=== PATIENT | female | born 1985 | race Caucasian/White ===

== ENCOUNTER 2020-01-01 17:54 | Emergency (ER) | payer OTHER, SELFPAY ==
[2020-01-01 17:54] VITALS: BP 137/85; PULSE 105; RESP 16; TEMP 36.2; O2SAT 96; BMI 34.2
[2020-01-01 18:12] VITALS: BP 137/85; PULSE 105; RESP 17; TEMP 36.2; O2SAT 96
--- NOTE | 2020-01-01 18:15 | RAD_ITS ---
STUDY: X-RAY CHEST REASON FOR EXAM: Female, 34 years old. MILD SOB, LIGHTHEADED., MUSCLE ACHES,FEVERS,DIAZ TECHNIQUE: Frontal view of the chest COMPARISON: None. FINDINGS: Examination is mildly technically suboptimal due to increased image noise and patient''s large body habitus. The lungs are clear and expanded. There is no demonstrated pleural abnormality. Normal size heart. Normal mediastinum and murphy. Normal visualized pulmonary arteries. Normal visualized aortic arch and descending thoracic aorta. Normal visualized thoracic spine. Normal visualized ribs, clavicles, and shoulders. There is no demonstrated abnormality of the visualized soft tissue structures of the upper abdomen. RAD/Chest 1 View (Portable) IMPRESSION: Mildly technically limited negative chest radiograph. Electronically Signed: Ajay Thomas, at 19:00 EDT Tel , Service support ,
--- NOTE | 2020-01-01 18:16 | ED.DCSUM_ITS ---
History of Present Illness Chief Complaint: Fever Informant: Patient Onset: Days - 3 Context: Gradual Onset Timing: Waxes and wanes Quality: 103 Current Severity: Gone Maximum Severity: Severe Worsened by: - - Nothing Relieved by: Tylenol Associated Symptoms: Nasal Congestion, Headache, Nausea, Vomiting, Shortness of Breath, Nonproductive cough. Negative for: Hemoptysis Narrative: Healthy 34-year-old started having headaches 4 days ago, followed by fevers up to 103, chills, malaise, myalgias, minor nonproductive cough, mild congestion, and mild dyspnea with exertion. She states she is not out of breath but a little difficult to breathe. 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 No one that she knows of with COVID-19, nor has she had it yet, however the school season just started, she had a virtual visit with a [facility] nurse practitioner, who advised that she come to the ER and get tested for COVID. She does not have asthma. She had a couple bouts of vomiting couple days ago. No diarrhea. Normal bowel movements with no blood or bleeding from anywhere. Past Medical History - Allergies and Home Meds Allergies/Adverse Reactions: Allergies No Known Allergies Allergy (Verified 01/01/20 17:54) Primary Care Physician: Del Hubbard DO [Primary Care Provider] - Past Medical History: None Smoking Status: Current some day smoker Review of Systems General: Reports: Chills, Fever, Malaise, Sweats, - - Lightheadedness Eyes: Denies: Visual changes - bilaterally, Diplopia ENT: Reports: - - Mild nasal congestion. Denies: Bilateral ear pain, Rhinorrhea, Sore throat Cardiovascular: Denies: Chest pain, Palpitations Respiratory: Reports: Dyspnea, Cough, Dyspnea on exertion. Denies: Sputum, Orthopnea Gastrointestinal: Reports: Nausea - Not currently, Vomiting. Denies: Abdominal pain, Diarrhea, Melena, Hematochezia Genitourinary: Reports: Frequency. Denies: Dysuria, Hematuria Musculoskeletal: Reports: Myalgias. Denies: Neck pain, Back pain, Swelling Skin: Denies: Rash, Wounds Neurological: Reports: Headache. Denies: Weakness, Numbness Physical Exam Vital Signs/Narrative: Vital Signs Temp Pulse Resp BP Pulse Ox 01/01/20 18:12 97.2 F L 105 H 17 137/85 H 96 01/01/20 17:54 97.2 F L 105 H 16 137/85 H 96 Inital Vital Signs reviewed: Yes General: Well nourished, Well developed, - - Well-appearing, no acute distress. Conversive in full sentences. Head: Normocephalic, Atraumatic. Negative for: Sinus Tenderness Eyes: Perrl, EOMI Nose: Normal Inspection, No Rhinorrhea. Negative for: Purulent Drainage Neck: Supple, Nontender, No Lymphadenopathy, No Meningismus Cardiovascular: Regular rate, Regular rhythm, No murmurs, Normal S1, Normal S2, Tachycardia - Mild Respiratory: No distress, CTA bilaterally, Chest nontender Abdomen: Soft, Nontender, Nondistended, Normal bowel sounds Back: Nontender, Normal Inspection Extremities: Nontender, No edema Skin: Normal color, No rash, No Trauma Neurological: Alert, Oriented x3, Cranial nerves II-XII grossly intact, Normal Strength, Normal Sensation, Normal Gait Psychological: Normal affect, Normal Mood Diagnostic/Tx/Re-eval Impressions Chest X-Ray 01/01/20 18:15 IMPRESSION: Mildly technically limited negative chest radiograph. Electronically Signed: Ajay Thomas, at 19:00 EDT Tel , Service support , 01/01/20 18:15 Chest 1 View (Portable) [RAD] Stat Laboratory Results 01/01/20 18:20 Urine Color Yellow Urine Clarity Sl. Cloudy Urine pH 6.0 Ur Specific [place] 1.025 Urine Protein 15 H Urine Glucose (UA) Normal Urine Ketones Negative Urine Occult Blood 25 H Urine Nitrite Negative Urine Bilirubin Negative Urine Urobilinogen Normal Ur Leukocyte Esterase 100 H Urine RBC 0-5 SEEN Urine WBC 0-5 SEEN Ur Squamous Epith Cells 5-10 SEEN Urine Bacteria 2+ Urine Mucus 0 SEEN - Medical Decision Making X-ray and urinalysis unremarkable. I do not think this urinalysis represents acute infection. She is reassured with regards to her vital signs and able to be safely discharged home. We sent a COVID-19 swab to be sent out of house to be tested. She does not meet criteria for in-house testing emergently. She was given appropriate quarantine instructions to abide by until the test results return and work note. She was prescribed an albuterol inhaler to use as needed for dyspnea, I do not think she needs work-up for pulmonary embolus or other noninfectious pathology, she likely has a viral infection of some sort. Discussed reasons to return. Do not see any indication at this time for antibiotics. ED Disposition - Plan for ED Patient: Disposition: Home or Assisted Living Diagnosis: Viral syndrome Instructions: ED Upper Resp Infec No Abx Tx Prescriptions: Albuterol Inhaler [Ventolin Hfa] 1 - 2 puff INHALATION Q4H PRN PRN #1 inhaler PRN Reason: Wheezing Prescription Printed Referrals: Del Hubbard DO [Primary Care Provider] - 1 Week if not improving Additional Instructions: See attached quarantine instructions and to obtain access to patient portal to check on your COVID-19 swab results.
[2020-01-01 18:25] LABS: Mucous, Urine 0 SEEN /hpf (<or=2+)
[2020-01-01 18:45] LABS: Color, Urine Yellow (Yellow); Glucose, Dipstick Normal (Normal); Ketone-Dipstick Negative (Negative); Leukocyte Esterase-Dipstick 100 /ul (Negative); Nitrite-Dipstick Negative (Negative); Occult Blood-Urine 25 /ul (Negative); Protein-Dipstick 15 mg/dl (Negative); Specific Gravity, Urine 1.025 (1.002-1.030); Urine Bilirubin Dipstick Negative (Negative); Urine Clarity Sl. Cloudy (Clear); Urine Urobilinogen Normal (Normal)
[2020-01-01 18:51] LABS: Bacteria 2+ /hpf (None Seen); Red Blood Cells-Urine 0-5 SEEN /hpf (0-5); Squamous Epithelial Cells - UA 5-10 SEEN /hpf (5-10); White Blood Cells 0-5 SEEN /hpf (0-5)
[2020-01-01 19:24] VITALS: BP 137/85; PULSE 100; RESP 18; O2SAT 98
== END 2020-01-01 19:25 | disposition home or self-care (01) ==
PROVIDERS: Emergency Provider Emergency Medicine; PCP Student in an Organized Health Care Education/Training Program
DX: B34.9 Viral infection, unspecified (principal); F17.200 Nicotine dependence, unspecified, uncomplicated
CPT/HCPCS: 71045; 81001; 87635; 99282; C9803; U0003

== ENCOUNTER → 2022-06-25 | Outpatient (CLI) | payer MEDICAID, SELFPAY ==
--- NOTE | 2022-06-25 08:01 | US_ITS ---
STUDY: ULTRASOUND OF THE FEMALE PELVIS - COMPLETE REASON FOR EXAM: Female, 36 years old. AUB LMP: Unknown TECHNIQUE: Transabdominal and Transvaginal TECHNICAL QUALITY: Adequate. COMPARISON: None. FINDINGS: The uterus is anteverted and is in a midline position. The uterus measures 8.9 x 6.4 x 5.2 cm. Normal uterine cervix. The endometrium measures 8.3 mm in thickness, and is normal. There is no demonstrated endometrial mass. 2 hypodense exophytic myometrial lesions measuring 1.6 x 1.5 x 1.3 cm and 1.5 x 1.8 x 1.4 cm. I.U.D. - The patient does not have an I.U.D. echogenic/calcific lesions of the cervix measuring 0.8 x 0.8 x 0.8 cm. The right ovary is visualized. The right ovary measures 3.5 x 3.1 x 1.6 cm. There is no right ovarian cyst or ovarian mass. There is no visualized right adnexal mass or complex lesion. There is normal arterial and normal venous vascularity. The left ovary is visualized. The left ovary measures 2.7 x 2 x 2.1 cm. There is no left ovarian cyst or ovarian mass. There is no visualized left adnexal mass or complex lesion. There is normal arterial and normal venous vascularity. There is no fluid in the cul-de-sac. Polycystic ovary disease: No. US/Pelvic (Non ) IMPRESSION: Leiomyomatous uterus. Electronically Signed: Negro Engel MD at 18:08 EST ,
== END | disposition home or self-care (01) ==
LOC: US 07:57
PROVIDERS: PCP Student in an Organized Health Care Education/Training Program; Referring Provider Obstetrics & Gynecology; Visit Provider Obstetrics & Gynecology
DX: D25.9 Leiomyoma of uterus, unspecified (principal); N93.9 Abnormal uterine and vaginal bleeding, unspecified
CPT/HCPCS: 76830; 76856

== ENCOUNTER → 2022-11-11 | Outpatient (CLI) | payer MEDICAID, SELFPAY | END | disposition home or self-care (01) | PROVIDERS: PCP Student in an Organized Health Care Education/Training Program; Referring Provider Nurse Practitioner Women's Health; Visit Provider Nurse Practitioner Women's Health | DX: N89.8 Other specified noninflammatory disorders of vagina (principal) | CPT/HCPCS: 87070; 87205 ==

== ENCOUNTER → 2022-11-18 | Outpatient (CLI) | payer MEDICAID, SELFPAY ==
[2022-11-18 17:15] LABS: hCG Titer Quant., Serum < 1 mIU/mL (1-3)
[2022-11-18 17:24] LABS: Follicle Stimulating Hormone 5.7 mIU/mL; T4 Free Direct 0.89 ng/dL (0.76-1.46)
== END | disposition home or self-care (01) ==
LOC: LAB 15:51
PROVIDERS: PCP Student in an Organized Health Care Education/Training Program; Referring Provider Nurse Practitioner Women's Health; Visit Provider Nurse Practitioner Women's Health
DX: N91.2 Amenorrhea, unspecified (principal); Z13.29 Encounter for screening for other suspected endocrine disorder
CPT/HCPCS: 36415; 83001; 84146; 84439; 84443; 84702

== ENCOUNTER → 2023-11-23 | Outpatient (CLI) | payer OTHER, SELFPAY ==
--- NOTE | 2023-11-23 16:21 | US_ITS ---
STUDY: ULTRASOUND OF THE FEMALE PELVIS - COMPLETE REASON FOR EXAM: Female, 38 years old. IUD check LMP: Unknown. TECHNIQUE: Transabdominal and Transvaginal TECHNICAL QUALITY: Adequate. COMPARISON: Comparison is made with prior study June 25, 2022. FINDINGS: The uterus is anteverted and is in a midline position. The uterus measures 9.5 cm x 7.5 cm x 5 cm. There is a Nabothian cyst of the cervix. The endometrium measures 8 mm in thickness, and is hyperechoic. There is no demonstrated endometrial mass. 2 fibroids are seen. The largest measures 1.6 cm x 1.7 cm x 1.3 cm. I.U.D. - The patient does have an I.U.D. The right ovary is visualized. The right ovary measures 7.4 cm x 6 cm x 4.9 cm. Within it, there are 2 cysts. The largest cyst measures 5.9 cm x 5.3 cm x 3.8 cm. There is no visualized right adnexal mass or complex lesion. There is normal arterial and normal venous vascularity. The left ovary is visualized. The left ovary measures 3.6 cm x 1.7 x 2 cm. A dominant follicle is seen within the measurement 0.7 cm x 1.3 cm x 1.1 cm. There is no visualized left adnexal mass or complex lesion. There is normal arterial and normal venous vascularity. There is minimal fluid in the cul-de-sac. The pre void volume of the bladder was 88 ml. US/Pelvic w/ Transvaginal IMPRESSION: Fibroid uterus as described. IUD is seen within the endometrium. 2 simple cysts are seen in the right ovary. The larger measures 5.9 cm x 5.3 cm x 3.8 cm. Follow-up is recommended. Electronically Signed: Glen Chan MD at 14:17 EDT ,
== END | disposition home or self-care (01) ==
LOC: US 16:21
PROVIDERS: PCP Student in an Organized Health Care Education/Training Program; Referring Provider Nurse Practitioner Women's Health; Visit Provider Nurse Practitioner Women's Health
DX: N92.0 Excessive and frequent menstruation with regular cycle (principal); Z30.431 Encounter for routine checking of intrauterine contraceptive device
CPT/HCPCS: 76830; 76856

== ENCOUNTER → 2024-09-26 | Outpatient (CLI) | payer OTHER, SELFPAY ==
--- NOTE | 2024-09-26 16:14 | US_ITS ---
PROCEDURE: PELVIC W/ TRANSVAGINAL 09/26/2024 REASON FOR EXAM: OVARIAN CYST TECHNIQUE: Transabdominal and transvaginal pelvic ultrasound. Color doppler analysis of the ovaries. COMPARISON: Pelvic ultrasound on 11/23/2023. FINDINGS: Measurements: Uterus: 9.0 x 4.4 x 6.7 cm for volume of 139.1 mL Endometrial Thickness: 0.5 cm Right Ovary: 2.8 x 1.6 x 1.8 cm for volume of 4.3 mL Left Ovary: 5.4 x 5.0 x 4.0 cm for volume of 56.1 mL Uterus: Anteverted. There is an exophytic heterogeneous lesion arising from the anterior uterus measuring 1.3 x 1.5 x 1.5 cm. Additionally there is a heterogeneous myometrial lesion measuring 1.4 x 1.5 x 1.7 cm. Endometrium: Normal echotexture. Intrauterine device appears appropriately positioned with tip near the fundal end of the endometrium. Right ovary: Normal size and echotexture. Left ovary: Cystic lesion measuring 4.7 x 3.3 x 3.3 cm in aggregate, with thin septations and no internal solid components identified. A smaller cystic component internally measures 1.8 x 1.4 x 1.7 cm. Cul-de-sac: No free intraperitoneal fluid identified. DOPPLER: Color Doppler: Normal color flow doppler signal at both ovaries. Spectral Doppler: Normal arterial inflow and venous outflow signal at both ovaries. US/Pelvic w/ Transvaginal IMPRESSION: 1. Cystic left ovarian lesion measuring up to 4.7 cm, which may represent elba ral unilocular simple cysts, or less likely a multilocular cyst. Consider follow-up ultrasound in 6-12 months. 2. Unchanged leiomyomas. 3. Appropriate positioning of the intrauterine device. Reading Location: [id number]
== END | disposition home or self-care (01) ==
LOC: US 16:13
PROVIDERS: PCP Student in an Organized Health Care Education/Training Program; Referring Provider Nurse Practitioner Women's Health; Visit Provider Nurse Practitioner Women's Health
DX: R10.2 Pelvic and perineal pain (principal); N83.209 Unspecified ovarian cyst, unspecified side
CPT/HCPCS: 76830; 76856

== ENCOUNTER 2025-01-03 20:22 | Inpatient (IN) | payer OTHER, SELFPAY ==
[2025-01-03 20:22] VITALS: BP 121/80; PULSE 87; RESP 16; TEMP 36.4; O2SAT 99
[2025-01-03 21:31] LABS: Red Blood Cells-Urine 0 SEEN /hpf (0-5)
[2025-01-03 21:34] LABS: Hematocrit 39.0 % (37-47); Hemoglobin 13.7 g/dL (12.0-15.0); Immature Granulocytes Count 0.240 X10^3/uL (0.0-0.0); Mean Corp Hgb Conc 35.1 g/dL (32-36); Mean Corpuscular Volume 88.0 fL (81-99); Mean Platelet Vol. 8.6 fl (6.2-12.0); NRBC Flagged by Analyzer 0 % (0-5); POSITIVE DIFFERENTIAL YES; POSITIVE MORPHOLOGY YES; Platelet Count 366 K/mm3 (150-450); RBC Distribution Width CV 13.2 % (11.6-14.6); RBC Distribution Width SD 41.4 fl (35.1-43.9); Red Blood Count 4.43 M/mm3 (4.2-5.4); White Blood Count 23.2 K/mm3 (4.4-11.0)
[2025-01-03 21:35] LABS: Color, Urine Yellow (Yellow); Glucose, Dipstick Normal (Normal); Ketone-Dipstick 5 mg/dl (Negative); Leukocyte Esterase-Dipstick 500 /ul (Negative); Nitrite-Dipstick Negative (Negative); Occult Blood-Urine 10 /ul (Negative); Protein-Dipstick 100 mg/dl (Negative); Specific Gravity, Urine 1.030 (1.002-1.030)
[2025-01-03 21:56] LABS: Urine Bilirubin Dipstick 1 mg/dL (Negative)
[2025-01-03 22:03] LABS: Anion Gap 12 (5-15); BUN 13 mg/dL (4-19); BUN/Creat Ratio 19.4 RATIO (10-20); Calcium,Total 9.1 mg/dL (7.6-11.0); Carbon Dioxide 22.3 mmol/L (21.0-32.0); Chloride 108 mmol/L (98-108); Glucose 113 mg/dL (70-99); Potassium 2.9 mmol/L (3.3-5.1)
--- NOTE | 2025-01-03 22:15 | ED.VIS.BACK ---
HPI History of Present Illness Chief Complaint: Back Detail of Chief Complaint: Back pain Informant: patient Narrative Narrative: Patient presents with back pain x 3 weeks. She had an MRI of her back 8 days ago that showed possible recurrence of herniated disc at L4-5. Patient was seen by her back surgeon who did microdiscectomy in August. She was referred for injections to her back which were done yesterday by a [facility] provider. She had some mild relief for a few hours but then the pain came back. She continues complain of severe pain in her back. She complains of difficulty sensing when she needs to urinate but has not lost control of bowel or bladder. She complains of pain with standing and difficulty walking secondary to pain. She is scheduled to see Dr. Pernell vail for a second opinion about possible repeat surgery. The initial MRI that was done 8 days ago was read by radiology and they recommended obtaining a repeat MRI with IV contrast as it was difficult to assess if there was scar tissue causing the mild impingement of the L5 nerve root on the right versus recurrent disc herniation. PFSH PFSH Home Medications ?Medication ?Instructions ?Recorded ?Last Taken ?Type albuterol sulfate 90 mcg/actuation 1 - 2 puff inhalation Q4H PRN PRN 01/01/20 Unknown Rx aerosol inhaler Wheezing ##1 levonorgestrel (Mirena) 1 device intrauterine ONCE 11/10/23 Unknown History tirzepatide (weight loss) 2.5 2.5 mg subcut QWEEK 11/10/23 Unknown History mg/0.5 mL subcutaneous pen injector estradiol 1 mg tablet 1 mg PO DAILY #30 TABLETS 12/14/23 Unknown Rx Allergy/AdvReac Type Severity Reaction Status Date / Time No Known Allergies Allergy Verified 01/03/25 20:23 Surgical History Status post breast reduction Social History adopted: No household members: spouse and children housing: apartment number of children: 1 current occupational status: employed 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 Smoking Status: Former smoker alcohol intake: current alcohol intake frequency: holidays/special occasions only substance use type: does not use seatbelt use: always do you feel safe at home: Yes additional social history: [employer]- [employer] ROS ROS ED Review of Systems ROS Unobtainable: other Constitutional Constitutional ED: Reports lethargy; Denies chills, fever(s), sweats or weight loss Eyes Eyes: Denies blurry vision, change in vision or diplopia ENT ENT ED: Denies rhinorrhea or sore throat Cardiovascular Cardiovascular: Denies chest pain, orthopnea or racing heartbeat Respiratory/Chest Respiratory/Chest: Denies cough, dyspnea, dyspnea on exertion, orthopnea or sputum Gastrointestinal Gastrointestinal: Denies abdominal pain, diarrhea, nausea or vomiting Genitourinary Genitourinary ED: Denies dysuria, hematuria or urinary frequency Musculoskeletal Musculoskeletal: Reports back pain; Denies arthralgias, myalgias or neck pain Integumentary Denies abscess, Abrasions or rash Neurologic Neurologic: Denies headache(s) or weakness Psychiatric Psychiatric: Denies anxiety, depression or suicidal thoughts Endocrine Endocrinology: Denies polydipsia, polyphagia or polyuria Hematologic/Lymphatic Hematologic/Lymphatic: Denies easy bleeding, easy bruising or lymphadenopathy Allergic/Immunologic Allergic/Immunologic ED: Denies mouth swelling, tongue swelling or urticaria EXAM Physical Exam Const Vital Signs: 01/03/25 20:22 Temperature 97.5 F L Temperature Source Temporal Pulse Rate 87 Respiratory Rate 16 Blood Pressure 121/80 H Blood Pressure Mean 93 Pulse Ox 99 Oxygen Delivery Method Room Air Positive well nourished and well developed General Appearance ED: well developed and NAD HEENT Reports TM's clear and moist mucous membranes normocephalic and atraumatic; Negative for trauma or tenderness Tympanic Membrane ED: Yes TM's clear Eyes PERRL and EOMs intact bilaterally General Eye ED: Negative for pale conjunctiva or scleral icterus Neck no lymphadenopathy, supple and no JVD General: Negative for tenderness Chest Wall inspection of chest normal and palpation of chest normal Chest: Negative for tenderness Resp normal respiratory effort and clear to auscultation bilaterally Effort and Inspection: Negative for respiratory distress or pain with movement Auscultation: Negative for rhonchi, wheezes or diminished lung sounds Cardio regular rate, regular rhythm, S1 normal heart sound, S2 normal heart sound and no murmurs Peripheral Pulses: pulses 2+ throughout GI normal to inspection, nondistended, normoactive bowel sounds, soft to palpation, non-tender, non-distended and no masses Back/Spine no CVA tenderness and no thoracic nor lumbar tenderness Back/Spine Narrative: No significant tenderness with palpation of the back. She does have positive straight leg raise on the right at about 30 degrees while supine. Deep tendon reflexes are plus 2 out of 4 bilaterally at the patella and Achilles. Patient has some weakness with L5 extension on the right compared to the left. Normal sensation to light touch to both lower extremities. Extremity normal to inspection General Extremety ED: Negative for edema General Extremity: Negative for edema Neuro oriented x3, CN's II-XII intact bilaterally, no sensory deficits noted and gait normal Sensorium / Orientation: awake, alert, oriented to person, oriented to place and oriented to time Motor Exam: strength 5/5 throughout and strength abnormal Psych mental status grossly normal Skin no rashes or lesions noted and no wounds MDM MDM MDM Narrative Medical decision making narrative: Patient with ongoing back pain for 3 weeks. Scheduled to follow-up locally with Dr. Gimenez. Had spinal injection yesterday. Continues to complain of significant pain. Patient had an IV line established and was medicated with Dilaudid as well as Toradol and she had good pain relief with that. Continues to complain of discomfort though radiating to the right leg. Chemistries obtained were unremarkable other than a slightly depressed potassium of 2.9 for which I did order 40 mEq of potassium chloride p.o. CBC with differential and urinalysis ordered and pending. I did discuss case with Dr. Gimenez who is on for orthopedics. He would be happy to see patient in consultation while admission for pain control to the hospital. Patient will likely require MRI imaging with IV contrast to evaluate further. I do not feel she has an acute cauda equina. Do not suspect infectious issue or complication due to spinal injection. Lab Data Attestation: I reviewed the patient's lab results. Labs: Laboratory Results - last 24 hr 01/03/25 01/03/25 21:25 21:26 WBC 23.2 H RBC 4.43 Hgb 13.7 Hct 39.0 MCV 88.0 MCH 30.9 MCHC 35.1 RDW Std Deviation 41.4 RDW Coeff of Sadiq 13.2 Plt Count 366 MPV 8.6 Immature Gran % (Auto) 1.000 H Neut % (Auto) 63.6 Lymph % (Auto) 28.7 [place] % (Auto) 5.7 Eos % (Auto) 0.7 Baso % (Auto) 0.3 Absolute Neuts (auto) 14.7 H Absolute Lymphs (auto) 6.66 H Nucleated RBC % 0 Sodium 142 Potassium 2.9 L Chloride 108 Carbon Dioxide 22.3 Anion Gap 12 BUN 13 Creatinine 0.68 L Est GFR (MDRD) Non-Af 114 BUN/Creatinine Ratio 19.4 Glucose 113 H Calcium 9.1 Urine Color Yellow Urine Clarity Cloudy Urine pH 5.0 Ur Specific [place] 1.030 Urine Protein 100 H Urine Glucose (UA) Normal Urine Ketones 5 H Urine Occult Blood 10 H Urine Nitrite Negative Urine Bilirubin 1 H Urine Urobilinogen 1 H Ur Leukocyte Esterase 500 H Urine RBC 0 SEEN Urine WBC >100 SEEN Ur Squamous Epith Cells 10-25 SEEN Calcium Oxalate Crystal RARE Urine Bacteria 2+ Urine Mucus 3+ Discharge Plan Dx/Rx/DC Orders Clinical Impression: Intractable back pain, Acute lumbar radiculopathy, UTI (urinary tract infection) Disposition Disposition: Acute Care Hospital [facility]
[2025-01-03 22:18] LABS: Calcium Oxalate Crystals Ur RARE /hpf (<or=2+); Mucous, Urine 3+ /hpf (<or=2+); Squamous Epithelial Cells - UA 10-25 SEEN /hpf (5-10)
[2025-01-03 22:20] LABS: Differential Indicated SCAN CRITERIA MET
[2025-01-03 22:22] VITALS: BP 128/80; PULSE 70; RESP 18; O2SAT 98
--- NOTE | 2025-01-03 22:23 | PCM.HP.STD ---
[facility] - General General Date of Admission: 01/03/25 Date of Service: 01/03/25 Chief Complaint: Back Pain with Difficulty Ambulating and Sensing Need to Urinate. HPI Narrative JUAN CHISHOLM, is a 39 F with a past medical history of obesity; on tirzepatide weekly, history of hyperlipidemia (2014), former tobacco abuse, history of breast reduction (2010), history of intramural fibroids, history of spinal scoliosis and history of back pain; s/p L4-L5 laminectomy and microdiscectomy on 09/05/2024 at [facility] by Dr. Jansen with initial improvement in her back pain who presents to [facility] ER complaining of an acute worsening of her back pain complicated by new difficulty ambulating and urinating. Ms. Chisholm reports her acute symptoms began ~3 weeks prior to admission with an acute worsening of her back pain causing her physician to obtain and MRI of the lumbar spine ~8 days ago that revealed possible recurrence of herniated disc at L4-L5 with need for another surgery with disc removal according to Dr. Jansen. She was then referred to pain management for injections at [facility] with patient stating that her pain improved for only ~2 hours before returning. She also admits to new difficulty sensing when she needs to urinate but she denies bowel or bladder incontinence. She states her pain is made worse with standing and walking and she has to crawl to the bathroom because the pain becomes so intense. She had already made an appointment here with Dr. Moeller for a second opinion about possible repeat surgery with radiologist that read her recent MRI recommending obtaining a repeat MRI with IV contrast as it was difficult to assess if there was scar tissue causing the mild impingement of the L5 nerve root on the Right vs. recurrent disc herniation. She admits to associated lethargy and back pain but she denies related fever, chills, changes in vision, discharge from eyes, runny nose, sore throat, ear pain, chest pain, palpitations, heart racing, lower extremity edema, shortness of breath, cough, abdominal pain, nausea, vomiting, diarrhea constipation, dysuria, hematuria, headache or rash. In the ER she was noted to have a UA positive for evidence of Acute Cystitis; without hematuria with a corresponding Leukocytosis of 23.2 K with Left-shift of 1% suspected to be due at least in part to recent steroid administration complicated by additional laboratory evidence of Hypokalemia of 2.9 mmol/L with otherwise unremarkable vital signs and laboratory studies with [id number] back pain and difficulty sensing when she needs to urinate in the setting of recent L4-L5 laminectomy and microdiscectomy with suspected recurrence of herniated disc at L4-L5 nerve. She was then admitted to the general medical floor for ongoing care for stay that is expected to extend beyond 2 midnights. [facility] Medical History (Updated 01/04/25 @ 00:36 by Ekaterina Patten) Herniated intervertebral disc Home Medications ?Medication ?Instructions ?Recorded ?Last Taken ?Type levonorgestrel (Mirena) 1 device intrauterine ONCE co 11/10/23 Unknown History tirzepatide (weight loss) 2.5 2.5 mg subcut QWEEK wt loss 11/10/23 Unknown History mg/0.5 mL subcutaneous pen injector gabapentin 800 mg tablet 800 mg PO TID pain 01/04/25 Unknown History Allergy/AdvReac Type Severity Reaction Status Date / Time No Known Allergies Allergy Verified 01/03/25 20:23 Surgical History Status post breast reduction Social History adopted: No household members: spouse and children housing: apartment number of children: 1 current occupational status: employed 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 Eyes: Patient denies changes in vision or discharge from eyes. ENT: Patient denies runny nose, sore throat or ear pain. Resp: Patient denies SOB or cough. CV: Patient denies chest pain, palpitations, heart racing or LE edema. GI: Patient denies abdominal pain, nausea, vomiting, diarrhea or constipation. : Patient admits to difficulty sensing when she needs to urinate but she denies dysuria or hematuria. MSK: Patient admits to back pain made worse with standing and movement as per HPI. Skin: Patient denies rash, abscess, wounds or jaundice. Psych: Patient denies symptoms of uncontrolled depression or anxiety. Neuro: Patient admits to difficulty ambulating attributed to back pain but she denies headache or focal neurologic weakness. Allergy: Patient denies lip swelling, tongue swelling or urticaria. Hematology: Patient denies easy bleeding or easy bruisability. Endocrinology: Patient denies polyuria, polydipsia, polyphagia or heat/cold intolerance. 14 point ROS otherwise negative except for positives noted above in HPI. Vital Signs Vital Signs Vital Signs: 01/03/25 20:22 Temperature 97.5 F L Temperature Source Temporal Pulse Rate 87 Respiratory Rate 16 Blood Pressure 121/80 H Blood Pressure Mean 93 Pulse Ox 99 Oxygen Delivery Method Room Air Physical Exam Const alert, oriented x3, no apparent distress, average body habitus and healthy appearing General Appearance: cooperative HEENT normocephalic, head/scalp atraumatic, hearing grossly normal bilaterally and moist oral mucous membranes Eyes PERRL, EOMs intact bilaterally and conjunctivae normal Neck no lymphadenopathy, supple and no JVD Resp normal respiratory effort, no retractions, no use of accessory muscles and clear to auscultation bilaterally Cardio regular rate and regular rhythm GI normal to inspection, nondistended, normoactive bowel sounds, soft to palpation, non-tender and non-distended Extremity normal to inspection, full ROM and no clubbing, cyanosis or edema Skin Skin Narrative: Patient has evidence of rash, abscess, wounds or jaundice. Neuro oriented x3, CN's II-XII intact bilaterally and moves all extremities Neuro Narrative: Patient has a positive straight leg raise test on the Right to about 30 degrees while supine with deep tendon reflexes +2/4 at patella and Achilles patient has weakness with L5 extension on the right compared to the left with normal sensation to light touch in both lower extremities with no signs of neurovascular compromise. Sensorium / Orientation: awake, alert, oriented to person, oriented to place and oriented to time Speech: speech normal Psych affect normal Results Medical Records Data Attestation: I reviewed the patient's medical records Lab / Micro Data Attestation: I reviewed the patient's lab results. 01/03/25 21:26 01/03/25 21:26 Labs: Laboratory Results - last 24 hr 01/03/25 21:25: Urine Color Yellow, Urine Clarity Cloudy, Urine pH 5.0, Ur Specific [place] 1.030, Urine Protein 100 H, Urine Glucose (UA) Normal, Urine Ketones 5 H, Urine Occult Blood 10 H, Urine Nitrite Negative, Urine Bilirubin 1 H, Urine Urobilinogen 1 H, Ur Leukocyte Esterase 500 H, Urine RBC 0 SEEN, Urine WBC >100 SEEN, Ur Squamous Epith Cells 10-25 SEEN, Calcium Oxalate Crystal RARE, Urine Bacteria 2+, Urine Mucus 3+ 01/03/25 21:26: WBC 23.2 H, RBC 4.43, Hgb 13.7, Hct 39.0, MCV 88.0, MCH 30.9, MCHC 35.1, RDW Std Deviation 41.4, RDW Coeff of Sadiq 13.2, Plt Count 366, MPV 8.6, Immature Gran % (Auto) 1.000 H, Neut % (Auto) 63.6, Lymph % (Auto) 28.7, [place] % (Auto) 5.7, Eos % (Auto) 0.7, Baso % (Auto) 0.3, Absolute Neuts (auto) 14.7 H, Absolute Lymphs (auto) 6.66 H, Nucleated RBC % 0, Sodium 142, Potassium 2.9 L, Chloride 108, Carbon Dioxide 22.3, Anion Gap 12, BUN 13, Creatinine 0.68 L, Est GFR (MDRD) Non-Af 114, BUN/Creatinine Ratio 19.4, Glucose 113 H, Calcium 9.1 Assessment & Plan Assessment/Plan (1) UTI (urinary tract infection): QUALIFIERS: Hematuria presence: without hematuria Urinary tract infection type: acute cystitis Qualified Code(s): N30.00 - Acute cystitis without hematuria (2) Intractable back pain: (3) History of lumbar laminectomy: (4) Hypokalemia: PLAN: Plan 1. UA positive for evidence of Acute Cystitis; without hematuria with a corresponding Leukocytosis of 23.2 K with Left-shift of 1% suspected to be due at least in part to recent steroid administration - Admit to general medical floor. Continue empiric IV ceftriaxone begun in the ER and await culture & sensitivity data. Give ketorolac IV prn for [id number] (level 1-5/10) pain or fever. Give hydromorphone IV prn for severe (level 6-10/10) pain. 2. History of back pain; s/p L4-L5 laminectomy and microdiscectomy on 09/05/2024 at [facility] with initial improvement in her back pain followed by recurrence of back pain causing her physician to obtain and MRI of the lumbar spine ~8 days ago that revealed possible recurrence of herniated disc at L4-L5 and she was then referred to pain management for injections at [facility] with patient stating that her pain improved for only ~2 hours before returning with new difficulty urinating and back pain made worse with standing and walking complicating #1 - Obtain MRI of the Lumbar Spine with IV contrast as per radiologist's recommendations. Finally, we will consult Dr. Moeller of ortho-spine to render second opinion in AM with help appreciated in advance. 3. Hypokalemia of 2.9 mmol/L compounding #1 & #2 - Give supplemental KCl and then recheck level in AM to confirm repletion. 4. Obesity; on tirzepatide weekly - Noted. Restart this agent as outpatient. 5. History of hyperlipidemia (2014) - Check Lipid Profile. 6. Former tobacco abuse - Noted. 7. History of breast reduction (2010) - Noted. 8. History of intramural fibroids - Stable. 9. History of spinal scoliosis - Noted. 10. DVT prophylaxis - Heparin 5,000U sq BID plus SCD's. Total time: Approximately (but not less than) 55 minutes. Charges/Coding Visit Charges Inpatient E&M: 06854 Init Hosp L2
[2025-01-03 22:39] LABS: Reactive Lymphocyte 1+; Smudge Cells 1+
[2025-01-03 22:44] VITALS: BP 128/80; PULSE 70; RESP 18; TEMP 37; O2SAT 98
--- OUTSIDE RECORDS SUMMARY | 2025-01-03 22:46 | XMS RPT_ITS | CCD ---
Author Organization [facility] Care Team Providers Care Acid Wash Operator Name Role Phone Required, No Pcp Unavailable Unavailable Monserrat Lindad True Unavailable Del Hubbard DO Primary Care Provider Del Hubbard DO Primary Care Provider Dr. Del Hubbard Primary Care Provider Dr. Del Hubbard Referring Provider Basilio NEGATIVE NOTCHER, NEGATIVE NOTCHER-C Manju Attending Provider RAFIQ Nuno Attending Provider Del Hubbard DO Primary Care Provider Del Hubbard DO Primary Care Provider Aaron TECHNICAL BUYER.Myrna HERRING Unavailable [facility] TECHNICAL BUYER.Deysi HERRING Unavailable FEI GONZÁLES Attending Unavailable DEL HUBBARD Primary Care Unavailable FEI GONZÁLES Admitting Unavailable FEI GONZÁLES Attending Unavailable DEL HUBBARD Primary Care Unavailable FEI GONZÁLES Admitting Unavailable MICHAEL PEREZ Attending Unavailable DEL HUBBARD Primary Care Unavailable Dr. Del Hubbard DO Primary Care Provider Basilio NEGATIVE NOTCHER-C, Manju Attending Provider Basilio NEGATIVE NOTCHER-C, Manju Referring Provider Del Hubbard Referring Unavailable Del Hubbard Primary Care Unavailable [place] NEGATIVE NOTCHERManju Attending Unavailable Del Hubbard Primary Care Unavailable Basilio NEGATIVE NOTCHER, Manju Referring Unavailable [place] NEGATIVE NOTCHER, Manju Attending Unavailable Hubbard, Del Primary Care Unavailable Basilio NEGATIVE NOTCHER, Manju Referring Unavailable Basilio NEGATIVE NOTCHER, Manju Attending Unavailable Dougie TECHNICAL BUYER.THERAPY AIDE, Brandy Pantoja Unavailable MYRNA WALKER Referring Unavailabl e HUBBARD, DEL L Primary Care Unavailable DEYSI DASILVA Attending Unavailable HUBBARD, DEL Josué Primary Care Unavailable SANDI JIMENEZ Attending Unavailable MRYNA WALKER Referring Unavailabl e HUBBARD, DEL L Primary Care Unavailable SANDI JIMENEZ Attending Unavailable HUBBARD, DEL Josué Primary Care Unavailable SANDI JIMENEZ Attending Unavailable HUBBARD, DEL Josué Primary Care Unavailable DEYSI DASILVA Attending Unavailable HUBBARD, DEL L Primary Care Unavailable FAB PIPER Referring Unavailable HUBBARD, DEL L Primary Care Unavailable BRANDY RUSSELL Attending Unavailable HUBBARD, DEL L Primary Care Unavailable BROCK DURAND Attending Unavailable HUBBARD, DEL Josué Primary Care Unavailable FAB PIPER Referring Unavailable HUBBARD, DEL Josué Primary Care Unavailable MYRNA WALKER Attending Unavailabl e HUBBARD, DEL L Primary Care Unavailable MYRNA WALKER Referring Unavailabl e HUBBARD, DEL L Primary Care Unavailable FAB PIPER Attending Unavailable SANDI JIMENEZ Referring Unavailable HUBBARD, DEL L Primary Care Unavailable HUBBARD, DEL L Primary Care Unavailable FAB PIPER Referring Unavailable HUBBARD, DEL L Primary Care Unavailable FAB PIPER Referring Unavailable HUBBARD, DEL L Primary Care Unavailable TWYLA GUZMAN Attending Unavailable HUBBARD, DEL L Primary Care Unavailable HUBBARD, DEL L Primary Care Unavailable FAB PIPER Attending Unavailable HUBBARD, DEL L Primary Care Unavailable FAB PIPER Attending Unavailable HUBBARD, DLE L Primary Care Unavailable FAB PIPER Admitting Unavailable FAB PIPER Attending Unavailable HUBBARD, DEL L Primary Care Unavailable Medications Current Medications Medication Drug Class(es) Dates Sig (Normalized) Sig (Original) acetaminophen 325 mg / oxyCODONE hydrochloride 5 mg oral tablet (14 sources) Opioid Agonist Start: 06-21-2021 End: 09-28-2024 oxyCODONE-acetam inophen (PERCOCET) 5-325 mg tablet Take by mouth every 6 hours as needed. 06/21/2021 Active Comment on above: Caution federal law prohibits the transfer of this drug to any person other than the person for whom it was prescribed.May cause drowsiness. Alcohol may intensify this effect. Use care when operating dangerous machinery.This prescription cannot be refilled.This product contains acetaminophen. Do not use with any other product containing acetaminophen to prevent possible liver damage.Using more of this medication than prescribed may cause serious breathing problems. [id number] 200 actuat albuterol 0.09 mg/actuat metered dose inhaler (2 sources) beta2-Adrenergic Agonist Start: 01-01-2020 Albuterol Sulfate 1 INHALER inhaler Active 1 - 2 NMA INHALATION EVERY 4 HOURS NEEDED as needed for Wheezing January 01, 2020 12:00am Start: 01-01-2020 take 1 puff(s) by in halation every four hours as needed Albuterol Sulfate Active 1 - 2 PUFF INHALATION EVERY 4 HOURS NEEDED December 31, 2019 11:00pm amoxicillin 875 mg / clavulanate 125 mg oral tablet (1 source) Penicillin-class Antibacterial Start: 12-11-2021 End: 12-16-2021 take 1 tablet by mouth twice daily amoxicillin-clavulanic acid (AUGMENTIN) 875-125 mg per tablet Take 1 tablet by mouth twice daily for 5 days. 10 tablet 0 12/11/2021 12/16/2021 Active Comment on above: Take 1 tablet by [facility] twice daily for 5 days. clindamycin 300 mg oral capsule (4 sources) Lincosamide Antibacterial Start: 12-24-2021 End: 08-31-2022 take 1 capsule by mouth three times daily clindamycin (CLEOCIN) 300 mg capsule take 1 capsule by mouth three times a day until finished 0 12/24/2021 08/31/2022 Discontinued (Course of therapy completed) Comment on above: take 1 capsule by mo [facility] three times a day until finished estradiol 1 mg oral tablet (18 sources) Estrogen Start: 11-10-2023 End: 12-14-2023 take 1 tablet by mouth once daily Estradiol 1 mg tablet Active 1 mg PO DAILY December 14, 2023 8:31am fluconazole 150 mg oral tablet (1 source) Azole Antifungal Start: 12-11-2021 End: 12-11-2021 fluconazole (DIFLUCAN) 150 mg tablet Indications: Dental abscess Take 1 tablet by mouth one time only for 1 dose. Repeat in 3 days as needed. 2 tablet 0 12/11/2021 12/11/2021 Active Comment on above: Take 1 tablet by imelda one time only for 1 dose. Repeat in 3 days as needed. levonorgestrel 0.308982 mg/hr intrauterine system (14 sources) Progestin, Progestin-containin g Intrauterine Device Start: 11-10-2023 levonorgestrel (MIRENA) 21 mcg/24hr (up to 8 yrs) 52 mg IUD 1 each by INTRAUTERINE route one time only. 11/10/2023 Active Start: 11-10-2023 Levonorgestrel (Mirena) 21 mcg/24 hr (8 yrs) 52 mg intrauterine device Active 1 NMA INTRA-UTER ONCE November 10, 2023 12:00am as a single dose methocarbamol 750 mg oral tablet (20 sources) Muscle Relaxant Start: 09-05-2024 End: 10-05-2024 take 1 tablet by mouth every eight hours as needed methocarbamol (ROBAXIN) 750 mg tablet Take 1 tablet by mouth three times a day as needed. 90 tablet 10/02/2024 Active Start: 04-06-2024 End: 09-21-2024 take 1 tablet by mouth four times daily as needed methocarbamol (ROBAXIN) 500 mg tablet Indications: Acute bilateral low back pain with right-sided sciatica , Numbness in both legs , Gait instability , Physical debility , Sciatica, right side Take 1 tablet by mouth four times a day as needed. 40 tablet 04/06/2024 07/12/2024 Discontinued (Course of therapy completed) methylPREDNISolone (10 sources) Corticosteroid Start: 12-28-2024 End: 01-03-2025 methylPREDNISolone (MEDROL, JULIAN,) 4 mg Dose-Pack Take as directed per package 21 tablet 12/28/2024 01/03/2025 Active Start: 12-21-2024 End: 12-27-2024 methylPREDNISolone (MEDROL, JULIAN,) 4 mg Dose-Pack Take as directed per package 21 tablet 12/21/2024 12/27/2024 Active metroNIDAZOLE 500 mg oral tablet (1 source) Nitroimidazole Antimicrobial Start: 08-31-2022 End: 05-15-2023 take 1 tablet by mouth twice daily metroNIDAZOLE (FLAGYL) 500 mg tablet Take 1 tablet by mouth twice daily for 7 days. 14 tablet 0 08/31/2022 09/07/2022 Active Comment on above: Take 1 tablet by imelda twice daily for 7 days. ondansetron 4 mg oral tablet (1 source) Serotonin-3 Receptor Antagonist Start: 06-21-2021 take 1 tablet by mouth every eight hours Zofran 4 mg oral tablet ; 1 tab(s) orally prn every 8 hours -for nausea and vomiting Quantity: 20 Refills: 0 Ordered: 20-Jun-2021 Marybeth Linda Start: 20-Jun-2021 Generic Substitution Allowed Tirzepatide (Weight Loss) (1 source) Start: 11-10-2023 Tirzepatide (Weight Loss) 2.5 mg/0.5 mL pen injector Active 2.5 mg SC EVERY WEEK November 10, 2023 12:00am TIRZEPATIDE SUBCUTANEOUS (20 sources) TIRZEPATIDE SUBCUTANEOUS Inject 7.5 Ampules subcutaneously one time a week. Active traMADol hydrochloride 50 mg oral tablet (20 sources) Opioid Agonist Start: 08-31-2024 End: 09-07-2024 take 1 tablet by mouth every six hours as needed for pain traMADol (ULTRAM) 50 mg tablet Indications: Intervertebral disc disorder with radiculopathy of lumbar region , Acute bilateral low back pain with right-sided sciatica , Acute midline low back pain without sciatica Take 1 tablet by mouth every 6 hours as needed for pain for up to 7 days. 28 tablet 08/31/2024 09/07/2024 Active Start: 08-10-2024 End: 08-17-2024 take 1 tablet by mouth every six hours as needed for pain traMADol (ULTRAM) 50 mg tablet Indications: Intervertebral disc disorder with radiculopathy of lumbar region , Acute bilateral low back pain with right-sided sciatica , Acute midline low back pain without sciatica Take 1 tablet by mouth every 6 hours as needed for pain for up to 7 days. 28 tablet 08/10/2024 08/17/2024 Active Start: 06-22-2024 End: 06-27-2024 take 1 tablet by mouth every eight hours as needed for pain traMADol (ULTRAM) 50 mg tablet Indications: Intervertebral disc disorder with radiculopathy of lumbar region , Acute bilateral low back pain with right-sided sciatica , Acute midline low back pain without sciatica Take 1 tablet by mouth every 8 hours as needed for pain for up to 5 days. 16 tablet 06/22/2024 06/27/2024 Active Start: 03-16-2024 End: 03-23-2024 take 1 tablet by mouth every eight hours as needed for pain traMADol (ULTRAM) 50 mg tablet Indications: Acute bilateral low back pain with right-sided sciatica , Numbness in both legs , Gait instability , Physical debility Take 1 tablet by mouth every 8 hours as needed for pain for up to 7 days. 20 tablet 03/16/2024 03/23/2024 Active Start: 07-02-2021 End: 07-09-2021 take 1 tablet by mouth twice daily as needed for pain traMADol (ULTRAM) 50 mg tablet Indications: Acute midline low back pain without sciatica Take 1 tablet by mouth twice daily as needed for pain for up to 7 days. 14 tablet 07/02/2021 07/09/2021 End: 08-28-2024 tramadol HCl (TRAMADOL ORAL) Take by mouth. 08/28/2024 Discontinued tramadol HCl (TR AMADOL ORAL) Take by mouth. Active Completed/Discontinued Medications Medication Drug Class(es) Dates Sig (Normalized) Sig (Original) cyclobenzaprine hydrochloride 10 mg oral tablet (10 sources) Muscle Relaxant Start: 03-16-2024 End: 04-15-2024 take 1 tablet by mouth three times daily as needed for muscle spasms cyclobenzaprine (FLEXERIL) 10 mg tablet Indications: Acute bilateral low back pain with right-sided sciatica , Numbness in both legs , Gait instability , Physical debility Take 1 tablet by mouth three times a day as needed for muscle spasm. 90 tablet 03/16/2024 04/06/2024 Discontinued Start: 07-02-2021 End: 08-01-2021 take 1 tablet by mouth three times daily as needed for muscle spasms cyclobenzaprine (FLEXERIL) 10 mg tablet Indications: Acute midline low back pain without sciatica Take 1 tablet by mouth three times daily as needed for muscle spasm. 60 tablet 07/02/2021 08/01/2021 Start: 06-21-2021 take 1 tablet by imelda th three times daily cyclobenzaprine 10 mg oral tablet ; 1 tab(s) orally 3 times a day Quantity: 30 Refills: 0 Ordered: 20-Jun-2021 Marybeth Linda Start: 20-Jun-2021 Generic Substitution Allowed Comments: May cause drowsiness. Alcohol may intensify this effect. Use care when operating dangerous machinery.Obtain medical advice before taking any non-prescription drugs as some may affect the action of this medication. End: 06-22-2024 take 1 tablet by mouth three times daily cyclobenzaprine (FLEXERIL) 5 mg tablet Take 5 mg by mouth three times a day. 06/22/2024 Discontinued (Course of therapy completed) Comment on above: May cause drowsiness . Alcohol may intensify this effect. Use care when operating dangerous machinery.Obtain medical advice before taking any non-prescription drugs as some may affect the action of this medication. 1 ml dexamethasone phosphate 10 mg/ml injection (4 sources) Corticosteroid Start: 01-02-2025 End: 01-02-2025 dexAMETHasone sodium phosphate 10 mg injection (DECADRON) Start: 01-02-2025 End: 01-02-2025 10 mg, OTHER, ONCE, 1 dose, On Wed01/02/25 at 1400, Administer IV doses up to 10 mg over 5 minutes. Administer doses > 10 mg over 15 to 30 minutes. Start: 05-31-2022 End: 11-10-2023 take 1 tablet by mouth once daily Dexamethasone 6 mg tablet Discontinued 6 mg PO DAILY May 31, 2022 1:00am November 10, 2023 3:05pm gabapentin 800 mg oral tablet (20 sources) Anti-epileptic Agent Start: 07-13-2024 End: 10-09-2024 take 1 tablet by mouth three times daily gabapentin (NEURONTIN) 800 mg tablet Indications: Intervertebral disc disorder with radiculopathy of lumbar region , Acute bilateral low back pain with right-sided sciatica , Acute midline low back pain without sciatica Take 1 tablet by mouth three times a day for 60 days. 90 tablet 1 08/10/2024 09/21/2024 Discontinued Start: 04-27-2024 End: 07-26-2024 take 1 tablet by mouth three times daily gabapentin (NEURONTIN) 600 mg tablet Indications: Acute bilateral low back pain with right-sided sciatica , Intervertebral disc disorder with radiculopathy of lumbar region Take 1 tablet by mouth three times a day for 90 days. 90 tablet 2 04/27/2024 07/26/2024 Active Start: 04-06-2024 End: 05-06-2024 take 1 capsule by mouth three times daily gabapentin (NEURONTIN) 300 mg capsule Indications: Acute bilateral low back pain with right-sided sciatica , Numbness in both legs , Gait instability , Physical debility , Sciatica, right side Take 1 capsule by mouth three times a day for 30 days. 90 capsule 04/06/2024 04/27/2024 Discontinued (Changing Therapy/Dosage Form) ibuprofen 800 mg oral tablet (4 sources) Nonsteroidal Anti-inflammatory Drug Start: 06-21-2021 take 1 tablet by mouth every eight hours as needed ibuprofen 800 mg oral tablet ; 1 tab(s) orally every 8 hours, As Needed -for pain Quantity: 30 Refills: 0 Ordered: 20-Jun-2021 Marybeth Linda Start: 20-Jun-2021 Generic Substitution Allowed Comments: Do not take this drug if you are .It is very important that you take or use this exactly as directed. Do not skip doses or discontinue unless directed by your doctor.May cause drowsiness or dizziness.Obtain medical advice before taking any non-prescription drugs as some may affect the action of this medication.Take with food or milk. End: 01-01-2022 take 1 tablet by mouth every six hours as needed ibuprofen (MOTRIN) 600 mg tablet Take 600 mg by mouth every 6 hours as needed. 01/01/2022 Discontinued Comment on above: Do not take this michel g if you are .It is very important that you take or use this exactly as directed. Do not skip doses or discontinue unless directed by your doctor.May cause drowsiness or dizziness.Obtain medical advice before taking any non-prescription drugs as some may affect the action of this medication.Take with food or milk. Take 600 mg by mouth every 6 hours as needed. iohexol 300 mg injection (OMNIPAQUE 300) (2 sources) Start: 01-02-2025 End: 01-02-2025 iohexol 300 mg injection (OMNIPAQUE 300) Start: 01-02-2025 End: 01-02-2025 300 mg, OTHER, ONCE, 1 dose, On Wed01/02/25 at 1400 Lidocaine (3 sources) Antiarrhythmic, Amide Local Anesthetic Start: 01-02-2025 End: 01-02-2025 lidocaine 10 mg/mL (1 %) 100 mg injection (XYLOCAINE) Start: 01-02-2025 End: 01-02-2025 100 mg (10 mL), OTHER, ONCE, 1 dose, On Wed01/02/25 at 1400 Start: 06-21-2021 End: 06-27-2021 Lidoderm 5% topical film ; A pply topically to affected area once a day for 12 hours and then off 12 hours. Quantity: 7 Refills: 0 Ordered: 20-Jun-2021 Marybeth Linda Start: 20-Jun-2021 End: 26-Jun-2021 Generic Substitution Allowed Comments: For external use only.Remove old patch prior to applying a new patch. Comment on above: For external use onl y.Remove old patch prior to applying a new patch. norethindrone acetate 5 mg oral tablet (1 source) Start: End: Norethindrone Acetate 5 mg tablet Discontinued 5 mg PO .COMPLEX 45 February 01, 2023 12:00am November 10, 2023 3:05pm 5 mg PO tid until bleeding stops X 24 hr then bid to finish Rx predniSONE 10 mg oral tablet (1 source) Start: End: predniSONE (DELTASONE) 10 mg tablet Indications: Acute midline low back pain without sciatica Take 4 tabs daily for 3 days, then 2 tabs daily for 3 days, then 1 tab daily for 3 days with food. 21 tablet 07/02/2021 07/11/2021 tranexamic acid 650 mg oral tablet (1 source) Antifibrinolytic Agent Start: End: take 2 tablets by mouth three times daily Tranexamic Acid 650 mg tablet Discontinued 1300 mg PO THREE TIMES A DAY 60 November 18, 2022 12:00am February 01, 2023 3:51pm 1 ml triamcinolone acetonide 40 mg/ml injection (2 sources) Corticosteroid Start: 04-17-2 025 End: triamcinolone acetonide 40 mg injection (KeNALog 40) Start: 08-10-2024 End: 08-10-2024 inject 1 dose by intramuscular injection once 40 mg, INTRAMUSCULAR, ONCE, 1 dose, On Veronica 08/10/24 at 0900 Problems Active Problems Problem Classification Problem Date Documented Date Episodic/Chronic Abdominal pain (2 sources) Pain in pelvis; Translations: [Pelvic and perineal pain] Onset: 09-28-2024 02-01-2023 Episodic Anxiety disorders (1 source) Generalized anxiety disorder; Translations: [Generalized anxiety disorder] 10-06-2024 Chronic Benign neoplasm of uterus (3 sources) Pedunculated leiomyoma of uterus; Translations: [Leiomyoma of uterus, unspecified] 05-25-2022 Episodic Contraceptive and procreative management (1 source) Intrauterine contraceptive device in situ; Translations: [Presence of (intrauterine) contraceptive device] 11-13-2024 Episodic Disorders of teeth and jaw (1 source) Dental abscess; Translations: [Periapical abscess without sinus] Episodic Immunizations and screening for infectious disease (2 sources) Exposure to Hepatitis C virus; Translations: [Contact with and (suspected) exposure to viral hepatitis] Episodic Menopausal disorders (1 source) Menorrhagia; Translations: [Excessive bleeding in the premenopausal period] 11-13-2024 Chronic Menstrual disorders (4 sources) Disorder of menstruation; Translations: [Irregular menstruation, unspecified] Onset: 12-16-2023 Chronic Comment on above: mirena IUD Other aftercare (3 sources) Patient encounter status; Translations: [Other long term care social worker (current) drug therapy] 08-31-2024 Episodic Other female genital disorders (1 source) Abnormal uterine bleeding; Translations: [Abnormal uterine and vaginal bleeding, unspecified] 05-25-2022 Chronic Other female genital disorders (1 source) Abnormal uterine and vaginal bleeding, unspecified; Translations: [Unspecified disorders of menstruation and other abnormal bleeding from female genital tract] 05-25-2022 Chronic Other female genital disorders (1 source) Pain in female genitalia on intercourse; Translations: [Unspecified dyspareunia] 11-13-2024 Chronic Other nervous system disorders (3 sources) Numbness of lower limb ; Translations: [Anesthesia of skin] 03-16-2024 Episodic Other nervous system disorders (3 sources) Abnormal gait; Translations: [Unsteadiness on feet] 03-16-2024 Episodic Other nervous system disorders (1 source) Cold extremity; Translations: [Unspecified disturbances of skin sensation] 08-10-2024 Episodic Other nervous system disorders (1 source) Postoperative pain ; Translations: [Other acute postprocedural pain] 09-21-2024 Episodic Ovarian cyst (2 sources) Cyst of ovary; Translations: [Unspecified ovarian cyst, unspecified side] 11-13-2024 Episodic Residual codes; unclassified (2 sources) Family history of endometriosis; Translations: [Family history of other diseases of the genitourinary system] Episodic Spondylosis; intervertebral disc disorders; other back problems (2 sources) Other intervertebral disc displacement, lumbar region; Translations: [Displacement of lumbar intervertebral disc without myelopathy] 08-15-2024 Chronic Spondylosis; intervertebral disc disorders; other back problems (20 sources) Low back pain; Translations: [Lumbago] Onset: 03-13-2013 06-21-2021 Episodic Comment on above: BACK PAIN Unclassified (1 source) OPENED IN ERROR 09-19-2024 Unclassified (1 source) New Patient Onset: 11-13-2024 Unclassified (2 sources) Low back pain, unspecified back pain laterality, unspecified chronicity, unspecified whether sciatica present; Translations: [Low back pain, unspecified back pain laterality, unspecified chronicity, unspecified whether sciatica present] Onset: 08-14-2024 Unclassified (1 source) Acute midline low back pain without sciatica; Translations: [Acute midline low back pain without sciatica] Onset: 08-10-2024 Unclassified (1 source) Established Patient Onset: 09-21-2024 Viral infection (5 sources) Disease caused by 2019-nCoV; Translations: [COVID-19] 05-31-2022 Episodic Past or Other Problems Problem Classification Problem Date Documented Date Episodic/Chronic Malaise and fatigue (4 sources) Asthenia; Translations: [Other malaise] Onset: 03-16-2024 03-16-2024 Episodic Nonmalignant breast conditions (20 sources) Hypertrophy of breast; Translations: [Hypertrophy of breast] Onset: 03-13-2013 03-13-2013 Episodic Other aftercare (1 source) Other long term care social worker (current) drug therapy; Translations: [Medication management] Onset: 08-31-2024 Episodic Other nervous system disorders (1 source) Unspecified disturbances of skin sensation; Translations: [Cold hands and feet] Onset: 08-10-2024 Episodic Other nervous system disorders (1 source) Anesthesia of skin; Translations: [Numbness in both legs] Onset: 03-16-2024 Episodic Other nervous system disorders (1 source) Unsteadiness on feet; Translations: [Gait instability] Onset: 03-16-2024 Episodic Residual codes; unclassified (20 sources) H/O Spinal surgery; Translations: [Other specified postprocedural states] Onset: 09-21-2024 09-05-2024 Episodic Residual codes; unclassified (1 source) Other specified postprocedural states; Translations: [S/P laminectomy] Onset: 09-21-2024 Episodic Results Test Name Value Interpretation Reference Range Facility [facility] 01-01-2025 [facility] Letter Text Normal [facility] EUGENIA CHISHOLM ([id number]) 1985 F Date Time Provider Department 01/01/25 FRANNY NG [facility] During your visit today, we recorded the following information about you: Luann Phipps 01/01/2025 2:25 PM Signed Procedure(s) being scheduled: R L4-5 TFESI 1.Are you diabetic No 2. Are you on any blood thinners? No If yes, does it require a hold? No If yes, was approval letter sent? No 3. Are you taking any aspirin? No 4. Are you currently taking any antibiotics? No If yes, is it prophylactic or for treatment of an infection? No 5. Do you have any allergies to latex? No 6. Do you have any allergies to seafood or shellfish? No 7. Do you have any allergies to x-ray dye? No 8. Does this procedure require a milk driver? Yes If yes, has patient been notified that a milk driver is needed and must be present at check in? Yes 9. Were the pre-procedure instructions explained and provided to the patient? Yes 10. Do you have a pacemaker? No 11. Do you have an internal stimulator of any kind? No If yes, please bring the remote with you to your procedure visit. Luann Shirley Allergies As of Date: 01/01/2025 (No Known Allergies) Date Reviewed: 12/21/2024 Reviewed by: Gisella Alvarez MA - Fully Assessed Reason for Visit: Injections [199] Cmt: Questions Prescriptions as of 01/01/2025 - methylPREDNISolone (MEDROL, JULIAN,) 4 mg Dose-Pack Take as directed per package - oxyCODONE-acetaminophen (PERCOCET) 5-325 mg tablet Take by mouth every 6 hours as needed. - levonorgestrel (MIRENA) 21 mcg/24hr (up to 8 yrs) 52 mg IUD 1 each by INTRAUTERINE route one time only. - gabapentin (NEURONTIN) 300 mg capsule Take 300 mg by mouth three times a day. - estradiol (ESTRACE) 1 mg tablet Take 1 mg by mouth once daily. - methocarbamol (ROBAXIN) 750 mg tablet Take 1 tablet by mouth three times a day as needed. - TIRZEPATIDE SUBCUTANEOUS Inject 7.5 Ampules subcutaneously one time a week. 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 This is the same pain that she has been having. She was given Medrol dosepak on 12/28/2024 and has not noticed much relief. States that she had to call off work today. Denies new symptoms. Per last OV note, she was to try an injection to see if she got relief and she was to follow up after that. Advised that everything appears to be approved with pain management for the injection, so I provided the number to call for scheduling. She asked if she could restart her Gabapentin, which was previously prescribed by her PCP. Advised she discuss this with her PCP though there would be no contraindications from neurosurgical standpoint. She also asked if we could complete FMLA paperwork. Reji discussed office policy and advised that she reach out to her PCP for this as well, since her last procedure was in June. She was not thrilled with the advice, but voiced understanding. Advised her to reach out with any change in symptoms of concerns. Anai Urrutia RN Allergies As of Date: 01/01/2025 (No Known Allergies) Date Reviewed: 12/21/2024 Reviewed by: Gisella Alvarez MA - Fully Assessed Prescriptions as of 01/01/2025 - methylPREDNISolone (MEDROL, JULIAN,) 4 mg Dose-Pack Take as directed per package - oxyCODONE-acetaminophen (PERCOCET) 5-325 mg tablet Take by mouth every 6 hours as needed. - levonorgestrel (MIRENA) 21 mcg/24hr (up to 8 yrs) 52 mg IUD 1 each by INTRAUTERINE route one time only. - gabapentin (NEURONTIN) 300 mg capsule Take 300 mg by mouth three times a day. - estradiol (ESTRACE) 1 mg tablet Take 1 mg by mouth once daily. - methocarbamol (ROBAXIN) 750 mg tablet Take 1 tablet by mouth three times a day as needed. - TIRZEPATIDE SUBCUTANEOUS Inject 7.5 Ampules subcutaneously one time a week. Problem List As Of Date 01/01/2025 Noted Resolved Backache, unspecified [M54.9] 03/13/2013 Cervicalgia [M54.2] 03/13/2013 Hypertrophy of breast [N62] 03/13/2013 Preop examination [Z01.818] 08/31/2024 Intervertebral disc disorder with radiculopathy*08/31/2024 S/P laminectomy [Z98.890] 09/21/2024 Encounter Status:Closed by ANAI URRUTIA on 01/01/25 [facility] 12-28-2024 CNPN Telephone (AGSPINE3) EUGENIA CHISHOLM ([id number]) 1985 F Date Time Provider Department 12/28/24 KELVIN TEJEDA AGSPINE3 During your visit today, we recorded the following information about you: Colleen Gill 12/28/2024 2:53 PM Signed Received a referral from Fab Piper MD for patient to have RIGHT L4-5 [facility]- 12/26/24-Lumbar MRI Anticoag- NONE Please review and advise Colleen Gill [facility] [address] [place] [address] P: [phone] F: [phone] Kelvin Tejeda DO 12/28/2024 3:11 PM Signed Fast Track Injection Request: Referring Surgeon: Clarisa Spine Surgeon Injection Requested: R L4-5 TFESI under fluoroscopic guidance Imaging reviewed: MRI 12/2024 Anti-Coagulants: none Relevant Allergies: NKDA Other notable: L4-5 hemilaminectomy Patient appropriate for the requested procedure. Order placed. Staff informed to assist patient with scheduling. DO Bridget Lawler Stacey 01/01/2025 8:36 AM Signed Received fax, CPT code 88615 is NPCR Auth is good. Referral is updated. Patient ok to schedule. Allergies As of Date: 12/28/2024 (No Known Allergies) Date Reviewed: 12/21/2024 Reviewed by: Gisella Alvarez MA - Fully Assessed Reason for Visit: Fast Track [Other] Primary Visit Diagnosis:Radiculopathy, lumbar region [M54.16] Order(s):PRE-CERT ORDER (AG) [[id number]] Order #: [id number]: 1 Prescriptions as of 01/01/2025 - methylPREDNISolone (MEDROL, JULIAN,) 4 mg Dose-Pack Take as directed per package - oxyCODONE-acetaminophen (PERCOCET) 5-325 mg tablet Take by mouth every 6 hours as needed. - levonorgestrel (MIRENA) 21 mcg/24hr (up to 8 yrs) 52 mg IUD 1 each by INTRAUTERINE route one time only. - gabapentin (NEURONTIN) 300 mg capsule Take 300 mg by mouth three times a day. - estradiol (ESTRACE) 1 mg tablet Take 1 mg by mouth once daily. - methocarbamol (ROBAXIN) 750 mg tablet Take 1 tablet by mouth three times a day as needed. - TIRZEPATIDE SUBCUTANEOUS Inject 7.5 Ampules subcutaneously one time a week. Problem List As Of Date 12/28/2024 Noted Resolved Backache, unspecified [M54.9] 03/13/2013 Cervicalgia [M54.2] 03/13/2013 Hypertrophy of breast [N62] 03/13/2013 Preop examination [Z01.818] 08/31/2024 Intervertebral disc disorder with radiculopathy*08/31/2024 S/P laminectomy [Z98.890] 09/21/2024 Encounter Status:Closed by KELVIN TEJEDA on 12/28/24 [facility] MR Lumbar spine WO contrasto n 12-26-2024 * * *Final Report* * * DATE OF EXAM: Dec 26 2024 1:00PM WR 0303 - MRI LUMBAR SPINE WO IVCON / PROCEDURE REASON: Spinal stenosis of lumbar region, unspecified whether neurogenic claudication pr * * * * Physician Interpretation * * * * EXAMINATION: MRI LUMBAR SPINE WO IVCON CLINICAL HISTORY: Increased right-sided low back pain/tightness, status post L4-5 laminectomy and microdiscectomy 09/05/2024 for extruded disc. TECHNIQUE: Routine lumbosacral spine MR protocol without gadolinium. MQ: [id number]_3 COMPARISON: MRI lumbar spine 03/29/2024 RESULT: Counting reference: Lumbosacral junction. For the purposes of this report, L4-5 is considered the level of the iliac crest and assume there are 5 lumbar-type vertebrae. Anatomic variant: None. Localizer images: Mild wedge deformity of the T10 and T11 vertebral bodies and mild loss in height of the T9 vertebral body with normal signal intensity characteristics of the marrow suggesting remote benign compression fractures. Mild localized kyphosis centered at T10-11 on the yacht builder images, measuring approximately 45 degrees. Alignment: Again noted is mild thoracolumbar dextroscoliosis with apex of the curvature at L3-4. Localized kyphosis in the lower thoracic spine as outlined above. Moderate asymmetric disc space narrowing is noted at L3-4 and L4-5. Bone marrow signal/fracture: No evidence of pathologic marrow infiltration. There has been an intervening laminectomy at L4-5 and a laminotomy defect is now noted at L5-S1. Conus: The conus is within normal limits of signal intensity and morphology. No clear evidence of arachnoiditis. Paraspinal soft tissues: Interval L4-5 laminectomy with mildly increased T2 signal on IR throughout the adjacent paraspinal musculature and caudally, compatible with the intervening surgery. Lower thoracic spine: Visualized lower thoracic canal and foramina are patent. L1-L2: Canal and foramina are patent. L2-L3: Canal and foramina are patent L3-L4: Minimal disc bulging and small annular fissure without significant canal stenosis. The neural foramina remain patent. L4-L5: Interval L4-5 laminectomy. There appears to be a recurrent right central and subarticular disc extrusion causing mild impingement of the thecal sac and right S1 nerve root sleeve in view of the intervening laminectomy but this may in part represent epidural granulation tissue. No gadolinium was administered. Rostrocaudal facet subluxation causes mild right foraminal stenosis.. The left neural foramen is grossly patent. L5-S1: Canal and foramina are patent Sacrum and iliac wings: The visualized sacrum and iliac wings are within normal limits. Other: Right lower pole 1 cm simple renal cyst. DIVISION OF RADIOLOGY Provider, Preet Chaney [facility] - 12/26/2024 * * *Final Report* * * DATE OF EXAM: Dec 26 2024 1:00PM WRM 0303 - MRI LUMBAR SPINE WO IVCON / PROCEDURE REASON: Spinal stenosis of lumbar region, unspecified whether neurogenic claudication pr * * * * Physician Interpretation * * * * EXAMINATION: MRI LUMBAR SPINE WO IVCON CLINICAL HISTORY: Increased right-sided low back pain/tightness, status post L4-5 laminectomy and microdiscectomy 09/05/2024 for extruded disc. TECHNIQUE: Routine lumbosacral spine MR protocol without gadolinium. MQ: [email or web address]_3 COMPARISON: MRI lumbar spine 03/29/2024 RESULT: Counting reference: Lumbosacral junction. For the purposes of this report, L4-5 is considered the level of the iliac crest and assume there are 5 lumbar-type vertebrae. Anatomic variant: None. Localizer images: Mild wedge deformity of the T10 and T11 vertebral bodies and mild loss in height of the T9 vertebral body with normal signal intensity characteristics of the marrow suggesting remote benign compression fractures. Mild localized kyphosis centered at T10-11 on the yacht builder images, measuring approximately 45 degrees. Alignment: Again noted is mild thoracolumbar dextroscoliosis with apex of the curvature at L3-4. Localized kyphosis in the lower thoracic spine as outlined above. Moderate asymmetric disc space narrowing is noted at L3-4 and L4-5. Bone marrow signal/fracture: No evidence of pathologic marrow infiltration. There has been an intervening laminectomy at L4-5 and a laminotomy defect is now noted at L5-S1. Conus: The conus is within normal limits of signal intensity and morphology. No clear evidence of arachnoiditis. Paraspinal soft tissues: Interval L4-5 laminectomy with mildly increased T2 signal on IR throughout the adjacent paraspinal musculature and caudally, compatible with the intervening surgery. Lower thoracic spine: Visualized lower thoracic canal and foramina are patent. L1-L2: Canal and foramina are patent. L2-L3: Canal and foramina are patent L3-L4: Minimal disc bulging and small annular fissure without significant canal stenosis. The neural foramina remain patent. L4-L5: Interval L4-5 laminectomy. There appears to be a recurrent right central and subarticular disc extrusion causing mild impingement of the thecal sac and right S1 nerve root sleeve in view of the intervening laminectomy but this may in part represent epidural granulation tissue. No gadolinium was administered. Rostrocaudal facet subluxation causes mild right foraminal stenosis.. The left neural foramen is grossly patent. L5-S1: Canal and foramina are patent Sacrum and iliac wings: The visualized sacrum and iliac wings are within normal limits. Other: Right lower pole 1 cm simple renal cyst. IMPRESSION IMPRESSION: Postop changes following dorsal decompression procedure with suspicion of recurrent disc extrusion causing mild impingement of the thecal sac and exiting right L5 nerve root sleeve but this may in part reflect epidural granulation tissue. Follow-up study with gadolinium may be helpful for further evaluation as clinically directed. Otherwise stable appearance of the lumbosacral spine since 03/2024. Remote benign compression fractures in the lower thoracic spine accounting for localized kyphosis. Anatomic Lumbar Variant: None. L4-5 is considered the level of the iliac crest and assume there are 5 lumbar-type vertebrae. Sample Steamer: ALEX Transcribe Date/Time: Dec 26 2024 1:18P Dictated by : CHILO HERBERT MD This examination was interpreted and the report reviewed and electronically signed by: FEI SAINI MD on Dec 26 2024 1:57PM EST [facility] Radiology Study observation (narrative) [facility] MR Lumbar spine WO contrastO rdered By: [facility] Provider on 12-26-2024 [facility] MRI LUMBAR SPINE WO IVCONon 12-26-2024 MRI LUMBAR SPINE WO IVCON * * *Final Report* * * DATE OF EXAM: Dec 26 2024 1:00PM WRM 0303 - MRI LUMBAR SPINE WO IVCON / PROCEDURE REASON: Spinal stenosis of lumbar region, unspecified whether neurogenic claudication pr * * * * Physician Interpretation * * * * EXAMINATION: MRI LUMBAR SPINE WO IVCON CLINICAL HISTORY: Increased right-sided low back pain/tightness, status post L4-5 laminectomy and microdiscectomy 09/05/2024 for extruded disc. TECHNIQUE: Routine lumbosacral spine MR protocol without gadolinium. MQ: [id number]_3 COMPARISON: MRI lumbar spine 03/29/2024 RESULT: Counting reference: Lumbosacral junction. For the purposes of this report, L4-5 is considered the level of the iliac crest and assume there are 5 lumbar-type vertebrae. Anatomic variant: None. Localizer images: Mild wedge deformity of the T10 and T11 vertebral bodies and mild loss in height of the T9 vertebral body with normal signal intensity characteristics of the marrow suggesting remote benign compression fractures. Mild localized kyphosis centered at T10-11 on the yacht builder images, measuring approximately 45 degrees. Alignment: Again noted is mild thoracolumbar dextroscoliosis with apex of the curvature at L3-4. Localized kyphosis in the lower thoracic spine as outlined above. Moderate asymmetric disc space narrowing is noted at L3-4 and L4-5. Bone marrow signal/fracture: No evidence of pathologic marrow infiltration. There has been an intervening laminectomy at L4-5 and a laminotomy defect is now noted at L5-S1. Conus: The conus is within normal limits of signal intensity and morphology. No clear evidence of arachnoiditis. Paraspinal soft tissues: Interval L4-5 laminectomy with mildly increased T2 signal on IR throughout the adjacent paraspinal musculature and caudally, compatible with the intervening surgery. Lower thoracic spine: Visualized lower thoracic canal and foramina are patent. L1-L2: Canal and foramina are patent. L2-L3: Canal and foramina are patent L3-L4: Minimal disc bulging and small annular fissure without significant canal stenosis. The neural foramina remain patent. L4-L5: Interval L4-5 laminectomy. There appears to be a recurrent right central and subarticular disc extrusion causing mild impingement of the thecal sac and right S1 nerve root sleeve in view of the intervening laminectomy but this may in part represent epidural granulation tissue. No gadolinium was administered. Rostrocaudal facet subluxation causes mild right foraminal stenosis.. The left neural foramen is grossly patent. L5-S1: Canal and foramina are patent Sacrum and iliac wings: The visualized sacrum and iliac wings are within normal limits. Other: Right lower pole 1 cm simple renal cyst. IMPRESSION: Postop changes following dorsal decompression procedure with suspicion of recurrent disc extrusion causing mild impingement of the thecal sac and exiting right L5 nerve root sleeve but this may in part reflect epidural granulation tissue. Follow-up study with gadolinium may be helpful for further evaluation as clinically directed. Otherwise stable appearance of the lumbosacral spine since 03/2024. Remote benign compression fractures in the lower thoracic spine accounting for localized kyphosis. Anatomic Lumbar Variant: None. L4-5 is considered the level of the iliac crest and assume there are 5 lumbar-type vertebrae. Sample Steamer: PSCB Transcribe Date/Time: Dec 26 2024 1:18P Dictated by : CHILO HERBERT MD This examination was interpreted and the report reviewed and electronically signed by: FEI SAINI MD on Dec 26 2024 1:57PM EST [id number] Normal [facility] EUGENIA CHISHOLM ([id number]) 1985 F Date Time Provider Department 12/22/24 [facility] During your visit today, we recorded the following information about you: Alessandra Romero 12/22/2024 10:03 AM Signed I left patient a vm letting her know MRI is approved by insurance Allergies As of Date: 12/22/2024 (No Known Allergies) Date Reviewed: 12/21/2024 Reviewed by: Gisella Alvarez MA - Fully Assessed Prescriptions as of 12/22/2024 - oxyCODONE-acetaminophen (PERCOCET) 5-325 mg tablet Take by mouth every 6 hours as needed. - methylPREDNISolone (MEDROL, JULIAN,) 4 mg Dose-Pack Take as directed per package - levonorgestrel (MIRENA) 21 mcg/24hr (up to 8 yrs) 52 mg IUD 1 each by INTRAUTERINE route one time only. - gabapentin (NEURONTIN) 300 mg capsule Take 300 mg by mouth three times a day. - estradiol (ESTRACE) 1 mg tablet Take 1 mg by mouth once daily. - methocarbamol (ROBAXIN) 750 mg tablet Take 1 tablet by mouth three times a day as needed. - TIRZEPATIDE SUBCUTANEOUS Inject 7.5 Ampules subcutaneously one time a week. Problem List As Of Date 12/22/2024 Noted Resolved Backache, unspecified [M54.9] 03/13/2013 Cervicalgia [M54.2] 03/13/2013 Hypertrophy of breast [N62] 03/13/2013 Preop examination [Z01.818] 08/31/2024 Intervertebral disc disorder with radiculopathy*08/31/2024 S/P laminectomy [Z98.890] 09/21/2024 Encounter Status:Closed by ALESSANDRA ROMERO on 12/22/24 [facility] CNOVon 12-21-2024 [facility] Office Visit (NEAGCL M) EUGENIA CHISHOLM ([id number]) 1985 F Date Time Provider Department 12/21/24 11:00 AM FAB PIPER NEAGCLM During your visit today, we recorded the following information about you: Pulse Respiration Blood pressure Weight 62/minute 16/minute 119/72 86.3 kg Fab Piper MD 12/21/2024 11:40 AM Signed NEUROSURGERY FOLLOW UP OFFICE NOTE Fab Piper MD [facility] Date of visit: December 21, 2024 Patient Name: Ms.Amber Mirza Chisholm Date of : 1985 Current Age: [age] year old Sex: female MRN/E# [id number] Last Office Visit: 10/19/2024 Chief Complaint: Patient presents with: Established Patient Past Medical/Surgical History: Eugenia Chisholm is a 39 year old female with a history of hypercholesterolemia, headaches, scoliosis. HPI: The patient presents to the office today as a follow up. She was last seen in the office on 09/21/2024 by Twyla Guzman APRN, CNP for a 2 week post operative visit following L4-L5 laminectomy and microdiscectomy on 09/05/2024. She was doing well and reported improved pain compared to preoperatively. She was advised to continue activity restrictions and follow p in the office in 4 weeks time for re-evaluation, though she no showed to that appointment and failed to follow up. She contacted the office on 12/18/2024 with about 1 week of increased low back pain/tightness that was causing pain limiting difficulty with movement. It was recommended that she follow up in the office with imaging for re-evaluation, prompting her visit today. She reports about 1.5 weeks of an increase in bilateral low back pain without inciting event. She describes this as a tightness. Reports right hip soreness last night. Otherwise denies leg pain. Pain limiting weakness reported. Denies falls, paresthesia. She is here for evaluation and plan of care. Symptoms: low back pain/tightness PREVIOUS CONSERVATIVE TREATMENTS: HEP PREVIOUS SURGERY: SURGERY #1: L4-L5 laminectomy and microdiscectomy 09/05/2024` PAIN EVALUATION 12/21/2024 1048 Pain Level: 9 Pain Location: Back-Lower Description: Pulsating;Radiating;Sharp;S ore;Spasm;Stiffness;Tightne ss Duration Amount of Time: 7 Duration Units: Days Frequency: Continuous Intervention/Comfort measure: Medication;Reposition;Relax ation;Cold;Heat;Pillow support;Positioning PAST MEDICAL HISTORY Diagnosis Date Back pain Hypercholesteremia 05/2014 Increased frequency of headaches 2013 Scoliosis PAST SURGICAL HISTORY Procedure Laterality Date BACK SURGERY HX herniated disc PAST SURGICAL HISTORY OF wisdom tooth extraction PAST SURGICAL HISTORY OF 07/24/2013 REDUCTION BREAST FAMILY HISTORY Problem Relation Age of Onset other (possible heart) Father other (endometriosis) Paternal Grandmother Endometriosis Maternal Aunt possible? ALLERGIES No Known Allergies Current Outpatient Medications Medication Sig Dispense Refill oxyCODONE-acetaminophen (PERCOCET) 5-325 mg tablet Take by mouth every 6 hours as needed. levonorgestrel (MIRENA) 21 mcg/24hr (up to 8 yrs) 52 mg IUD 1 each by INTRAUTERINE route one time only. TIRZEPATIDE SUBCUTANEOUS Inject 7.5 Ampules subcutaneously one time a week. gabapentin (NEURONTIN) 300 mg capsule Take 300 mg by mouth three times a day. (Patient not taking: Reported on 11/13/2024) estradiol (ESTRACE) 1 mg tablet Take 1 mg by mouth once daily. (Patient not taking: Reported on 11/13/2024) methocarbamol (ROBAXIN) 750 mg tablet Take 1 tablet by mouth three times a day as needed. (Patient not taking: Reported on 11/13/2024) 90 tablet 0 No current facility-administered medications for this visit. REVIEW OF SYSTEMS Review of Systems Constitutional: Negative for diaphoresis, fatigue and fever. HENT: Negative for ear pain, hearing loss and tinnitus. Eyes: Negative for photophobia, pain and visual disturbance. Respiratory: Negative for cough, chest tightness and shortness of breath. Cardiovascular: Negative for chest pain. Gastrointestinal: Negative for constipation, diarrhea, nausea and vomiting. Endocrine: Negative for polydipsia, polyphagia and polyuria. Genitourinary: Negative for difficulty urinating, frequency and urgency. Musculoskeletal: Positive for back pain. Negative for gait problem, neck pain and neck stiffness. Skin: Negative for color change and rash. Neurological: Negative for dizziness, weakness and numbness. Psychiatric/Behavioral: Negative for agitation and confusion. The patient is not nervous/anxious. OBJECTIVE: BP 119/72 Pulse 62 Resp 16 Wt 190 lb 4.1 oz (86.3kg) SpO2 99% LMP 08/31/2024 PHYSICAL EXAM: Mental State : Alert, memory function unremarkable. Attention span and concentration normal for patient's age. Speech normal, no receptive or expressive speech deficit. Recent and remote memory normal. O (more content not included)... Normal [facility] 12-21-2024 [facility] Telephone (NEAGCLM) EUGENIA CHISHOLM ([id number]) 1985 F Date Time Provider Department 12/21/24 [facility] During your visit today, we recorded the following information about you: Alessandra Romero 12/21/2024 1:36 PM Signed I spoke to patient informing her that appt was changed to virtual and provided her with office fax number to send [place] paper work Allergies As of Date: 12/21/2024 (No Known Allergies) Date Reviewed: 12/21/2024 Reviewed by: Gisella Alvarez MA - Fully Assessed Prescriptions as of 12/21/2024 - oxyCODONE-acetaminophen (PERCOCET) 5-325 mg tablet Take by mouth every 6 hours as needed. - methylPREDNISolone (MEDROL, JULIAN,) 4 mg Dose-Pack Take as directed per package - levonorgestrel (MIRENA) 21 mcg/24hr (up to 8 yrs) 52 mg IUD 1 each by INTRAUTERINE route one time only. - gabapentin (NEURONTIN) 300 mg capsule Take 300 mg by mouth three times a day. - estradiol (ESTRACE) 1 mg tablet Take 1 mg by mouth once daily. - methocarbamol (ROBAXIN) 750 mg tablet Take 1 tablet by mouth three times a day as needed. - TIRZEPATIDE SUBCUTANEOUS Inject 7.5 Ampules subcutaneously one time a week. Problem List As Of Date 12/21/2024 Noted Resolved Backache, unspecified [M54.9] 03/13/2013 Cervicalgia [M54.2] 03/13/2013 Hypertrophy of breast [N62] 03/13/2013 Preop examination [Z01.818] 08/31/2024 Intervertebral disc disorder with radiculopathy*08/31/2024 S/P laminectomy [Z98.890] 09/21/2024 Encounter Status:Closed by ALESSANDRA ROMERO on 12/21/24 [facility] XR LUMBAR 4V AP/LAT/ FLEX/EX Ton 12-21-2024 XR LUMBAR 4V AP/LAT/ FLEX/EXT * * *Final Report* * * DATE OF EXAM: Dec 21 2024 11:17AM A1X 5231 - XR LUMBAR 4V AP/LAT/ FLEX/EXT / PROCEDURE REASON: S/P laminectomy * * * * Physician Interpretation * * * * EXAMINATION / TECHNIQUE: XR LUMBAR 4V AP/LAT/ FLEX/EXT HISTORY: low back pain, hx of surgery 09/05/2024 S/P laminectomy COMPARISON: 08/14/2024. RESULT: Counting reference: Lumbosacral junction. For the purposes of this report, L4-5 is considered the level of the iliac crest and assume there are 5 lumbar-type vertebrae. Anatomic variant: None. Posterior decompression at L4 and L5. Vertebral body heights and sagittal alignment are maintained. There is mild to moderate L3-L4 degenerative disc disease. There is multilevel lower thoracic degenerative disc disease. The sacroiliac joints are intact. IMPRESSION: Postoperative and degenerative changes as described. Sample Steamer: PSCDaniel Transcribe Date/Time: Dec 28 2024 5:53P Dictated by : VY CUMMINGS MD This examination was interpreted and the report reviewed and electronically signed by: VY CUMMINGS MD on Dec 28 2024 5:54PM EST [id number] Normal [facility] CNOVon 11-13-2024 CNOV Office Visit (OBGYWM ) EUGENIA CHISHOLM ([id number]) 1985 F Date Time Provider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 infection, neurologic injury including spinal cord injury, nerve root injury, CSF leak, need for additional surgery, hardware failure, medical complications including heart attack, stroke, pneumonia, blood clots, paralysis, coma, and . All questions were answered. The patient understood the risks of surgery and was willing to proceed. A pre-operative huddle was performed before the patient was brought into the operating room and placed under general anesthesia. She was carefully turned prone onto a Misael table and all pressure points were padded. Lateral fluoroscopy was brought in to localize the level of my incision. She was then prepped and draped in the usual standard fashion. A surgical timeout was performed, verifying the correct patient, procedure, and operative site, with all appropriate parties participating. A midline incision was made over the L4 and L5 spinous process. Bovie electrocautery was used to dissect down through the subcutaneous tissue until the spinous processes were identified. Subperiosteal technique was used to expose the spinous process and lamina. A self-retaining retractor was placed. A #4 Moulton was placed under the L4 lamina, and a lateral x-ray was taken for level verification purposes. This was confirmed with the attending radiologist. Once the verification was complete, a Leksell rongeur was used to remove the inferior two thirds of the L4 spinous process and lamina, as well as the superior two thirds of the L5 spinous process and lamina. A high-speed drill was used to thin down the underlying laminar bone at L4 and L5. An up angled curette was used to define the plane between the bone and the underlying epidural soft tissue. Then various sized Kerrison rongeurs were used to make a midline laminectomy at L4 and L5. The lateral recesses were decompressed bilaterally using various sized Kerrison rongeurs. Once the midline decompression was complete, I thinned down the medial facet on the right side at L4-5 using a high-speed drill. I then placed a nerve retractor over the disc space and gently retracted the dura. There was a broad-based disc herniation noted. An annulotomy was made using an 11 blade. Pituitary rongeurs were used to remove several large disc fragments that were compressing the traversing nerve. Once any free fragments were removed, the annulotomy was irrigated with normal saline to free up any free fragments. Hemostasis was then achieved using Floseal and bipolar electrocautery. Once the nerves are widely decompressed, hemostasis was achieved using bone wax, Floseal, and bipolar electrocautery. The muscle was closed with 0 Vicryl sutures. The fascia was closed with 0 Vicryl sutures. The subcutaneous tissue was closed with inverted 2-0 Vicryl sutures. A 3-0 Monocryl subcuticular stitch was used to close the skin, and skin glue was placed over the top. All sponge and needle counts were correct at the end of the procedure. The patient was then carefully turned supine onto the operating room bed, extubated, and transferred to the recovery room in stable condition. PRE-OP/PRE-PROCEDURE DIAGNOSIS: Lumbar herniated disc with radiculopathy POST-OP/POST-PROCEDURE DIAGNOSIS: Same as Preop ESTIMATED BLOOD LOSS: 50 mL SPECIMENS: None IMPLANTABLE DEVICES: NONE DRAINS: None COMPLICATIONS: None CLOSURE TECHNIQUE: Primary PARTICIPATION IN SURGERY/PROCEDURE: I/primary surgeon/proceduralist performed the procedure with assistance. No qualified resident/fellow was available. Assistance was required for protection of the neural elements, and for retraction of the dura during the microdiscectomy portion of the procedure. SIGNATURE: Fab Piper MD PATIENT NAME: Eugenia Chisholm DATE: September 05, 2024 TIME: 2:15 PM Normal [facility] XR LUMBAR 1Von 09-05-2024 XR LUMBAR 1V * * *Final Report* * * DATE OF EXAM: Sep 05 2024 2:29PM [id number] - XR LUMBAR 1V / PROCEDURE REASON: surgery * * * * Physician Interpretation * * * * INTRAOPERATIVE FLUOROSCOPIC EXAMINATION DATE: 09/05/2024 COMPARISON: 08/14/2024 lumbar x-rays HISTORY: Surgery ENCOUNTER: Not applicable TECHNIQUE: Images from fluoroscopic examination of the lumbar spine during operative procedure were submitted for interpretation. Fluoroscopic Radiation Summary: Plane A, Air Kerma: 0.4 mGy Dose Area Product (DAP): Fluoro time: 0:02 min:sec RESULT: Examination is limited due to fluoroscopic technique. 1 fluoroscopic image(s) Instrumentation present dorsal to the level of the L5 superior endplate IMPRESSION: Intraoperative films Please refer to operative notes for full details. Sample Steamer: PSCB Transcribe Date/Time: Sep 06 2024 7:56A Dictated by : JASEN GARDNER MD This examination was interpreted and the report reviewed and electronically signed by: JASEN GARDNER MD on Sep 06 2024 7:57AM EST [id number] Normal [facility] XR VERIFY LEVEL E-DOLAP-OOsh 09-05-2024 XR VERIFY LEVEL L-SPINE-NB * * *Final Report* * * DATE OF EXAM: Sep 05 2024 12:42PM [id number] - XR VERIFY LEVEL L-SPINE-NB / PROCEDURE REASON: surgery * * * * Physician Interpretation * * * * EXAMINATION: XR VERIFY LEVEL L-SPINE-NB Clinical History: surgery Comparison: 03/29/2024. RESULT: Fluoroscopic Radiation Summary: Plane A, Air Kerma: 1.7 mGy Dose Area Product (DAP): 0.5775 Gy*cm^2 Fluoro time: 0:03 min:sec Single fluoroscopic spot image of the lumbar spine intraoperatively. The surgical instrument projects at the L4-L5 intervertebral disc level. IMPRESSION: Intraoperative fluoroscopy support was provided for level verification. COMMUNICATION: Communicated with FAB PIPER on 09/05/2024 12:44 PM via verbal communication. Sample Steamer: PSCB Transcribe Date/Time: Sep 05 2024 12:44P Dictated by : ANA MARIA STEELE MD This examination was interpreted and the report reviewed and electronically signed by: ANA MARIA STEELE MD on Sep 05 2024 12:44PM EST [id number] Normal [facility] Bacteria Ur Culton Bacteria identified Cx Nom (U) CULTURE, URINE: <10,000 CFU/ml Normal Urogenital Sammi Normal [facility] Comment on above: Performed By: #### 6 30-4 ####[facility] LABORATORYCLIA [id number] [address] [place] CBC panel Auto (Bld)on 08-31 Erythrocyte distribution width (RBC) [Ratio] 12.5 % Normal 11.5-15.0 [facility] Comment on above: Order Comment: Speci men Type: BLOOD SPECIMENOrdering Facility: [facility] Address: [address] [place] [address] Performed By: #### 5 8410-2 ####[facility] LABORATORYCLIA [id number] [place] [address] [place] Hematocrit (Bld) [Volume fraction] 44.2 % Normal 36.0-46.0 [facility] Comment on above: Order Comment: Speci men Type: BLOOD SPECIMENOrdering Facility: [facility] Address: [address] [place] [address] Performed By: #### 5 8410-2 ####[facility] LABORATORYCLIA [id number] [place] [address] [place] Hemoglobin (Bld) [Mass/Vol] 15.2 g/dL Normal 11.5-15.5 [facility] Comment on above: Order Comment: Speci men Type: BLOOD SPECIMENOrdering Facility: [facility] Address: [address] [place] [address] Performed By: #### 5 8410-2 ####[facility] LABORATORYCLIA [id number] [address] MCH (RBC) [Entitic mass] 31.1 pg Normal 26.0-34.0 [facility] Comment on above: Order Comment: Speci men Type: BLOOD SPECIMENOrdering Facility: [facility] Address: [address] [place] [address] Performed By: #### 5 8410-2 ####[facility]ORATORYCLIA [id number] [address] MCHC (RBC) [Mass/Vol] 34.4 g/dL Normal 30.5-36.0 [facility] Comment on above: Order Comment: Speci men Type: BLOOD SPECIMENOrdering Facility: [facility] Address: [address] [place] [address] Performed By: #### 5 8410-2 ####[facility] LABORATORYCLIA [id number] [address] MCV (RBC) [Entitic vol] 90.4 fL Normal 80.0-100.0 [facility] Comment on above: Order Comment: Speci men Type: BLOOD SPECIMENOrdering Facility: [facility] Address: [address] [place] [address] Performed By: #### 5 8410-2 ####[facility]ORATORYCLIA [id number] [address] Nucleated RBC (Bld) [#/Vol] 10*3/uL Normal <0.01 [facility] Comment on above: Order Comment: Speci men Type: BLOOD SPECIMENOrdering Facility: [facility] Address: [address] [place] [address] Performed By: #### 5 8410-2 ####[facility]ORATORYCLIA [id number] [address] Platelet mean volume (Bld) [Entitic vol] 9.1 fL Normal 9.0-12.7 [facility] Comment on above: Order Comment: Speci men Type: BLOOD SPECIMENOrdering Facility: [facility] Address: [address] [place] [address] Performed By: #### 5 8410-2 ####[facility]ATORYCLIA [id number] [address] Platelets (Bld) [#/Vol] 355 10*3/uL Normal 150-400 [facility] Comment on above: Order Comment: Speci men Type: BLOOD SPECIMENOrdering Facility: [facility] Address: [address] [place] [address] Performed By: #### 5 8410-2 ####[facility]ORATORYCLIA [id number] [address] RBC (Bld) [#/Vol] 4.89 10*6/uL Normal 3.90-5.20 [facility] Comment on above: Order Comment: Speci men Type: BLOOD SPECIMENOrdering Facility: [facility] Address: [address] [place] [address] Performed By: #### 5 8410-2 ####[facility]ORATORYCLIA [id number] [address] WBC (Bld) [#/Vol] 13.17 10*3/uL High 3.70-11.00 [facility] Comment on above: Order Comment: Speci men Type: BLOOD SPECIMENOrdering Facility: [facility] Address: [address] [place] [address] Performed By: #### 5 8410-2 ####[facility]ORATORYCLIA [id number] [address] Comprehensive metabolic 2000 panelon 08-31-2024 Albumin [Mass/Vol] 4.5 g/dL Normal 3.9-4.9 [facility] Comment on above: Order Comment: Speci men Type: BLOOD SPECIMENOrdering Facility: [facility] Address: [address] [place] [address] Performed By: #### 2 4323-8 ####[facility]ORATORYCLIA [id number] [address] [place] ALP [Catalytic activity/Vol] 53 U/L Normal 34-123 [facility] Comment on above: Order Comment: Speci men Type: BLOOD SPECIMENOrdering Facility: [facility] Address: [address] [place] [address] Performed By: #### 2 4323-8 ####[facility]ORATORYCLIA [id number] [address] OF [facility] ALT With P-5'-P [Catalytic activity/Vol] 12 U/L Normal 7-38 [facility] Comment on above: Order Comment: Speci men Type: BLOOD SPECIMENOrdering Facility: [facility] Address: [address] [place] [address] Performed By: #### 2 4323-8 ####[facility]ORATORYCLIA [id number] [address] Anion gap [Moles/Vol] 12 mmol/L Normal 8-15 [facility] Comment on above: Order Comment: Speci men Type: BLOOD SPECIMENOrdering Facility: [facility] Address: [address] [place] [address] Performed By: #### 2 4323-8 ####[facility]ORATORYCLIA [id number] [address] AST With P-5'-P [Catalytic activity/Vol] 19 U/L Normal 13-35 [facility] Comment on above: Order Comment: Speci men Type: BLOOD SPECIMENOrdering Facility: [facility] Address: [address] [place] [address] Performed By: #### 2 4323-8 ####[facility]ORATORYCLIA [id number] [address] Bilirubin [Mass/Vol] 0.4 mg/dL Normal 0.2-1.3 [facility] Comment on above: Order Comment: Speci men Type: BLOOD SPECIMENOrdering Facility: [facility] Address: [address] [place] [address] Performed By: #### 2 4323-8 ####[facility]ORATORYCLIA [id number] [place] [address] [place] Calcium [Mass/Vol] 10.0 mg/dL Normal 8.5-10.2 [facility] Comment on above: Order Comment: Speci men Type: BLOOD SPECIMENOrdering Facility: [facility] Address: [address] [place] [address] Performed By: #### 2 4323-8 ####[facility] LABORATORYCLIA [id number] [place] [address] [place] Chloride [Moles/Vol] 100 mmol/L Normal 98-107 [facility] Comment on above: Order Comment: Speci men Type: BLOOD SPECIMENOrdering Facility: [facility] Address: [address] [place] [address] Performed By: #### 2 4323-8 ####[facility]ORATORYCLIA [id number] [address] [place] CO2 [Moles/Vol] 27 mmol/L Normal 22-30 [facility] Comment on above: Order Comment: Speci men Type: BLOOD SPECIMENOrdering Facility: [facility] Address: [address] [place] [address] Performed By: #### 2 4323-8 ####[facility]ORATORYCLIA [id number] [address] [place] Creatinine [Mass/Vol] 0.63 mg/dL Normal 0.58-0.96 [facility] Comment on above: Order Comment: Speci men Type: BLOOD SPECIMENOrdering Facility: [facility] Address: [address] [place] [address] Performed By: #### 2 4323-8 ####[facility]ORATORYCLIA [id number] [address] Creatinine and Glomerular filtration rate.predicted panel (S/P/Bld) 117 mL/min/1.73m??? Normal >=60 [facility] Comment on above: Order Comment: Speci men Type: BLOOD SPECIMENOrdering Facility: [facility] Address: [address] [place] [address] Result Comment: Erica mated Glomerular Filtration Rate (eGFR) is calculated using the 2020 CKD-EPI creatinine equation. This equation utilizes serum creatinine, sex, and age as parameters. The creatinine assay has traceable calibration to isotope dilution-mass spectrometry. Refer to KDIGO guidelines for clinical interpretation. In patients with unstable renal function, e.g. those with acute kidney injury, the eGFR may not accurately reflect actual GFR. Performed By: #### 2 4323-8 ####[facility]ORATORYCLIA [id number] [place] [address] [place] Glucose [Mass/Vol] 83 mg/dL Normal 74-99 [facility] Comment on above: Order Comment: Angelique rodriguez Type: BLOOD SPECIMENOrdering Facility: [facility] Address: [address] [place] [address] Result Comment: The [place] Diabetes Association (ADA) provides guidance for cutoff values for fasting glucose and random glucose. The ADA defines fasting as no caloric intake for at least 8 hours. Fasting plasma glucose results between 100 to 125 mg/dL indicate increased risk for diabetes (prediabetes). Fasting plasma glucose results greater than or equal to 126 mg/dL meet the criteria for diagnosis of diabetes. In the absence of unequivocal hyperglycemia, results should be confirmed by repeat testing. In a patient with classic symptoms of hyperglycemia or hyperglycemic crisis, random plasma glucose results greater than or equal to 200 mg/dL meet the criteria for diagnosis of diabetes. Reference: Standards of Medical Care in Diabetes 2016, [place] [employer] Association. Diabetes Care. 2016.39(Suppl 1). Performed By: #### 2 4323-8 ####[facility] LABORATORYCLIA [id number] [place] [id number] [place] Potassium [Moles/Vol] 4.8 mmol/L Normal 3.7-5.1 [facility] Comment on above: Order Comment: Angelique rodriguez Type: BLOOD SPECIMENOrdering Facility: [facility] Address: [address] [place] [id number] Performed By: #### 2 4323-8 ####[facility] LABORATORYCLIA [id number] [place] [address] [place] Protein [Mass/Vol] 8.1 g/dL High 6.3-8.0 [facility] Comment on above: Order Comment: Speci men Type: BLOOD SPECIMENOrdering Facility: [facility] Address: [address] [place] [address] Performed By: #### 2 4323-8 ####[facility]ORATORYCLIA [id number] [address] STATES OF [facility] Sodium [Moles/Vol] 139 mmol/L Normal 136-144 [facility] Comment on above: Order Comment: Speci men Type: BLOOD SPECIMENOrdering Facility: [facility] Address: [address] [place] [address] Performed By: #### 2 4323-8 ####[facility]ORATORYCLIA [id number] [address] STATES [facility] Urea nitrogen [Mass/Vol] 13 mg/dL Normal 7-21 [facility] Comment on above: Order Comment: Speci men Type: BLOOD SPECIMENOrdering Facility: [facility] Address: [address] [place] [address] Performed By: #### 2 4323-8 ####[facility]ORATORYCLIA [id number] [address] OF [facility] ECG COMPLETEon 08-31-2024 ECG COMPLETE Ventricular Rate : 7 4 BPM Atrial Rate : 74 BPM P-R Interval : 158 ms QRS Duration : 88 ms Q-T Interval : 384 ms QTC Calculation(Bazett) : 426 ms Calculated P [place] : 53 degrees Calculated R [place] : 46 degrees Calculated T [place] : 50 degrees NORMAL SINUS RHYTHM NORMAL ECG NO PREVIOUS ECGS AVAILABLE Confirmed by MD VIDAL VINAY ([id number]) on 09/01/2024 5:46:56 PM NAME : EUGENIA CHISHOLM PID : [id number] : 1985 Gender : Female Race : ORD : [id number] Procedure Date : Aug 31 2024 15:00:39 Edit Date : Sep 01 2024 17:46:57 Diagnosis: NORMAL SINUS RHYTHM NORMAL ECG NO PREVIOUS ECGS AVAILABLE Confirmed by MD VIDAL VINAY ([id number]) on 09/01/2024 5:46:56 PM Test Reason : [facility] Location : 11 : 11 Overread By : MD VIDAL VINAY Edited By : MD VIDAL VINAY Referred By : , Acquired by : LITA JORDAN Normal [facility] HCG Preg Ur Qlon 08-31-2024 HCG ( test) Ql (U) Negative Normal Negative [facility] Comment on above: Order Comment: Speci men Type: URINE SPECIMENOrdering Facility: [facility] Address: [facility] [place] [address] Result Comment: This test is intended to aid in the early detection of . Very dilute urine samples, as indicated by a low specific gravity, may not contain merchandiser retail representative levels of hCG. This test detects intact hCG only. This test does not reliably detect hCG degradation products, including free-beta subunit and beta-core fragment. Therefore, this test may show reduced reactivity in urine after 8 weeks gestation. A number of conditions other than , including trophoblastic disease and certain non-trophoblastic neoplasms cause elevated levels of hCG. As with any assay employing mouse antibodies, the possibility exists for interference by human anti-mouse antibodies (HAMA) in the specimen. The test provides a presumptive diagnosis for . Performed By: #### 2 4356-8, 2106-3 ####[facility] LABORATORYCLIA [id number] [address] STATES OF [facility] HISTORY PHYSICALon HISTORY PHYSICAL HNO ID: [id number] Author: LITA JORDAN APRN.THERAPY AIDE Service: ? Author Type: Nurse Practitioner Type: H&P Filed: 08/31/2024 15:43 Note Text: [facility] HISTORY AND PHYSICAL EXAMINATION SERVICE DATE: 08/31/2024 SERVICE TIME: 3:32 PM PRIMARY CARE PHYSICIAN: Del Hubbard DO Assessment Patient has the following medical conditions which may affect franklin-operative course: Preop examination Patient has the following medical conditions which may affect franklin-operative course addressed in assessment and plan today. Intervertebral disc disorder with radiculopathy of lumbar region Surgery scheduled for September 05, 2024 ANESTHESIA FINDINGS: Intubation History: No history of difficult intubation Significant Anesthesia Considerations: potential postop nausea/vomiting Airway History: No history of difficult airway [place] Activity Status Index: METS: Climb a flight of stairs or walk up a hill (5.50 METs) DASI Score: 5.5 Patient denies any chest pain or undue shortness of breath with the above physical activity. ARISCAT Score: Age: <=50 Preoperative SpO2: >=96% Respiratory infection in the last month: No Preoperative anemia: No Surgical incision: peripheral Duration of surgery: 2-3 hrs Emergency procedure: No ARISCAT Score: 16 I - PHYSICAL EVALUATION AIRWAY Patient intubated: No. DENTAL Dental findings: teeth intact. Additional comments: Upper front crown. II - ANESTHESIA PLAN Anesthetic Plan: general Beta Natty Monitoring Plan Post Procedure Analgesic Plan Prepared for Surgery: . Per patient-no optimizations requested by surgeon for plan procedure. CONSULTS: Planned Anesthetic: general The Following Tests/Procedures Have Been Initiated: Orders Placed This Encounter methocarbamol (ROBAXIN) 500 mg tablet Sig: TAKE 1 TABLET BY MOUTH FOUR TIMES A DAY NEEDED The reason for this visit is to perform a comprehensive review of the patient's past medical history, assess their current health status and obtain any additional testing required based on anesthesia guidelines. We will also identify any potential anesthesia problems or contraindications to the planned procedure. REASON FOR VISIT: Eugenia Chisholm is a 39 year old female who is scheduled for Procedure(s): DISCOTOMY LUMBAR LEVEL 1 (N/A) MICROSURGICAL TECHNIQUE FOR SPINAL PROCEDURES (N/A) at the request of @REFPROV2@ for routine HANDP. My final recommendation will be communicated back to the requesting physician by way of shared medical record or letter. Subjective The patient has the following: COVID-19 Immunization Status Upcoming Covid-19 Vaccine () Postponed until 03/16/2025 03/16/2024 Postponed until 03/16/2025 by Maria Ines Lovett LPN (Declined at this time) 11/14/2021 Imm Admin: COVID-19 original vaccine, age 12+ yr, monovalent (PFIZER-BIONTwishkicker - [place]) 10/22/2021 Imm Admin: COVID-19 original vaccine, age 12+ yr, monovalent ([place]-BIONTECH - [place]) Only the first 3 history entries have been loaded, but more history exists. CHIEF COMPLAINT: The reason for this visit is to perform a comprehensive review of the patient's past medical history, assess their current health status and obtain any additional testing required based on anesthesia guidelines. We will also identify any potential anesthesia problems or contraindications to the planned procedure. HPI: Patient is a 39 year old female who presents for pre surgical testing. Patient states she has had problems with backache since she was a teenager but it has become worse since December 2023 after camping. She is unaware of any injury specifically. MRI in the past shows herniated disc. Her pain in the back and radiates down the right leg to the foot has been severe and made worse with any activity. She had injections in the past with the second 1 in June 2024 giving no relief. Patient has a prescription for tramadol for relief if needed. after discussion with the surgeon the patient agrees to surgical intervention. REVIEW OF SYSTEMS: General: Negative for: unintentional weight change, malaise and fever. Neurological: Positive for: headaches. Negative for: seizures and strokes. Respiratory: Negative for: asthma, COPD, pneumonia within 6 weeks, URI < 2 weeks and obstructive sleep apnea. Cardiovascular: Negative for: atrial fibrillation, CAD, chest pain, CHF, DVT/PE, hyperlipidemia and hypertension. GI: Negative for: abdominal pain, GERD, nausea and vomiting. : Negative for: dysuria, hematuria and renal failure. Endocrine: Negative for: diabetes mellitus, hyperthyroidism and hypothyroidism. Hematology: Negative for: anemia, factor V Leiden and von Willebrand disease. Oncology: No history of CA metastasis, chemo within 30 days, or radiotherapy within 90 days. No history of oncological symptoms or problems (more content not included)... Normal [facility] PT panel Coag (PPP)on 2024 INR Coag (PPP) [Relative time] 1.0 {INR} Normal 0.9-1.3 [facility] Comment on above: Order Comment: Speci men Type: BLOOD SPECIMENOrdering Facility: [facility] Address: [address], [place] [address] Result Comment: Chelsea min K Antagonist (VKA) Therapeutic Range: INR 2 to 3 (Target INR of 2.5) Note: For patients treated with VKA drugs, such as warfarin, the [place] [employer] 2012 Guideline recommends a therapeutic INR range of 2 to 3 (target INR of 2.5). This recommendation includes high-risk patients with antiphospholipid syndrome with previous arterial or venous thromboembolism, current-generation mechanical or bioprosthetic aortic heart valve replacement. Note: Patients with mechanical aortic valve replacement and additional risk factors for thromboembolic events (atrial fibrillation, previous thromboembolism, LV dysfunction, hypercoagulable conditions) or an older generation mechanical AVR (i.e., ball in-Cage) or any mechanical MVR should have a INR therapeutic range of 2.5 to 3.5 (target INR of 3). Nessa GH, et al. Chest 2012, 141:7S-47S Elkin RA, et al. [facility] 2017, 70: 252-289 Performed By: #### 3 4528-0, 97416-6 ####[facility] LABORATORYIA [id number] [address] [place] PT Coag (PPP) [Time] 11.1 s Normal 9.7-13.0 [facility] Comment on above: Order Comment: Speci men Type: BLOOD SPECIMENOrdering Facility: [facility] Address: [address] [place] [address] Performed By: #### 3 4528-0, 65537-8 ####[facility] LABORATORYIA [id number] [address] STATES OF [facility] QUANT TOX PANELon 08-31-2024 0-Fqbvbxvadk-5,5-Dimet hyl-3,3-Diphenylpyrrol idine (EDDP) Confirm (U) [Mass/Vol] <25 Normal <25 [facility] Comment on above: Order Comment: Speci men Type: URINE SPECIMENOrdering Facility: [facility] Address: [address] [place] [address] Result Comment: 5-Gypqflpwsf-3,0-blgxzaey-7,3-diphenylpyrrolidine (EDDP) is a metabolite of methadone. Performed By: #### U QNTX ####[facility] LABCLIA [id number] [address] [place] 6-Monoacetylmorphine (6-GALI) (U) [Mass/Vol] <5 Normal <5 [facility] Comment on above: Order Comment: Speci men Type: URINE SPECIMENOrdering Facility: [facility] Address: [address] [place] [address] Result Comment: 6-Mo noacetylmorphine is a metabolite of heroin. Performed By: #### U QNTX ####[facility] LABIA [id number] [place] [address] [place] Amphetamine Confirm (U) [Mass/Vol] <25 Normal <25 [facility] Comment on above: Order Comment: Speci men Type: URINE SPECIMENOrdering Facility: [facility] Address: [address] [place] [address] Result Comment: Meth ylphenidate does not contain or metabolize to amphetamine. Performed By: #### U QNTX ####[facility] [id number] [place] [address] [place] Benzoylecgonine Confirm (U) [Mass/Vol] <25 Normal <25 [facility] Comment on above: Order Comment: Speci men Type: URINE SPECIMENOrdering Facility: [facility] Address: [address] [place] [address] Result Comment: Davis oylecgonine is a metabolite of cocaine. Performed By: #### U QNTX ####[facility] [id number] [place] [address] [place] Buprenorphine (U) [Mass/Vol] <5 Normal <5 [facility] Comment on above: Order Comment: Speci men Type: URINE SPECIMENOrdering Facility: [facility] Address: [address] [place] [address] Result Comment: Rosaura ents using transdermal formulations of buprenorphine may yield undetectable buprenorphine and norbuprenorphine urine concentrations. Performed By: #### U QNTX ####[facility] LABIA [id number] [place] [address] [place] Carboxy tetrahydrocannabinol (U) [Mass/Vol] <10 Normal <10 [facility] Comment on above: Order Comment: Speci men Type: URINE SPECIMENOrdering Facility: [facility] Address: [address] [place] [address] Result Comment: 11-N ww-1-scvuhxn-tetrahydrocannabinol (zgnnb-6-zmlnixr-THC) is a metabolite of dctfm-1-mwpokkyvadanisbyismt (THC). This test does not differentiate between delta-8 or delta-9 carboxy-THC. Performed By: #### U QNTX ####[facility] LABCLIA [id number] [address] STATES [facility] Codeine Confirm (U) [Mass/Vol] <25 Normal <25 [facility] Comment on above: Order Comment: Speci men Type: URINE SPECIMENOrdering Facility: [facility] Address: [address] [place] [address] Performed By: #### U QNTX ####[facility] LABIA [id number] [address] [place] fentaNYL Confirm (U) [Mass/Vol] <1 Normal <1 [facility] Comment on above: Order Comment: Speci men Type: URINE SPECIMENOrdering Facility: [facility] Address: [address] [place] [address] Performed By: #### U QNTX ####[facility] LABIA [id number] [address] [place] HYDROcodone Confirm (U) [Mass/Vol] <25 Normal <25 [facility] Comment on above: Order Comment: Speci men Type: URINE SPECIMENOrdering Facility: [facility] Address: [address] [place] [address] Performed By: #### U QNTX ####[facility] LABIA [id number] [address] STATES [facility] HYDROmorphone Confirm (U) [Mass/Vol] <25 Normal <25 [facility] Comment on above: Order Comment: Speci men Type: URINE SPECIMENOrdering Facility: [facility] Address: [address] [place] [address] Performed By: #### U QNTX ####[facility] [id number] [address] [place] MDA, UR <25 Normal <25 [facility] Comment on above: Order Comment: Speci men Type: URINE SPECIMENOrdering Facility: [facility] Address: [address] [place] [address] Result Comment: 3,4 Methylenedioxyamphetamine is also known as MDA. Performed By: #### U QNTX ####[facility] [id number] [address] [place] MDEA, UR <25 Normal <25 [facility] Comment on above: Order Comment: Speci men Type: URINE SPECIMENOrdering Facility: [facility] Address: [address] [place] [address] Result Comment: 3,4 Rrgtdgcrzycobx-Z-eatovcslbyomtghr is also known as MDEA. Performed By: #### U QNTX ####[facility] [id number] [address] [place] MDMA, UR <25 Normal <25 [facility] Comment on above: Order Comment: Speci men Type: URINE SPECIMENOrdering Facility: [facility] Address: [address] [place] [address] Result Comment: 3,4- Methylenedioxymethamphetamine is also known as MDMA. Performed By: #### U QNTX ####[facility] [id number] [place] [address] [place] Methadone Confirm (U) [Mass/Vol] <25 Normal <25 [facility] Comment on above: Order Comment: Speci men Type: URINE SPECIMENOrdering Facility: [facility] Address: [address] [place] [address] Performed By: #### U QNTX ####[facility] LABIA [id number] [place] [address] [place] Methamphetamine Confirm (U) [Mass/Vol] <25 Normal <25 [facility] Comment on above: Order Comment: Speci men Type: URINE SPECIMENOrdering Facility: [facility] Address: [address] [place] [address] Performed By: #### U QNTX ####[facility]ITAL[facility] [id number] [address] STATES [facility] Morphine Confirm (U) [Mass/Vol] <25 Normal <25 [facility] Comment on above: Order Comment: Speci men Type: URINE SPECIMENOrdering Facility: [facility] Address: [address] [place] [address] Performed By: #### U QNTX ####[facility] [id number] [address] Norbuprenorphine (U) [Mass/Vol] <10 Normal <10 [facility] Comment on above: Order Comment: Speci men Type: URINE SPECIMENOrdering Facility: [facility] Address: [address] [place] [address] Result Comment: Norb uprenorphine is a metabolite of buprenorphine. Patients using transdermal formulations of buprenorphine may yield undetectable buprenorphine and norbuprenorphine urine concentrations. Performed By: #### U QNTX ####[facility] [id number] [address] Norfentanyl Confirm (U) [Mass/Vol] <1 Normal <1 [facility] Comment on above: Order Comment: Speci men Type: URINE SPECIMENOrdering Facility: [facility] Address: [address] [place] [address] Result Comment: Norf entanyl is a metabolite of fentanyl. Performed By: #### U QNTX ####[facility] [id number] [address] NORHYDROCODONE, UR <25 Normal <25 [facility] Comment on above: Order Comment: Speci men Type: URINE SPECIMENOrdering Facility: [facility] Address: [address] [place] [address] Result Comment: Norh ydrocodone is a metabolite of hydrocodone. Performed By: #### U QNTX ####[facility] [id number] [address] STATES [facility] NOROXYCODONE, UR <25 Normal <25 [facility] Comment on above: Order Comment: Speci men Type: URINE SPECIMENOrdering Facility: [facility] Address: [address] [place] [address] Result Comment: Noro xycodone is a metabolite of oxycodone. Performed By: #### U QNTX ####[place] [id number] [address] NOROXYMORPHONE, UR <25 Normal <25 [facility] Comment on above: Order Comment: Speci men Type: URINE SPECIMENOrdering Facility: [facility] Address: [address] [place] [address] Result Comment: Noro xymorphone is a metabolite of oxymorphone and oxycodone and a minor metabolite of naltrexone and naloxone. Performed By: #### U QNTX ####[facility] [id number] [address] [place] Nortramadol (U) [Mass/Vol] <25 Normal <25 [facility] Comment on above: Order Comment: Speci men Type: URINE SPECIMENOrdering Facility: [facility] Address: [address] [place] [address] Result Comment: O-de smethyltramadol is a metabolite of tramadol. Performed By: #### U QNTX ####[facility] [id number] [address] [place] NOTE, UR TOXICOLOGY PANEL Normal [facility] Comment on above: Order Comment: Speci men Type: URINE SPECIMENOrdering Facility: [facility] Address: [address] [place] [address] Result Comment: For medical purposes only. Not valid for legal or forensic purposes. This test was developed, and its performance characteristics determined by the [facility] Department of Pathology and Laboratory Medicine. It has not been cleared or approved by the FDA. The [facility] Department of Pathology and Laboratory Medicine is regulated under CLIA as qualified to perform high-complexity testing. This test is used for clinical purposes. It should not be regarded as investigational or for research. Performed By: #### U QNTX ####[facility] [id number] [place] [address] [place] oxyCODONE Confirm (U) [Mass/Vol] <25 Normal <25 [facility] Comment on above: Order Comment: Speci men Type: URINE SPECIMENOrdering Facility: [facility] Address: [address] [place] [address] Performed By: #### U QNTX ####[facility] [id number] [address] [place] oxyMORphone Confirm (U) [Mass/Vol] <25 Normal <25 [facility] Comment on above: Order Comment: Speci men Type: URINE SPECIMENOrdering Facility: [facility] Address: [address] [place] [address] Performed By: #### U QNTX ####[facility] [id number] [address] [place] Phencyclidine Confirm (U) [Mass/Vol] <10 Normal <10 [facility] Comment on above: Order Comment: Speci men Type: URINE SPECIMENOrdering Facility: [facility] Address: [address] [place] [address] Result Comment: Phen cyclidine is also known as PCP. Performed By: #### U QNTX ####[facility] LABCLIA [id number] [address] [place] [address] [place] PHENTERMINE, UR <25 Normal <25 [facility] Comment on above: Order Comment: Speci men Type: URINE SPECIMENOrdering Facility: [facility] Address: [address] [place] [address] Performed By: #### U QNTX ####[facility] LABCLIA [id number] [address] [place] [address] [place] traMADol Confirm (U) [Mass/Vol] <25 Normal <25 [facility] Comment on above: Order Comment: Speci men Type: URINE SPECIMENOrdering Facility: [facility] Address: [address] [place] [address] Performed By: #### U QNTX ####[facility] LABCLIA [id number] [address], [address] [place] SPECIMEN VALIDITY, URINEon 0 - CREATININE,URINE 41.1 mg/dL Normal 20.0-300.0 [facility] Comment on above: Order Comment: Speci men Type: URINE SPECIMENOrdering Facility: [facility] Address: [address] [place] [address] Performed By: #### L [id number] ####[facility] LABCLIA [id number] [address] [place] [address] [place] NITRITES,URINE <50 Normal <500 [facility] Comment on above: Order Comment: Speci men Type: URINE SPECIMENOrdering Facility: [facility] Address: [address] [place] [address] Performed By: #### L [id number] ####[facility] LABCLIA [id number] [address] [place] [address] [place] OXIDANTS,URINE <38 Normal <200 [facility] Comment on above: Order Comment: Speci men Type: URINE SPECIMENOrdering Facility: [facility] Address: [address] [place] [address] Performed By: #### L [id number] ####[facility] LABCLIA [id number] [place] [address] [place] pH (U) 5.3 [pH] Normal 4.5-8.0 [facility] Comment on above: Order Comment: Speci men Type: URINE SPECIMENOrdering Facility: [facility] Address: [address] [place] [address] Performed By: #### L [id number] ####[facility] LABCLIA [id number] [place] [address] [place] SPEC GRAVITY,UR 1.011 Normal 1.003-1.03 5 [facility] Comment on above: Order Comment: Speci men Type: URINE SPECIMENOrdering Facility: [facility] Address: [address] [place] [address] Performed By: #### L [id number] ####[facility] LABCLIA [id number] [address] [place] SPECIMEN VALIDITY QUALITY Specimen quality results within acceptable limits Normal [facility] Comment on above: Order Comment: Speci men Type: URINE SPECIMENOrdering Facility: [facility] Address: [address] [place] [address] Performed By: #### L [id number] ####[facility] LABCLIA [id number] [place] [id number] [place] STAPHYLOCOCCUS AUREUS AND MR SA SCREEN, PCR, NASALon 08-31-2024 S. aureus and MRSA panel BARI+probe (Nose) Methicillin-SUSCEPTIBLE Staphylococcus aureus Detected Abnormal Not Detected [facility] Comment on above: Order Comment: Speci men Type: SWABOrdering Facility: [facility] Address: [address] [place] [address] Performed By: #### S APCR ####[facility] LABORATORYCLIA [id number] [place] [address] [place] TOXICOLOGY SCREEN, ROUTINE U RINEon 08-31-2024 Amphetamines Confirm (U) [Mass/Vol] Negative Negative [facility] Comment on above: Cutoff threshold at 1000 ng/mL. Barbiturates Urine Negative Negative [facility] Comment on above: Cutoff threshold at 200 ng/mL. Benzodiazepines Urine Negative Negative [facility] Comment on above: Cutoff threshold at 200 ng/mL. Cannabinoids Screen Ql (U) Negative Negative [facility] Comment on above: Cutoff threshold at 50 ng/mL. Cocaine Ql (U) Negative Negative [facility] Comment on above: Cutoff threshold at 300 ng/mL. Ethanol (U) [Mass/Vol] mg/dL NINF - 11 mg/dL [facility] Interpretation and review of laboratory results Normal [facility] Opiates Screen Ql (U) Negative Negative [facility] Comment on above: Cutoff threshold at 300 ng/mL. oxyCODONE cutoff Screen (U) [Mass/Vol] Negative Negative [facility] Comment on above: Cutoff threshold at 100 ng/mL. Phencyclidine Ql (U) Negative Negative [facility] Comment on above: Cutoff threshold at 25 ng/mL. Immunoassay screen o nly. Cross reactivity with other substances can occur with immunoassay screening. Detection of any drug(s) in this urine toxicology panel is presumptive only. These tests are for medical purposes only and should not be used for compliance monitoring, legal, or forensic use. Samples should be within normal physiological conditions (e.g. pH). This assay does not include adulteration/specimen validity testing. In clinical settings, confirmatory testing is at the practitioner's discretion [1]. If clinically indicated, confirmation by high specificity, quantitative methodology, which includes adulteration/specimen validity testing, may be requested on the same specimen through the testing laboratory if contacted within 48 hours of initial testing. [1]Substance Abuse and Mental Health Services Administration (2012). Clinical Drug Testing in Primary Care Technical Assistance Publication Series 32. Department of Health and Human Services, [place], p.10. [facility] Amphetamines Confirm (U) [Mass/Vol] Negative Normal Negative [facility] Comment on above: Order Comment: Speci men Type: URINE SPECIMENOrdering Facility: [facility] Address: [facility] [place] [address] Result Comment: Cuto ff threshold at 1000 ng/mL. Performed By: #### U TOX2 ####[facility] [facility]ORYCLIA [id number] [address] [place] BARBITURATES, URINE Negative Normal Negative [facility] Comment on above: Order Comment: Speci men Type: URINE SPECIMENOrdering Facility: [facility] Address: [address] [place] [address] Result Comment: Cuto ff threshold at 200 ng/mL. Performed By: #### U TOX2 ####[facility]ORYCLIA [id number] [place] [address] [place] BENZODIAZEPINES, UR Negative Normal Negative [facility] Comment on above: Order Comment: Speci men Type: URINE SPECIMENOrdering Facility: [facility] Address: [address] [place] [address] Result Comment: Cuto ff threshold at 200 ng/mL. Performed By: #### U TOX2 ####[facility]ORY[facility] [id number] [address] Cannabinoids Screen Ql (U) Negative Normal Negative [facility] Comment on above: Order Comment: Speci men Type: URINE SPECIMENOrdering Facility: [facility] Address: [address] [place] [address] Result Comment: Cuto ff threshold at 50 ng/mL. Performed By: #### U TOX2 ####[facility]ORY[facility]IA [id number] [address] [place] Cocaine Ql (U) Negative Normal Negative [facility] Comment on above: Order Comment: Speci men Type: URINE SPECIMENOrdering Facility: [facility] Address: [address] [place] [address] Result Comment: Cuto ff threshold at 300 ng/mL. Performed By: #### U TOX2 ####[facility] [id number] [address] [place] Ethanol (U) [Mass/Vol] <11 Normal <11 [facility] Comment on above: Order Comment: Speci men Type: URINE SPECIMENOrdering Facility: [facility] Address: [address] [place] [address] Performed By: #### U TOX2 ####[facility]ORY[facility] [id number] [address] Opiates Screen Ql (U) Negative Normal Negative [facility] Comment on above: Order Comment: Speci men Type: URINE SPECIMENOrdering Facility: [facility] Address: [address] [place] [address] Result Comment: Cuto ff threshold at 300 ng/mL. Performed By: #### U TOX2 ####[facility]IA [id number] [address] oxyCODONE cutoff Screen (U) [Mass/Vol] Negative Normal Negative [facility] Comment on above: Order Comment: Speci men Type: URINE SPECIMENOrdering Facility: [facility] Address: [address] [place] [address] Result Comment: Cuto ff threshold at 100 ng/mL. Performed By: #### U TOX2 ####[facility] LABORATORYCLIA [id number] [address] Phencyclidine Ql (U) Negative Normal Negative [facility] Comment on above: Order Comment: Speci men Type: URINE SPECIMENOrdering Facility: [facility] Address: [address] [place] [address] Result Comment: Cuto ff threshold at 25 ng/mL. Performed By: #### U TOX2 ####[facility] [id number] [address] OF [facility] TYPE AND SCREEN,30 DAYon ABO O Normal [facility] Comment on above: Order Comment: Speci men Type: BLOOD SPECIMENOrdering Facility: [facility] Address: [address] [place] [address] Performed By: #### T SCR30 ####[facility] BLOOD BANKCLIA [id number] [address] [place] Rh Nom (Bld) Positive Normal [facility] Comment on above: Order Comment: Speci men Type: BLOOD SPECIMENOrdering Facility: [facility] Address: [address] [place] [address] Performed By: #### T SCR30 ####[facility] BLOOD BANKCLIA [id number] [address] Urinalysis complete panel (U )on 08-31-2024 Bilirubin Ql (U) Negative Normal Negative [facility] Comment on above: Order Comment: Speci men Type: URINE SPECIMENOrdering Facility: [facility] Address: [address] [place] [address] Performed By: #### 2 43568, 2105-06 ####[facility] LABORATORYCLIA [id number] [address] Clarity (Unsp spec) Clear Normal Clear [facility] Comment on above: Order Comment: Speci men Type: URINE SPECIMENOrdering Facility: [facility] Address: [address] [place] [address] Performed By: #### 2 43568, 2105-06 ####[facility] LABORATORYCLIA [id number] [address] Color (U) Colorless Normal yellow [facility] Comment on above: Order Comment: Speci men Type: URINE SPECIMENOrdering Facility: [facility] Address: [address] [place] [place] [address] Performed By: #### 2 43510-01, 2105-06 ####[facility] LABORATORYCLIA [id number] [address] Epithelial cells LM.HPF (Urine sed) [#/Area] Few Normal [facility] Comment on above: Order Comment: Speci men Type: URINE SPECIMENOrdering Facility: [facility] Address: [address] [place] [address] Performed By: #### 2 4356-8, 2105-06 ####[facility] LABORATORYCLIA [id number] [address] [place] Glucose Test strip (U) [Mass/Vol] Negative Normal Trace, Negative [facility] Comment on above: Order Comment: Speci men Type: URINE SPECIMENOrdering Facility: [facility] Address: [address] [place] [address] Performed By: #### 2 6, 2105-06 ####[facility] LABORATORYCLIA [id number] [place] [address] [place] Hemoglobin Ql (U) 2+ Abnormal Negative, Trace [facility] Comment on above: Order Comment: Speci men Type: URINE SPECIMENOrdering Facility: [facility] Address: [address] [place] [address] Performed By: #### 2 4355-11, 2105-06 ####[facility] LABORATORYCLIA [id number] [place] [address] [place] Ketones Ql (U) Negative Normal Negative, Trace [facility] Comment on above: Order Comment: Speci men Type: URINE SPECIMENOrdering Facility: [facility] Address: [address] [place] [address] Performed By: #### 2 4355-11, 2105-06 ####[facility] LABORATORYCLIA [id number] [address] STATES [place] Leukocyte esterase Test strip Ql (U) 75 Aracelis/uL Abnormal Negative, 25 Aracelis/uL [facility] Comment on above: Order Comment: Speci men Type: URINE SPECIMENOrdering Facility: [facility] Address: [address] [place] [address] Performed By: #### 2 4355-11, 2105-06 ####[facility] LABORATORYCLIA [id number] [place] [address] [place] Nitrite Ql (U) Negative Normal Negative [facility] Comment on above: Order Comment: Speci men Type: URINE SPECIMENOrdering Facility: [facility] Address: [address] [place] [address] Performed By: #### 2 4356, 2105-06 ####[facility]ORATORYCLIA [id number] [address] [place] pH (U) 5.0 [pH] Normal 5.0-8.0 [facility] Comment on above: Order Comment: Speci men Type: URINE SPECIMENOrdering Facility: [facility] Address: [address] [place] [address] Performed By: #### 2 4356-8, 2105-06 ####[facility] LABORATORYCLIA [id number] [address] [place] Protein (U) [Mass/Vol] Negative Normal Trace , Negative [facility] Comment on above: Order Comment: Speci men Type: URINE SPECIMENOrdering Facility: [facility] Address: [address] [place] [address] Performed By: #### 2 4356-8, 2105-06 ####[facility] LABORATORYCLIA [id number] [address] STATES [facility] RBC LM.HPF (Urine sed) [#/Area] 0-3 /HPF Normal 0-3 /HPF [facility] Comment on above: Order Comment: Speci men Type: URINE SPECIMENOrdering Facility: [facility] Address: [address] [place] [address] Performed By: #### 2 43568, 2105-06 ####[facility] LABORATORYCLIA [id number] [address] [place] Specific gravity (U) [Rel density] 1.008 Normal 1.005-1.03 0 [facility] Comment on above: Order Comment: Speci men Type: URINE SPECIMENOrdering Facility: [facility] Address: [address] [place] [address] Performed By: #### 2 4356-8, 2105-06 ####[facility] LABORATORYCLIA [id number] [address] Urobilinogen Ql (U) Normal Normal Normal [facility] Comment on above: Order Comment: Speci men Type: URINE SPECIMENOrdering Facility: [facility] Address: [address] [place] [address] Performed By: #### 2 4356-8, 2105-06 ####[facility] LABORATORYCLIA [id number] [place] [address] [facility] WBC LM.HPF (Urine sed) [#/Area] 0-5 /HPF Normal 0-5 /HPF [facility] Comment on above: Order Comment: Speci men Type: URINE SPECIMENOrdering Facility: [facility] Address: [address] [place] [address] Performed By: #### 2 4356-8, 2105-06 ####[facility] LABORATORYCLIA [id number] [place] [address] [facility] XR CHEST 2V FRONTAL/LATon XR CHEST 2V FRONTAL/LAT * * *Final Report* * * DATE OF EXAM: Aug 31 2024 4:26PM AKX [id number] - XR CHEST 2V FRONTAL/LAT / PROCEDURE REASON: Intervertebral disc disorder with radiculopathy of lumbar region * * * * Physician Interpretation * * * * EXAMINATION: CHEST RADIOGRAPH (2 VIEW FRONTAL and LATERAL) CLINICAL HISTORY: Intervertebral disc disorder with radiculopathy of lumbar region MQ: [id number]_6 EXAM DATE/TIME: 08/31/2024 4:26 PM COMPARISON: No relevant prior studies available. RESULT: Lines, tubes, and devices: None. Lungs and pleura: No consolidation. No lung mass. No pleural effusion. No pneumothorax. Cardiomediastinal silhouette: Normal cardiomediastinal silhouette. Bones and soft tissues: Degenerative changes are present within the thoracic spine. IMPRESSION: No acute radiographic abnormality. Sample Steamer: ALEX Transcribe Date/Time: Sep 01 2024 9:42A Dictated by : TORI SNYDER MD This examination was interpreted and the report reviewed and electronically signed by: TORI SNYDER MD on Sep 01 2024 9:43AM EST [id number] Normal [facility] aPTT PPPon 08-31-2024 aPTT Coag (PPP) [Time] 29.4 s Normal 23.0-32.4 [facility] Comment on above: Order Comment: Speci men Type: BLOOD SPECIMENOrdering Facility: [facility] Address: [address] [id number] Performed By: #### 3 4528-0, 07124-8 ####[facility] LABORATORYCLIA [id number] [place] [address] [place] Katarina 08-29-2024 CNPN Telephone (NEAGCLM) EUGENIA CHISHOLM ([id number]) 1985 F Date Time Provider Department 08/29/24 FAB PIPER NEAGCLM During your visit today, we recorded the following information about you: Chris Renner 08/29/2024 4:10 PM Signed Attempted to contact patient to discuss surgery details. No answer. Left a VM requesting a return phone call to discuss. Chris Renner 09/04/2024 2:51 PM Signed Contacted patient to remind them of their arrival time for surgery with Dr. Fab Piper on 09/05/24. Patient is to arrive at [facility] at 10:00am for surgery at 12:00pm. Spoke with patient and they are aware of all arrival information. Allergies As of Date: 08/29/2024 (No Known Allergies) Date Reviewed: 08/28/2024 Reviewed by: Marta Huitron MA - Fully Assessed Reason for Visit: Preparations For Surgery [898] Prescriptions as of 09/04/2024 - methocarbamol (ROBAXIN) 500 mg tablet TAKE 1 TABLET BY MOUTH FOUR TIMES A DAY NEEDED - traMADol (ULTRAM) 50 mg tablet Take 1 tablet by mouth every 6 hours as needed for pain for up to 7 days. - gabapentin (NEURONTIN) 800 mg tablet Take 1 tablet by mouth three times a day for 60 days. - TIRZEPATIDE SUBCUTANEOUS Inject 7.5 Ampules subcutaneously one time a week. Problem List As Of Date 08/29/2024 Noted Resolved Backache, unspecified [M54.9] 03/13/2013 Cervicalgia [M54.2] 03/13/2013 Hypertrophy of breast [N62] 03/13/2013 Encounter Status:Closed by CHRIS RENNER on 08/29/24 [facility] CNOVon 08-28-2024 CNOV Office Visit (NEAGCL M) EUGENIA CHISHOLM ([id number]) 1985 F Date Time Provider Department 08/28/24 3:30 PM FAB PIPER NEAGCLM During your visit today, we recorded the following information about you: Pulse Blood pressure Weight Height 69/minute 107/71 89.1 kg 1.753 m Fab Piper MD 08/28/2024 4:03 PM Signed NEUROSURGERY CONSULT NOTE Fab Piper MD [facility] Date of visit: August 28, 2024 Patient Name: Ms.Amber Mirza Chisholm Date of : 1985 Current Age: [age] year old Sex: female MRN/E# [id number] Last Office Visit: Visit date not found Chief Complaint: Patient presents with: New Patient Past Medical/Surgical History: Eugenia Chisholm is a 39 year old female who is referred by Sandi Jimenez PA-C for neurosurgical evaluation. The patient has a history of back pain, hypercholesterolemia, scoliosis. Smoking: +VAPE Alcohol Use: occasional HISTORY OF PRESENT ILLNESS : The patient presents to the office today as a new patient for neurosurgical evaluation of her lumbar spine. Of note, she saw Dr. Perez with Neurosurgery on 08/15/2024 for this same complaint and he recommended physical therapy and EMG for surgical prep as she was ready for surgery due to severity of symptoms. She states she started with low back pain into the right leg since December 2023 without inciting event. Leg pain is worse than the low back. Pain is not in a specific distribution, though she feels most of the pain in the right lateral calf. She has tried injections without relief and is ready to discuss surgical intervention. She is here for image review, evaluation and plan of care. Symptoms: low back into right leg PREVIOUS CONSERVATIVE TREATMENTS: Injection - right paramedian L5-S1 ILESI 05/18/2024 - immediate relief of back pain, but it came back. - right L4-5 TFESI 07/18/2024 - no relief of back or leg pain Gabapentin 800mg TID PREVIOUS SURGERY: None Surgical Risk Factors: Smoking status: denies Anticoagulants/antiplatelet s: denies Diabetic: denies BMI: 29.01 PAIN EVALUATION 08/26/20242015 Pain Level: 8 Pain Location: Back-Lower Description: Sharp;Throbbing;Tingling Duration Amount of Time: 8 Duration Units: Months Frequency: Continuous Intervention/Comfort measure: Medication;Reposition;Relax ation;Cold;Heat;Massage;Pil low support;Positioning Comments: Severe nerve pain down right leg and foot PAST MEDICAL HISTORY Diagnosis Date Back pain Hypercholesteremia 05/2014 Increased frequency of headaches 2013 Scoliosis PAST SURGICAL HISTORY Procedure Laterality Date PAST SURGICAL HISTORY OF wisdom tooth extraction PAST SURGICAL HISTORY OF 07/24/2013 REDUCTION BREAST FAMILY HISTORY Problem Relation Age of Onset Cancer Maternal Aunt 58 ovarian other (endometriosis) Paternal Grandmother ALLERGIES No Known Allergies Current Outpatient Medications Medication Sig Dispense Refill gabapentin (NEURONTIN) 800 mg tablet Take 1 tablet by mouth three times a day for 60 days. 90 tablet 1 TIRZEPATIDE SUBCUTANEOUS Inject 7.5 Ampules subcutaneously one time a week. No current facility-administered medications for this visit. REVIEW OF SYSTEMS Review of Systems Constitutional: Negative for diaphoresis, fatigue and fever. HENT: Negative for ear pain, hearing loss and tinnitus. Eyes: Negative for photophobia, pain and visual disturbance. Respiratory: Negative for cough, chest tightness and shortness of breath. Cardiovascular: Negative for chest pain. Gastrointestinal: Negative for constipation, diarrhea, nausea and vomiting. Endocrine: Negative for polydipsia, polyphagia and polyuria. Genitourinary: Negative for difficulty urinating, frequency and urgency. Musculoskeletal: Positive for back pain. Negative for gait problem, neck pain and neck stiffness. Skin: Negative for color change and rash. Neurological: Negative for dizziness, weakness and numbness. Psychiatric/Behavioral: Negative for agitation and confusion. The patient is not nervous/anxious. OBJECTIVE: BP 107/71 Pulse 69 Ht 5' 9 (1.75m) Wt 196 lb 6.9 oz (89.1kg) SpO2 98% LMP 07/15/2024 BMI 28.99 kg/(m2). PHYSICAL EXAM: Mental State : Alert, memory function unremarkable. Attention span and concentration normal for patient's age. Speech normal, no receptive or expressive speech deficit. Recent and remote memory normal. Orientation : Oriented to person, place and time. Cranial Nerves : Grossly intact. Sensory: Normal Sensation in upper and lower extremities and trunk to touch and noxious stimuli. Motor: Normal muscle tone and bulk. No tremor or uncontrollable movements. No spasticity or tremor. Gait and Station: Casual gait is normal including stance, stride, and arm swing. STRENGTH: Upper Extremity Strength Exam Right Left Elbow Flexion 5/5 (more content not included)... Normal [facility] XR Lumbar spine Views W flex ion and W extensionon 08-17-2024 IMPRESSION: Findings as described above. Sample Steamer: PSCB Transcribe Date/Time: Aug 17 2024 5:20P Dictated by : JACOBO ANGLIN MD This examination was interpreted and the report reviewed and electronically signed by: JACOBO ANGLIN MD on Aug 17 2024 5:22PM [facility] DIVISION OF RADIOLOGY * * *Final Report* * * DATE OF EXAM: Aug 14 2024 1:24PM WOX [id number] - XR LUMBAR 4V AP/LAT/ FLEX/EXT / PROCEDURE REASON: Low back pain, unspecified back pain laterality, unspecified chronicity, unspeci * * * * Physician Interpretation * * * * EXAM TITLE: XR LUMBAR 4V AP/LAT/ FLEX/EXT EXAM DATE/TIME: 08/14/2024 1:24 PM COMPARISON: X-ray lumbar spine on 03/16/2024 CLINICAL INDICATION/HISTORY: Low back pain. TECHNIQUE: AP, lateral, lateral extension, lateral region and cone down lateral views of the lumbar spine are presented. FINDINGS: There are five mvd-lmf-boldoxq lumbar vertebrae. Right-sided curvature of the lumbar spine is again noted. No fracture or subluxations are noted. No change in alignment of the lumbar spine with lateral extension and lateral flexion. The disc spaces are grossly preserved. There is minimal osteophyte formation. Others: There are degenerative changes in the thoracic spine. A T-shaped IUD seen in the pelvis. DIVISION OF RADIOLOGY Provider, Preet Capone - 08/17/2024 * * *Final Report* * * DATE OF EXAM: Aug 14 2024 1:24PM WOX [id number] - XR LUMBAR 4V AP/LAT/ FLEX/EXT / PROCEDURE REASON: Low back pain, unspecified back pain laterality, unspecified chronicity, unspeci * * * * Physician Interpretation * * * * EXAM TITLE: XR LUMBAR 4V AP/LAT/ FLEX/EXT EXAM DATE/TIME: 08/14/2024 1:24 PM COMPARISON: X-ray lumbar spine on 03/16/2024 CLINICAL INDICATION/HISTORY: Low back pain. TECHNIQUE: AP, lateral, lateral extension, lateral region and cone down lateral views of the lumbar spine are presented. FINDINGS: There are five ubp-pef-owaclce lumbar vertebrae. Right-sided curvature of the lumbar spine is again noted. No fracture or subluxations are noted. No change in alignment of the lumbar spine with lateral extension and lateral flexion. The disc spaces are grossly preserved. There is minimal osteophyte formation. Others: There are degenerative changes in the thoracic spine. A T-shaped IUD seen in the pelvis. IMPRESSION IMPRESSION: Findings as described above. Sample Steamer: PSCDaniel Transcribe Date/Time: Aug 17 2024 5:20P Dictated by : JACOBO ANGLIN MD This examination was interpreted and the report reviewed and electronically signed by: JACOBO ANGLIN MD on Aug 17 2024 5:22PM [facility] XR Lumbar spine Views W flex ion and W extensionOrdered By: [facility] Provider on 08-17-2024 [facility] CNOVon 08-15-2024 CNOV Office Visit (NMMMM) EUGENIA CHISHOLM ([id number]) 1985 F Date Time Provider Department 08/15/24 3:00 PM MICHAEL PEREZNMMMM During your visit today, we recorded the following information about you: Weight Height 88 kg 1.753 m Lizy Mantilla MA 08/15/2024 4:06 PM Signed 39 y/o female presents to office with concerns of low back pain that is radiating into the left leg. This started 11/2023. Denies accident or trauma. Xrays obtained. Michael Perez MD 08/15/2024 4:06 PM Signed [facility] New Patient Consultation No referring provider defined for this encounter. CC: Lower back pain Subjective History of Present Illness: Eugenia is a 39-year-old female presenting with persistent back and right leg pain. Eugenia reports a history of back pain since her teenage years, which worsened in December. She describes the pain as severe, without any known injury, and sought child care counselor, where she was informed of a possible herniated disc. An MRI confirmed the diagnosis. She received epidural steroid injections at [facility] in [place], performed by Dr. Fei Gonzáles, which alleviated her back pain but did not resolve her leg pain. In April, she began experiencing constant pins and needles and a burning sensation in her right leg, initially localized to the back of the leg but now affecting the front, top, and bottom of the foot, sparing the big toe. The pain is exacerbated by prolonged sitting, walking, and certain movements, with baseline pain rated at 3-4/10, increasing with activity. A second injection in June at L4-L5 provided no relief. She has not engaged in physical therapy for her current condition but has performed exercises previously taught for lower back pain without significant improvement. She expresses a desire for surgical intervention due to the severity of her symptoms. Past Medical History: PAST MEDICAL HISTORY Diagnosis Date Back pain Hypercholesteremia 05/2014 Increased frequency of headaches 2013 Scoliosis Past Surgical History: PAST SURGICAL HISTORY Procedure Laterality Date PAST SURGICAL HISTORY OF wisdom tooth extraction PAST SURGICAL HISTORY OF 07/24/2013 REDUCTION BREAST Family History: FAMILY HISTORY Problem Relation Age of Onset Cancer Maternal Aunt 58 ovarian other (endometriosis) Paternal Grandmother Social History Tobacco Use Smoking status: Former Current packs/day: 0.00 Average packs/day: 1 pack/day for 7.0 years (7.0 ttl pk-yrs) Types: Cigarettes Start date: 06/23/2001 Quit date: 06/23/2008 Years since quittin.1 Smokeless tobacco: Never Tobacco comments: Both parents smoked in childhood home. Smokers in workplace. Substance Use Topics Alcohol use: Yes Comment: occasionally Drug use: No Allergies: Patient has no known allergies. Current Outpatient Medications Medication Sig traMADol (ULTRAM) 50 mg tablet Take 1 tablet by mouth every 6 hours as needed for pain for up to 7 days. gabapentin (NEURONTIN) 800 mg tablet Take 1 tablet by mouth three times a day for 60 days. TIRZEPATIDE SUBCUTANEOUS Inject 7.5 Ampules subcutaneously one time a week. tramadol HCl (TRAMADOL ORAL) Take by mouth. (Patient not taking: Reported on 08/15/2024) No current facility-administered medications for this visit. Employed: N/A Review of systems: Constitutional: No recent fever or weight loss. Eyes: No history of glaucoma or cataracts. ENMT: No recent ear infection, nasal congestion, mouth sores or sore throat. CV: No history of chest pain, palpitations or leg swelling. Respiratory: No history of SOB, asthma or recent cough. Gastrointestinal: No history of nausea, vomiting, dysphagia or abdominal pain. Genitourinary: No history of hematuria or dysuria. Musculoskeletal: No complaint of arthritis, unstable gait or arm/leg weakness. Psychiatric: No history of hallucinations or depression or anxiety. ROS Neurological: No complaint of headache. No complaint of tinnitus. No complaint of decreased hearing. No complaint of diplopia. No complaints of decreased visual acuity. No complaint of arm/leg numbness. No problem with limb coordination. No complaint of syncope, seizures or disorientation. Objective Physical Exam: Ht 175.3 cm (5' 9) Wt 88 kg (194 lb) LMP 07/15/2024 BMI 28.65 kg/m? Neurological: Higher integrative functions: Oriented to person, place AND time. Memory: Good recent and remote. Attention Span and Concentration: Good. Language: Accurate naming of objects. Good comprehension. Fund of Knowledge: Good. 2nd CN: Full visual schilling. 3rd,4th,6th CN: Pupils (=), round, react to light, full extraocular movements. 5th CN: No decrease in facial sensation. 7th CN: Facial muscles symmetric and strong. 8th CN: Hears finge (more content not included)... Normal [facility] XR LUMBAR 4V AP/LAT/ FLEX/EX Ton 08-14-2024 XR LUMBAR 4V AP/LAT/ FLEX/EXT * * *Final Report* * * DATE OF EXAM: Aug 14 2024 1:24PM WOX [id number] - XR LUMBAR 4V AP/LAT/ FLEX/EXT / PROCEDURE REASON: Low back pain, unspecified back pain laterality, unspecified chronicity, unspeci * * * * Physician Interpretation * * * * EXAM TITLE: XR LUMBAR 4V AP/LAT/ FLEX/EXT EXAM DATE/TIME: 08/14/2024 1:24 PM COMPARISON: X-ray lumbar spine on 03/16/2024 CLINICAL INDICATION/HISTORY: Low back pain. TECHNIQUE: AP, lateral, lateral extension, lateral region and cone down lateral views of the lumbar spine are presented. FINDINGS: There are five ghu-zvh-dsmwzpk lumbar vertebrae. Right-sided curvature of the lumbar spine is again noted. No fracture or subluxations are noted. No change in alignment of the lumbar spine with lateral extension and lateral flexion. The disc spaces are grossly preserved. There is minimal osteophyte formation. Others: There are degenerative changes in the thoracic spine. A T-shaped IUD seen in the pelvis. IMPRESSION: Findings as described above. Sample Steamer: PSCB Transcribe Date/Time: Aug 17 2024 5:20P Dictated by : JACOBO ANGLIN MD This examination was interpreted and the report reviewed and electronically signed by: JACOBO ANGLIN MD on Aug 17 2024 5:22PM EST [id number] Normal [facility] XR Lumbar spine Views W flex ion and W extensionon 08-14-2024 Radiology Study observation (narrative) [facility] CNCONon 08-10-2024 CNCON Consults (NMMMM) EUGENIA CHISHOLM ([id number]) 1985 F Date Time Provider Department 08/10/24 MICHAEL PEREZEIDANMMMM During your visit today, we recorded the following information about you: Allergies As of Date: 08/10/2024 (No Known Allergies) Date Reviewed: 08/10/2024 Reviewed by: Amparo Stanton MA - Fully Assessed Primary Visit Diagnosis:OPENED IN ERROR Prescriptions as of 09/19/2024 - methocarbamol (ROBAXIN) 750 mg tablet Take 1 tablet by mouth three times a day. - methocarbamol (ROBAXIN) 500 mg tablet TAKE 1 TABLET BY MOUTH FOUR TIMES A DAY NEEDED - gabapentin (NEURONTIN) 800 mg tablet Take 1 tablet by mouth three times a day for 60 days. - TIRZEPATIDE SUBCUTANEOUS Inject 7.5 Ampules subcutaneously one time a week. Problem List As Of Date 08/10/2024 Noted Resolved Backache, unspecified [M54.9] 03/13/2013 Cervicalgia [M54.2] 03/13/2013 Hypertrophy of breast [N62] 03/13/2013 Encounter Status:Closed by KARTHIK GHOTRA RN on 09/19/24 [facility] ALICEOVmars 08-10-2024 CNOV Office Visit (FAMPWS ) EUGENIA CHISHOLM ([id number]) 1985 F Date Time Provider Department 08/10/24 7:40 AM DEYSI DASILVAPJOEY During your visit today, we recorded the following information about you: Pulse Blood pressure Weight 76/minute 118/76 89.4 kg Deysi Dasilva APRN.THERAPY AIDE 08/10/2024 9:39 AM Signed Chief Complaint Patient presents with: Back Pain: Has appt with surgery 08/15 [facility] Eugenia Antoineclaire is a 39 year old female who presents here today for Above Complaints.. Had injections on 07/18/24- Patient states this did not help at all with her back pain. Had injections in April and it helped some initially but then pain has been progressively getting worse. Pain in low back, right buttock, pain going down right leg with numbness and tingling. Is having trouble with balance. Has to rotate between sitting and standing to help with the pain. Gabapentin 800mg three times daily improves pain. Is taking aleve all throughout the day. Muscle relaxer doesn't help. Has consult for surgery on 08/15/24. Is getting x-ray done. Dr. Sandi Jimenez would like her medications to be prescribed by PCP to better monitor with routine bloodwork. States her hands and feet are always cold, no known triggers. No swelling, pain, or stiffness. Has been going on for over a year. Past medical history, appointments, medications, allergies reviewed. Previous Medical History PAST MEDICAL HISTORY Diagnosis Date Back pain Hypercholesteremia 05/2014 Increased frequency of headaches 2013 Scoliosis Previous Surgical History PAST SURGICAL HISTORY Procedure Laterality Date PAST SURGICAL HISTORY OF wisdom tooth extraction PAST SURGICAL HISTORY OF 07/24/2013 REDUCTION BREAST Family History FAMILY HISTORY Problem Relation Age of Onset Cancer Maternal Aunt 58 ovarian other (endometriosis) Paternal Grandmother Patient Allergies ALLERGIES No Known Allergies Current Medications Current Outpatient Medications on File Prior to Visit Medication Sig tramadol HCl (TRAMADOL ORAL) Take by mouth. gabapentin (NEURONTIN) 800 mg tablet Take 1 tablet by mouth three times a day for 30 days. TIRZEPATIDE SUBCUTANEOUS Inject 7.5 Ampules subcutaneously one time a week. No current facility-administered medications on file prior to visit. Social History Social History Tobacco Use Smoking status: Former Current packs/day: 0.00 Average packs/day: 1 pack/day for 7.0 years (7.0 ttl pk-yrs) Types: Cigarettes Start date: 06/23/2001 Quit date: 06/23/2008 Years since quittin.1 Smokeless tobacco: Never Tobacco comments: Both parents smoked in childhood home. Smokers in workplace. Substance Use Topics Alcohol use: Yes Comment: occasionally Drug use: No Review of Symptoms REVIEW OF SYSTEMS See HPI, otherwise negative EXAM: LMP 07/15/2024 General Appearance: Well appearing, alert, in no acute distress, well-hydrated, well nourished.. Lungs: Lungs clear to auscultation. No wheezing, rhonchi, rales.. Heart: RRR without murmur, gallop, or rubs. No ectopy. Musculoskeletal: No joint swelling, deformity, or tenderness. Peripheral Pulses: Normal. Psychiatric: pleasant, cooperative Health Maintenance List Depression Screening Never done Anxiety Screening Never done Cervical Cancer Screening due on 12/25/2016 Hepatitis B Vaccine(3 of 3 - 3-dose series) due on 01/13/2022 Influenza Vaccine(1) due on 10/23/2024 Covid-19 Vaccine(3 - season) due on 03/16/2025 DTaP,Tdap,Td Vaccine(2 - Td or Tdap) due on 10/22/2031 Hepatitis C Screening Completed HIV Screening Completed Data reviewed Previous records, office notes ASSESSMENT/PLAN: 1. Cold hands and feet - ICD9: 782.9, ICD10: R20.9 (primary diagnosis) - Patient denied PVR test at this time. Will continue to monitor for worsening symptoms 2. Intervertebral disc disorder with radiculopathy of lumbar region - ICD9: 724.4, ICD10: M51.16 - Patient has surgery consult appointment - Continue gabapentin 800mg TID - TRAMADOL 50 MG TABLET - GABAPENTIN 800 MG TABLET - TRIAMCINOLONE ACETONIDE 40 MG/ML SUSPENSION FOR INJECTION 3. Acute bilateral low back pain with right-sided sciatica - ICD9: 724.2, 724.3, 338.19, ICD10: M54.41 - TRAMADOL 50 MG TABLET - GABAPENTIN 800 MG TABLET - TRIAMCINOLONE ACETONIDE 40 MG/ML SUSPENSION FOR INJECTION 4. Acute midline low back pain without sciatica - ICD9: 724.2, ICD10: M54.50 - TRAMADOL 50 MG TABLET - GABAPENTIN 800 MG TABLET - TRIAMCINOLONE ACETONIDE 40 MG/ML SUSPENSION FOR INJECTION Brenda [place] [facility] website checked and validated. All prescriptions have been APPROPRIATELY filled. No suspicious activity was identified. 08/10/2024 by Deysi Dasilva CNP. Attending Note I have personally performed a face to face assessment of the patient and have reviewed the SORAYA note (more content not included)... Normal [facility] Katarina 08-10-2024 NANDO Telephone ([facility]) EUGENIA CHISHOLM ([id number]) 1985 F Date Time Provider Department 08/10/24 MICHAEL PEREZ During your visit today, we recorded the following information about you: Allyssa Chan 08/10/2024 9:28 AM Signed Spoke to patient I requested her to have x-rays done before seeing Dr Perez on 08-15-24, she will do so Allergies As of Date: 08/10/2024 (No Known Allergies) Date Reviewed: 08/10/2024 Reviewed by: Amparo Stanton MA - Fully Assessed Prescriptions as of 08/10/2024 - traMADol (ULTRAM) 50 mg tablet Take 1 tablet by mouth every 6 hours as needed for pain for up to 7 days. - gabapentin (NEURONTIN) 800 mg tablet Take 1 tablet by mouth three times a day for 60 days. - tramadol HCl (TRAMADOL ORAL) Take by mouth. - TIRZEPATIDE SUBCUTANEOUS Inject 7.5 Ampules subcutaneously one time a week. Problem List As Of Date 08/10/2024 Noted Resolved Backache, unspecified [M54.9] 03/13/2013 Cervicalgia [M54.2] 03/13/2013 Hypertrophy of breast [N62] 03/13/2013 Encounter Status:Closed by ALLYSSA CHAN on 08/10/24 [facility] HISTORY PHYSICALon HISTORY PHYSICAL HNO ID: [id number] Author: FEI GONZÁLES MD Service: Pain Management Author Type: Physician Type: H&P Filed: 07/18/2024 10:14 Note Text: HISTORY AND PHYSICAL EXAMINATION PATIENT NAME: Eugenia Chisholm DATE of SERVICE: 07/18/2024 Eugenia Chisholm is here for the pain mangement procedure. The patients presents with persistent pain complaints. Eugenia Chisholm denies any interval changes or new pain complaints or focal neurologic deficits. PAST MEDICAL HISTORY Diagnosis Date Back pain Hypercholesteremia 05/2014 Increased frequency of headaches 2013 Scoliosis PAST SURGICAL HISTORY Procedure Laterality Date PAST SURGICAL HISTORY OF wisdom tooth extraction PAST SURGICAL HISTORY OF 07/24/2013 REDUCTION BREAST Social History Tobacco Use Smoking status: Former Current packs/day: 0.00 Average packs/day: 1 pack/day for 7.0 years (7.0 ttl pk-yrs) Types: Cigarettes Start date: 06/23/2001 Quit date: 06/23/2008 Years since quittin.0 Smokeless tobacco: Never Tobacco comments: Both parents smoked in childhood home. Smokers in workplace. Substance Use Topics Alcohol use: Yes Comment: occasionally Drug use: No FAMILY HISTORY Problem Relation Age of Onset Cancer Maternal Aunt 58 ovarian other (endometriosis) Paternal Grandmother ALLERGIES No Known Allergies Current Facility-Administered Medications Medication Dose Route Frequency NaCl 0.9% iv infusion 30 mL/hr INTRAVENOUS CONTINUOUS Physical Exam: Performed in conjunction with observation. The patient is alert and oriented x3. The patient is in no acute distress. Neck: Supple. The range of motion is intact. Lungs: clear CVR: RRR. Extremities: no reported edema or erythema. Examination indicates no changes Impression: Lumbar radiculopathy Plan: The informed consent has been obtained. The plan is to proceed with the procedure as planned. SIGNATURE: Fei Gonzáles MD DATE: July 18, 2024 TIME: 10:14 AM [place] [facility] 07-18-2024 OPERATIVE NO HNO ID: [id number] Author: FEI GONZÁLES MD Service: Pain Management Author Type: Physician Type: Operative Report Filed: 07/18/2024 11:08 Note Text: PATIENT NAME: Eugenia Chisholm SERVICE DATE: 07/18/2024 PROCEDURE NOTE PREOPERATIVE DIAGNOSIS(ES) Lumbar radiculopathy Lumbar disc displacement Lumbar canal stenosis without neurogenic claudication Lumbar DDD POSTOPERATIVE DIAGNOSIS(ES): Same PROCEDURE: Right L4-5 lumbar transforaminal epidural steroid injection under fluoroscopy. Pole Inspector(s): None, I performed the entire procedure. ANESTHESIA: Local SEDATION: Moderate Sedation; midazolam 2mg IV, fentanyl 50mcg. IV. ASA status II, normal airway, chest excursion and heart rate. Airway reassessed immediately prior to medication administration, and IV sedation was administered incrementally to allow the patient to remain comfortable and conversant throughout the procedure. Sedation Start Time: 11:01 AM Sedation End Time: 11:04 AM INDICATIONS: The patient presents for lumbar transforaminal epidural steroid injection. Since the last assessment, the patient denies any new pain complaints and denies any focal neurological deficits. The risks and benefits of the procedure were discussed. Specifically, the risks of bleeding, infection, inadvertent dural puncture, spinal heaches, vasovagal reaction, epidural hematoma, partial or permanent nerve injury were covered. The potential side effects of medications used in procedures including increase in lumbar pain, headaches, facial redness or warmth (flushing), anxiety or mood swings, sleeplessness, fever, high blood sugar, brief reduction in immunity were discussed. The patient expressed understanding of potential risks and wishes to proceed with the procedure. PROCEDURE NOTE: The patient was brought to the operating room. The patient was placed in the prone position with pressure points protected. Continuous hemodynamic monitoring was initiated including blood pressure, EKG, and pulse oximetry. Supplemental oxygen per nasal canula was started. The intravenous medication was administered incrementally to provide conscious sedation and to allow the patient to remain comfortable and conversant throughout the procedure. The lower back was prepped in sterile fashion. Upon AP projection under a fluoroscopy, the lumbar L4-5 level was identified. The fluoroscopy was rotated in oblique projection to identify the neuroforamen. Entry point was marked and anesthetized with 2ml of 0.25% Marcaine. This was followed by insertion of a 5 inch spinal needle, which was inserted and advanced towards the 12 o' clock of the L4-5 neuroforamen. Once the Needle tip contacted the inferior lateral aspect of the pedicle, aspiration was performed which was negative for blood or CSF. This was followed by injection of 0.2 ml of Omnipaque 300, which revealed a spread through the neuroforamen into the anterior epidural space. There was no evidence of intravascular or intrathecal flow. This was then followed by a total injection of 2 mL of 0.25% Marcaine with 40 mg of Depomedrol. The patient tolerated the procedure well. The needle was removed intact. Dry dressing was placed over the injection site. The patient was taken to the recovery room in stable condition. EBL: nil I was present the entire time and personally performed the procedure. SIGNATURE: Fei Gonzáles MD DATE: July 18, 2024 TIME: 11:06 AM [facility] 06-23-2024 CNPN Telephone ([facility]) EUGENIA CHISHOLM ([id number]) 1985 F Date Time Provider Department 06/23/24 SANDI JIMENEZ [facility] During your visit today, we recorded the following information about you: Trudi Isidro MA 06/23/2024 12:19 PM Signed Called the patient to schedule her lumbar injection Patient choose July 18, 2024 Will hold Aleve - 5 days prior to the procedure. Instructions will be sent to the patient via [employer]. Trudi Isidro MA Allergies As of Date: 06/23/2024 (No Known Allergies) Date Reviewed: 06/22/2024 Reviewed by: Trudi Isidro MA - Fully Assessed Prescriptions as of 06/23/2024 - traMADol (ULTRAM) 50 mg tablet Take 1 tablet by mouth every 8 hours as needed for pain for up to 5 days. - TIRZEPATIDE SUBCUTANEOUS Inject 7.5 Ampules subcutaneously one time a week. - gabapentin (NEURONTIN) 600 mg tablet Take 1 tablet by mouth three times a day for 90 days. - methocarbamol (ROBAXIN) 500 mg tablet Take 1 tablet by mouth four times a day as needed. Problem List As Of Date 06/23/2024 Noted Resolved Backache, unspecified [M54.9] 03/13/2013 Cervicalgia [M54.2] 03/13/2013 Hypertrophy of breast [N62] 03/13/2013 Encounter Status:Closed by TRUDI ISIDRO on 06/23/24 [facility] Ronny 06-22-2024 CNOV Office Visit ([facility] ) EUGENIA CHISHOLM ([id number]) 1985 F Date Time Provider Department 06/22/24 3:40 PM SANDI JIMENEZ During your visit today, we recorded the following information about you: Pulse Blood pressure Weight Height 71/minute 103/66 88 kg 1.753 m Sandi Jimenez PA-C 06/22/2024 4:52 PM Signed [facility] [address] [address] Dear Del Hubbard DO, Amber D Pamela is a pleasant 38 year old individual who comes in to the office on 06/22/2024 for follow-up regarding the Lumbar spine. Has lower back pain, right hip, and right leg- pain goes down to the ankle, but sometimes to the toes, when pain is very bad. Pain wakes her up. It's very difficult to find good position. Level of the pain is at 6/10. Patient is here alone today. Subjective: Compared to the last visit, symptoms have been the same. Ms. Chisholm is here after injection, and injection helped 60%. Pain slowly getting to the same level as it was before the injection. ROS: Since last visit-patient DENIES fevers, chills, night sweats, unexpected weight loss or gain, abdominal pain, progressive weakness, paralysis, loss of bowel/bladder control, saddle numbness, stumbling gait, loss of coordination. Current Outpatient Medications Medication Sig Dispense Refill gabapentin (NEURONTIN) 600 mg tablet Take 1 tablet by mouth three times a day for 90 days. 90 tablet 2 cyclobenzaprine (FLEXERIL) 5 mg tablet Take 5 mg by mouth three times a day. (Patient not taking: Reported on 06/22/2024) TIRZEPATIDE SUBCUTANEOUS Inject 7.5 Ampules subcutaneously one time a week. methocarbamol (ROBAXIN) 500 mg tablet Take 1 tablet by mouth four times a day as needed. (Patient not taking: Reported on 06/02/2024) 40 tablet 0 No current facility-administered medications for this visit. Exam: Blood pressure 103/66, pulse 71, height 175.3 cm (5' 9), weight 88 kg (194 lb 0.1 oz), last menstrual period 06/03/2016, SpO2 97%. Body mass index is 28.65 kg/m?. Station and Gait: flexed posture and antalgic gait leaning forward Range of Motion: Diminished extension recreating increased low back pain Motor: No focal motor deficits in lower extremities on exam today, but she does note occasional tripping on the RLE Sensory: Diminished sensory in the RIGHT L5 and/or S1 dermatome specially below the knee. Pain on Palpation: Across the low back to the right of midline at the lumbosacral junction but not particularly point tender at any of the posterior pelvic bony prominences including PSIS, sciatic notches, greater trochanters. Imaging: The following study/studies were reviewed with the patient during the visit: I reviewed her lumbar MRI study again with her in detail during today's visit. She has disc degeneration and desiccation noted at L3-4 and L4-5 with disc bulge most notably at the L4-5 level. There are smaller disc bulges elsewhere but her L4-5 bulge appears to be somewhat right sided. Assessment/Plan: Encounter Diagnosis ICD-10-CM 1. Intervertebral disc disorder with radiculopathy of lumbar region M51.16 SPINE INTERVENTION PROCEDURE traMADol (ULTRAM) 50 mg tablet 2. Acute bilateral low back pain with right-sided sciatica M54.41 SPINE INTERVENTION PROCEDURE traMADol (ULTRAM) 50 mg tablet 3. Acute midline low back pain without sciatica M54.50 traMADol (ULTRAM) 50 mg tablet RTC: After another injection-about 1 month after the procedure Other/Discussion: She is heading out on vacation for a week and will need a small dose of additional medication to help with her ability to walk. I will have her try tramadol again since she had had this in the past a couple of times. She also needed a note for her work to indicate that she could go to work without wearing dress shoes. This note was printed for her and signed. Time spent: 35 minutes today with this patient visit. This includes [id number] time, review of chart records regarding conservative care history, spine-pertinent imaging, and communication/care coordination with referring provider, problem-specific history-taking and counseling/education regarding treatment options. This document has been created with the use of voice recognition technology. It may contain inaccuracies: (e.g. misspellings, inaccurate syntax or word sense) that have escaped review. Trudi Isidro MA Allergies As of Date: 06/22/2024 (No Known Allergies) Date Reviewed: 06/22/2024 Reviewed by: Trudi Isidro MA - Fully Assessed Reason for Visit: Follow Up [171] Low Back Pain [126] Leg Pain [1219] Cmt: Right Right Hip Pain [1556] Primary Visit Diagnosis: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] Other Visit Diagnoses:Acute bilateral l (more content not included)... Normal [facility] CNOVon 06-02-2024 CNOV Office Visit ([facility] ) EUGENIA CHISHOLM ([id number]) 1985 F Date Time Provider Department 06/02/24 1:40 PM SANDI JIMENEZ [facility] During your visit today, we recorded the following information about you: Pulse Blood pressure Weight Height 68/minute 100/62 86 kg 1.753 m Sandi Jimenez PA-C 06/02/2024 3:21 PM Addendum Sandi Jimenez PA-C [facility] [address] [place] [address] Dear Del Hubbard DO, Amber D Czupik is a 38 year old individual who comes in to the office on 06/02/2024 for follow-up regarding the Lumbar spine. Has lower back pain, and constant right leg tingling and numbness. Level of the pain is at 4/10. Pain started 5 months ago. Leg tingling and numbness are getting worse. Patient is here alone today. Subjective: Compared to the last visit, symptoms have been improved. Ms. Chisholm is here for the injection follow up. Lower back pain started to decrease, injection started to work, helped 50-60% ROS: Since last visit-patient DENIES fevers, chills, night sweats, unexpected weight loss or gain, abdominal pain, progressive weakness, paralysis, loss of bowel/bladder control, saddle numbness, stumbling gait, loss of coordination. Current Outpatient Medications Medication Sig Dispense Refill cyclobenzaprine (FLEXERIL) 5 mg tablet Take 5 mg by mouth three times a day. TIRZEPATIDE SUBCUTANEOUS Inject 7.5 Ampules subcutaneously one time a week. gabapentin (NEURONTIN) 600 mg tablet Take 1 tablet by mouth three times a day for 90 days. 90 tablet 2 methocarbamol (ROBAXIN) 500 mg tablet Take 1 tablet by mouth four times a day as needed. (Patient not taking: Reported on 06/02/2024) 40 tablet 0 No current facility-administered medications for this visit. Exam: Blood pressure 100/62, pulse 68, height 175.3 cm (5' 9), weight 86 kg (189 lb 9.5 oz), last menstrual period 06/03/2016, SpO2 99%. Body mass index is 28 kg/m?. Assessment/Plan: Encounter Diagnosis ICD-10-CM 1. Intervertebral disc disorder with radiculopathy of lumbar region M51.16 2. Acute bilateral low back pain with right-sided sciatica M54.41 RTC: on an as-needed basis (PRN) Other/Discussion: The patient received an urgent phone call during the course of her rooming interview today with my product manager medical device and she told my web assistant that she needed to leave immediately to take care of of a family emergency. The visit was truncated at that point and there was no further evaluation or exam today. I did not personally see this patient during today's visit because she had to leave prior to my arrival in the exam room. Trudi Isidro MA Allergies As of Date: 06/02/2024 (No Known Allergies) Date Reviewed: 06/02/2024 Reviewed by: Trudi Isidro MA - Fully Assessed Reason for Visit: Follow Up [171] Low Back Pain [126] Primary Visit Diagnosis: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] Other Visit Diagnosis:Acute bilateral low back pain with right-sided sciatica [M54.41] Prescriptions as of 06/23/2024 - traMADol (ULTRAM) 50 mg tablet Take 1 tablet by mouth every 8 hours as needed for pain for up to 5 days. - TIRZEPATIDE SUBCUTANEOUS Inject 7.5 Ampules subcutaneously one time a week. - gabapentin (NEURONTIN) 600 mg tablet Take 1 tablet by mouth three times a day for 90 days. - methocarbamol (ROBAXIN) 500 mg tablet Take 1 tablet by mouth four times a day as needed. Problem List As Of Date 06/02/2024 Noted Resolved Backache, unspecified [M54.9] 03/13/2013 Cervicalgia [M54.2] 03/13/2013 Hypertrophy of breast [N62] 03/13/2013 Encounter Status:Closed by SANDI JIMENEZ on 06/02/24 [facility] HISTORY PHYSICALon HISTORY PHYSICAL HNO ID: [id number] Author: FEI GONZÁLES MD Service: Pain Management Author Type: Physician Type: H&P Filed: 05/18/2024 09:00 Note Text: HISTORY AND PHYSICAL EXAMINATION PATIENT NAME: Eugenia Chisholm DATE of SERVICE: 05/18/2024 Eugenia Chisholm is here for the pain mangement procedure. The patients presents with persistent pain complaints. Eugeina Chisholm denies any interval changes or new pain complaints or focal neurologic deficits. PAST MEDICAL HISTORY Diagnosis Date Back pain Hypercholesteremia 05/2014 Increased frequency of headaches 2013 Scoliosis PAST SURGICAL HISTORY Procedure Laterality Date PAST SURGICAL HISTORY OF wisdom tooth extraction PAST SURGICAL HISTORY OF 07/24/2013 REDUCTION BREAST Social History Tobacco Use Smoking status: Former Current packs/day: 0.00 Average packs/day: 1 pack/day for 7.0 years (7.0 ttl pk-yrs) Types: Cigarettes Start date: 06/23/2001 Quit date: 06/23/2008 Years since quittin.9 Smokeless tobacco: Never Tobacco comments: Both parents smoked in childhood home. Smokers in workplace. Substance Use Topics Alcohol use: Yes Comment: occasionally Drug use: No FAMILY HISTORY Problem Relation Age of Onset Cancer Maternal Aunt 58 ovarian other (endometriosis) Paternal Grandmother ALLERGIES No Known Allergies Current Facility-Administered Medications Medication Dose Route Frequency NaCl 0.9% iv infusion 30 mL/hr INTRAVENOUS CONTINUOUS Physical Exam: Performed in conjunction with observation. The patient is alert and oriented x3. The patient is in no acute distress. Neck: Supple. The range of motion is intact. Lungs: clear CVR: RRR. Extremities: no reported edema or erythema. Examination indicates no changes Impression: Lumbar radiculopathy Plan: The informed consent has been obtained. The plan is to proceed with the procedure as planned. SIGNATURE: Fei Gonzáles MD DATE: May 18, 2024 TIME: 9:00 AM [place] OPER[facility] NO[facility] 05-18-2024 OPERATIVE NO HNO ID: [id number] Author: FEI GONZÁLES MD Service: Pain Management Author Type: Physician Type: Operative Report Filed: 05/18/2024 09:18 Note Text: PATIENT NAME: Eugenia Chisholm SERVICE DATE: 05/18/2024 PROCEDURE NOTE PREOPERATIVE DIAGNOSIS(ES) Lumbar DDD Lumbar spondylosis Lumbar disc displacement Lumbar radiculopathy POSTOPERATIVE DIAGNOSIS(ES): Same PROCEDURE: Right paramedian L5-S1 interlaminar epidural steroid injection under fluoroscopy. Pole Inspector(s): None, I performed the entire procedure. ANESTHESIA: Local SEDATION: Moderate Sedation; midazolam 2mg IV, fentanyl 50mcg. IV. ASA status II, normal airway, chest excursion and heart rate. Airway reassessed immediately prior to medication administration, and IV sedation was administered incrementally to allow the patient to remain comfortable and conversant throughout the procedure. Sedation Start Time: 9:12 AM Sedation End Time: 9:15 AM INDICATIONS: Eugenia Chisholm presents for lumbar epidural steroid injection. The patient denies any new pain complaints and denies any focal neurological deficits. The plan is to proceed with lumbar intralaminar epidural steroid injection. The risks and benefits discussed in the office were reviewed. The patient expressed understanding the risks and benefits and informed consent was obtained. OPERATIVE PROCEDURE: The patient was brought to the operating room. The patient was placed in the prone position with pressure points protected. Continuous hemodynamic monitoring was initiated including blood pressure, EKG, and pulse oximetry. Supplemental oxygen per nasal canula was started. The intravenous medication was administered incrementally to provide conscious sedation and to allow the patient to remain comfortable and conversant throughout the procedure. The lower back was prepped in sterile fashion. Upon AP projection under fluoroscopy, L5-S1 level was identified. Entry point was marked and anesthetized with 5 ml of 0.5% Lidocaine. This was followed by insertion of an 18-gauge epidural Tuohy needle, which was inserted and advanced using a loss of resistance technique. Once the epidural space was encountered, aspiration was performed which was negative for blood or CSF. This was followed by injection of 0.2 ml of Omnipaque 300, which revealed a spread along the posterior epidural space. There was no evidence of intravascular or intrathecal flow. This was then followed by a total injection of 5 mL of 0.5% Xylocaine with 40 mg of Depomedrol. The patient tolerated the procedure well. The needle was removed intact. Dry dressing was placed over the injection site. The patient was taken to the recovery room in stable condition. EBL: nil I was present during the entire time and personally performed the procedure. SIGNATURE: Fei Gonzáles MD DATE: May 18, 2024 TIME: 9:18 AM [facility] 04-27-2024 [facility] Office Visit ([facility] ) EUGENIA CHISHOLM ([id number]) 1985 F Date Time Provider Department 04/27/24 2:20 PM SANDI JIMENEZ [facility]ED During your visit today, we recorded the following information about you: Pulse Respiration Blood pressure Weight 72/minute 16/minute 100/66 87.5 kg Sandi Jimenez PA-C 04/27/2024 3:08 PM Signed Sandi Jimenez PA-C [facility] [address] [place] [id number] 04/27/2024 ASSESSMENT AND PLAN: Assessment : Encounter Diagnosis ICD-10-CM 1. Intervertebral disc disorder with radiculopathy of lumbar region M51.16 gabapentin (NEURONTIN) 600 mg tablet CONSULT TO PHYSICAL THERAPY SPINE INTERVENTION PROCEDURE 2. Acute bilateral low back pain with right-sided sciatica M54.41 gabapentin (NEURONTIN) 600 mg tablet CONSULT TO PHYSICAL THERAPY SPINE INTERVENTION PROCEDURE Discussion: Ms. Chisholm is a pleasant 38-year-old female here for evaluation of right sided low back and right lower extremity radiating symptoms over the past 2 to 3 months that have been appreciably reducing her day-to-day activity. She is struggling to even get to work. She tried gabapentin and it helped initially but does not seem to be helping her enough at this point--apparently very few side effects from this also. She has had lumbar MRI study and has had some therapy at a chiropractor's office and some PT a couple of years ago for similar incidents She takes OTC meds as noted below. EXAM Highlights: Slow to mobilize and favors the right leg when walking. She has quite a bit of trouble with bearing her weight on her right toe and plantarflexion SLR is positive on the right She has mild sensory loss roughly in S1 distribution Lumbar motion is diminished in left lateral bending causing some right sided back pain and her motion toward the right lateral bending causes moderately severe right leg pain. There is pain on palpation over right PSIS and sciatic notch IMAGING: We reviewed her MRI study in detail during today's visit. She has fairly large disc bulge at L4-5 in the right paracentral region that seems to affect the right exiting nerve root as well as the thecal sac and the right lateral aspect. She also has disc degeneration at L3-4 and some mild disc space height loss but without stenosis. February 2024 lumbar plain radiographs show what appears to be mild lumbar scoliosis with apex toward the right in the mid lumbar region. There does not appear to be significant leg length discrepancy underlying this. There may be mild hyperlordosis and there is thoracolumbar disc degeneration noted. SUMMARY/PLAN: Her symptoms are fairly severe and her ADL functions have notably diminished as a result of this. She has an interest in a multipronged approach for her future improvement including the following: Supervised PT Increasing gabapentin to 600 mg 3 times a day RIGHT L5-S1 IL KIMBERLI to try to get both the exiting nerve root and the right para-central nerve root. I would like to see her back about a month or so after her injection She will try the increased dose of gabapentin in the meantime and try PT. Plan : REFERAL FOR SERVICES: -Consult to Pain Anesthesia: The purpose will be for both diagnostic and therapeutic purposes. The patient is instructed to pay attention to the amount of pain during the anesthetic phase, and during that time to perform the activities that typically exacerbate the pain to determine what percentage of relief is gained. The patient is instructed that the steroid phase of the injection may take up to a week or more to provide relief, and to pay attention to the percentage of relief obtained during the steroid phase. If the steroid phase gives significant pain relief, the procedure can be repeated. MEDICATIONS: -See prescribed medication list for this encounter. -Nerve membrane stabilizer medication (gabapentin or pregabalin) was prescribed. Off-label use, importance of (and suggested schedule for) ramping and weaning, and expected side effects discussed with the patient during today's visit. ACTIVITY RECOMMENDATIONS: -The patient advised to avoid prolonged sitting. FOLLOW-UP: -The patient is instructed to return in about 1 month for follow-up after her injection This document has been created with the use of voice recognition technology. It may contain inaccuracies: (e.g. misspellings, inaccurate syntax or word sense) that have escaped review. Time spent: 45 minutes today with this patient visit. This includes xpyc-pd-etkk time, review of chart records regarding conservative care history, spine-pertinent imaging, and communication/care coordination with referring provider, problem-specific history-taking and counseling/education regarding treatment options. cc: Rizwan (more content not included)... Normal [facility] CNOVon 04-06-2024 CNOV Office Visit (FAMPWS ) EUGENIA CHISHOLM ([id number]) 1985 F Date Time Provider Department 04/06/24 8:20 AM DEYSI DASILVA During your visit today, we recorded the following information about you: Pulse Respiration Blood pressure Weight 84/minute 14/minute 126/78 86.1 kg Deysi Dasilva APRN.THERAPY AIDE 04/06/2024 9:35 AM Signed Chief Complaint Patient presents with: Back Pain: Herniated disc, requesting med for pain, flexeril not helping HPI Eugenia Chisholm is a 38 year old female who presents here today for Above Complaints.. Per visit with Myrna Walker CNP on 03/16: Back pain --- Pt reports acute on chronic lower back pain. Significantly worse since the first week of December. Started after a camping trip. Denies any known fall, injury, or lifting heavy while on the trip or before/after. Reports pain is so severe she tries to stand all day long as sitting exacerbates it. Reports intermittent numbness and tingling to bilateral legs, worse to R leg. Sometimes hard to walk d/t pain and numbness. Reports sharp pain down legs and across lower back when she moves certain directions. Pain is worse with abduction of hip. Was seen by this provider in June 2021 for similar symptoms. Reports symptoms are significantly worse this time around. Has tried everything with no relief -- rotates between ice and heat to area, OTC NSAIDs without relief, physical therapy in the past and continues with the stretches she was taught, and even has inversion table at home that does not help. She has been going to chiropractor all of January for this who thinks she has a large herniated disc. Pt reports some minimal relief in the past with muscle relaxant but wasn't sure if she should take medication she has at home. Does not tolerate PO steroids well in the past d/t side effects. Hx of drug addiction in her family so she is hesitant about opoid but does feel like she has hit last resort and would consider pain management d/t significant ongoing pain. She has lost 41 lbs in the last year and had breast reduction without any too much relief of symptoms. Pt denies any bladder or bowel incontinence. Last xray of lumbar completed in 2021. ASSESSMENT/PLAN: 1. Acute bilateral low back pain with right-sided sciatica - ICD9: 724.2, 724.3, 338.19, ICD10: M54.41 (primary diagnosis) Repeat lumbar x-ray d/t acute on chronic symptoms -- compare to prior from 2021. Need MRI of lumbar d/t ongoing significant pain despite no relief with numerous conservative measures. Concern for large herniated disc. Consult to ortho/spine for further intervention. Restart flexeril as needed -- pt aware of side effects. Short term tramadol rx given and reserved for use only with severe pain not relieved by anything else. Pt is aware this is is short-term only (7 day rx) and needs pain management and ortho opinion of further intervention. - MRI LUMBAR SPINE WO IVCON - [facility] - CYCLOBENZAPRINE 10 MG TABLET - TRAMADOL 50 MG TABLET - XR LUMBAR GENERAL 3V AP/LAT/L5-S1 2. Numbness in both legs - ICD9: 782.0, ICD10: R20.0 See above. - CYCLOBENZAPRINE 10 MG TABLET - TRAMADOL 50 MG TABLET - XR LUMBAR GENERAL 3V AP/LAT/L5-S1 3. Gait instability - ICD9: 781.2, ICD10: R26.81 See above. - CYCLOBENZAPRINE 10 MG TABLET - TRAMADOL 50 MG TABLET - XR LUMBAR GENERAL 3V AP/LAT/L5-S1 4. Physical debility - ICD9: 799.3, ICD10: R53.81 See above. - CYCLOBENZAPRINE 10 MG TABLET - TRAMADOL 50 MG TABLET - XR LUMBAR GENERAL 3V AP/LAT/L5-S1 Myrna Frias, ALBERT.THERAPY AIDE Currently: Sciatic nerve pain all the way down her right leg. Occasionally down the left[facility] pain locked up her body and fell backwards- was able to catch her. Is doing all the stretches from PT, inversion chair. Antiinflammatories helped initially. Hadn't taken for about a week, but did take Aleve last night which was slightly helpful. Tramadol did take the edge off the pain. Flexeril did nothing. Past medical history, appointments, medications, allergies reviewed. Previous Medical History PAST MEDICAL HISTORY Diagnosis Date Back pain Hypercholesteremia 05/2014 Increased frequency of headaches 2013 Scoliosis Previous Surgical History PAST SURGICAL HISTORY Procedure Laterality Date PAST SURGICAL HISTORY OF wisdom tooth extraction PAST SURGICAL HISTORY OF 07/24/2013 REDUCTION BREAST Family History FAMILY HISTORY Problem Relation Age of Onset Cancer Maternal Aunt 58 ovarian other (endometriosis) Paternal Grandmother Patient Allergies ALLERGIES No Known Allergies Current Medications Current Outpatient Medications on File Prior to Visit Medication Sig cyclobenzaprine (FLEXERIL) 10 mg tablet Take 1 tablet by mouth three times a day as needed for (more content not included)... Normal [facility] Katarina 03-29-2024 NIMAN Telephone (FAMPWS) EUGENIA CHISHOLM ([id number]) 1985 F Date Time Provider Department 03/29/24 [facility] During your visit today, we recorded the following information about you: Myrna Walker APRN.THERAPY AIDE 03/29/2024 8:26 AM Signed Please call patient and let her know that MRI does show a herniated disc at L4-L5. Continue with ortho/spine appointment as scheduled for further interventions than what was discussed at appointment. Thank you, Myrna Walker APRN.THERAPY AIDE Maria Ines Lovett LPN 03/29/2024 8:40 AM Signed Spoke with [pt gave information provided. Pt voices understanding. Allergies As of Date: 03/29/2024 (No Known Allergies) Date Reviewed: 03/16/2024 Reviewed by: Myrna Walker APRN.THERAPY AIDE - Fully Assessed Reason for Visit: Results [95] Prescriptions as of 03/29/2024 - cyclobenzaprine (FLEXERIL) 10 mg tablet Take 1 tablet by mouth three times a day as needed for muscle spasm. Problem List As Of Date 03/29/2024 Noted Resolved Backache, unspecified [M54.9] 03/13/2013 Cervicalgia [M54.2] 03/13/2013 Hypertrophy of breast [N62] 03/13/2013 Encounter Status:Closed by MARIA INES LOVETT on 03/29/24 [facility] MR Lumbar spine WO contrasto n 03-29-2024 IMPRESSION: Broad-based disc extrusion at L4-5 causing moderate canal and mild to moderate right foraminal stenosis as outlined above. Anatomic Lumbar Variant: None. L4-5 is considered the level of the iliac crest and assume there are 5 lumbar-type vertebrae. Sample Steamer: PSCB Transcribe Date/Time: Mar 29 2024 8:04A Dictated by : FEI SAINI MD This examination was interpreted and the report reviewed and electronically signed by: FEI SAINI MD on Mar 29 2024 8:09AM [facility] DIVISION OF RADIOLOGY * * *Final Report* * * DATE OF EXAM: Mar 29 2024 7:55AM [facility] 0303 - MRI LUMBAR SPINE WO IVCON / PROCEDURE REASON: Acute bilateral low back pain with right-sided sciatica * * * * Physician Interpretation * * * * EXAMINATION: MRI LUMBAR SPINE WO IVCON CLINICAL HISTORY: Chronic low back pain with superimposed acute component following lifting injury with intermittent numbness and paresthesias of both lower extremities without significant improvement following conservative management. TECHNIQUE: Routine lumbosacral spine MR protocol without gadolinium. MQ: [id number] COMPARISON: None. RESULT: Counting reference: Lumbosacral junction. For the purposes of this report, L4-5 is considered the level of the iliac crest and assume there are 5 lumbar-type vertebrae. Anatomic variant: None. Localizer images: No additional findings. Alignment: Thoracolumbar dextroscoliosis with apex of the curvature at L3-4. Moderate to severe disc space narrowing is noted at T11-12 and moderate asymmetric disc space narrowing is noted at L3-4 and L4-5. Bone marrow signal/fracture: No evidence of pathologic marrow infiltration. No evidence of prior fracture. Conus: The conus is within normal limits of signal intensity and morphology. Paraspinal soft tissues: Paraspinal soft tissues are within normal limits. Lower thoracic spine: Very small shallow right central disc protrusion at T12-L1. The canal and foramina at this level are widely patent. Canal and foramina remain patent at T11-12. L1-L2: Canal and foramina are patent. L2-L3: Canal and foramina are patent L3-L4: Canal and foramina are patent L4-L5: Broad-based disc extrusion with marginal extension into the right foraminal zone with resultant moderate canal stenosis. When combined with facet degenerative changes and rostrocaudal facet subluxation, these findings cause [id number] right foraminal stenosis. Left neural foramen is patent. L5-S1: Canal and foramina are patent Sacrum and iliac wings: The visualized sacrum and iliac wings are within normal limits. DIVISION OF RADIOLOGY Provider, Preet Capone - 03/29/2024 * * *Final Report* * * DATE OF EXAM: Mar 29 2024 7:55AM [facility] [id number] - MRI LUMBAR SPINE WO IVCON / PROCEDURE REASON: Acute bilateral low back pain with right-sided sciatica * * * * Physician Interpretation * * * * EXAMINATION: MRI LUMBAR SPINE WO IVCON CLINICAL HISTORY: Chronic low back pain with superimposed acute component following lifting injury with intermittent numbness and paresthesias of both lower extremities without significant improvement following conservative management. TECHNIQUE: Routine lumbosacral spine MR protocol without gadolinium. MQ: [id number] COMPARISON: None. RESULT: Counting reference: Lumbosacral junction. For the purposes of this report, L4-5 is considered the level of the iliac crest and assume there are 5 lumbar-type vertebrae. Anatomic variant: None. Localizer images: No additional findings. Alignment: Thoracolumbar dextroscoliosis with apex of the curvature at L3-4. Moderate to severe disc space narrowing is noted at T11-12 and moderate asymmetric disc space narrowing is noted at L3-4 and L4-5. Bone marrow signal/fracture: No evidence of pathologic marrow infiltration. No evidence of prior fracture. Conus: The conus is within normal limits of signal intensity and morphology. Paraspinal soft tissues: Paraspinal soft tissues are within normal limits. Lower thoracic spine: Very small shallow right central disc protrusion at T12-L1. The canal and foramina at this level are widely patent. Canal and foramina remain patent at T11-12. L1-L2: Canal and foramina are patent. L2-L3: Canal and foramina are patent L3-L4: Canal and foramina are patent L4-L5: Broad-based disc extrusion with marginal extension into the right foraminal zone with resultant moderate canal stenosis. When combined with facet degenerative changes and rostrocaudal facet subluxation, these findings cause fvbz-oc-reoigauy right foraminal stenosis. Left neural foramen is patent. L5-S1: Canal and foramina are patent Sacrum and iliac wings: The visualized sacrum and iliac wings are within normal limits. IMPRESSION IMPRESSION: Broad-based disc extrusion at L4-5 causing moderate canal and mild to moderate right foraminal stenosis as outlined above. Anatomic Lumbar Variant: None. L4-5 is considered the level of the iliac crest and assume there are 5 lumbar-type vertebrae. Sample Steamer: ALEX Transcribe Date/Time: Mar 29 2024 8:04A Dictated by : FEI SAINI MD This examination was interpreted and the report reviewed and electronically signed by: FEI SAINI MD on Mar 29 2024 8:09AM EST [facility] Radiology Study observation (narrative) [facility] MR Lumbar spine WO contrastO rdered By: [facility] Provider on 03-29-2024 [facility] MRI LUMBAR SPINE WO IVCONon 03-29-2024 MRI LUMBAR SPINE WO IVCON * * *Final Report* * * DATE OF EXAM: Mar 29 2024 7:55AM [facility] 0303 - MRI LUMBAR SPINE WO IVCON / PROCEDURE REASON: Acute bilateral low back pain with right-sided sciatica * * * * Physician Interpretation * * * * EXAMINATION: MRI LUMBAR SPINE WO IVCON CLINICAL HISTORY: Chronic low back pain with superimposed acute component following lifting injury with intermittent numbness and paresthesias of both lower extremities without significant improvement following conservative management. TECHNIQUE: Routine lumbosacral spine MR protocol without gadolinium. MQ: [id number]_3 COMPARISON: None. RESULT: Counting reference: Lumbosacral junction. For the purposes of this report, L4-5 is considered the level of the iliac crest and assume there are 5 lumbar-type vertebrae. Anatomic variant: None. Localizer images: No additional findings. Alignment: Thoracolumbar dextroscoliosis with apex of the curvature at L3-4. Moderate to severe disc space narrowing is noted at T11-12 and moderate asymmetric disc space narrowing is noted at L3-4 and L4-5. Bone marrow signal/fracture: No evidence of pathologic marrow infiltration. No evidence of prior fracture. Conus: The conus is within normal limits of signal intensity and morphology. Paraspinal soft tissues: Paraspinal soft tissues are within normal limits. Lower thoracic spine: Very small shallow right central disc protrusion at T12-L1. The canal and foramina at this level are widely patent. Canal and foramina remain patent at T11-12. L1-L2: Canal and foramina are patent. L2-L3: Canal and foramina are patent L3-L4: Canal and foramina are patent L4-L5: Broad-based disc extrusion with marginal extension into the right foraminal zone with resultant moderate canal stenosis. When combined with facet degenerative changes and rostrocaudal facet subluxation, these findings cause [id number]-zt-klgybhoo right foraminal stenosis. Left neural foramen is patent. L5-S1: Canal and foramina are patent Sacrum and iliac wings: The visualized sacrum and iliac wings are within normal limits. IMPRESSION: Broad-based disc extrusion at L4-5 causing moderate canal and mild to moderate right foraminal stenosis as outlined above. Anatomic Lumbar Variant: None. L4-5 is considered the level of the iliac crest and assume there are 5 lumbar-type vertebrae. Sample Steamer: ALEX Transcribe Date/Time: Mar 29 2024 8:04A Dictated by : FEI SAINI MD This examination was interpreted and the report reviewed and electronically signed by: FEI SAINI MD on Mar 29 2024 8:09AM EST [id number] Normal [facility] CNOVon 03-16-2024 CNOV Office Visit (FAMPWS ) EUGENIA CHISHOLM ([id number]) 1985 F Date Time Provider Department 03/16/24 2:40 PM [facility] During your visit today, we recorded the following information about you: Pulse Respiration Blood pressure Weight 74/minute 14/minute 118/66 86 kg Myrna Walker APRN.THERAPY AIDE 03/16/2024 3:35 PM Signed Chief Complaint Patient presents with: increased rt low back vidal: Started in dec. Saw chiropractor in jan said it was herniated disc HPI Eugenia Chisholm is a 38 year old female who presents here today for Above Complaints. Eugenia is an established patient of Dr. Hubbard, DO and myself. Concerns today... Back pain --- Pt reports acute on chronic lower back pain. Significantly worse since the first week of December. Started after a camping trip. Denies any known fall, injury, or lifting heavy while on the trip or before/after. Reports pain is so severe she tries to stand all day long as sitting exacerbates it. Reports intermittent numbness and tingling to bilateral legs, worse to R leg. Sometimes hard to walk d/t pain and numbness. Reports sharp pain down legs and across lower back when she moves certain directions. Pain is worse with abduction of hip. Was seen by this provider in June 2021 for similar symptoms. Reports symptoms are significantly worse this time around. Has tried everything with no relief -- rotates between ice and heat to area, OTC NSAIDs without relief, physical therapy in the past and continues with the stretches she was taught, and even has inversion table at home that does not help. She has been going to chiropractor all of January for this who thinks she has a large herniated disc. Pt reports some minimal relief in the past with muscle relaxant but wasn't sure if she should take medication she has at home. Does not tolerate PO steroids well in the past d/t side effects. Hx of drug addiction in her family so she is hesitant about opoid but does feel like she has hit last resort and would consider pain management d/t significant ongoing pain. She has lost 41 lbs in the last year and had breast reduction without any too much relief of symptoms. Pt denies any bladder or bowel incontinence. Last xray of lumbar completed in 2021. No other concerns or complaints today. Past medical history, appointments, medications, allergies reviewed. Previous Medical History PAST MEDICAL HISTORY Diagnosis Date Back pain Hypercholesteremia 05/2014 Increased frequency of headaches 2013 Scoliosis Previous Surgical History PAST SURGICAL HISTORY Procedure Laterality Date PAST SURGICAL HISTORY OF wisdom tooth extraction PAST SURGICAL HISTORY OF 07/24/2013 REDUCTION BREAST Family History FAMILY HISTORY Problem Relation Age of Onset Cancer Maternal Aunt 58 ovarian other (endometriosis) Paternal Grandmother Patient Allergies ALLERGIES No Known Allergies Current Medications No current outpatient medications on file prior to visit. No current facility-administered medications on file prior to visit. Social History Social History Tobacco Use Smoking status: Former Current packs/day: 0.00 Average packs/day: 1 pack/day for 7.0 years (7.0 ttl pk-yrs) Types: Cigarettes Start date: 06/23/2001 Quit date: 06/23/2008 Years since quittin.7 Smokeless tobacco: Never Tobacco comments: Both parents smoked in childhood home. Smokers in workplace. Substance Use Topics Alcohol use: Yes Comment: occasionally Drug use: No REVIEW OF SYSTEMS: as above Reviewed relevant PMHx, PSHx, Social Hx, current medications and allergies. Review of Symptoms REVIEW OF SYSTEMS See HPI. EXAM: BP 118/66 (BP Site: Left Arm, BP Position: Sitting, BP Cuff Size: Regular Adult) Pulse 74 Resp 14 Wt 86 kg (189 lb 9.5 oz) LMP 06/03/2016 SpO2 100% BMI 29.34 kg/m? General Appearance: Well appearing, alert, in no acute distress, well-hydrated, well nourished.. Skin: Skin color, texture, turgor normal, no suspicious rashes or lesions. Head: Normocephalic, no masses, lesions, tenderness or abnormalities. Back: + pain to palpation of lumbar vertebrae, good flexion and extension, good range of motion with significant pain, + muscle tenderness R sided only, reflexes are 2+ and symmetric, motor and sensory appear to be normal, negative SLR test, + evidence of scoliosis Extremities: No deformities, edema, skin discoloration, clubbing or cyanosis. Good capillary refill. . Musculoskeletal: No joint swelling, deformity, or tenderness. Peripheral Pulses: Normal, Capillary refill <2secs, strong peripheral pulses. Health Maintenance List Depression Screening Never done Anxiety Screening Never done Cervical Cancer Screening due on 12/25/2016 Hepatitis B Vaccine(4 of 4 - 4-dose series) due on 12/16/2021 Influenza V (more content not included)... Normal [facility] XR LUMBAR 3V AP/LAT/L5-S1on 03-16-2024 XR LUMBAR 3V AP/LAT/L5-S1 * * *Final Report* * * DATE OF EXAM: Mar 16 2024 3:50PM [id number] - XR LUMBAR 3V AP/LAT/L5-S1 / PROCEDURE REASON: multiple diagnoses * * * * Physician Interpretation * * * * EXAM TITLE: XR LUMBAR 3V AP/LAT/L5-S1 EXAM DATE/TIME: 03/16/2024 3:50 PM COMPARISON: X-ray lumbar spine on 07/02/2021 CLINICAL INDICATION/HISTORY: Low back pain. TECHNIQUE: AP, lateral and cone down lateral views of the lumbar spine are presented. FINDINGS: There are five kff-ywu-yeiifdn lumbar vertebrae. No fracture or subluxations are noted. There is right-sided curvature. The disc spaces are well preserved. There is no significant osteophyte formation. IMPRESSION: Negative lumbar spine X-ray. Sample Steamer: PSCB Transcribe Date/Time: Mar 17 2024 3:57P Dictated by : JACOBO ANGLIN MD This examination was interpreted and the report reviewed and electronically signed by: JACOBO ANGLIN MD on Mar 17 2024 3:59PM EST [id number] Normal [facility] Pelvic w/ Transvaginalon Pelvic w/ Transvaginal [facility] Imaging Services [address] [place] [address] [id number] Pelvic w/ Transvaginal MR#: [id number] Acct: [id number] Name: EUGENIA CHISHOLM Rep #: [id number] : 1985 F 38 From: Glen hong MD PCP: Dr. Del Hubbard, Status: REG CLI Study: Pelvic w/ Transvaginal Date of Exam: 11/23/23 Exam# [id number] Ordering Dr: Manju Richmond NEGATIVE NOTCHER NEGATIVE NOTCHER -C [id number] STUDY: ULTRASOUND OF THE FEMALE PELVIS - COMPLETE REASON FOR EXAM: Female, 38 years old. IUD check LMP: Unknown. TECHNIQUE: Transabdominal and Transvaginal TECHNICAL QUALITY: Adequate. COMPARISON: Comparison is made with prior study June 25, 2022. FINDINGS: The uterus is anteverted and is in a midline position. The uterus measures 9.5 cm x 7.5 cm x 5 cm. There is a Nabothian cyst of the cervix. The endometrium measures 8 mm in thickness, and is hyperechoic. There is no demonstrated endometrial mass. 2 fibroids are seen. The largest measures 1.6 cm x 1.7 cm x 1.3 cm. I.U.D. - The patient does have an I.U.D. The right ovary is visualized. The right ovary measures 7.4 cm x 6 cm x 4.9 cm. Within it, there are 2 cysts. The largest cyst measures 5.9 cm x 5.3 cm x 3.8 cm. There is no visualized right adnexal mass or complex lesion. There is normal arterial and normal venous vascularity. The left ovary is visualized. The left ovary measures 3.6 cm x 1.7 x 2 cm. A dominant follicle is seen within the measurement 0.7 cm x 1.3 cm x 1.1 cm. There is no visualized left adnexal mass or complex lesion. There is normal arterial and normal venous vascularity. There is minimal fluid in the cul-de-sac. The pre void volume of the bladder was 88 ml. US/Pelvic w/ Transvaginal IMPRESSION: Fibroid uterus as described. IUD is seen within the endometrium. 2 simple cysts are seen in the right ovary. The larger measures 5.9 cm x 5.3 cm x 3.8 cm. Follow-up is recommended. Electronically Signed: Glen Chan MD at 14:17 EDT Reading Location ID and State: [facility] / [place] , Service support , CC: ANNIE Richmond; Dr. Del Hubbard DO Sample Steamer: Signed Normal [facility] Color Worker Office Visit Reporton 11-10-2023 Color Worker Office Visit Report [facility] [address] [place] [address] OFFICE VISIT Date of Service: 11/10/23 MR#: [id number] Acct: [id number] Name: EUGENIA CHISHOLM Rep #: [id number] : 1985 Provider: ANNIE julian Age/Sex: 38/F Location: [facility] [place] Status: Signed Intake Vital Signs 02/22/23 13:17 11/10/23 14:59 11/10/23 15:06 Height 5 ft 9 in 5 ft 9 in 5 ft 9 in Weight: 205 lb 8 oz BMI 30.3 BP 107/70 Intake Visit Reasons: HEAVY BLEEDING WITH IUD Chief Complaint: Heavy bleeding with IUD Catalogue Compiler Required: No Is patient in pain?: No Allergies No Known Allergies Allergy (Verified 11/10/23 14:58) Medications ???Medication ???Instructions ???Recorded ???Confirmed ???Type albuterol sulfate 90 mcg/actuation 1 - 2 puff inhalation Q4H PRN PRN 01/01/20 11/10/23 Rx aerosol inhaler Wheezing ##1 estradiol 1 mg tablet (Estrace) 1 mg PO QDAY #30 tabs 11/10/23 11/10/23 Rx levonorgestrel 21 mcg/24 hr (up to 1 device intrauterine ONCE 11/10/23 11/10/23 History 8 years) 52 mg intrauterine device (Mirena) tirzepatide (weight loss) 2.5 2.5 mg subcut QWEEK 11/10/23 11/10/23 History mg/0.5 mL subcutaneous pen injector Is last menstrual period known: Yes Last Menstrual Period: 10/24/23 Post menopausal: No Patient : No : No [facility] Surgical History Status post breast reduction Social History adopted: No household members: spouse and children housing: apartment number of children: 1 current occupational status: employed 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 Had mirena IUD placed in Jan 2023 and continues to have some type of vaginal bleeding or spotting most days. States had 1 week in August and September that she did not bleed. Varies in amount. Same sexual partner. Still has cramping but that has improved Female Reproductive History Last Menstrual Period: 10/24/23 History 3 Elective abortions Hx Para 1 Spontaneous abortions 2 Hx # Term Pregnancies Ectopic pregnancies Hx # Pregnancies Multiple births # of living children Past Pregnancies Del. Date Name GA/Weeks Outcome Route Bth Weight Infant Gen Labor Lgth Anesthesia Del Locatn Provider FOB 09/15/06 Arnol live - full term ROS Const Constitutional: Reports system reviewed and no additional complaints, except as documented Eyes Eyes: Reports system reviewed and no additional complaints, except as documented GI GI: Denies abdominal pain or change in bowel habits : Reports as per HPI Exam Const General: cooperative and no acute distress Orientation: oriented x3 HENMT Head: normal to inspection and normocephalic Eyes General: appearance normal, both eyes and all related structures Neck Neck: normal visual inspection Resp Effort Inspection: normal respiratory effort Neuro Cognition: normal cognition Speech: speech normal Psych Appearance: grossly normal Mood: congruent mood Affect: normal affect Speech and Movement: speech and movement normal Attitude: cooperative Judgment: judgment good Coding Level of Care Code Off vis,est,level 3 Diagnoses IUD check up Z30.431 Menorrhagia with regular cycle N92.0 Fibroids, intramural D25.1 Assessment and Plan Assessment and Plan (1) IUD check up: (2) Menorrhagia with regular cycle: Status: Acute Comment: mirena IUD (3) Fibroids, intramural: Status: Acute Orders: Orders Pelvic w/ Transvaginal Today N92.0 - Excessive and frequent menstruation with regular cycle, Z30.431 - Encounter for routine checking of intrauterine contraceptive device Medications: New estradiol (Estrace) 1 mg PO QDAY 30 tabs 0RF Plan 30 day estradiol add back ultrasound Is still undecided about another Management dependent on above 11/10/23 8979 Date Manju Richmond NP NEGATIVE NOTCHER-C Cosigner Signature: Date (if applicable) CC: Normal [facility] Laboratory - Microbiology an d Antimicrobial susceptibilityon 05-31-2022 SARS-CoV-2 (COVID-19) RNA BAIR+probe Ql (Unsp spec) Detected [facility] No Panel Informationon 05-31 Influenza Types A,B Rapid (Clinic) Not detected [facility] No Panel Informationon 01-23 [facility] XR Lumbar spine 3 Viewson IMPRESSION: Unremark able lumbar spine X-ray. Sample Steamer: ALEX Transcribe Date/Time: Jul 02 2021 4:30P Dictated by : JACOBO ANGLIN MD This examination was interpreted and the report reviewed and electronically signed by: JACOBO ANGLIN MD on Jul 02 2021 4:31PM [facility] DIVISION OF RADIOLOGY * * *Final Report* * * DATE OF EXAM: Jul 02 2021 4:29PM WOX [id number] - XR LUMBAR 3V AP/LAT/L5-S1 / PROCEDURE REASON: Acute midline low back pain without sciatica * * * * Physician Interpretation * * * * EXAM TITLE: XR LUMBAR 3V AP/LAT/L5-S1 EXAM DATE/TIME: 07/02/2021 4:29 PM COMPARISON: None. CLINICAL INDICATION/HISTORY: Low back pain. TECHNIQUE: AP, lateral and cone down lateral views of the lumbar spine are presented. FINDINGS: There are five rag-ecd-btydghx lumbar vertebrae. No fracture or subluxations are noted. There is right-sided curvature seen on AP view. The disc spaces are well preserved. There is no significant osteophyte formation. DIVISION OF RADIOLOGY Provider, Ivanna Ritu Capone - 07/02/2021 * * *Final Report* * * DATE OF EXAM: Jul 02 2021 4:29PM WOX [id number] - XR LUMBAR 3V AP/LAT/L5-S1 / PROCEDURE REASON: Acute midline low back pain without sciatica * * * * Physician Interpretation * * * * EXAM TITLE: XR LUMBAR 3V AP/LAT/L5-S1 EXAM DATE/TIME: 07/02/2021 4:29 PM COMPARISON: None. CLINICAL INDICATION/HISTORY: Low back pain. TECHNIQUE: AP, lateral and cone down lateral views of the lumbar spine are presented. FINDINGS: There are five swk-fku-zsurkno lumbar vertebrae. No fracture or subluxations are noted. There is right-sided curvature seen on AP view. The disc spaces are well preserved. There is no significant osteophyte formation. IMPRESSION IMPRESSION: Unremarkable lumbar spine X-ray. Sample Steamer: PSCB Transcribe Date/Time: Jul 02 2021 4:30P Dictated by : JACOBO ANGLIN MD This examination was interpreted and the report reviewed and electronically signed by: JACOBO ANGLIN MD on Jul 02 2021 4:31PM EST [facility] Radiology Study observation (narrative) [facility] XR Lumbar spine 3 ViewsOrder ed By: [facility] Provider on 07-02-2021 [facility] BASIC METABOLIC PANELon 02-2 Anion gap [Moles/Vol]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 mass index (BMI) [Ratio] 28.65 kg/m2 Michael Perez MD Work Phone: [facility] 08-15-2024 14:34-0400 Body weight 88 kg Michael Perez MD Work Phone: [facility] 08-10-2024 07:55-0400 Body mass index (BMI) [Ratio] 29.12 kg/m2 Deysi Brown TECHNICAL BUYER.THERAPY AIDE Work Phone: [facility] 08-10-2024 07:55-0400 Body weight 89.45 kg Deysi Brown TECHNICAL BUYER.THERAPY AIDE Work Phone: [facility] 08-10-2024 07:55-0400 Diastolic blood pressure 76 mm[Hg] Deysi Brown TECHNICAL BUYER.THERAPY AIDE Work Phone: [facility] 08-10-2024 07:55-0400 Heart rate 76 /min Deysi Brown TECHNICAL BUYER.THERAPY AIDE Work Phone: [facility] 08-10-2024 07:55-0400 SaO2% (BldA) [Mass fraction] 100 % Deysi Brown TECHNICAL BUYER.THERAPY AIDE Work Phone: [facility] 08-10-2024 07:55-0400 Systolic blood pressure 118 mm[Hg] Deysi Brown TECHNICAL BUYER.THERAPY AIDE Work Phone: [facility] 06-22-2024 15:53-0500 Body height 175.3 cm Sandi Jimenez PA-C Work Phone: [facility] 06-22-2024 15:53-0500 Body mass index (BMI) [Ratio] 28.65 kg/m2 Sandi Jimenez PA-C Work Phone: [facility] 06-22-2024 15:53-0500 Body weight 88 kg Sandi Jimenez PA-C Work Phone: [facility] 06-22-2024 15:53-0500 Diastolic blood pressure 66 mm[Hg] Sandi Jimenez PA-C Work Phone: [facility] 06-22-2024 15:53-0500 Heart rate 71 /min Sandi Jimenez PA-C Work Phone: [facility] 06-22-2024 15:53-0500 SaO2% (BldA) [Mass fraction] 97 % Sandi Jimenez PA-C Work Phone: [facility] 06-22-2024 15:53-0500 Systolic blood pressure 103 mm[Hg] Sandi Jimenez PA-C Work Phone: [facility] 06-02-2024 14:02-0500 Body height 175.3 cm Sandi Jimenez PA-C Work Phone: [facility] 06-02-2024 14:02-0500 Body mass index (BMI) [Ratio] 28 kg/m2 Sandi Jimenez PA-C Work Phone: [facility] 06-02-2024 14:02-0500 Body weight 86 kg Sandi Jimenez PA-C Work Phone: [facility] 06-02-2024 14:02-0500 Diastolic blood pressure 62 mm[Hg] Sandi Jimenez PA-C Work Phone: [facility] 06-02-2024 14:02-0500 Heart rate 68 /min Sandi Jimenez PA-C Work Phone: [facility] 06-02-2024 14:02-0500 SaO2% (BldA) [Mass fraction] 99 % Sandi Jimenez PA-C Work Phone: [facility] 06-02-2024 14:02-0500 Systolic blood pressure 100 mm[Hg] Sandi Jimenez PA-C Work Phone: [facility] 04-27-2024 14:17-0500 Body mass index (BMI) [Ratio] 29.85 kg/m2 Sandi Jimenez PA-C Work Phone: [facility] 04-27-2024 14:17-0500 Body weight 87.5 kg Sandi Jimenez PA-C Work Phone: [facility] 04-27-2024 14:17-0500 Diastolic blood pressure 66 mm[Hg] Sandi Jimenez PA-C Work Phone: [facility] 04-27-2024 14:17-0500 Heart rate 72 /min Sandi Jimenez PA-C Work Phone: [facility] 04-27-2024 14:17-0500 Respiratory rate 16 /min Sandi Jimenez PA-C Work Phone: [facility] 04-27-2024 14:17-0500 SaO2% (BldA) [Mass fraction] 97 % Sandi CONROY-C Work Phone: [facility] 04-27-2024 14:17-0500 Systolic blood pressure 100 mm[Hg] Sandi Jimenez PA-C Work Phone: [facility] 04-06-2024 08:19-0500 Body mass index (BMI) [Ratio] 29.37 kg/m2 Deysi Brown TECHNICAL BUYER.THERAPY AIDE Work Phone: [facility] 04-06-2024 08:19-0500 Body weight 86.09 kg Deysi Brown TECHNICAL BUYER.THERAPY AIDE Work Phone: [facility] 04-06-2024 08:19-0500 Diastolic blood pressure 78 mm[Hg] Deysi Brown TECHNICAL BUYER.THERAPY AIDE Work Phone: [facility] 04-06-2024 08:19-0500 Heart rate 84 /min Deysi Brown TECHNICAL BUYER.THERAPY AIDE Work Phone: [facility] 04-06-2024 08:19-0500 Respiratory rate 14 /min Deysi Brown TECHNICAL BUYER.THERAPY AIDE Work Phone: [facility] 04-06-2024 08:19-0500 SaO2% (BldA) [Mass fraction] 100 % Deysi Brown TECHNICAL BUYER.THERAPY AIDE Work Phone: [facility] 04-06-2024 08:19-0500 Systolic blood pressure 126 mm[Hg] Deysi Brown TECHNICAL BUYER.THERAPY AIDE Work Phone: [facility] 03-16-2024 14:50-0500 Body mass index (BMI) [Ratio] 29.34 kg/m2 Myrna Walker TECHNICAL BUYER.THERAPY AIDE Work Phone: [facility] 03-16-2024 14:50-0500 Body weight 86 kg Myrna Walker TECHNICAL BUYER.THERAPY AIDE Work Phone: [facility] 03-16-2024 14:50-0500 Diastolic blood pressure 66 mm[Hg] Myrna Walker TECHNICAL BUYER.THERAPY AIDE Work Phone: [facility] 03-16-2024 14:50-0500 Heart rate 74 /min Myrna Walker TECHNICAL BUYER.THERAPY AIDE Work Phone: [facility] 03-16-2024 14:50-0500 Respiratory rate 14 /min Myrna Walker TECHNICAL BUYER.THERAPY AIDE Work Phone: [facility] 03-16-2024 14:50-0500 SaO2% (BldA) [Mass fraction] 100 % Myrna Walker TECHNICAL BUYER.THERAPY AIDE Work Phone: [facility] 03-16-2024 14:50-0500 Systolic blood pressure 118 mm[Hg] Myrna Walker TECHNICAL BUYER.THERAPY AIDE Work Phone: [facility] 05-31-2022 10:14-0500 Body temperature 97.8 [degF] Dr. Del Hubbard Work Phone: [facility] 05-31-2022 10:14-0500 Diastolic blood pressure 70 mm[Hg] Dr. Del Hubbard Work Phone: [facility] 05-31-2022 10:14-0500 Heart rate 102 /min Dr. Del Hubbard Work Phone: [facility] 05-31-2022 10:14-0500 Respiratory rate 14 /min Dr. Del Hubbard Work Phone: [facility] 05-31-2022 10:14-0500 SaO2% (BldA) [Mass fraction] 98 % Dr. Del Hubbard Work Phone: [facility] 05-31-2022 10:14-0500 Systolic blood pressure 124 mm[Hg] Dr. Del Hubbard Work Phone: [facility] 05-31-2022 10:06-0500 Body height 175.[address] Del Hubbard Work Phone: [facility] 01-01-2022 15:07-0400 Body height 171.2 cm Deysi Brown TECHNICAL BUYER.THERAPY AIDE Work Phone: [facility] 01-01-2022 15:07-0400 Body weight 100.61 kg Deysi Brown TECHNICAL BUYER.THERAPY AIDE Work Phone: [facility] 01-01-2022 15:07-0400 Diastolic blood pressure 70 mm[Hg] Desyi Brown TECHNICAL BUYER.THERAPY AIDE Work Phone: [facility] 01-01-2022 15:07-0400 Heart rate 89 /min Deysi Brown TECHNICAL BUYER.THERAPY AIDE Work Phone: [facility] 01-01-2022 15:07-0400 Respiratory rate 16 /min Deysi Brown TECHNICAL BUYER.THERAPY AIDE Work Phone: [facility] 01-01-2022 15:07-0400 SaO2% (BldA) [Mass fraction] 99 % Deysi Brown TECHNICAL BUYER.THERAPY AIDE Work Phone: [facility] 01-01-2022 15:07-0400 Systolic blood pressure 118 mm[Hg] Deysi Brown TECHNICAL BUYER.THERAPY AIDE Work Phone: [facility] 12-11-2021 17:55-0400 Body temperature 98.2 [degF] Negro Fink MD Work Phone: [facility] 12-11-2021 17:55-0400 Body weight 97.98 kg Negro Fink MD Work Phone: [facility] 12-11-2021 17:55-0400 Diastolic blood pressure 80 mm[Hg] Negro Fink MD Work Phone: [facility] 12-11-2021 17:55-0400 Heart rate 68 /min Negro Fink MD Work Phone: [facility] 12-11-2021 17:55-0400 Respiratory rate 18 /min Negro Fink MD Work Phone: [facility] 12-11-2021 17:55-0400 SaO2% (BldA) [Mass fraction] 99 % Negro Fink MD Work Phone: [facility] 12-11-2021 17:55-0400 Systolic blood pressure 122 mm[Hg] Negro Fink MD Work Phone: [facility] 06-21-2021 00:30-0500 Diastolic blood pressure 62 mm[Hg] No Pcp Required [facility] 06-21-2021 00:30-0500 Heart rate 63 /min No Pcp Required [facility] 06-21-2021 00:30-0500 Respiratory rate 14 /min No Pcp Required [facility] 06-21-2021 00:30-0500 SaO2% (BldA) [Mass fraction] 98 % No Pcp Required [facility] 06-21-2021 00:30-0500 Systolic blood pressure 91 mm[Hg] No Pcp Required [facility] 06-20-2021 22:22-0500 Body height 175.2 cm No Pcp Required [facility] 06-20-2021 22:22-0500 Body temperature 98.06 [degF] No Pcp Required [facility] 06-20-2021 22:22-0500 Body weight 91 kg No Pcp Required [facility] Encounters Encounter Date Encounter Type Care Provider Facility Start: 01-02-2025 End: 01-02-2025 ambulatory Kelvin Tejeda DO Work Phone: [facility] Comment on above: Hip Pain; Leg Pain; Back Pain (Pain to lower back radiating down right hip and leg) Start: 01-02-2025 End: 01-02-2025 Patient encounter procedure Kelvin Tejeda DO Work Phone: [facility] Start: 01-01-2025 End: 01-01-2025 ambulatory Deysi Dasilva TECHNICAL BUYER.THERAPY AIDE Work Phone: [facility] Comment on above: FMLA Paper Request Start: 01-01-2025 End: 01-01-2025 Telephone encounter Fab Piper MD Work Phone: [facility] Comment on above: Injections (Question s ) Start: 12-28-2024 End: 12-28-2024 Office outpatient visit 25 minutes Fab Piper MD Work Phone: [facility] Comment on above: S/P laminectomy (Maris david Dx); Recurrent herniation of lumbar disc Start: 12-28-2024 End: 12-28-2024 Refill Fab Piper MD Work Phone: [facility] Comment on above: Refill Request Fast Track Start: 12-26-2024 ambulatory FAB PIPER Facility :[facility] Start: 12-26-2024 End: 12-26-2024 Subsequent hospital visit by physician [employer] [facility] Wstr (I-Stat/1.5t) Work Phone: Radiology Comment on above: Spinal stenosis of l umbar region, unspecified whether neurogenic claudication present [M48.061] Start: 12-22-2024 End: 12-22-2024 Telephone encounter Fab Piper MD Work Phone: [facility] Start: 12-21-2024 End: 12-21-2024 Telephone encounter Fab Piper MD Work Phone: [facility] Start: 12-21-2024 End: 12-21-2024 Office outpatient visit 25 minutes Fab Piper MD Work Phone: [facility] Comment on above: S/P laminectomy (Maris david Dx); Spinal stenosis of lumbar region, unspecified whether neurogenic claudication present Start: 12-21-2024 End: 12-21-2024 ambulatory FAB PIPER Facility:[facility] Start: 12-21-2024 End: 12-21-2024 Subsequent hospital visit by physician [employer] Comment on above: S/P laminectomy [Z98 .890] Start: 11-13-2024 End: 11-13-2024 Patient encounter procedure Brock Durand MD Work Phone: OB/Gynecology Comment on above: Excessive bleeding i n premenopausal period (Primary Dx); Dyspareunia in female; IUD (intrauterine device) in place; Cyst of ovary, unspecified laterality Start: 11-13-2024 End: 11-13-2024 ambulatory BROCK DURADN Facility:[facility] Start: 10-19-2024 End: 10-19-2024 Telephone encounter Fab Piper MD Work Phone: [facility] Comment on above: No Show (No Show #1 ) Start: 10-06-2024 End: [facility] Work Phone: [facility] Comment on above: IAN (generalized anx iety disorder) (Primary Dx); Encounter for screening examination for other mental health and behavioral disorders; Screening for depression Start: 10-06-2024 End: 10-06-2024 ambulatory BRANDY RUSSELL Facility:[facility] Start: 10-03-2024 End: 10-04-2024 Telephone encounter Del Hubbard DO Work Phone: [facility] Start: 10-02-2024 End: 10-03-2024 ambulatory Deysi Dasilva APRN.THERAPY AIDE Work Phone: [facility] Start: 10-02-2024 End: 10-03-2024 Letter encounter Deysi Dasilva APRN.THERAPY AIDE Work Phone: [facility] Comment on above: FRANCISCA Letter Start: 10-02-2024 End: 10-02-2024 Refill Fab Piper MD Work Phone: [facility] Comment on above: Refill Request Start: 09-26-2024 End: 09-26-[address] Del Hubbard DO Work Phone: [facility] Work Phone: Start: 09-26-2024 End: 09-26-2024 Patient encounter procedure Manju Richmond NEGATIVE NOTCHER-C -Ultrasound [facility] Work Phone: Start: 09-26-2024 End: 09-26-2024 ambulatory Del Hubbard Facility:[facility] Start: 09-21-2024 End: 09-21-2024 Patient encounter procedure Twyla Guzman TECHNICAL BUYER.THERAPY AIDE Work Phone: [facility] Comment on above: Postoperative pain ( Primary Dx); S/P laminectomy Start: 09-21-2024 End: 09-21-2024 ambulatory TWYLA GUZMAN [facility] Start: 09-05-2024 End: 09-05-2024 Postop follow up visit related to original px Fab Piper MD Work Phone: [facility] Comment on above: S/P laminectomy (Maris david Dx) Start: 09-05-2024 End: 09-05-2024 ambulatory FAB PIPER Facility:[facility] Start: 08-31-2024 End: 08-31-2024 Preprocedural examination done Deysi Dasilva APRN.THERAPY AIDE Work Phone: [facility] Work Phone: Start: 08-31-2024 End: 08-31-2024 Refill Deysi Dasilva APRN.THERAPY AIDE Work Phone: [facility] Comment on above: Refill Request Preop examination (P rimary Dx); 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 Comment on above: Intervertebral disc disorder with radiculopathy of lumbar region (Primary Dx) Start: 08-29-2024 End: 08-29-2024 Orders Only Fab Piper MD Work Phone: [facility] Comment on above: Intervertebral disc disorder with radiculopathy of lumbar region (Primary Dx) Preparations For Kelly pa Start: 08-28-2024 End: 08-28-2024 Office outpatient new 45 minutes Fab Piper MD Work Phone: [facility] Comment on above: Low back pain, unspe cified back pain laterality, unspecified chronicity, unspecified whether sciatica present (Primary Dx); Intervertebral disc disorder with radiculopathy of lumbar region; Acute bilateral low back pain with right-sided sciatica Start: 08-28-2024 End: 08-28-2024 ambulatory FAB PIPER Facility:[facility] Start: 08-15-2024 End: 08-15-2024 Office outpatient new 20 minutes Michael Fall MD Work Phone: [facility] Comment on above: Other intervertebral disc displacement, lumbar region; Sciatica, right side Start: 08-15-2024 End: 08-15-2024 ambulatory MICHAEL PEREZ Facility:[id number] Start: 08-14-2024 ambulatory FAB PIPER Facility :[facility] Start: 08-14-2024 End: 08-14-2024 Subsequent hospital visit by physician Jan [facility] Prabhu Work Phone: Radiology Comment on above: Low back pain, unspe cified back pain laterality, unspecified chronicity, unspecified whether sciatica present [M54.50] Start: 08-10-2024 End: 08-25-2024 E-mail encounter from caregiver Deysi Dasilva ALBERT.THERAPY AIDE Work Phone: [facility] Pr[facility]hu Start: 08-10-2024 End: 09-19-2024 Patient encounter procedure Michael Fall MD Work Phone: [facility] Comment on above: OPENED IN ERROR (Maris david Dx) Start: 08-10-2024 End: 08-10-2024 Telephone encounter Michael Fall MD Work Phone: [facility] Start: 08-10-2024 End: 08-25-2024 ambulatory Deysi Highutzman ALBERT.THERAPY AIDE Work Phone: [facility] Prabhu Comment on above: your back Start: 08-10-2024 End: 08-10-2024 Office outpatient visit 25 minutes Deysi Dasilva APRN.THERAPY AIDE Work Phone: [facility] Pr[facility]hu Comment on above: Cold hands and feet (Primary Dx); Intervertebral disc disorder with radiculopathy of lumbar region; Acute bilateral low back pain with right-sided sciatica; Acute midline low back pain without sciatica Start: 07-18-2024 End: 07-18-2024 ambulatory FEI GONZÁLES Facility:[facility] Start: 07-11-2024 End: 07-12-2024 ambulatory Sandi Jimenez PA-C Work Phone: [facility] Comment on above: Pain Start: 06-26-2024 End: 06-26-2024 Orders Only Fei Gonzáles MD Work Phone: Pain Management Comment on above: Acute bilateral low back pain with right-sided sciatica (Primary Dx); Intervertebral disc disorder with radiculopathy of lumbar region Start: 06-23-2024 End: 06-23-2024 Telephone encounter Sandi Jimenez PA-C Work Phone: [facility] Start: 06-22-2024 End: 06-22-2024 ambulatory SANDI JIMENEZ Facility:[facility] Start: 06-22-2024 End: 06-22-2024 Patient encounter procedure Sandi Jimenez PA-C Work Phone: [facility] Comment on above: Intervertebral disc disorder with radiculopathy of lumbar region (Primary Dx); Acute bilateral low back pain with right-sided sciatica; Acute midline low back pain without sciatica Start: 06-16-2024 End: 06-22-2024 ambulatory Cc Provider [facility] Comment on above: soraya Start: 06-16-2024 End: 06-22-2024 E-mail encounter from caregiver Cc Provider [facility] Start: 06-02-2024 End: 06-02-2024 Patient encounter procedure Sandi Jimenez PA-C Work Phone: [facility] Comment on above: Intervertebral disc disorder with radiculopathy of lumbar region (Primary Dx); Acute bilateral low back pain with right-sided sciatica Start: 06-02-2024 ambulatory SANDI Nance ty:[facility] Start: 05-18-2024 End: 05-18-2024 ambulatory FEI GONZÁLES Facility:[facility] Start: 04-28-2024 End: 04-28-2024 Orders Only Fei Gonzáles MD Work Phone: Pain Management Comment on above: Acute bilateral low back pain with right-sided sciatica (Primary Dx); Intervertebral disc disorder with radiculopathy of lumbar region Start: 04-27-2024 End: 04-27-2024 Patient encounter procedure Sandi Jimenez PA-C Work Phone: [facility] Comment on above: Intervertebral disc disorder with radiculopathy of lumbar region (Primary Dx); Acute bilateral low back pain with right-sided sciatica Start: 04-27-2024 End: 04-27-2024 ambulatory Fei Gonzáles MD Work Phone: Pain Management Comment on above: Procedure Instructio ns Start: 04-27-2024 End: 04-27-2024 E-mail encounter from caregiver Fei Gonzáles MD Work Phone: Pain Management Start: 04-06-2024 End: 04-06-2024 ambulatory DEYSI HIGHUTZMAN Facility:[facility] Start: 04-06-2024 End: 04-06-2024 Office outpatient visit 15 minutes Deysi Dasilva TECHNICAL BUYER.THERAPY AIDE Work Phone: [facility] Comment on above: Acute bilateral low back pain with right-sided sciatica (Primary Dx); Numbness in both legs; Gait instability; Physical debility; Sciatica, right side Start: 03-29-2024 End: 03-29-2024 Telephone encounter Myrna aDrlyn Walker TECHNICAL BUYER.THERAPY AIDE Work Phone: [facility] Comment on above: Results Start: 03-29-2024 End: 03-29-2024 ambulatory MYRNA CM WALKER Facility:[facility] Start: 03-29-2024 End: 03-29-2024 Subsequent hospital visit by physician Mri Radio [facility] Ws (I-Stat/1.5t) Work Phone: Radiology Comment on above: Acute bilateral low back pain with right-sided sciatica [M54.41] Start: 03-16-2024 End: 03-16-2024 Subsequent hospital visit by physician Xr [facility] Prabhu Work Phone: Radiology Comment on above: Acute bilateral low back pain with right-sided sciatica [M54.41] Start: 03-16-2024 End: 03-16-2024 ambulatory MYRNA WALKER Facility:[facility] Start: 03-16-2024 End: 03-16-2024 Office outpatient visit 25 minutes Myrna Walker TECHNICAL BUYER.THERAPY AIDE Work Phone: [facility] Comment on above: Acute bilateral low back pain with right-sided sciatica (Primary Dx); Numbness in both legs; Gait instability; Physical debility Start: 11-23-2023 End: 11-23-2023 ambulatory Del Galarzarison Facility:[facility] Start: 11-10-2023 End: 11-10-2023 ambulatory Del Hubbard Facility:[facility] Start: 08-31-2022 Telephone encounter Elizabeth gates TECHNICAL BUYER.THERAPY AIDE Work Phone: [facility] Comment on above: Results Start: 08-27-2022 End: 08-27-2022 ambulatory Elizabeth Burns APRN.THERAPY AIDE Work Phone: [facility] Comment on above: Exposure to hepatiti s C (Primary Dx); Screening for STD (sexually transmitted disease) Start: 08-27-2022 End: 08-27-2022 Telemedicine consultation with patient Elizabeth Burns APRN.THERAPY AIDE Work Phone: [facility]TE [facility] INCLUDES [facility] Start: 06-25-2022 End: 06-25-[address] Del Hubbard Work Phone: [facility] Work Phone: Start: 06-25-2022 End: 06-25-[address] Del Hubbard Work Phone: [facility] Start: 05-31-2022 End: 05-31-[address] Del Hubbard Work Phone: [facility] Start: 05-25-2022 End: 05-25-[address] Del Hubbard Work Phone: [facility] Start: 01-23-2022 End: 01-23-2022 Subsequent hospital visit by physician [facility] 2 Work Phone: Radiology Comment on above: Sciatica, right side [M54.31] Start: 01-01-2022 End: 01-01-2022 Patient encounter procedure Deysi Dasilva APRN.THERAPY AIDE Work Phone: [facility] Comment on above: Wellness examination (Primary Dx); Sciatica, right side; Family history of endometriosis; Abnormal menstruation Start: 01-01-2022 End: 01-01-2022 Patient encounter status Deysi Dasilva APRN.THERAPY AIDE Work Phone: [facility] Start: 12-11-2021 End: 12-11-2021 Patient encounter procedure Negro Fink MD Work Phone: [facility] Comment on above: Dental abscess (Prim stephan Dx) Start: 07-02-2021 End: 07-02-2021 Subsequent hospital visit by physician Xr [facility] Prabhu Work Phone: Radiology Comment on above: Acute midline low ba ck pain without sciatica [M54.50] Start: 06-20-2021 End: 06-21-2021 Emergency department patient visit Marybeth Linda [facility] Emergency 03 Procedures Date Procedure Procedure Detail Performing Clinician Start: 12-26-2024 Mri spinal canal lum bar w/o contrast material Fab Piper MD Work Phone: Start: 10-06-2024 Adult depression scr eening assessment Fab Piper MD Work Phone: Start: 08-31-2024 Antibody screen FAB SANTOS Comment on above: Order Comment: Speci men Type: BLOOD SPECIMENOrdering Facility: [facility] Address: [address] [place] [address] Performed By: #### T [id number] ####[facility] BLOOD BANKIA [id number] [address] OF [facility] Start: 03-29-2024 Mri spinal canal lum bar w/o contrast material Myrna Walker TECHNICAL BUYER.THERAPY AIDE Work Phone: Start: 06-25-[address] Del Hubbard Work Phone: Start: 01-23-2022 Us pelvic nonobstetr ic image dcmtn limited/f/u Deysi Dasilva TECHNICAL BUYER.THERAPY AIDE Work Phone: Start: 07-02-2021 Radex spine lumbosac ral 2/3 views Myrna Walker TECHNICAL BUYER.THERAPY AIDE Work Phone: Start: 07-02-2021 Adult depression scr eening assessment Negro Fink MD Work Phone: Plan of Treatment Date Care Activity Detail Author Start: 10-22-2031 Urine microalbumin profile [facility] Start: 10-06-2025 Anxiety Screening Anxiety Screening [facility] Start: 10-06-2025 Depression Screening Depression Screening [facility] Start: 05-07-2025 End: 05-07-2025 Patient encounter procedure 05/07/2025 2:20 PM EST Office Visit OB/Gynecology [address] [place] [id number] Brock Durand MD [address] [place] [address] annual OB/Gynecology Comment on above: annual Start: 03-26-2025 End: 11-13-2025 US Pelvis PELVIC US WHI Anc Imaging Routine Cyst of ovary, unspecified laterality Expected: 03/26/2025 (Approximate), Expires: 11/13/2025 [facility] Work Phone: Comment on above: Expected: 03/26/2025 (Approximate), Expi res: 11/13/2025 Start: 03-16-2025 Covid-19 Vaccine () Covid-19 Vaccine () [facility] Comment on above: Postponed from 12/26/2023 (Declined at t his time) Start: 01-03-2025 End: 01-03-2025 Patient encounter procedure 01/03/2025 5:40 PM EDT Office Visit [facility] [place] [address] [place], [place] [phone] Deysi Dasilva APRN.THERAPY AIDE [address] [place] [phone] discuss pain medication for back pain OK PER RS [facility] Comment on above: discuss pain medication for back pain OK PER RS Start: 01-03-2025 End: 01-03-2025 Patient encounter procedure 01/03/2025 4:20 PM EDT Office Visit [facility] [place] [address] [place], [place] [phone] Deysi Dasilva, ALBERT.THERAPY AIDE [address] [place], [place] [address] discuss pain medication for back pain [facility] Comment on above: discuss pain medication for back pain Start: 01-02-2025 End: 01-02-2025 ambulatory 01/02/2025 2:20 PM EDT Procedure [facility] [address] [place] [address] Kelvin Tejeda DO [address] [facility] [address] [place] [address] AUTH GOOD NPCR LMS - FAST TRACK R L4-5 TFESI- NO RESTRITIONS- OK PER SR NOTE [facility] Comment on above: AUTH GOOD NPCR LMS - FAST TRACK R L4-5 T FESI- NO RESTRITIONS- OK PER SR NOTE Start: 12-28-2024 End: 12-28-2024 Follow-up encounter 12/28/2024 8:00 AM EDT [address] [place] [id number] Fab Piper MD [address] [place] [address] [facility] Comment on above: MRI follow up Start: 12-26-2024 End: 12-26-2024 Patient encounter procedure 12/26/2024 12:30 PM EDT Appointment Radiology [address] [place] [address] MRI Radiology Comment on above: MRI Start: 12-25-2024 Influenza vaccination [facility] Start: 11-13-2024 End: 11-13-2024 Patient encounter procedure 11/13/2024 2:40 PM EDT Office Visit OB/Gynecology [address] [place] [address] Brock Durand MD [address] [place] [address] Uternine fibroids, ovarian cysts. Second opinion OB/Gynecology Comment on above: Uternine fibroids, ovarian cysts. Second opinion Start: 10-23-2024 Influenza vaccination [facility] Comment on above: Postponed from 12/26/2023 (Declined at t his time) Start: 10-19-2024 End: 10-19-2024 Patient encounter procedure 10/19/2024 3:00 PM EDT Office Visit [facility] [address] [phone] Fab Piper MD [address] [facility] [place] [phone] [address] [facility] Comment on above: 6 week post op Start: 10-06-2024 End: 10-06-2024 Letter encounter 10/06/2024 1:40 PM EDT [facility] [address] [place], [place] [phone] Brandy Russell, TECHNICAL BUYER.THERAPY AIDE [address] [place], [place] [phone] video visit for anxiety and letter for support animal [facility] Comment on above: video visit for anxiety and letter for s ernie animal Start: 09-26-2024 Pelvic echography Pelvic w/ Transvaginal [facility] Start: 09-21-2024 End: 09-21-2024 Patient encounter procedure 09/21/2024 2:00 PM EDT Office Visit [facility] [address] [place] [phone] Twyla Guzman, TECHNICAL BUYER.THERAPY AIDE [address] [facility] [place], [place] [phone] 2 week post op, SB [facility] Comment on above: 2 week post op, Start: 09-06-2024 End: 09-06-2024 Admission to same day surgery center 09/06/2024 9:30 AM EDT - 09/06/2024 11:30 AM EDT Surgery [facility] [address] [facility] [address] [place] [address] Fab Piper MD [address] [facility] [place] [address] DISCOTOMY LUMBAR LEVEL 1 [facility] Comment on above: DISCOTOMY LUMBAR LEVEL 1 Start: 09-06-2024 End: 09-06-2024 Lamnotmy incl w/dcmprsn nrv root 1 intrspc lumbr DISCOTOMY LUMBAR LEVEL 1 Intervertebral disc disorder with radiculopathy of lumbar region 09/06/2024 9:30 AM EDT [facility] Start: 09-06-2024 End: 09-06-2024 Microsurg tqs req use operating microscope MICROSURGICAL TECHNIQUE FOR SPINAL PROCEDURES Intervertebral disc disorder with radiculopathy of lumbar region 09/06/2024 9:30 AM EDT [facility] Start: 09-06-2024 Subsequent hospital visit by physician 09/06/2024 9:30 AM EDT Hospital Encounter [facility] [address] [facility] [address] [place] [address] Fab Piper MD [address] [place] [address] 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] [facility] Comment on above: Intervertebral disc disorder with radicu lopathy of lumbar region [M51.16] Start: 09-05-2024 End: 09-05-2024 Admission to same day surgery center 09/05/2024 12:00 PM EDT - 09/05/2024 2:00 PM EDT Surgery [facility] [address] [facility] [address] [place] [address] Fab Piper MD [address] [facility] [place] [address] DISCOTOMY LUMBAR LEVEL 1 [facility] Comment on above: DISCOTOMY LUMBAR LEVEL 1 Start: 09-05-2024 End: 09-05-2024 Lamnotmy incl w/dcmprsn nrv root 1 intrspc lumbr [facility] Start: 09-05-2024 End: 09-05-2024 Microsurg tqs req use operating microscope [facility] Start: 09-05-2024 Subsequent hospital visit by physician 09/05/2024 12:00 PM EDT Hospital Encounter [facility] [address] [place] [address] Fab Piper MD [address] [place] [address] 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] [facility] Comment on above: Intervertebral disc disorder with radicu lopathy of lumbar region [M51.16] Start: 08-31-2024 End: 08-31-2024 Patient encounter procedure [facility] Comment on above: Follow Up / EMG Results Start: 08-31-2024 End: 08-31-2024 ambulatory 08/31/2024 3:00 PM EDT PAT Pre Surgical Testing [address] [facility] [place] [address] sx 09/06 Pre Surgical Testing Comment on above: sx 09/06 Start: 08-31-2024 End: 11-30-2024 aPTT in Platelet poor plasma by Coagulation assay ACTIVATED PARTIAL THROMBOPLASTIN TIME Lab Routine Intervertebral disc disorder with radiculopathy of lumbar region Expected: 08/31/2024, Expires: 11/30/2024 [facility] Comment on above: Expected: 08/31/2024, Expires: Start: 08-31-2024 End: 11-30-2024 Bacteria identified in Urine by Culture BACTERIAL CULTURE, URINE Microbiology Routine Intervertebral disc disorder with radiculopathy of lumbar region Expected: 08/31/2024, Expires: 11/30/2024 [facility] Comment on above: Expected: 08/31/2024, Expires: Start: 08-31-2024 End: 11-30-2024 CBC panel - Blood by Automated count COMPLETE BLOOD COUNT Lab Routine Intervertebral disc disorder with radiculopathy of lumbar region Expected: 08/31/2024, Expires: 11/30/2024 [facility] Comment on above: Expected: 08/31/2024, Expires: Start: 08-31-2024 End: 11-30-2024 Choriogonadotropin ( test) [Presence] in Urine HCG, QUALITATIVE, URINE Lab Routine Intervertebral disc disorder with radiculopathy of lumbar region Expected: 08/31/2024, Expires: 11/30/2024 [facility] Comment on above: Expected: 08/31/2024, Expires: Start: 08-31-2024 End: 11-30-2024 Comprehensive metabolic 2000 panel - Serum or Plasma COMPREHENSIVE METABOLIC PANEL Lab Routine Intervertebral disc disorder with radiculopathy of lumbar region Expected: 08/31/2024, Expires: 11/30/2024 [facility] Comment on above: Expected: 08/31/2024, Expires: Start: 08-31-2024 End: 08-30-2025 ECG COMPLETE ECG COMPLETE ECG Routine Intervertebral disc disorder with radiculopathy of lumbar region Expected: 08/31/2024, Expires: 08/30/2025 [facility] Comment on above: Expected: 08/31/2024, Expires: Start: 08-31-2024 End: 11-30-2024 PT panel - Platelet poor plasma by Coagulation assay PROTHROMBIN TIME Lab Routine Intervertebral disc disorder with radiculopathy of lumbar region Expected: 08/31/2024, Expires: 11/30/2024 [facility] Comment on above: Expected: 08/31/2024, Expires: Start: 08-31-2024 End: 11-30-2024 QUANTITATIVE TOXICOLOGY PANEL, URINE [facility] Work Phone: Comment on above: Expected: 08/31/2024, Expires: Start: 08-31-2024 End: 11-30-2024 STAPHYLOCOCCUS AUREUS & MRSA SCREEN, PCR, NASAL STAPHYLOCOCCUS AUREUS & MRSA SCREEN, PCR, NASAL Lab Routine Intervertebral disc disorder with radiculopathy of lumbar region Expected: 08/31/2024, Expires: 11/30/2024 [facility] Comment on above: Expected: 08/31/2024, Expires: Start: 08-31-2024 End: 11-30-2024 TYPE AND SCREEN,30 DAY TYPE AND SCREEN,30 DAY Blood Bank Routine Intervertebral disc disorder with radiculopathy of lumbar region Expected: 08/31/2024, Expires: 11/30/2024 [facility] Comment on above: Expected: 08/31/2024, Expires: Start: 08-31-2024 End: 11-30-2024 Urinalysis complete panel - Urine URINALYSIS, WITH MICROSCOPIC Lab Routine Intervertebral disc disorder with radiculopathy of lumbar region Expected: 08/31/2024, Expires: 11/30/2024 [facility] Comment on above: Expected: 08/31/2024, Expires: Start: 08-31-2024 End: 09-29-2025 XR Chest PA and Lateral [facility] Comment on above: Expected: 08/31/2024, Expires: 6 1 Occurrences starti ng 08/31/2024 until 08/31/2024 Start: 08-30-2024 End: 08-30-2024 ambulatory 08/30/2024 8:15 AM EDT OT/PT/Speech Visit [facility] [address] [place] [address] OPadmini Butler, PT Herniated disc and sciatica pain [facility] Comment on above: Herniated disc and sciatica pain Start: 08-28-2024 End: 08-28-2024 Patient encounter procedure [facility] [place] [facility] Comment on above: XR LUMBAR AP/LAT/FLEX/EXT Intervertebral disc disorder with radiculopathy of lumbar region Start: 08-17-2024 End: 08-17-2024 Patient encounter procedure 08/17/2024 3:40 PM EDT Office Visit [facility] [address] [place] [id number] Sandi Jimenez PA-C [address] [place] [phone] Follow up after injection [facility] Comment on above: Follow up after injection Start: 08-15-2024 End: 08-15-2024 Patient encounter procedure 08/15/2024 3:00 PM EDT Office Visit [facility] [address] [place] [address] Michael Perez MD [address] [facility] [address] [place] [address] l4 l5 herniated disc [facility] Comment on above: l4 l5 herniated disc Start: 07-18-2024 End: 07-18-2024 Admission to same day surgery center [facility] Surgery Comment on above: INJECTION(S) ANESTHETIC AGENT AND STEROI D TRANSFORAMINAL EPIDURAL LUMBAR W/IMAGE GUIDANCE FLUORO OR CT Start: 07-18-2024 End: 07-18-2024 Njx anes&/strd w/img tfrml edrl lmbr/sac 1 lvl [facility] OR Start: 07-18-2024 Subsequent hospital visit by physician [facility] Comment on above: Acute bilateral low back pain with right -sided sciatica [M54.41], 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] Start: 06-22-2024 End: 06-22-2024 Patient encounter procedure 06/22/2024 3:40 PM EST Office Visit [facility] [address] [address] Sandi Jimenez PA-C [address] [place] [address] Follow up [facility] Comment on above: Follow up Start: 05-18-2024 End: 05-18-2024 Admission to same day surgery center 05/18/2024 10:46 AM EST - 05/18/2024 11:12 AM EST Surgery [facility] Surgery [address] [place] [address] Fei Gonzáles MD [address] [place] [address] [place] [address] LUMBAR EPIDURAL BLOCK W/INJECTION NON NEUROLYTIC W/IMAGE GUIDANCE [facility] Comment on above: LUMBAR EPIDURAL BLOCK W/INJECTION NON NE UROLYTIC W/IMAGE GUIDANCE Start: 05-18-2024 End: 05-18-2024 Njx dx/ther sbst intrlmnr lmbr/sac w/img gdn LUMBAR EPIDURAL BLOCK W/INJECTION NON NEUROLYTIC W/IMAGE GUIDANCE Acute bilateral low back pain with right-sided sciatica Intervertebral disc disorder with radiculopathy of lumbar region 05/18/2024 10:46 AM EST ME OR Start: 05-18-2024 Subsequent hospital visit by physician 05/18/2024 10:46 AM EST Hospital Encounter [facility] Surgery [address] [place] [address] Fei Gonzáles MD [address] [id number] [place] [address] Acute bilateral low back pain with right-sided sciatica [M54.41], 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] [facility] Comment on above: Acute bilateral low back pain with right -sided sciatica [M54.41], 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] Start: 05-16-2024 End: 05-16-2024 ambulatory 05/16/2024 3:45 PM EST OT/PT/Speech Visit [facility] [address] [place] [address] OPadmini Butler, PT Lower back. Right side disc. L4/L5, with sciatica [facility] Comment on above: Lower back. Right side disc. L4/L5, with sciatica Start: 04-27-2024 End: 04-27-2024 Patient encounter procedure 04/27/2024 2:20 PM EST Office Visit [facility] [address] [address] Sandi Jimenez, PATrista [address] [place] [address] Acute bilateral low back pain with right-sided sciatica [M54.41] [facility] Comment on above: Acute bilateral low back pain with right -sided sciatica [M54.41] Start: 03-29-2024 End: 03-29-2024 Patient encounter procedure 03/29/2024 7:30 AM EST Appointment Radiology [address] [place] [address] Acute bilateral low back pain with right-sided sciatica [M54.41] Radiology Comment on above: Acute bilateral low back pain with right -sided sciatica [M54.41] Start: 12-26-2023 Covid-19 Vaccine () Covid-19 Vaccine () [facility] Start: 12-26-2023 Influenza vaccination Influenza Vaccine (#1) [facility] Start: 08-27-2022 End: 10-27-2022 Chlamydia trachomatis+Neisseria gonorrhoeae DNA [Presence] in Urine by BARI with probe detection GC/CHLAMYDIA AMPLIF, URINE Microbiology Routine Screening for STD (sexually transmitted disease) Expected: 08/27/2022, Expires: 10/27/2022 [facility] Work Phone: Comment on above: Expected: 08/27/2022, Expires: 3 Start: 08-27-2022 End: 10-27-2022 Hepatitis C virus Ab [Presence] in Serum HEP C AB IA W/CONF SCRN Lab Routine Exposure to hepatitis C Expected: 08/27/2022, Expires: 10/27/2022 [facility] Work Phone: Comment on above: Expected: 08/27/2022, Expires: 3 Start: 08-27-2022 End: 10-27-2022 HERPES SIMPLEX TYPE 1 AND 2 IG HERPES SIMPLEX TYPE 1 AND 2 IG Lab Routine Screening for STD (sexually transmitted disease) Expected: 08/27/2022, Expires: 10/27/2022 [facility] Work Phone: Comment on above: Expected: 08/27/2022, Expires: 3 Start: 08-27-2022 End: 10-27-2022 HIV 1+2 Ab [Presence] in Serum or Plasma by Immunoassay HIV 1 2 COMBO(AG/AB),WITH REFLEX TO DIFFERENTIATION Lab Routine Screening for STD (sexually transmitted disease) Expected: 08/27/2022, Expires: 10/27/2022 [facility] Work Phone: Comment on above: Expected: 08/27/2022, Expires: 3 Start: 08-27-2022 End: 10-27-2022 SYPHILIS TOTAL W/REFLEX SYPHILIS TOTAL W/REFLEX Lab Routine Screening for STD (sexually transmitted disease) Expected: 08/27/2022, Expires: 10/27/2022 [facility] Work Phone: Comment on above: Expected: 08/27/2022, Expires: 3 Start: 08-27-2022 End: 10-27-2022 T VAGINALIS AMPLIFICATION T VAGINALIS AMPLIFICATION Lab Routine Exposure to hepatitis C Expected: 08/27/2022, Expires: 10/27/2022 [facility] Work Phone: Comment on above: Expected: 08/27/2022, Expires: 3 Start: 07-02-2022 Adult depression screening assessment DEPRESSION SCREENING [facility] Start: 07-02-2022 Urine microalbumin profile DTAP,TDAP,TD (1 - Tdap) [facility] Comment on above: Postponed from 01/10/2008 (Declined at t his time) Start: 06-25-2022 Pelvic echography Pelvic (Non ) [facility] Start: 06-25-2022 US Pelvis [facility] Start: 04-26-2022 DEPRESSION ASSESSMENT DEPRESSION ASSESSMENT [facility] Start: 04-16-2022 COVID-19 VACCINE (3 - Booster for Pfizer series) COVID-19 VACCINE (3 - Booster for Pfizer series) [facility] Start: 01-13-2022 HEPATITIS B (3 of 3 - 3-dose series) HEPATITIS B (3 of 3 - 3-dose series) [facility] Start: 01-13-2022 Hepatitis B Vaccine (3 of 3 - 3-dose series) Hepatitis B Vaccine (3 of 3 - 3-dose series) [facility] Start: 01-09-2022 COVID-19 VACCINE (3 - Booster for Pfizer series) COVID-19 VACCINE (3 - Booster for Pfizer series) [facility] Start: 12-25-2021 Influenza vaccination INFLUENZA (#1) [facility] Start: 12-16-2021 Hepatitis B Vaccine (4 of 4 - 4-dose series) Hepatitis B Vaccine (4 of 4 - 4-dose series) [facility] Start: 04-26-2021 DEPRESSION ASSESSMENT DEPRESSION ASSESSMENT [facility] Start: 12-25-2018 PAP TESTING PAP TESTING [facility] Start: 12-25-2016 Screening for malignant neoplasm of cervix Cervical Cancer Screening [facility] Start: 2016 HPV TESTING HPV TESTING [facility] Start: 2013 HPV Vaccine (1 - 3-dose SCDM series) HPV Vaccine (1 - 3-dose SCDM series) [facility] Start: 2004 Anxiety Screening Anxiety Screening [facility] Start: 2004 Depression Screening Depression Screening [facility] Start: 2004 HEPATITIS C SCREENING HEPATITIS C SCREENING [facility] Start: 2004 HIV SCREENING HIV SCREENING [facility] Start: 1986 HEPATITIS B (1 of 3 - 3-dose series) HEPATITIS B (1 of 3 - 3-dose series) [facility] H&P for surgery H&P FOR SURGERY Procedures Routine Intervertebral disc disorder with radiculopathy of lumbar region Ordered: 08/30/2024 [facility] Work Phone: Comment on above: Ordered: 08/30/2024 End: 04-15-2025 MR Lumbar spine WO contrast MRI LUMBAR SPINE WO IVCON Radiology Routine Acute bilateral low back pain with right-sided sciatica 1 Occurrences starting 03/16/2024 until 04/15/2025 [facility] Work Phone: Comment on above: 1 Occurrences starting 03/16/2024 until 04/15/2025 End: 01-20-2026 MR Lumbar spine WO contrast MRI LUMBAR SPINE WO IVCON Radiology Routine Spinal stenosis of lumbar region, unspecified whether neurogenic claudication present 1 Occurrences starting 12/21/2024 until 01/20/2026 [facility] Comment on above: 1 Occurrences starting 12/21/2024 until 01/20/2026 Njx anes&/strd w/img tfrml edrl lmbr/sac 1 lvl INJ TRANSFORAMINAL EPID ANES/STER LS SINGL Procedures Routine Radiculopathy, lumbar region Ordered: 01/02/2025 [facility] Work Phone: Comment on above: Ordered: 01/02/2025 SPINE INTERVENTION PROCEDURE SPINE INTERVENTION PROCEDURE Procedures Routine Acute bilateral low back pain with right-sided sciatica Intervertebral disc disorder with radiculopathy of lumbar region Ordered: 04/27/2024 [facility] Work Phone: Comment on above: Ordered: 04/27/2024 SPINE INTERVENTION PROCEDURE SPINE INTERVENTION PROCEDURE Procedures Routine Intervertebral disc disorder with radiculopathy of lumbar region Acute bilateral low back pain with right-sided sciatica Ordered: 06/22/2024 [facility] Work Phone: Comment on above: Ordered: 06/22/2024 End: 01-31-2023 Us pelvic nonobstetric image dcmtn limited/f/u US FEMALE PELVIS TRANSABD LTD Radiology Routine Sciatica, right side Family history of endometriosis Abnormal menstruation 1 Occurrences starting 01/01/2022 until 01/31/2023 [facility] Work Phone: Comment on above: 1 Occurrences starting 01/01/2022 until 01/31/2023 End: 01-31-2023 Us transvaginal US FEMALE PELVIS TRANSVAG Radiology Routine Sciatica, right side Family history of endometriosis Abnormal menstruation 1 Occurrences starting 01/01/2022 until 01/31/2023 [facility] Work Phone: Comment on above: 1 Occurrences starting 01/01/2022 until 01/31/2023 End: 04-15-2025 XR Lumbar spine 3 Views XR LUMBAR GENERAL 3V AP/LAT/L5-S1 Radiology Routine Acute bilateral low back pain with right-sided sciatica Numbness in both legs Gait instability Physical debility 1 Occurrences starting 03/16/2024 until 04/15/2025 [facility] Comment on above: 1 Occurrences starting 03/16/2024 until 04/15/2025 XR Lumbar spine 3 Views XR LUMBA R GENERAL 3V AP/LAT/L5-S1 Radiology Routine Acute bilateral low back pain with right-sided sciatica Numbness in both legs Gait instability Physical debility 03/16/2024 3:50 PM EST [facility] XR Lumbar spine View s W flexion and W extension XR LUMBAR MOTION 4V AP/LAT/ FLEX/EXT Radiology Routine Low back pain, unspecified back pain laterality, unspecified chronicity, unspecified whether sciatica present 08/14/2024 1:24 PM EDT [facility] Work Phone: End: 01-17-2026 XR Lumbar spine Views W flexion and W extension XR LUMBAR MOTION 4V AP/LAT/ FLEX/EXT Radiology Routine S/P laminectomy 1 Occurrences starting 12/18/2024 until 01/17/2026 [facility] Work Phone: Comment on above: 1 Occurrences starting 12/18/2024 until 01/17/2026 XR Lumbar spine View s W flexion and W extension XR LUMBAR MOTION 4V AP/LAT/ FLEX/EXT Radiology Routine S/P laminectomy 12/21/2024 11:17 AM EDT [facility] Immunizations Immunization Date Immunization Notes Care Provider [facility] 03-11-2022 influenza, injectabl e, quadrivalent, preservative free Dr. Del Hubbard DO Work Phone: [facility] 03-11-2022 influenza, seasonal, injectable Dr. Del Hubbard Work Phone: [facility] 03-11-2022 influenza virus vaccine, unspecified formulation Xr [place] Work Phone: [facility] 11-18-2021 Hepatitis B vaccine (recombinant), CpG adjuvanted Us 2 Work Phone: [facility] 11-18-2021 hepatitis B vaccine, unspecified formulation Us 2 Work Phone: [facility] 10-22-2021 Covid (Pfizer) Dr. Del contreras Work Phone: [facility] 10-21-2021 hepatitis B vaccine, adult dosage Dr. Del Hubbard Work Phone: [facility] 10-21-2021 tetanus toxoid, redu leigh diphtheria toxoid, and acellular pertussis vaccine, adsorbed Us 2 Work Phone: [facility] 01-09-2008 tetanus and diphther ia toxoids, not adsorbed, for adult use Negro Fink MD Work Phone: [facility] Work Phone: 06-01-2002 hepatitis B vaccine, pediatric or pediatric/adolescent dosage Us 2 Work Phone: [facility] 12-25-1998 measles, mumps and rubella virus vaccine Us 2 Work Phone: [facility] Payers Date Payer Category Payer Private Health Insurance [id number] 2023 Self-pay [id number] 2022 Private Health Insurance [id number] 2022 Unknown 2022 Unknown [id number] 2022 Unknown [id number] 2020 Medicaid [id number] Unknown [employer] [id number] Unknown [facility] [id number] Unknown [employer] [id number] Unknown [id number] Unknown [id number] Unknown [id number] Social History Date Type Detail Facility Health system Start: 05-31-2022 Tobacco smokin g consumption unknown [facility] Start: 03-21-2013 End: 12-21-2024 Tobacco smoking status NHIS Ex-smoker [facility] Work Phone: Start: 06-23-2001 End: 06-23-2008 History of tobacco use Current smoker [facility] Work Phone: Start: 06-23-2001 End: 06-23-2008 History of tobacco use Cigarette Smoker [facility] Work Phone: Start: 03-21-2013 End: 08-27-2022 Cigarettes smoked current (pack per day) - Reported 1 [facility] Start: 03-21-2013 End: 12-21-2024 Tobacco use and exposure Smokeless tobacco non-user [facility] Work Phone: Start: 12-11-2021 End: 01-02-2025 Alcohol intake Current drinker of alcohol (finding) [facility] Start: 03-25-2012 History SDOH Alcohol Comment occasionally [facility] Start: 03-21-2013 End: 01-01-2022 Tobacco Comment Both parents smoked in childhood home. Smokers in workplace. [facility] Start: 1985 Sex Assigned At Not on file C [facility] Start: 06-02-2021 End: 01-01-2022 Exposure to SARS-CoV-2 (event) Not sure [facility] Start: 01-01-2020 Vapor [place] [facility] Start: 1985 Sex Assigned At Female [facility] Start: 08-27-2022 History SDOH Social Connections Phone 98 [facility] Start: 08-27-2022 History SDOH Social Connections Membership 2 [facility] Start: 08-27-2022 History SDOH Housing Homeless Last Year 3 [facility] Start: 07-02-2021 End: 08-27-2022 Tobacco use panel [facility] Start: 03-27-2012 Adult Depression Screening Assessment 0 [facility] Has the [employer], [employer], or [employer] threatened to shut off services in your home in past 12Mo No [facility] How often to you hav e a drink containing alcohol? Monthly or less [facility] How many standard drinks containing alcohol do you have on a typical day? 1 or 2 [facility] How often do you hav e 6 or more drinks on 1 occasion? Less than monthly [facility] Do you feel stress - tense, restless, nervous, or anxious, or unable to sleep at night because your mind is troubled all the time - these days [OSQ] To some extent [facility] (I/We) worried kristin er (my/our) food would run out before (I/we) got money to buy more. Never true [facility] The food that (I/we) bought just didn't last, and (I/we) didn't have money to get more. Sometimes true [facility] Are you now , , , , never or living with a partner? Living with partner [facility] How often do you hav e 6 or more drinks on 1 occasion? Never [facility] How hard is it for y ou to pay for the very basics like food, housing, medical care, and heating Somewhat hard [facility] Do you feel stress - tense, restless, nervous, or anxious, or unable to sleep at night because your mind is troubled all the time - these days [OSQ] Very much [facility] Start: 12-21-2024 Tobacco Comment Patient occ us es nicotine vape [facility] Functional Status Date Assessment Result Facility 08-31-2014 Are you deaf, or do you have serious difficulty hearing No 08/31/2014 1:46 PM Maria Del Rosario Diego LPN No [facility] 08-31-2014 Are you blind, or do you have serious difficulty seeing, even when wearing glasses No 08/31/2014 1:46 PM Maria Del Rosario Diego LPN No [facility] 08-31-2014 Do you have serious difficulty walking or climbing stairs No 08/31/2014 1:46 PM Maria Del Rosario Diego LPN No [facility] 08-31-2014 Do you have difficul ty dressing or bathing No 08/31/2014 1:46 PM Maria Del Rosario Diego LPN No [facility] 08-31-2014 Because of a physica l, mental, or emotional condition, do you have difficulty doing errands alone such as visiting a physician's office or shopping No 08/31/2014 1:46 PM Maria Del Rosario Diego LPN No [facility] Mental Status Date Assessment Result Facility 08-31-2014 Because of a physica l, mental, or emotional condition, do you have serious difficulty concentrating, remembering, or making decisions No 08/31/2014 1:46 PM EDT Maria Del Rosario Franz LPN No [facility] Clinical Notes 07-02-2021 to 01-02-2025 Kelvin Tejeda DO - 01/02/2025 3:52 PM EDKym Whitt, [facility] - 01/02/2025 2:13 PM EDLinda Mitchell, [facility] - 01/02/2025 1:43 PM EDYi Suarez, [facility] - 01/02/2025 1:33 PM EDTPatient Instructions Note Date & Type Note Facility 01-02-2025 History of Present illness Narrative [facility] Date: 01/02/2025 Patient name: Eugenia Chisholm Physician performing procedure: Kelvin Tejeda DO Diagnosis: (M54.16) Radiculopathy, lumbar region (primary encounter diagnosis) Procedure: Epidural Steroid Injection - Transforaminal Approach (TFESI) under fluoroscopic guidance RIGHT-SIDED at L4-5 and L5-S1 Injectate: A total of 4 ml volume was injected The injectate consisted of: 2 ml of Dexamethasone (10mg/ml), and 2cc lidocaine 1%. Each site received equal volumes of this injectate. Comments: None Improvement after today's procedure: as per nursing report HPI: Eugenia Chisholm is an 39 year old FEMALE who presents today, in pain, for the procedure noted above. Review of Systems: Pertinent Positives: MSK: pain in the region being treated Neuro: weakness or numbness in the region being treated Skin: Negative (No itching) Eyes: Negative (No blurred or double vision) Respiratory: Negative (No Cough, Gabnusygv-kj-bckhlw, Dyspnea on exertion, wheezing) Cardiovascular: Negative (No Chest Pain, Tightness, Pressure, Palpitations) Gastrointestinal: Negative (No Abdominal pain, Nausea, Vomiting, Constipation, Diarrhea) Genitourinary: Negative (No dysuria) Hematologic: Negative (No bleeding, bruising) OB: is Denied or Not Applicable Endocrine: Negative (No hot/cold intolerance) Psychiatric: Negative (No depression, anxiety or suicidal ideation) PAST MEDICAL HISTORY Diagnosis Date Back pain Hypercholesteremia 05/27/2014 Increased frequency of headaches 04/26/2013 Lumbar herniated disc Scoliosis PAST SURGICAL HISTORY Procedure Laterality Date BACK SURGERY HX herniated disc PAST SURGICAL HISTORY OF wisdom tooth extraction PAST SURGICAL HISTORY OF 07/24/2013 REDUCTION BREAST FAMILY HISTORY Problem Relation Age of Onset other (possible heart) Father other (endometriosis) Paternal Grandmother Endometriosis Maternal Aunt possible? SOCIAL HISTORY[1] Current Outpatient Medications on File Prior to Visit Medication Sig methylPREDNISolone (MEDROL, JULIAN,) 4 mg Dose-Pack Take as directed per package oxyCODONE-acetaminophen (PERCOCET) 5-325 mg tablet Take by mouth every 6 hours as needed. levonorgestrel (MIRENA) 21 mcg/24hr (up to 8 yrs) 52 mg IUD 1 each by INTRAUTERINE route one time only. gabapentin (NEURONTIN) 300 mg capsule Take 300 mg by mouth three times a day. TIRZEPATIDE SUBCUTANEOUS Inject 7.5 Ampules subcutaneously one time a week. estradiol (ESTRACE) 1 mg tablet Take 1 mg by mouth once daily. (Patient not taking: Reported on 11/13/2024) methocarbamol (ROBAXIN) 750 mg tablet Take 1 tablet by mouth three times a day as needed. (Patient not taking: Reported on 11/13/2024) No current facility-administered medications on file prior to visit. Objective Exam: Vitals: As per nursing documentation Constitutional: Normal Appearance, Oriented to Time, Place and Person Head: No lacerations, no external signs of trauma Eyes: Conjunctiva clear. No discharge from the eyes Cardiovascular: Appears well-perfused Pulmonary: Non-labored respirations Abdominal: Non-distended Skin: No visible rashes or ecchymosis Psychiatric: Mood appropriate for given condition Neurological: Gross movements are limited by pain, but otherwise unremarkable Data Reviewed: Nursing note and vitals reviewed. Additional imaging reviewed as appropriate Assessment and Plan: As noted above [place] protocol documentation / Pre-Procedure Checklist: Consent: Obtained in writing prior to procedure I had a nice discussion with the patient today about their current pain and the pathology that could be causing it We discussed different treatment options, including risks, benefits and alternatives. We agreed to proceed as previously discussed, or the plan was modified in accordance with the comments noted above Unless stated otherwise in the procedure note, the risks include but are not limited to infection, allergic reaction, increased pain, lack of therapeutic benefit, steroid reaction, nerve damage, paralysis, stroke, epidural hematoma, syncope, headache, respiratory or cardiac arrest, pneumothorax, and scar formation Once the plan was agreed upon, the patient gave written consent to proceed and was transported into the procedure room Surgical/Procedure pause or Time Out : Time Out was led by the physician in the procedure room, with the patient and all staff present and participating The following information was verified during the Time Out process: Patient name, patient date of , procedure site (marked), laterality, anticoagulants and allergies Procedure: The patient was prepped and draped in a sterile fashion in the prone position after informed consent was signed and all patient questions were answered including the risks, benefits, alternative treatment options, and prognosis. The risks are as mentioned above, with the exception of Pneumothorax. The above-mentioned neural foramen were sequentially injected using the following technique: The C-arm was positioned so that an oblique view of the neural foramen as noted above was visualized. The soft tissues overlying this structure were infiltrated with 2-3 cc. of 1%Lidocaine without Epinephrine. A 22 gauge, 5 inch spinal needle was inserted toward the target using a trajectory view along the fluoroscope beam. Under AP and lateral visualization, the needle was advanced, so it did not puncture dura. Biplanar projections were used to confirm position. Aspiration was confirmed to be negative for CSF and/or blood. A 1-2 cc volume of Omnipaque 300 contrast was injected at this level. The contrast was observed to flow epidural (under the pedicle). Attention was then turned to the second level mentioned above. The C-arm was positioned so that an oblique view of the neural foramen as noted above was visualized. The soft tissues overlying this structure were infiltrated with 2-3 cc. of 1%Lidocaine without Epinephrine. The same length and gauge needle mentioned above was inserted toward the target using a trajectory view along the fluoroscope beam. Under AP and lateral visualization, the needle was advanced, so it did not puncture dura. Biplanar projections were used to confirm position. Aspiration was confirmed to be negative for CSF and/or blood. A 1-2 cc volume of Omnipaque 300 contrast was injected at this level. The contrast was observed to flow epidural (under the pedicle). The above noted injectate was then administered Please see the nursing note for exact times (time out, procedure start, procedure end). After careful removal of the needle, there was minimal bleeding. The injection site was covered with appropriate sterile dressing. The patient was noted to have tolerated the procedure well and was discharged after an appropriate period of post-procedure observation. The patient was instructed to contact us if there were any complications. The patient was advised to follow-up with the requesting physician within one to two weeks or as per their requested follow-up plan. Post procedure visit summary with written instructions was offered to the patient. Kelvin Tejeda DO Pain Management [facility] [1] Social History Tobacco Use Smoking status: Former Current packs/day: 0.00 Average packs/day: 1 pack/day for 7.0 years (7.0 ttl pk-yrs) Types: Cigarettes Start date: 06/23/2001 Quit date: 06/23/2008 Years since quittin.5 Smokeless tobacco: Never Tobacco comments: Patient occ uses nicotine vape Vaping Use Vaping status: current everyday user Substances: Nicotine Substance Use Topics Alcohol use: Yes Comment: occasionally Drug use: No Order has been placed in the patient's chart with the following parameters for discharge from the physician: Patient is alert and oriented Vitals: Diastolic/Systolic +/- 20mmHg Respirations: 12-18 Pulse: 60-100 SpO2 is greater than or equal to 90% Patient has no nausea or vomiting Patient has no dizziness Pain level is +/- 2 from initial evaluation Dressing, dry and intact with no evidence of bleeding Criteria has been met, patient is okay to be discharged per the physician. Physician has gone in and evaluated the patient. Dressing dry and intact. No drainage noted. The patient denies nausea, numbness, tingling, weakness, shortness of breath, dizziness, or headache. Pain level 6-7/10. Vital signs within normal limits. Patient denied needing walked out by clinical staff and denied needing a wheelchair. Patient given discharge instructions and sent to transportation via ambulatory method. Patient left in good condition. Procedure to be performed: L4/5 L5/S1 Unilateral Right Transforaminal Epidural Steroid Injection Patient was walked from exam room to procedure room and assisted onto the procedure tablePatient s procedure was performed in an [facility] Procedure room. Pause completed at each level by provider to verify correct level and laterality placement Pressure was applied to patient s injection site(s) and bleeding was minimal. Patient had no complaint of shortness of breath, dizziness, headache, numbness, tingling, weakness or complications from procedure. Patient was assisted from the procedure table and walked back to exam room. Patient was advised a clinician will be to obtain another set of vitals. Time Out: 1400 Confirmed patient name, date of , procedure site, laterality, and allergies Procedure Start: 1403 Procedure End: 1413 Director Of Education And Training's Name: quynh Are you on a blood thinner: n If yes, is a hold required: n Last dose of blood thinner: n INR Result today: n Do you require a Lovenox bridge:n Are you a diabetic:n Are you/or could you be : n Are you taking Xanax for the procedure: n Are you currently on a steroid? Y for herniated disc for last 13 days, prednisoneReview of Systems Constitutional: Positive for activity change. Negative for chills, fever and unexpected weight change. Genitourinary: Negative for difficulty urinating. Musculoskeletal: Positive for arthralgias, back pain, gait problem and myalgias. Negative for joint swelling, neck pain and neck stiffness. Neurological: Positive for weakness and numbness. Negative for headaches. Psychiatric/Behavioral: Positive for dysphoric mood and sleep disturbance. Negative for suicidal ideas. The patient is nervous/anxious. Are you currently on an antibiotic: n documented in this encounter [facility] 01-02-2025 Instructions Kym Ley LPN - 01/02/2025 2:11 PM EDT PROCEDURE DISCHARGE INSTRUCTIONS 01/02/2025 Eugenia Chisholm 1985 Physician: Kelvin Tejeda DO Procedure: Epidural Steroid Injection: Lumbar (transforaminal/Interlaminar/Caud al) Post Procedure Instructions: If sedation not given, no driving for 3 hours after the procedure., Rest the day of the procedure., You may resume normal activities the day after the procedure, as tolerated., Pain should gradually subside over the next 2-3 weeks., Avoid movements that may aggravate pain., Apply cold compresses to injection site if needed., If medically acceptable, take over the counter anti-inflammatories such as ibuprofen or Aleve if needed for post procedure discomfort., No hot baths, hot tubs or hot compresses for 24 hours., and Increased pain the day after the procedure may occur. If you have any of the following signs or symptoms, please call our office at Fever and/or chills Swelling and/or drainage from injection site New pain that is different than your normal pain (other than soreness at the site of the procedure) Stiff neck Shortness of breath Severe increase in pain Motor dysfunctions, such as difficulty walking, bowel or bladder dysfunction and/or incontinence Headache that is severe, light sensitive or develops when changing positions (positional headache) Nausea and/or vomiting accompanied by headache that started 24-48 hours after the procedure If you have any emergent concerns, please call 911 or go to your local emergency room. Please also contact our office to let us know you will be seeking emergency care and why. documented in this encounter [facility] 01-01-2025 Telephone encounter Note Procedure(s) being scheduled: R L4-5 TFESI 1.Are you diabetic No 2. Are you on any blood thinners? No If yes, does it require a hold? No If yes, was approval letter sent? No 3. Are you taking any aspirin? No 4. Are you currently taking any antibiotics? No If yes, is it prophylactic or for treatment of an infection? No 5. Do you have any allergies to latex? No 6. Do you have any allergies to seafood or shellfish? No 7. Do you have any allergies to x-ray dye? No 8. Does this procedure require a milk driver? Yes If yes, has patient been notified that a milk driver is needed and must be present at check in? Yes 9. Were the pre-procedure instructions explained and provided to the patient? Yes 10. Do you have a pacemaker? No 11. Do you have an internal stimulator of any kind? No If yes, please bring the remote with you to your procedure visit. Luann Phipps [facility] 01-01-2025 Miscellaneous Notes Procedure(s) being scheduled: R L4-5 TFESI 1.Are you diabetic No 2. Are you on any blood thinners? No If yes, does it require a hold? No If yes, was approval letter sent? No 3. Are you taking any aspirin? No 4. Are you currently taking any antibiotics? No If yes, is it prophylactic or for treatment of an infection? No 5. Do you have any allergies to latex? No 6. Do you have any allergies to seafood or shellfish? No 7. Do you have any allergies to x-ray dye? No 8. Does this procedure require a milk driver? Yes If yes, has patient been notified that a milk driver is needed and must be present at check in? Yes 9. Were the pre-procedure instructions explained and provided to the patient? Yes 10. Do you have a pacemaker? No 11. Do you have an internal stimulator of any kind? No If yes, please bring the remote with you to your procedure visit. Luann Phipps documented in this encounter [facility] 01-01-2025 Miscellaneous Notes Patient called in to discuss MyChart message. Appt has been made for pt to see provider 01/02/25 to discuss pain medication and FMLA paperwork. Earlene Kaur RN documented in this encounter [facility] 01-01-2025 Telephone encounter Note Patient called in to discuss MyChart message. Appt has been made for pt to see provider 01/02/25 to discuss pain medication and FMLA paperwork. Earlene Kaur RN [facility] 01-01-2025 Telephone encounter Note Eugenia called into the office with reports of continued pain, though it has worsened in severity. This is the same pain that she has been having. She was given Medrol dosepak on 12/28/2024 and has not noticed much relief. States that she had to call off work today. Denies new symptoms. Per last OV note, she was to try an injection to see if she got relief and she was to follow up after that. Advised that everything appears to be approved with pain management for the injection, so I provided the number to call for scheduling. She asked if she could restart her Gabapentin, which was previously prescribed by her PCP. Advised she discuss this with her PCP though there would be no contraindications from neurosurgical standpoint. She also asked if we could complete FMLA paperwork. Reji discussed office policy and advised that she reach out to her PCP for this as well, since her last procedure was in June. She was not thrilled with the advice, but voiced understanding. Advised her to reach out with any change in symptoms of concerns. Anai Urrutia RN [facility] 01-01-2025 Miscellaneous Notes Eugenia called into the office with reports of continued pain, though it has worsened in severity. This is the same pain that she has been having. She was given Medrol dosepak on 12/28/2024 and has not noticed much relief. States that she had to call off work today. Denies new symptoms. Per last OV note, she was to try an injection to see if she got relief and she was to follow up after that. Advised that everything appears to be approved with pain management for the injection, so I provided the number to call for scheduling. She asked if she could restart her Gabapentin, which was previously prescribed by her PCP. Advised she discuss this with her PCP though there would be no contraindications from neurosurgical standpoint. She also asked if we could complete FMLA paperwork. Reji discussed office policy and advised that she reach out to her PCP for this as well, since her last procedure was in June. She was not thrilled with the advice, but voiced understanding. Advised her to reach out with any change in symptoms of concerns. Anai Urrutia RN documented in this encounter [facility] 12-28-2024 Telephone encounter Note Fast Track Injection Request: Referring Surgeon: Rika Piper Surgeon Injection Requested: R L4-5 TFESI under fluoroscopic guidance Imaging reviewed: MRI 12/2024 Anti-Coagulants: none Relevant Allergies: NKDA Other notable: L4-5 hemilaminectomy Patient appropriate for the requested procedure. Order placed. Staff informed to assist patient with scheduling. Kelvin Tejeda DO [facility] 12-28-2024 Miscellaneous Notes Fast Track Injection Request: Referring Surgeon: Rika Piper Surgeon Injection Requested: R L4-5 TFESI under fluoroscopic guidance Imaging reviewed: MRI 12/2024 Anti-Coagulants: none Relevant Allergies: NKDA Other notable: L4-5 hemilaminectomy Patient appropriate for the requested procedure. Order placed. Staff informed to assist patient with scheduling. Klevin Tejeda DO Received a referral from Fab Piper MD for patient to have RIGHT L4-5 KIMBERLI Imaging- 12/26/24-Lumbar MRI Anticoag- NONE Please review and advise Colleen Gill [employer] [facility] [address] [place] [address] P: [phone] F: [phone] documented in this encounter [facility] 12-28-2024 Telephone encounter Note Received a referral from Fab Piper MD for patient to have RIGHT L4-5 KIMBERLI Imaging- 12/26/24-Lumbar MRI Anticoag- NONE Please review and advise Colleen Gill [employer] [facility] [address] [place] [address] P: [phone] F: [phone] [facility] 12-28-2024 Telephone encounter Note Per office visit with Dr. Piper [facility] 12-28-2024 Miscellaneous Notes Per office visit with Dr. Piper documented in this encounter [facility] 12-28-2024 Note Addended by: ANAI URRUTIA on: 12/28/2024 08:03 AM Modules accepted: Orders [facility] 12-28-2024 Miscellaneous Notes Addended by: ANAI URRUTIA on: 12/28/2024 08:03 AM Modules accepted: Orders documented in this encounter [facility] 12-28-2024 History of Present illness Narrative NEUROSURGERY TELEPHONE VISIT PROGRESS NOTE Fab Piper MD This is a telephone encounter initiated for an established patient, parent or guardian not originating from a related Evaluation & Management service provided within the previous 7 days nor leading to an Evaluation & Management service or procedure within the next 24 hours or soonest available appointment. Date of visit: December 28, 2024 Time of Service: 0800 Patient Name: Ms.Amber Mirza Chisholm Date of : 1985 Current Age: [age] year old Sex: female MRN/E# [id number] Last Office Visit: 12/21/2024 Eugenia Chisholm has consented to this telephone encounter. Persons Present: patient Chief Complaint/Reason: R low back pain, R buttock pain Past Medical/Surgical History: Eugenia Chisholm is a 39 year old female with a history of hypercholesterolemia, headaches, scoliosis. HPI: Ms. Chisholm returned to the office on 12/21/2024 for follow-up. She was approximately 3-1/2 months out from an L4-L5 laminectomy and microdiscectomy. She had been doing extremely well, with complete resolution of her preoperative symptoms. Unfortunately, she developed severe right-sided low back pain that began approximately 9 days ago. It goes into her buttock but not down her leg like it did before surgery. She was quite miserable and it was hard for her to get comfortable. She had some pain limited weakness on exam. Her x-rays looked good and her incision was well-healed. Given her symptoms, as well as their severity, I will order an MRI of her lumbar spine without contrast to assess for any recurrent disc herniation. I will provide her with a short course of oral steroids for symptomatic relief. She was to follow up via phone call once imaging was obtained for further review. Symptoms: low back pain/tightness PREVIOUS CONSERVATIVE TREATMENTS: HEP PREVIOUS SURGERY: SURGERY #1: L4-L5 laminectomy and microdiscectomy 09/05/2024` PAST MEDICAL HISTORY Diagnosis Date Back pain Hypercholesteremia 05/2014 Increased frequency of headaches 2013 Scoliosis PAST SURGICAL HISTORY Procedure Laterality Date BACK SURGERY HX herniated disc PAST SURGICAL HISTORY OF wisdom tooth extraction PAST SURGICAL HISTORY OF 07/24/2013 REDUCTION BREAST FAMILY HISTORY Problem Relation Age of Onset other (possible heart) Father other (endometriosis) Paternal Grandmother Endometriosis Maternal Aunt possible? ALLERGIES No Known Allergies Current Outpatient Medications Medication Sig Dispense Refill oxyCODONE-acetaminophen (PERCOCET) 5-325 mg tablet Take by mouth every 6 hours as needed. methylPREDNISolone (MEDROL, JULIAN,) 4 mg Dose-Pack Take as directed per package 21 tablet 0 levonorgestrel (MIRENA) 21 mcg/24hr (up to 8 yrs) 52 mg IUD 1 each by INTRAUTERINE route one time only. gabapentin (NEURONTIN) 300 mg capsule Take 300 mg by mouth three times a day. (Patient not taking: Reported on 11/13/2024) estradiol (ESTRACE) 1 mg tablet Take 1 mg by mouth once daily. (Patient not taking: Reported on 11/13/2024) methocarbamol (ROBAXIN) 750 mg tablet Take 1 tablet by mouth three times a day as needed. (Patient not taking: Reported on 11/13/2024) 90 tablet 0 TIRZEPATIDE SUBCUTANEOUS Inject 7.5 Ampules subcutaneously one time a week. No current facility-administered medications for this visit. REVIEW OF SYSTEMS Review of Systems Data Reviewed: IMAGING STUDIES: MRI LUMBAR 12/26/2024: Likely recurrent disc herniation at L4-5, eccentric to the right Assessment: Status post right L4-5 hemilaminectomy and microdiscectomy. Was doing great for about 3-1/2 months after surgery, but suddenly noticed an onset of right sided low back pain with right buttock pain. MRI shows a recurrent disc herniation at L4-5. Her symptoms have improved considerably with oral steroids. I will renew her course of steroids and refer her to pain management to consider an injection to help reduce the nerve irritation while her body hopefully reabsorb some of the disc fragment. If her symptoms persist, she will likely require a revision decompression and fusion to fully decompress the nerve. I will see her back a few weeks after her injection to discuss her progress. She understands and is agreeable to this plan. Plan: Medrol dose pack Fast track referral to [facility] for R sided L4-L5 KIMBERLI Time Spent: 11-20 minutes Attribution: The following portions of the patient's history were reviewed, confirmed, and updated as necessary: allergies, current medications, past family history, past medical history, past social history, past surgical history, problem list, HPI, and ROS obtained by others. Some elements may be copied from a previous office note and have been reviewed/updated where appropriate. All portions reflect current medical decision making from today. The clinical and radiographic findings as well as the risks, benefits and alternatives of treatment have been reviewed in detail with the patient. Advised to call the office if symptoms worsen or new symptoms develop. Patient expressed understanding and is in agreement with plan. Fab Piper MD [facility] Medical Decision Making: Problems: Moderate: New problem with uncertain prognosis Data: Unique test result(s) reviewed: 1 Risk: Moderate: Moderate risk from testing/treatment Medical Decision Making Level: 4 - Moderate This note was partially generated using [employer] voice recognition system, and there may be some incorrect words, spellings, and punctuation that were not noted in checking the note before saving. documented in this encounter [facility] 12-28-2024 Note HNO ID: [id number] Author: FAB PIPER MD Service: ? Author Type: Physician Type: Progress Notes Filed: 12/28/2024 08:01 Note Text: NEUROSURGERY TELEPHONE VISIT PROGRESS NOTE Fab Piper MD This is a telephone encounter initiated for an established patient, parent or guardian not originating from a related Evaluation AND Management service provided within the previous 7 days nor leading to an Evaluation AND Management service or procedure within the next 24 hours or soonest available appointment. Date of visit: December 28, 2024 Time of Service: 0800 Patient Name: Ms.Amber Mirza Chisholm Date of : 1985 Current Age: [age] year old Sex: female MRN/E# [id number] Last Office Visit: 12/21/2024 Eugenia Chisholm has consented to this telephone encounter. Persons Present: patient Chief Complaint/Reason: R low back pain, R buttock pain Past Medical/Surgical History: Eugenia Chisholm is a 39 year old female with a history of hypercholesterolemia, headaches, scoliosis. HPI: Ms. Chisholm returned to the office on 12/21/2024 for follow-up. She was approximately 3-1/2 months out from an L4-L5 laminectomy and microdiscectomy. She had been doing extremely well, with complete resolution of her preoperative symptoms. Unfortunately, she developed severe right-sided low back pain that began approximately 9 days ago. It goes into her buttock but not down her leg like it did before surgery. She was quite miserable and it was hard for her to get comfortable. She had some pain limited weakness on exam. Her x-rays looked good and her incision was well-healed. Given her symptoms, as well as their severity, I will order an MRI of her lumbar spine without contrast to assess for any recurrent disc herniation. I will provide her with a short course of oral steroids for symptomatic relief. She was to follow up via phone call once imaging was obtained for further review. Symptoms: low back pain/tightness PREVIOUS CONSERVATIVE TREATMENTS: HEP PREVIOUS SURGERY: SURGERY #1: L4-L5 laminectomy and microdiscectomy 09/05/2024` PAST MEDICAL HISTORY Diagnosis Date Back pain Hypercholesteremia 05/2014 Increased frequency of headaches 2013 Scoliosis PAST SURGICAL HISTORY Procedure Laterality Date BACK SURGERY HX herniated disc PAST SURGICAL HISTORY OF wisdom tooth extraction PAST SURGICAL HISTORY OF 07/24/2013 REDUCTION BREAST FAMILY HISTORY Problem Relation Age of Onset other (possible heart) Father other (endometriosis) Paternal Grandmother Endometriosis Maternal Aunt possible? ALLERGIES No Known Allergies Current Outpatient Medications Medication Sig Dispense Refill oxyCODONE-acetaminophen (PERCOCET) 5-325 mg tablet Take by mouth every 6 hours as needed. methylPREDNISolone (MEDROL, JULIAN,) 4 mg Dose-Pack Take as directed per package 21 tablet 0 levonorgestrel (MIRENA) 21 mcg/24hr (up to 8 yrs) 52 mg IUD 1 each by INTRAUTERINE route one time only. gabapentin (NEURONTIN) 300 mg capsule Take 300 mg by mouth three times a day. (Patient not taking: Reported on 11/13/2024) estradiol (ESTRACE) 1 mg tablet Take 1 mg by mouth once daily. (Patient not taking: Reported on 11/13/2024) methocarbamol (ROBAXIN) 750 mg tablet Take 1 tablet by mouth three times a day as needed. (Patient not taking: Reported on 11/13/2024) 90 tablet 0 TIRZEPATIDE SUBCUTANEOUS Inject 7.5 Ampules subcutaneously one time a week. No current facility-administered medications for this visit. REVIEW OF SYSTEMS Review of Systems Data Reviewed: IMAGING STUDIES: MRI LUMBAR 12/26/2024: Likely recurrent disc herniation at L4-5, eccentric to the right Assessment: Status post right L4-5 hemilaminectomy and microdiscectomy. Was doing great for about 3-1/2 months after surgery, but suddenly noticed an onset of right sided low back pain with right buttock pain. MRI shows a recurrent disc herniation at L4-5. Her symptoms have improved considerably with oral steroids. I will renew her course of steroids and refer her to pain management to consider an injection to help reduce the nerve irritation while her body hopefully reabsorb some of the disc fragment. If her symptoms persist, she will likely require a revision decompression and fusion to fully decompress the nerve. I will see her back a few weeks after her injection to discuss her progress. She understands and is agreeable to this plan. Plan: Medrol dose pack Fast track referral to [facility] for R sided L4-L5 KIMBERLI Time Spent: 11-20 minutes Attribution: The following portions of the patient's history were reviewed, confirmed, and updated as necessary: allergies, current medications, past family history, past medical history, past social history, past surgical history, problem list, HPI, and ROS obtained by others. Some elements may be copied from a previous office note and have been reviewed/updated where appropriate. All porti (more content not included)... [facility] 12-26-2024 Note IMPRESSION: Postop changes following dorsal decompression procedure with suspicion of recurrent disc extrusion causing mild impingement of the thecal sac and exiting right L5 nerve root sleeve but this may in part reflect epidural granulation tissue. Follow-up study with gadolinium may be helpful for further evaluation as clinically directed. Otherwise stable appearance of the lumbosacral spine since 03/2024. Remote benign compression fractures in the lower thoracic spine accounting for localized kyphosis. Anatomic Lumbar Variant: None. L4-5 is considered the level of the iliac crest and assume there are 5 lumbar-type vertebrae. Sample Steamer: ALEX Transcribe Date/Time: Dec 26 2024 1:18P Dictated by : CHILO HERBERT MD This examination was interpreted and the report reviewed and electronically signed by: FEI SAINI MD on Dec 26 2024 1:57PM [facility] DIVISION OF RADIOLOGY 12-26-2024 History of Present illness Narrative Radiology Service Progress Note PATIENT NAME: Eugenia Chisholm DATE OF SERVICE: December 26, 2024 TIME: 12:45 PM PATIENT IDENTITY VERIFICATION COMPLETED USING TWO (2) IDENTIFIERS: Name and Date of confirmed by patient verbally. FALL SCREENING: Has the patient had 2 falls in the last year or 1 fall with injury or currently using an Ambulatory Assistive Device (Walker, Cane, Wheelchair, Crutches, etc.)? No PATIENT GENDER DATA: Assigned female at . status: : No status: NO. PATIENT RELEVANT IMPLANT DATA REVIEWED: Yes PATIENT PRESENTS WITH AN IMPLANTABLE OR ATTACHED EMBOSSING CALENDER OPERATOR: No RADIOLOGY DEPARTMENT: MR; Exam(s) Completed: Spine: Lumbar spine. Anesthesia: No. Aromatherapy Administered: No PERIPHERAL IV DATA: Not applicable SIGNED BY: RT Dave(R) December 26, 2024 12:45 PM documented in this encounter [facility] 12-26-2024 Note HNO ID: [id number] Author: DAVID SURESH RT (R) Service: ? Author Type: Technologist Type: Progress Notes Filed: 12/26/2024 12:45 Note Text: Radiology Service Progress Note PATIENT NAME: Eugenia Chisholm DATE OF SERVICE: December 26, 2024 TIME: 12:45 PM PATIENT IDENTITY VERIFICATION COMPLETED USING TWO (2) IDENTIFIERS: Name and Date of confirmed by patient verbally. FALL SCREENING: Has the patient had 2 falls in the last year or 1 fall with injury or currently using an Ambulatory Assistive Device (Walker, Cane, Wheelchair, Crutches, etc.)? No PATIENT GENDER DATA: Assigned female at . status: : No status: NO. PATIENT RELEVANT IMPLANT DATA REVIEWED: Yes PATIENT PRESENTS WITH AN IMPLANTABLE OR ATTACHED EMBOSSING CALENDER OPERATOR: No RADIOLOGY DEPARTMENT: MR; Exam(s) Completed: Spine: Lumbar spine. Anesthesia: No. Aromatherapy Administered: No PERIPHERAL IV DATA: Not applicable SIGNED BY: RT Dave(R) December 26, 2024 12:45 PM [facility] 12-22-2024 Telephone encounter Note I left patient a vm letting her know MRI is approved by insurance [facility] 12-22-2024 Miscellaneous Notes I left patient a vm letting her know MRI is approved by insurance documented in this encounter [facility] 12-21-2024 Telephone encounter Note I spoke to patient informing her that appt was changed to virtual and provided her with office fax number to send FMLA paper work [facility] 12-21-2024 Miscellaneous Notes I spoke to patient informing her that appt was changed to virtual and provided her with office fax number to send FMLA paper work documented in this encounter [facility] 12-21-2024 History of Present illness Narrative Images from the original note were not included. NEUROSURGERY FOLLOW UP OFFICE NOTE Fab Piper MD [facility] Date of visit: December 21, 2024 Patient Name: Ms.Amber Mirza Chisholm Date of : 1985 Current Age: [age] year old Sex: female MRN/E# [id number] Last Office Visit: 10/19/2024 Chief Complaint: Patient presents with: Established Patient Past Medical/Surgical History: Eugenia Chisholm is a 39 year old female with a history of hypercholesterolemia, headaches, scoliosis. HPI: The patient presents to the office today as a follow up. She was last seen in the office on 09/21/2024 by Twyla Guzman APRN, CNP for a 2 week post operative visit following L4-L5 laminectomy and microdiscectomy on 09/05/2024. She was doing well and reported improved pain compared to preoperatively. She was advised to continue activity restrictions and follow p in the office in 4 weeks time for re-evaluation, though she no showed to that appointment and failed to follow up. She contacted the office on 12/18/2024 with about 1 week of increased low back pain/tightness that was causing pain limiting difficulty with movement. It was recommended that she follow up in the office with imaging for re-evaluation, prompting her visit today. She reports about 1.5 weeks of an increase in bilateral low back pain without inciting event. She describes this as a tightness. Reports right hip soreness last night. Otherwise denies leg pain. Pain limiting weakness reported. Denies falls, paresthesia. She is here for evaluation and plan of care. Symptoms: low back pain/tightness PREVIOUS CONSERVATIVE TREATMENTS: HEP PREVIOUS SURGERY: SURGERY #1: L4-L5 laminectomy and microdiscectomy 09/05/2024` PAIN EVALUATION 12/21/2024 1048 Pain Level: 9 Pain Location: Back-Lower Description: Pulsating;Radiating;Sharp;Sore;Sp asm;Stiffness;Tightness Duration Amount of Time: 7 Duration Units: Days Frequency: Continuous Intervention/Comfort measure: Medication;Reposition;Relaxation; Cold;Heat;Pillow support;Positioning PAST MEDICAL HISTORY Diagnosis Date Back pain Hypercholesteremia 05/2014 Increased frequency of headaches 2013 Scoliosis PAST SURGICAL HISTORY Procedure Laterality Date BACK SURGERY HX herniated disc PAST SURGICAL HISTORY OF wisdom tooth extraction PAST SURGICAL HISTORY OF 07/24/2013 REDUCTION BREAST FAMILY HISTORY Problem Relation Age of Onset other (possible heart) Father other (endometriosis) Paternal Grandmother Endometriosis Maternal Aunt possible? ALLERGIES No Known Allergies Current Outpatient Medications Medication Sig Dispense Refill oxyCODONE-acetaminophen (PERCOCET) 5-325 mg tablet Take by mouth every 6 hours as needed. levonorgestrel (MIRENA) 21 mcg/24hr (up to 8 yrs) 52 mg IUD 1 each by INTRAUTERINE route one time only. TIRZEPATIDE SUBCUTANEOUS Inject 7.5 Ampules subcutaneously one time a week. gabapentin (NEURONTIN) 300 mg capsule Take 300 mg by mouth three times a day. (Patient not taking: Reported on 11/13/2024) estradiol (ESTRACE) 1 mg tablet Take 1 mg by mouth once daily. (Patient not taking: Reported on 11/13/2024) methocarbamol (ROBAXIN) 750 mg tablet Take 1 tablet by mouth three times a day as needed. (Patient not taking: Reported on 11/13/2024) 90 tablet 0 No current facility-administered medications for this visit. REVIEW OF SYSTEMS Review of Systems Constitutional: Negative for diaphoresis, fatigue and fever. HENT: Negative for ear pain, hearing loss and tinnitus. Eyes: Negative for photophobia, pain and visual disturbance. Respiratory: Negative for cough, chest tightness and shortness of breath. Cardiovascular: Negative for chest pain. Gastrointestinal: Negative for constipation, diarrhea, nausea and vomiting. Endocrine: Negative for polydipsia, polyphagia and polyuria. Genitourinary: Negative for difficulty urinating, frequency and urgency. Musculoskeletal: Positive for back pain. Negative for gait problem, neck pain and neck stiffness. Skin: Negative for color change and rash. Neurological: Negative for dizziness, weakness and numbness. Psychiatric/Behavioral: Negative for agitation and confusion. The patient is not nervous/anxious. OBJECTIVE: BP 119/72 Pulse 62 Resp 16 Wt 190 lb 4.1 oz (86.3kg) SpO2 99% LMP 08/31/2024 PHYSICAL EXAM: Mental State : Alert, memory function unremarkable. Attention span and concentration normal for patient's age. Speech normal, no receptive or expressive speech deficit. Recent and remote memory normal. Orientation : Oriented to person, place and time. Cranial Nerves : Grossly intact. Sensory: Normal Sensation in upper and lower extremities and trunk to touch and noxious stimuli. Motor: Normal muscle tone and bulk. No tremor or uncontrollable movements. No spasticity or tremor. Gait and Station: + antalgic gait STRENGTH: Upper Extremity Strength Exam Right Left Elbow Flexion 5/5 5/5 Elbow Extension 5/5 5/5 Finger Flexion 5/5 5/5 Finger Extension 5/5 5/5 Finger Abduction 5/5 5/5 Lower Extremity Strength Exam Right Left Hip Flexion 4/5 4/5 Knee Flexion 4/5 4/5 Knee Extension 4+/5 4+/5 Dorsiflexion 4+/5 4+/5 Plantarflexion 4+/5 4+/5 Data Review IMAGING STUDIES: XR LUMBAR 12/21/2024: expected postoperative changes, no translational instability Assessment & Plan: Ms. Chisholm returns for follow-up. She is approximately 3-1/2 months out from an L4-L5 laminectomy and microdiscectomy. She had been doing extremely well, with complete resolution of her preoperative symptoms. Unfortunately, she developed severe right-sided low back pain that began approximately 9 days ago. It goes into her buttock but not down her leg like it did before surgery. She is quite miserable and it is hard for her to get comfortable. She has some pain limited weakness on exam. Her x-rays look good and her incision is well-healed. Given her symptoms, as well as their severity, I will order an MRI of her lumbar spine without contrast to assess for any recurrent disc herniation. I will provide her with a short course of oral steroids for symptomatic relief. I will give her a call once the MRI is complete, and we can discuss the neck steps. All questions were answered. Attribution: The following portions of the patient's history were reviewed, confirmed, and updated as necessary: allergies, current medications, past family history, past medical history, past social history, past surgical history, problem list, HPI, and ROS obtained by others. Some elements may be copied from a previous office note and have been reviewed/updated where appropriate. All portions reflect current medical decision making from today. The clinical and radiographic findings as well as the risks, benefits and alternatives of treatment have been reviewed in detail with the patient. Advised to call the office if symptoms worsen or new symptoms develop. Patient expressed understanding and is in agreement with plan. Fab Piper MD [facility] Medical Decision Making: Problems: Moderate: New problem with uncertain prognosis Data: Unique test result(s) reviewed: 1 Unique test(s) ordered: 1 Risk: Moderate: Moderate risk from testing/treatment Medical Decision Making Level: 4 - Moderate This note was partially generated using [employer] voice recognition system, and there may be some incorrect words, spellings, and punctuation that were not noted in checking the note before saving. documented in this encounter [facility] 12-21-2024 Note HNO ID: [id number] Author: FAB PIPER MD Service: ? Author Type: Physician Type: Progress Notes Filed: 12/21/2024 11:40 Note Text: NEUROSURGERY FOLLOW UP OFFICE NOTE Fab Piper MD [facility] Date of visit: December 21, 2024 Patient Name: Ms.Amber Mirza Chisholm Date of : 1985 Current Age: [age] year old Sex: female MRN/E# [id number] Last Office Visit: 10/19/2024 Chief Complaint: Patient presents with: Established Patient Past Medical/Surgical History: Eugenia Chisholm is a 39 year old female with a history of hypercholesterolemia, headaches, scoliosis. HPI: The patient presents to the office today as a follow up. She was last seen in the office on 09/21/2024 by Twyla Guzman APRN, CNP for a 2 week post operative visit following L4-L5 laminectomy and microdiscectomy on 09/05/2024. She was doing well and reported improved pain compared to preoperatively. She was advised to continue activity restrictions and follow p in the office in 4 weeks time for re-evaluation, though she no showed to that appointment and failed to follow up. She contacted the office on 12/18/2024 with about 1 week of increased low back pain/tightness that was causing pain limiting difficulty with movement. It was recommended that she follow up in the office with imaging for re-evaluation, prompting her visit today. She reports about 1.5 weeks of an increase in bilateral low back pain without inciting event. She describes this as a tightness. Reports right hip soreness last night. Otherwise denies leg pain. Pain limiting weakness reported. Denies falls, paresthesia. She is here for evaluation and plan of care. Symptoms: low back pain/tightness PREVIOUS CONSERVATIVE TREATMENTS: HEP PREVIOUS SURGERY: SURGERY #1: L4-L5 laminectomy and microdiscectomy 09/05/2024` PAIN EVALUATION 12/21/2024 1048 Pain Level: 9 Pain Location: Back-Lower Description: Pulsating;Radiating;Sharp;Sore;Sp asm;Stiffness;Tightness Duration Amount of Time: 7 Duration Units: Days Frequency: Continuous Intervention/Comfort measure: Medication;Reposition;Relaxation; Cold;Heat;Pillow support;Positioning PAST MEDICAL HISTORY Diagnosis Date Back pain Hypercholesteremia 05/2014 Increased frequency of headaches 2013 Scoliosis PAST SURGICAL HISTORY Procedure Laterality Date BACK SURGERY HX herniated disc PAST SURGICAL HISTORY OF wisdom tooth extraction PAST SURGICAL HISTORY OF 07/24/2013 REDUCTION BREAST FAMILY HISTORY Problem Relation Age of Onset other (possible heart) Father other (endometriosis) Paternal Grandmother Endometriosis Maternal Aunt possible? ALLERGIES No Known Allergies Current Outpatient Medications Medication Sig Dispense Refill oxyCODONE-acetaminophen (PERCOCET) 5-325 mg tablet Take by mouth every 6 hours as needed. levonorgestrel (MIRENA) 21 mcg/24hr (up to 8 yrs) 52 mg IUD 1 each by INTRAUTERINE route one time only. TIRZEPATIDE SUBCUTANEOUS Inject 7.5 Ampules subcutaneously one time a week. gabapentin (NEURONTIN) 300 mg capsule Take 300 mg by mouth three times a day. (Patient not taking: Reported on 11/13/2024) estradiol (ESTRACE) 1 mg tablet Take 1 mg by mouth once daily. (Patient not taking: Reported on 11/13/2024) methocarbamol (ROBAXIN) 750 mg tablet Take 1 tablet by mouth three times a day as needed. (Patient not taking: Reported on 11/13/2024) 90 tablet 0 No current facility-administered medications for this visit. REVIEW OF SYSTEMS Review of Systems Constitutional: Negative for diaphoresis, fatigue and fever. HENT: Negative for ear pain, hearing loss and tinnitus. Eyes: Negative for photophobia, pain and visual disturbance. Respiratory: Negative for cough, chest tightness and shortness of breath. Cardiovascular: Negative for chest pain. Gastrointestinal: Negative for constipation, diarrhea, nausea and vomiting. Endocrine: Negative for polydipsia, polyphagia and polyuria. Genitourinary: Negative for difficulty urinating, frequency and urgency. Musculoskeletal: Positive for back pain. Negative for gait problem, neck pain and neck stiffness. Skin: Negative for color change and rash. Neurological: Negative for dizziness, weakness and numbness. Psychiatric/Behavioral: Negative for agitation and confusion. The patient is not nervous/anxious. OBJECTIVE: BP 119/72 Pulse 62 Resp 16 Wt 190 lb 4.1 oz (86.3kg) SpO2 99% LMP 08/31/2024 PHYSICAL EXAM: Mental State : Alert, memory function unremarkable. Attention span and concentration normal for patient's age. Speech normal, no receptive or expressive speech deficit. Recent and remote memory normal. Orientation : Oriented to person, place and time. Cranial Nerves : Grossly intact. Sensory: Normal Sensation in upper and lower extremities and trunk to touch and noxious stimuli. Motor: Normal muscle tone and bulk. No tremor or uncontrollable movements. No spastic (more content not included)... [facility] 11-13-2024 Note HNO ID: [id number] Author: BROCK DURAND MD Service: ? Author Type: Physician Type: Progress Notes Filed: 11/13/2024 16:28 Note Text: Eugenia Chisholm is a 39 year old female who presents for a second opinion. Menorrhagia and dyspareunia. HPI: She was a patient at [facility] and is here for another opinion. She reports being seen for uterine fibroids and ovarian cysts. History of menorrhagia. Had a progesterone IUD inserted a few years ago which has improved the bleeding. Her menses are light but last 2 weeks. The IUD has improved her pain. She does have cramping with this period. Does have sharp stabbing pain that is mid cycle and she attributes to ovulation pain, and this pain resolves after 1 day. Currently sexually active. Dyspareunia every time she has intercourse and worse right before onset of her period. Had 2 pregnancies in the past. Vaginal delivery - son 18 years old. Patient reports an abnormal pap test years ago with possible cryo and/or colposcopy? And this was in her early 20's. Has tried the control pill, Paragard IUD, vaginal ring, patch. A hysterectomy was discussed by her prior provider. 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 History Comments: Sexual Activity: Yes; Male Contraception: Not used PAST MEDICAL HISTORY Diagnosis Date Back pain Hypercholesteremia 05/2014 Increased frequency of headaches 2013 Scoliosis PAST SURGICAL HISTORY Procedure Laterality Date PAST SURGICAL HISTORY OF wisdom tooth extraction PAST SURGICAL HISTORY OF 07/24/2013 REDUCTION BREAST FAMILY HISTORY Problem Relation Age of Onset other (possible heart) Father other (endometriosis) Paternal Grandmother Cancer Maternal Aunt 58 ovarian Social History Tobacco Use Smoking status: Former Current packs/day: 0.00 Average packs/day: 1 pack/day for 7.0 years (7.0 ttl pk-yrs) Types: Cigarettes Start date: 06/23/2001 Quit date: 06/23/2008 Years since quittin.4 Smokeless tobacco: Never Tobacco comments: Both parents smoked in childhood home. Smokers in workplace. Vaping Use Vaping status: current everyday user Substances: Nicotine Substance Use Topics Alcohol use: Yes Comment: occasionally Drug use: No Current Outpatient Medications Medication Sig levonorgestrel (MIRENA) 21 mcg/24hr (up to 8 yrs) 52 mg IUD 1 each by INTRAUTERINE route one time only. TIRZEPATIDE SUBCUTANEOUS Inject 7.5 Ampules subcutaneously one time a week. gabapentin (NEURONTIN) 300 mg capsule Take 300 mg by mouth three times a day. (Patient not taking: Reported on 11/13/2024) estradiol (ESTRACE) 1 mg tablet Take 1 mg by mouth once daily. (Patient not taking: Reported on 11/13/2024) methocarbamol (ROBAXIN) 750 mg tablet Take 1 tablet by mouth three times a day as needed. (Patient not taking: Reported on 11/13/2024) No current facility-administered medications for this visit. Allergies As of Date: 11/13/2024 (No Known Allergies) Fully Assessed 11/13/2024 REVIEW OF SYSTEMS Abdomen: No vomiting, diarrhea, or constipation. Bladder: No dysuria. Expanded ROS: See HPI. Allergies and current medication updated:Yes SENSITIVE EXAM: Sensitive exam not performed. EXAM: BP 98/60 Wt 187 lb 9.6 oz (85.1kg) LMP 08/31/2024 GENERAL: pleasant, female in no apparent distress HEENT: Normocephalic and atraumatic CHEST: Normal inspiratory effort NEURO: exam grossly non-focal EXTREMITIES: normal ASSESSMENT AND PLAN: Assessment AND Plan Excessive bleeding in premenopausal period Dyspareunia in female IUD (intrauterine device) in place Cyst of ovary, unspecified laterality Orders: PELVIC US [facility]; Future Most recent pelvic ultrasound: PROCEDURE: PELVIC W/ TRANSVAGINAL 09/26/2024 REASON FOR EXAM: OVARIAN CYST TECHNIQUE: Transabdominal and transvaginal pelvic ultrasound. Color doppler analysis of the ovaries. COMPARISON: Pelvic ultrasound on 11/23/2023. FINDINGS: Measurements: Uterus: 9.0 x 4.4 x 6.7 cm for volume of 139.1 mL Endometrial Thickness: 0.5 cm Right Ovary: 2.8 x 1.6 x 1.8 cm for volume of 4.3 mL Left Ovary: 5.4 x 5.0 x 4.0 cm for volume of 56.1 mL Uterus: Anteverted. There is an exophytic heterogeneous lesion arising from the anterior uterus measuring 1.3 x 1.5 x 1.5 cm. Additionally there is a heterogeneous myometrial lesion measuring 1.4 x 1.5 x 1.7 cm. Endometrium: Normal echotexture. Intrauterine device appears appropriately positioned with tip near the fundal end of the endometrium. Right ovary: Normal size and echotexture. Left ovary: Cystic lesion measuring 4.7 x 3.3 x 3.3 cm in aggregate, with thin septations and no internal solid components identified. A smaller cystic component internally measures 1.8 x 1.4 x 1.7 cm. Cul-de-sac: N (more content not included)... [facility] 11-13-2024 History of Present illness Narrative Eugenia Chisholm is a 39 year old female who presents for a second opinion. Menorrhagia and dyspareunia. HPI: She was a patient at [facility] and is here for another opinion. She reports being seen for uterine fibroids and ovarian cysts. History of menorrhagia. Had a progesterone IUD inserted a few years ago which has improved the bleeding. Her menses are light but last 2 weeks. The IUD has improved her pain. She does have cramping with this period. Does have sharp stabbing pain that is mid cycle and she attributes to ovulation pain, and this pain resolves after 1 day. Currently sexually active. Dyspareunia every time she has intercourse and worse right before onset of her period. Had 2 pregnancies in the past.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 Classification: grade I - full view of glottis Number of attempts at approach: 1 Failed airway: no Unrecognized esophageal intubation: no Airway not difficult SIGNATURE: Neda Thomas APRN.CRNA PATIENT NAME: Eugenia Chisholm DATE: September 05, 2024 TIME: 12:19 PM CSN: [id number] [facility] 09-01-2024 Note HNO ID: [id number] Author: MARCO SHAW APRN.CNP Service: Anesthesiology Author Type: Nurse Practitioner Type: Progress Notes Filed: 09/01/2024 13:35 Note Text: SORAYA PAT noted reviewed. No anesthesia or pre-operative concerns noted. No optimizations pending. Since patient is neurosurgery at [facility], reviewed with anesthesia, Dr. Rodríguez. Ready for surgery. [facility] 08-31-2024 Instructions Lita Jordan APRN.CNP - 08/31/2024 3:15 PM EDT PATIENT PREOPERATIVE INSTRUCTIONS No ref. provider found has scheduled you for your procedure at this surgery center: [facility]: [phone], [address] [facility] [address] [place], [place] [id number] Please read below carefully for your personalized instructions. Date of Surgery: 09/05/24 Arrival Time for Surgery: Your surgeon's office will provide you with your arrival time for surgery if they have not done so already. If you do not have your arrival time for surgery by the afternoon the day before your surgery you can call the surgeon's office. If you are scheduled for a Wednesday surgery you can call the Wednesday before. - Please be aware that emergency situations arise, which may delay or change your surgical time. If this happens, your surgeon's office will notify you as soon as possible and regret any inconvenience. Requirements for vaccination; 72-hour. Between getting vaccine and date of surgery Dietary Restrictions: - No solid food after midnight. - You may have 12 ounces of clear liquids (water, clear juices such as apple juice or gatorade, carbonated beverages, clear tea, black coffee, jello) until 2 hours before scheduled arrival at facility. This is important because if you do, your procedure may be canceled Medications: Pre Surgery Med Instructions Medication instructions gabapentin (NEURONTIN) 800 mg tablet If you normally take this medication in the morning, it is ok to take the morning of surgery with a sip of water. TIRZEPATIDE SUBCUTANEOUS Stop 7 days before surgery. traMADol (ULTRAM) 50 mg tablet If you normally take this medication in the morning, it is ok to take the morning of surgery with a sip of water. Blood pressure medications See med list for instructions Take beta natty day of surgery Do not take ZOILA or ARB medications day of surgery Weight loss medications Sympathomimetics such as Adipex-P (Phentermine): Stop 4 days before surgery. Contrave (Naltrexone/Bupropion) Hold 2-3 days. Qsymia (Phentermine/Topiramate - Please contact your prescribing provider for Pre op directions. ( depending on the patients dose this medication may need tapered off. They should get pre op directions from their prescribing provider.) GLP-1 Agonists (oral and injectables) Hold 7 days. Blood Thinning Medications: - Stop NSAIDS (Ibuprofen, Advil, Aleve, Motrin, Celebrex, Mobic, etc.) 7 days before surgery, as directed by your surgeon. - You may take Tylenol (Acetaminophen) or any of your current prescribed pain medications that do not contain aspirin or NSAIDS as needed. - If you take any of the following blood thinners, please contact your surgeon and the physician who prescribes it for you in order to get perioperative instructions as soon as possible Blood thinners: Aspirin,Coumadin, Plavix, Eliquis, Pradaxa, Xarelto, Lovenox, Brilinta, Effient, Savaysa, etc. Supplements - Stop Vitamin E, fish oil, Ginko, Inna's Wort, flax seed oil, multivitamins, CBD oil, marijuana and other over the counter herbals and dietary supplements 7 days before surgery. This would not apply to cancer patients who are prescribed Marinol or any other prescription form of marijuana or CBD. If you are taking Phentermine please hold 4 days prior to surgery. Diabetes Medications Do not take the morning of surgery; Trajenta, Metformin, Actos/Pioglitazone and Amaryl/Glimepiride. For the following Medications, please HOLD 2 DAYS PRIOR TO SURGERY: Glucotrol/Glipizide, Januvia/Sitagliptin, Glyburide, Prandin/Repaglinide, Starlix/Nateglinide, Symlin/Pramlintide, For the following Medications, please HOLD 3 DAYS PRIOR TO SURGERY: Canagliflozin/Invokana, Dapagliflozin/Farxiga ,Empagliflozin/Jardiance, Invokamet/canagliflozin and metformin, Xigduo XR/ dapagliglozin and metformin, Glyxambi/ empagliflozin and metformin, Syndardy/ empagliflozin and metformin For the following Medications, please HOLD 4 DAYS PRIOR TO SURGERY: Ertugliflozin/Steglatro For the following Medications, please HOLD 7 DAYS PRIOR TO SURGERY: GLP-1 AGONIST: Adlyxin (lixisenatide), Bydureon BCise (exenatide suspension), Byetta (exenatide), Mounjaro (tirzepatide), Ozempic (semaglutide injection), Rybelsus (semaglutide tablets), Tanzeum (albiglutide), Trulicity (dulaglutide), Victoza (liraglutide), Wegovy (semaglutide), Saxenda (liraglutide) Insulin Medication Instructions: Please follow up with the provider that manages your Insulin and how to prepare you for surgery. Pain medications Approved pain medications can be taken the morning of surgery with a sip of water. If you start any new medications after today's visit, please contact the surgeon's office. Important Reminders: - If you use CPAP/BIPAP, bring the machine with you to the hospital if you are scheduled to stay over night. - If you are prescribed inhalers for breathing, continue using them AND bring them to the surgery center. - Candy, mints, gum and tobacco products are NOT permitted the morning of surgery. - Hearing aids, dentures and glasses may be worn the morning of surgery. - NO jewelry, body piercings, makeup, hairpins or contacts are to be worn the day of surgery. - NO lotion, creams, powders or deodorants on the skin the day of surgery - You will need to have someone else (Family or friend) drive you home once discharged from the hospital. You cannot take a cab or Uber. You are not allowed to drive yourself home after surgery. -You will need an adult(over the age of 18) to stay with you for the first 24 hours post surgery or your surgery may be cancelled. Please speak with your surgeon if this is an issue. If you develop symptoms such as a fever, cold, or flu, or have other changes to your health within TWO DAYS of scheduled surgery or the morning of surgery, please contact the surgery center above. Personal Belongings: - Leave ALL valuables and money at home or with family members. - You will need a form of ID and insurance card to check in the morning of surgery. - You will have to wear a hospital gown during your stay but if you wish to bring undergarments for after surgery you may. -If you do not have a copy of advance directives on file with us, please bring a copy with you on the day of surgery. If you already have an Advance Directive, please fax a copy to [phone] or email to for it to be added to your chart. If you do not have an Advance Directive, you can find the appropriate form and more information at [email or web address]. We recommend that you complete the Advance Directive form found on the website and bring it with you the day of your surgery. It can be witnessed and scanned into your chart that day. Please note-you should have a 72-hour period between getting your vaccine and date of surgery - If you have a stimulator, implant or pump that requires a remote please bring the remote with you day of surgery Hibiclens provided to patients requiring soap for surgery The anti-bacterial soap (Hibiclens) should be used TWICE prior to surgery: The night before surgery and the morning of surgery: - If you plan to wash your hair, do so with your regular shampoo. Then rinse hair and body thoroughly to remove any shampoo residue. - Wash your face with water or your regular soap. - Thoroughly rinse your body with water from the neck down - Apply Hibiclens directly on your skin or on a wet washcloth and wash gently. Move away from the shower stream when applying Hibiclens to ensure the CHG binds to the skin. - Pay special attention to the area where your surgery will be performed - Rinse thoroughly - Apply clean bedding and clean clothing after shower Do not use your regular soap after applying and rinsing Hibiclens. Do not apply any lotions, deodorants, powders, or perfumes to the body areas that have been cleaned with Hibiclens. If you already have an Advance Directive, please fax a copy to [phone] or Rodrick CRAVEN at [phone] or email to for it to be added to your chart. If you do not have an Advance Directive, you can find the appropriate form and more information at [email or web address]. We recommend that you complete the Advance Directive form found on the website and bring it with you the day of your surgery. It can be witnessed and scanned into your chart that day. Lita Jordan APRN.CNP documented in this encounter [facility] 08-31-2024 History and physical note Images from the original note were not included. [facility] HISTORY AND PHYSICAL EXAMINATION SERVICE DATE: 08/31/2024 SERVICE TIME: 3:32 PM PRIMARY CARE PHYSICIAN: Del Hubbard DO Assessment Patient has the following medical conditions which may affect franklin-operative course: Preop examination Patient has the following medical conditions which may affect franklin-operative course addressed in assessment and plan today. Intervertebral disc disorder with radiculopathy of lumbar region Surgery scheduled for September 05, 2024 ANESTHESIA FINDINGS: Intubation History: No history of difficult intubation Significant Anesthesia Considerations: potential postop nausea/vomiting Airway History: No history of difficult airway [place] Activity Status Index: METS: Climb a flight of stairs or walk up a hill (5.50 METs) DASI Score: 5.5 Patient denies any chest pain or undue shortness of breath with the above physical activity. ARISCAT Score: Age: <=50 Preoperative SpO2: >=96% Respiratory infection in the last month: No Preoperative anemia: No Surgical incision: peripheral Duration of surgery: 2-3 hrs Emergency procedure: No ARISCAT Score: 16 I - PHYSICAL EVALUATION AIRWAY Patient intubated: No. DENTAL Dental findings: teeth intact. Additional comments: Upper front crown. II - ANESTHESIA PLAN Anesthetic Plan: general Beta Natty Monitoring Plan Post Procedure Analgesic Plan Prepared for Surgery: . Per patient-no optimizations requested by surgeon for plan procedure. CONSULTS: Planned Anesthetic: general The Following Tests/Procedures Have Been Initiated: Orders Placed This Encounter methocarbamol (ROBAXIN) 500 mg tablet Sig: TAKE 1 TABLET BY MOUTH FOUR TIMES A DAY NEEDED The reason for this visit is to perform a comprehensive review of the patient's past medical history, assess their current health status and obtain any additional testing required based on anesthesia guidelines. We will also identify any potential anesthesia problems or contraindications to the planned procedure. REASON FOR VISIT: Eugenia Chisholm is a 39 year old female who is scheduled for Procedure(s): DISCOTOMY LUMBAR LEVEL 1 (N/A) MICROSURGICAL TECHNIQUE FOR SPINAL PROCEDURES (N/A) at the request of @REFPROV2@ for routine H&P. My final recommendation will be communicated back to the requesting physician by way of shared medical record or letter. Subjective The patient has the following: COVID-19 Immunization Status Upcoming Covid-19 Vaccine () Postponed until 03/16/2025 03/16/2024 Postponed until 03/16/2025 by Maria Ines Lovett LPN (Declined at this time) 11/14/2021 Imm Admin: COVID-19 original vaccine, age 12+ yr, monovalent (PFIZER-BIONTECH - WEISS TOP) 10/22/2021 Imm Admin: COVID-19 original vaccine, age 12+ yr, monovalent (PFIZER-BIONTECH - WEISS TOP) Only the first 3 history entries have been loaded, but more history exists. CHIEF COMPLAINT: The reason for this visit is to perform a comprehensive review of the patient's past medical history, assess their current health status and obtain any additional testing required based on anesthesia guidelines. We will also identify any potential anesthesia problems or contraindications to the planned procedure. HPI: Patient is a 39 year old female who presents for pre surgical testing. Patient states she has had problems with backache since she was a teenager but it has become worse since December 2023 after camping. She is unaware of any injury specifically. MRI in the past shows herniated disc. Her pain in the back and radiates down the right leg to the foot has been severe and made worse with any activity. She had injections in the past with the second 1 in June 2024 giving no relief. Patient has a prescription for tramadol for relief if needed. after discussion with the surgeon the patient agrees to surgical intervention. REVIEW OF SYSTEMS: General: Negative for: unintentional weight change, malaise and fever. Neurological: Positive for: headaches. Negative for: seizures and strokes. Respiratory: Negative for: asthma, COPD, pneumonia within 6 weeks, URI < 2 weeks and obstructive sleep apnea. Cardiovascular: Negative for: atrial fibrillation, CAD, chest pain, CHF, DVT/PE, hyperlipidemia and hypertension. GI: Negative for: abdominal pain, GERD, nausea and vomiting. : Negative for: dysuria, hematuria and renal failure. Endocrine: Negative for: diabetes mellitus, hyperthyroidism and hypothyroidism. Hematology: Negative for: anemia, factor V Leiden and von Willebrand disease. Oncology: No history of CA metastasis, chemo within 30 days, or radiotherapy within 90 days. No history of oncological symptoms or problems. Psych: Positive for: anxiety. Negative for: depression. Musculoskeletal: See HPI. Positive for: back pain. Negative for: joint pain. Skin: Negative for lesions, rash and itching. PAST MEDICAL HISTORY Diagnosis Date Back pain Hypercholesteremia 05/2014 Increased frequency of headaches 2013 Scoliosis PAST SURGICAL HISTORY Procedure Laterality Date PAST SURGICAL HISTORY OF wisdom tooth extraction PAST SURGICAL HISTORY OF 07/24/2013 REDUCTION BREAST FAMILY HISTORY Problem Relation Age of Onset other (possible heart) Father other (endometriosis) Paternal Grandmother Cancer Maternal Aunt 58 ovarian Social History Tobacco Use Smoking status: Former Current packs/day: 0.00 Average packs/day: 1 pack/day for 7.0 years (7.0 ttl pk-yrs) Types: Cigarettes Start date: 06/23/2001 Quit date: 06/23/2008 Years since quittin.2 Smokeless tobacco: Never Tobacco comments: Both parents smoked in childhood home. Smokers in workplace. Vaping Use Vaping status: current everyday user Substances: Nicotine Substance Use Topics Alcohol use: Yes Comment: occasionally Drug use: No Prior to Admission medications as of 08/28/24 1503 Medication Sig Last Dose Taking traMADol (ULTRAM) 50 mg tablet Take 1 tablet by mouth every 6 hours as needed for pain for up to 7 days. Yes gabapentin (NEURONTIN) 800 mg tablet Take 1 tablet by mouth three times a day for 60 days. Yes TIRZEPATIDE SUBCUTANEOUS Inject 7.5 Ampules subcutaneously one time a week. Yes methocarbamol (ROBAXIN) 500 mg tablet TAKE 1 TABLET BY MOUTH FOUR TIMES A DAY NEEDED No medication comments found. ALLERGIES No Known Allergies Objective PHYSICAL EXAM: General: alert and oriented and healthy appearance. Pertinent negatives noted - not distressed. Skin: normal color, no rash or lesions. HEENT: pupils reactive to light. Cardiovascular: regular rate and rhythm, normal S1 and S2, no rub, murmurs, or gallop. Respiratory: normal breath sounds, no wheezes or crackles. No chest wall deformity or tenderness. Abdomen: bowel sounds present. Extremities: no deformity, no edema or tenderness, no joint swelling or clubbing. Neurological: normal cognition and motor skills. Gait normal. No weakness or sensory deficit. PAIN ASSESSMENT: Pain Pain Level: 8 Pain Location: Leg-Right VITALS: BP 113/74 Pulse 69 Temp 97.5 Resp 14 Ht 5' 9 (1.75m) Wt 192 lb (87.1kg) SpO2 98% LMP 08/31/2024 BMI 28.34 kg/(m^2). Diagnostic tests reviewed for today's visit: Lab Value Units Date High Low HB No results within date range. HCT No results within date range. WBC No results within date range. PLT No results within date range. NA No results within date range. K No results within date range. GLUC No results within date range. BUN No results within date range. CREAT No results within date range. PTSEC No results within date range. INR No results within date range. APTT No results within date range. ALT No results within date range. AST No results within date range. TBILI No results within date range. TSH No results within date range. Lab Value Units Date High Low HCGQT No results within date range. UHCG No results within date range. HCG, BODY* No results within date range. Lab Value Units Date High Low ABORHD No results within date range. ABSCREEN No results within date range. No results found for: HBA1C No results found for this or any previous visit (from the past 8760 hours). No results found for this or any previous visit (from the past 28133 hours). Surgical scrub given day of PST. ARISCAT risk index interpretation 0 to 25 points: Low risk: 1.6% pulmonary complication rate 26 to 44 points: Intermediate risk: 13.3% pulmonary complication rate 45 to 123 points: High risk: 42.1% pulmonary complication rate Implantable Devices: IUD The Following Tests/Procedures Have Been Initiated: EKG CBC CMP type and screen urinalysis urine culture PT PTT MRSA chest x-ray ordered in [facility] by surgeon hCG ordered day of surgery Assessment/Plan Diagnosis: intervertebral disc disorder with radiculopathy of lumbar region [M51.16] PLAN Planned Procedure: Procedure(s): DISCOTOMY LUMBAR LEVEL 1 (N/A) MICROSURGICAL TECHNIQUE FOR SPINAL PROCEDURES (N/A) I spent a total of 40 minutes on the date of the service which included preparing to see the patient, [id number] patient care, completing clinical documentation, obtaining and/or reviewing separately obtained history, performing a medically appropriate examination, and counseling and educating the patient/family/caregiver. Instructions Given to Patient: Instructions located in the after visit summary. Patient given verbal and written preop instructions and voices comprehension and compliance. SIGNATURE: Lita Jordan APRN.CNP PATIENT NAME: Eugenia Chisholm DATE: August 31, 2024 TIME: 7:51 AM PAGER/CONTACT #: [facility] 08-31-2024 History and physical note Images from the original note were not included. [facility] HISTORY AND PHYSICAL EXAMINATION SERVICE DATE: 08/31/2024 SERVICE TIME: 3:32 PM PRIMARY CARE PHYSICIAN: Del Hubbard DO Assessment Patient has the following medical conditions which may affect franklin-operative course: Preop examination Patient has the following medical conditions which may affect franklin-operative course addressed in assessment and plan today. Intervertebral disc disorder with radiculopathy of lumbar region Surgery scheduled for September 05, 2024 ANESTHESIA FINDINGS: Intubation History: No history of difficult intubation Significant Anesthesia Considerations: potential postop nausea/vomiting Airway History: No history of difficult airway [place] Activity Status Index: METS: Climb a flight of stairs or walk up a hill (5.50 METs) DASI Score: 5.5 Patient denies any chest pain or undue shortness of breath with the above physical activity. ARISCAT Score: Age: <=50 Preoperative SpO2: >=96% Respiratory infection in the last month: No Preoperative anemia: No Surgical incision: peripheral Duration of surgery: 2-3 hrs Emergency procedure: No ARISCAT Score: 16 I - PHYSICAL EVALUATION AIRWAY Patient intubated: No. DENTAL Dental findings: teeth intact. Additional comments: Upper front crown. II - ANESTHESIA PLAN Anesthetic Plan: general Beta Natty Monitoring Plan Post Procedure Analgesic Plan Prepared for Surgery: . Per patient-no optimizations requested by surgeon for plan procedure. CONSULTS: Planned Anesthetic: general The Following Tests/Procedures Have Been Initiated: Orders Placed This Encounter methocarbamol (ROBAXIN) 500 mg tablet Sig: TAKE 1 TABLET BY MOUTH FOUR TIMES A DAY NEEDED The reason for this visit is to perform a comprehensive review of the patient's past medical history, assess their current health status and obtain any additional testing required based on anesthesia guidelines. We will also identify any potential anesthesia problems or contraindications to the planned procedure. REASON FOR VISIT: Eugenia Chisholm is a 39 year old female who is scheduled for Procedure(s): DISCOTOMY LUMBAR LEVEL 1 (N/A) MICROSURGICAL TECHNIQUE FOR SPINAL PROCEDURES (N/A) at the request of @REFPROV2@ for routine H&P. My final recommendation will be communicated back to the requesting physician by way of shared medical record or letter. Subjective The patient has the following: COVID-19 Immunization Status Upcoming Covid-19 Vaccine () Postponed until 03/16/2025 03/16/2024 Postponed until 03/16/2025 by Maria Ines Lovett LPN (Declined at this time) 11/14/2021 Imm Admin: COVID-19 original vaccine, age 12+ yr, monovalent (PFIZER-BIONTECH - WEISS TOP) 10/22/2021 Imm Admin: COVID-19 original vaccine, age 12+ yr, monovalent (PFIZER-BIONTECH - WEISS TOP) Only the first 3 history entries have been loaded, but more history exists. CHIEF COMPLAINT: The reason for this visit is to perform a comprehensive review of the patient's past medical history, assess their current health status and obtain any additional testing required based on anesthesia guidelines. We will also identify any potential anesthesia problems or contraindications to the planned procedure. HPI: Patient is a 39 year old female who presents for pre surgical testing. Patient states she has had problems with backache since she was a teenager but it has become worse since December 2023 after camping. She is unaware of any injury specifically. MRI in the past shows herniated disc. Her pain in the back and radiates down the right leg to the foot has been severe and made worse with any activity. She had injections in the past with the second 1 in June 2024 giving no relief. Patient has a prescription for tramadol for relief if needed. after discussion with the surgeon the patient agrees to surgical intervention. REVIEW OF SYSTEMS: General: Negative for: unintentional weight change, malaise and fever. Neurological: Positive for: headaches. Negative for: seizures and strokes. Respiratory: Negative for: asthma, COPD, pneumonia within 6 weeks, URI < 2 weeks and obstructive sleep apnea. Cardiovascular: Negative for: atrial fibrillation, CAD, chest pain, CHF, DVT/PE, hyperlipidemia and hypertension. GI: Negative for: abdominal pain, GERD, nausea and vomiting. : Negative for: dysuria, hematuria and renal failure. Endocrine: Negative for: diabetes mellitus, hyperthyroidism and hypothyroidism. Hematology: Negative for: anemia, factor V Leiden and von Willebrand disease. Oncology: No history of CA metastasis, chemo within 30 days, or radiotherapy within 90 days. No history of oncological symptoms or problems. Psych: Positive for: anxiety. Negative for: depression. Musculoskeletal: See HPI. Positive for: back pain. Negative for: joint pain. Skin: Negative for lesions, rash and itching. PAST MEDICAL HISTORY Diagnosis Date Back pain Hypercholesteremia 05/2014 Increased frequency of headaches 2013 Scoliosis PAST SURGICAL HISTORY Procedure Laterality Date PAST SURGICAL HISTORY OF wisdom tooth extraction PAST SURGICAL HISTORY OF 07/24/2013 REDUCTION BREAST FAMILY HISTORY Problem Relation Age of Onset other (possible heart) Father other (endometriosis) Paternal Grandmother Cancer Maternal Aunt 58 ovarian Social History Tobacco Use Smoking status: Former Current packs/day: 0.00 Average packs/day: 1 pack/day for 7.0 years (7.0 ttl pk-yrs) Types: Cigarettes Start date: 06/23/2001 Quit date: 06/23/2008 Years since quittin.2 Smokeless tobacco: Never Tobacco comments: Both parents smoked in childhood home. Smokers in workplace. Vaping Use Vaping status: current everyday user Substances: Nicotine Substance Use Topics Alcohol use: Yes Comment: occasionally Drug use: No Prior to Admission medications as of 08/28/24 1503 Medication Sig Last Dose Taking traMADol (ULTRAM) 50 mg tablet Take 1 tablet by mouth every 6 hours as needed for pain for up to 7 days. Yes gabapentin (NEURONTIN) 800 mg tablet Take 1 tablet by mouth three times a day for 60 days. Yes TIRZEPATIDE SUBCUTANEOUS Inject 7.5 Ampules subcutaneously one time a week. Yes methocarbamol (ROBAXIN) 500 mg tablet TAKE 1 TABLET BY MOUTH FOUR TIMES A DAY NEEDED No medication comments found. ALLERGIES No Known Allergies Objective PHYSICAL EXAM: General: alert and oriented and healthy appearance. Pertinent negatives noted - not distressed. Skin: normal color, no rash or lesions. HEENT: pupils reactive to light. Cardiovascular: regular rate and rhythm, normal S1 and S2, no rub, murmurs, or gallop. Respiratory: normal breath sounds, no wheezes or crackles. No chest wall deformity or tenderness. Abdomen: bowel sounds present. Extremities: no deformity, no edema or tenderness, no joint swelling or clubbing. Neurological: normal cognition and motor skills. Gait normal. No weakness or sensory deficit. PAIN ASSESSMENT: Pain Pain Level: 8 Pain Location: Leg-Right VITALS: BP 113/74 Pulse 69 Temp 97.5 Resp 14 Ht 5' 9 (1.75m) Wt 192 lb (87.1kg) SpO2 98% LMP 08/31/2024 BMI 28.34 kg/(m^2). Diagnostic tests reviewed for today's visit: Lab Value Units Date High Low HB No results within date range. HCT No results within date range. WBC No results within date range. PLT No results within date range. NA No results within date range. K No results within date range. GLUC No results within date range. BUN No results within date range. CREAT No results within date range. PTSEC No results within date range. INR No results within date range. APTT No results within date range. ALT No results within date range. AST No results within date range. TBILI No results within date range. TSH No results within date range. Lab Value Units Date High Low HCGQT No results within date range. UHCG No results within date range. HCG, BODY* No results within date range. Lab Value Units Date High Low ABORHD No results within date range. ABSCREEN No results within date range. No results found for: HBA1C No results found for this or any previous visit (from the past 8760 hours). No results found for this or any previous visit (from the past 68455 hours). Surgical scrub given day of PST. ARISCAT risk index interpretation 0 to 25 points: Low risk: 1.6% pulmonary complication rate 26 to 44 points: Intermediate risk: 13.3% pulmonary complication rate 45 to 123 points: High risk: 42.1% pulmonary complication rate Implantable Devices: IUD The Following Tests/Procedures Have Been Initiated: EKG CBC CMP type and screen urinalysis urine culture PT PTT MRSA chest x-ray ordered in [facility] by surgeon hCG ordered day of surgery Assessment/Plan Diagnosis: intervertebral disc disorder with radiculopathy of lumbar region [M51.16] PLAN Planned Procedure: Procedure(s): DISCOTOMY LUMBAR LEVEL 1 (N/A) MICROSURGICAL TECHNIQUE FOR SPINAL PROCEDURES (N/A) I spent a total of 40 minutes on the date of the service which included preparing to see the patient, [id number] patient care, completing clinical documentation, obtaining and/or reviewing separately obtained history, performing a medically appropriate examination, and counseling and educating the patient/family/caregiver. Instructions Given to Patient: Instructions located in the after visit summary. Patient given verbal and written preop instructions and voices comprehension and compliance. SIGNATURE: Lita Jordan APRN.CNP PATIENT NAME: Eugenia Chisholm DATE: August 31, 2024 TIME: 7:51 AM PAGER/CONTACT #: documented in this encounter [facility] 08-31-2024 Telephone encounter Note Patient returned call and went over notes below from Jaylan Dasilva NP with understanding. Aware rx sent to the pharmacy. Patient has pre surgery labs to do in [place] today, she will try to have done there, if unable will get done tomorrow. [facility] 08-31-2024 Miscellaneous Notes Patient returned call and went over notes below from Jaylan Dasilva NP with understanding. Aware rx sent to the pharmacy. Patient has pre surgery labs to do in [place] today, she will try to have done there, if unable will get done tomorrow. Call placed to patient with no answer. Message left to return call to triage nurse for provider message. Camille Boudreaux RN I'm ok sending this in, but please have her come in for a tox screen for me as we do not have a current one on record. The following approved medication requests have been transmitted electronically. Requested Prescriptions Signed Prescriptions Disp Refills traMADol (ULTRAM) 50 mg tablet 28 tablet 0 Sig: Take 1 tablet by mouth every 6 hours as needed for pain for up to 7 days. Authorizing Provider: DEYSI DASILVA APRN.CNP PDMP website checked and validated. All prescriptions have been APPROPRIATELY filled. No suspicious activity was identified. 08/31/2024 by Deysi Dasilva CNP. The patient has been identified by name and date of : Yes Caregiver verified no other encounters exist for this prescription request: Yes Caregiver confirmed with patient/requestor that no other refills are due, in the near future, with this provider at this time: Yes The last office visit in the department: 08/10/2024 Does the patient have a future office visit with this provider/department: No Requested Prescriptions Pending Prescriptions Disp Refills traMADol (ULTRAM) 50 mg tablet 28 tablet 0 Sig: Take 1 tablet by mouth every 6 hours as needed for pain for up to 7 days. Patient scheduled for back surgery next week on 09/05/2024. Not able to take Aleve at this time. Asking if provider would send in a refill of tramadol to get her to the surgery. Camille Boudreaux RN August 31, 2024 9:42 AM documented in this encounter [facility] 08-31-2024 Telephone encounter Note Call placed to patient with no answer. Message left to return call to triage nurse for provider message. Camille Boudreaux RN [facility] 08-31-2024 Telephone encounter Note I'm ok sending this in, but please have her come in for a tox screen for me as we do not have a current one on record. The following approved medication requests have been transmitted electronically. Requested Prescriptions Signed Prescriptions Disp Refills traMADol (ULTRAM) 50 mg tablet 28 tablet 0 Sig: Take 1 tablet by mouth every 6 hours as needed for pain for up to 7 days. Authorizing Provider: DEYSI DASILVA APRN.CNP PDMP website checked and validated. All prescriptions have been APPROPRIATELY filled. No suspicious activity was identified. 08/31/2024 by Deysi Dasilva CNP. [facility] 08-31-2024 Telephone encounter Note The patient has been identified by name and date of : Yes Caregiver verified no other encounters exist for this prescription request: Yes Caregiver confirmed with patient/requestor that no other refills are due, in the near future, with this provider at this time: Yes The last office visit in the department: 08/10/2024 Does the patient have a future office visit with this provider/department: No Requested Prescriptions Pending Prescriptions Disp Refills traMADol (ULTRAM) 50 mg tablet 28 tablet 0 Sig: Take 1 tablet by mouth every 6 hours as needed for pain for up to 7 days. Patient scheduled for back surgery next week on 09/05/2024. Not able to take Aleve at this time. Asking if provider would send in a refill of tramadol to get her to the surgery. Camille Boudreaux RN August 31, 2024 9:42 AM [facility] 08-29-2024 Telephone encounter Note Attempted to contact patient to discuss surgery details. No answer. Left a VM requesting a return phone call to discuss. [facility] 08-29-2024 Miscellaneous Notes Attempted to contact patient to discuss surgery details. No answer. Left a VM requesting a return phone call to discuss. documented in this encounter [facility] 08-28-2024 History of Present illness Narrative Images from the original note were not included. NEUROSURGERY CONSULT NOTE Fab Piper MD [facility] Date of visit: August 28, 2024 Patient Name: Ms.Amber Mirza Chisholm Date of : 1985 Current Age: [age] year old Sex: female MRN/E# [id number] Last Office Visit: Visit date not found Chief Complaint: Patient presents with: New Patient Past Medical/Surgical History: Eugenia Chisholm is a 39 year old female who is referred by Sandi Jimenez PA-C for neurosurgical evaluation. The patient has a history of back pain, hypercholesterolemia, scoliosis. Smoking: +VAPE Alcohol Use: occasional HISTORY OF PRESENT ILLNESS : The patient presents to the office today as a new patient for neurosurgical evaluation of her lumbar spine. Of note, she saw Dr. Perez with Neurosurgery on 08/15/2024 for this same complaint and he recommended physical therapy and EMG for surgical prep as she was ready for surgery due to severity of symptoms. She states she started with low back pain into the right leg since December 2023 without inciting event. Leg pain is worse than the low back. Pain is not in a specific distribution, though she feels most of the pain in the right lateral calf. She has tried injections without relief and is ready to discuss surgical intervention. She is here for image review, evaluation and plan of care. Symptoms: low back into right leg PREVIOUS CONSERVATIVE TREATMENTS: Injection - right paramedian L5-S1 ILESI 05/18/2024 - immediate relief of back pain, but it came back. - right L4-5 TFESI 07/18/2024 - no relief of back or leg pain Gabapentin 800mg TID PREVIOUS SURGERY: None Surgical Risk Factors: Smoking status: denies Anticoagulants/antiplatelets: denies Diabetic: denies BMI: 29.01 PAIN EVALUATION 08/26/20242015 Pain Level: 8 Pain Location: Back-Lower Description: Sharp;Throbbing;Tingling Duration Amount of Time: 8 Duration Units: Months Frequency: Continuous Intervention/Comfort measure: Medication;Reposition;Relaxation; Cold;Heat;Massage;Pillow support;Positioning Comments: Severe nerve pain down right leg and foot PAST MEDICAL HISTORY Diagnosis Date Back pain Hypercholesteremia 05/2014 Increased frequency of headaches 2013 Scoliosis PAST SURGICAL HISTORY Procedure Laterality Date PAST SURGICAL HISTORY OF wisdom tooth extraction PAST SURGICAL HISTORY OF 07/24/2013 REDUCTION BREAST FAMILY HISTORY Problem Relation Age of Onset Cancer Maternal Aunt 58 ovarian other (endometriosis) Paternal Grandmother ALLERGIES No Known Allergies Current Outpatient Medications Medication Sig Dispense Refill gabapentin (NEURONTIN) 800 mg tablet Take 1 tablet by mouth three times a day for 60 days. 90 tablet 1 TIRZEPATIDE SUBCUTANEOUS Inject 7.5 Ampules subcutaneously one time a week. No current facility-administered medications for this visit. REVIEW OF SYSTEMS Review of Systems Constitutional: Negative for diaphoresis, fatigue and fever. HENT: Negative for ear pain, hearing loss and tinnitus. Eyes: Negative for photophobia, pain and visual disturbance. Respiratory: Negative for cough, chest tightness and shortness of breath. Cardiovascular: Negative for chest pain. Gastrointestinal: Negative for constipation, diarrhea, nausea and vomiting. Endocrine: Negative for polydipsia, polyphagia and polyuria. Genitourinary: Negative for difficulty urinating, frequency and urgency. Musculoskeletal: Positive for back pain. Negative for gait problem, neck pain and neck stiffness. Skin: Negative for color change and rash. Neurological: Negative for dizziness, weakness and numbness. Psychiatric/Behavioral: Negative for agitation and confusion. The patient is not nervous/anxious. OBJECTIVE: BP 107/71 Pulse 69 Ht 5' 9 (1.75m) Wt 196 lb 6.9 oz (89.1kg) SpO2 98% LMP 07/15/2024 BMI 28.99 kg/(m^2). PHYSICAL EXAM: Mental State : Alert, memory function unremarkable. Attention span and concentration normal for patient's age. Speech normal, no receptive or expressive speech deficit. Recent and remote memory normal. Orientation : Oriented to person, place and time. Cranial Nerves : Grossly intact. Sensory: Normal Sensation in upper and lower extremities and trunk to touch and noxious stimuli. Motor: Normal muscle tone and bulk. No tremor or uncontrollable movements. No spasticity or tremor. Gait and Station: Casual gait is normal including stance, stride, and arm swing. STRENGTH: Upper Extremity Strength Exam Right Left Elbow Flexion 5/5 5/5 Elbow Extension 5/5 5/5 Finger Flexion 5/5 5/5 Finger Extension 5/5 5/5 Finger Abduction 5/5 5/5 Lower Extremity Strength Exam Right Left Hip Flexion 5/5 5/5 Knee Flexion 5/5 5/5 Knee Extension 4+/5 5/5 Dorsiflexion 4+/5 5/5 Plantarflexion 4+/5 5/5 Reflexes Right Left Biceps C5-C6 +2 +2 Triceps C7-C8 +2 +2 Wrist C5-6 +2 +2 Patellar L3-4 +1 +1 Achilles L5-S1 +1 +1 Data Review IMAGING STUDIES: XR LUMBAR 08/28/2024: no translational instability, mild degenerative changes EMG MRI LUMBAR 03/29/2024 IMPRESSION: Broad-based disc extrusion at L4-5 causing moderate canal and mild to moderate right foraminal stenosis as outlined above. Assessment & Plan: Ms. Chisholm presents for evaluation of right leg pain that began approximately 7 months ago. She describes pain and paresthesias in a right L5 distribution. She has tried oral steroids with mild relief, but she is intolerant of the side effects. She has had 2 lumbar epidural injections, with some relief of her pain, but no reduction in her paresthesia. She has some pain limited weakness on exam in her distal right lower extremity. Her EMG is normal. Her MRI shows a broad-based disc herniation at L4-5, with severe compression on the right and moderate compression on the left. Given the persistence of her symptoms, I recommended an L4-5 laminectomy and microdiscectomy, with bilateral foraminotomies. I explained the procedure in detail as well as the risks, benefits, and alternatives. She is interested in moving forward with surgery. All questions were answered. Attribution: The following portions of the patient's history were reviewed, confirmed, and updated as necessary: allergies, current medications, past family history, past medical history, past social history, past surgical history, problem list, HPI, and ROS obtained by others. Some elements may be copied from a previous office note and have been reviewed/updated where appropriate. All portions reflect current medical decision making from today. The clinical and radiographic findings as well as the risks, benefits and alternatives of treatment have been reviewed in detail with the patient. Advised to call the office if symptoms worsen or new symptoms develop. Patient expressed understanding and is in agreement with plan. Fab Piper MD [facility] Medical Decision Making: Problems: Moderate: New problem with uncertain prognosis Data: Unique source(s) for external note(s) reviewed: 1 Unique test result(s) reviewed: 3+ Risk: Moderate: Decision on elective major surgery w/o risk factors Medical Decision Making Level: 4 - Moderate This note was partially generated using [employer] voice recognition system, and there may be some incorrect words, spellings, and punctuation that were not noted in checking the note before saving. documented in this encounter [facility] 08-28-2024 Note HNO ID: [id number] Author: FAB PIPER MD Service: ? Author Type: Physician Type: Progress Notes Filed: 08/28/2024 16:03 Note Text: NEUROSURGERY CONSULT NOTE Fab Piper MD [facility] Date of visit: August 28, 2024 Patient Name: Ms.Amber Mirza Chisholm Date of : 1985 Current Age: [age] year old Sex: female MRN/E# [id number] Last Office Visit: Visit date not found Chief Complaint: Patient presents with: New Patient Past Medical/Surgical History: Eugenia Chisholm is a 39 year old female who is referred by Sandi Jimenez PA-C for neurosurgical evaluation. The patient has a history of back pain, hypercholesterolemia, scoliosis. Smoking: +VAPE Alcohol Use: occasional HISTORY OF PRESENT ILLNESS : The patient presents to the office today as a new patient for neurosurgical evaluation of her lumbar spine. Of note, she saw Dr. Perez with Neurosurgery on 08/15/2024 for this same complaint and he recommended physical therapy and EMG for surgical prep as she was ready for surgery due to severity of symptoms. She states she started with low back pain into the right leg since December 2023 without inciting event. Leg pain is worse than the low back. Pain is not in a specific distribution, though she feels most of the pain in the right lateral calf. She has tried injections without relief and is ready to discuss surgical intervention. She is here for image review, evaluation and plan of care. Symptoms: low back into right leg PREVIOUS CONSERVATIVE TREATMENTS: Injection - right paramedian L5-S1 ILESI 05/18/2024 - immediate relief of back pain, but it came back. - right L4-5 TFESI 07/18/2024 - no relief of back or leg pain Gabapentin 800mg TID PREVIOUS SURGERY: None Surgical Risk Factors: Smoking status: denies Anticoagulants/antiplatelets: denies Diabetic: denies BMI: 29.01 PAIN EVALUATION 08/26/20242015 Pain Level: 8 Pain Location: Back-Lower Description: Sharp;Throbbing;Tingling Duration Amount of Time: 8 Duration Units: Months Frequency: Continuous Intervention/Comfort measure: Medication;Reposition;Relaxation; Cold;Heat;Massage;Pillow support;Positioning Comments: Severe nerve pain down right leg and foot PAST MEDICAL HISTORY Diagnosis Date Back pain Hypercholesteremia 05/2014 Increased frequency of headaches 2013 Scoliosis PAST SURGICAL HISTORY Procedure Laterality Date PAST SURGICAL HISTORY OF wisdom tooth extraction PAST SURGICAL HISTORY OF 07/24/2013 REDUCTION BREAST FAMILY HISTORY Problem Relation Age of Onset Cancer Maternal Aunt 58 ovarian other (endometriosis) Paternal Grandmother ALLERGIES No Known Allergies Current Outpatient Medications Medication Sig Dispense Refill gabapentin (NEURONTIN) 800 mg tablet Take 1 tablet by mouth three times a day for 60 days. 90 tablet 1 TIRZEPATIDE SUBCUTANEOUS Inject 7.5 Ampules subcutaneously one time a week. No current facility-administered medications for this visit. REVIEW OF SYSTEMS Review of Systems Constitutional: Negative for diaphoresis, fatigue and fever. HENT: Negative for ear pain, hearing loss and tinnitus. Eyes: Negative for photophobia, pain and visual disturbance. Respiratory: Negative for cough, chest tightness and shortness of breath. Cardiovascular: Negative for chest pain. Gastrointestinal: Negative for constipation, diarrhea, nausea and vomiting. Endocrine: Negative for polydipsia, polyphagia and polyuria. Genitourinary: Negative for difficulty urinating, frequency and urgency. Musculoskeletal: Positive for back pain. Negative for gait problem, neck pain and neck stiffness. Skin: Negative for color change and rash. Neurological: Negative for dizziness, weakness and numbness. Psychiatric/Behavioral: Negative for agitation and confusion. The patient is not nervous/anxious. OBJECTIVE: BP 107/71 Pulse 69 Ht 5' 9 (1.75m) Wt 196 lb 6.9 oz (89.1kg) SpO2 98% LMP 07/15/2024 BMI 28.99 kg/(m2). PHYSICAL EXAM: Mental State : Alert, memory function unremarkable. Attention span and concentration normal for patient's age. Speech normal, no receptive or expressive speech deficit. Recent and remote memory normal. Orientation : Oriented to person, place and time. Cranial Nerves : Grossly intact. Sensory: Normal Sensation in upper and lower extremities and trunk to touch and noxious stimuli. Motor: Normal muscle tone and bulk. No tremor or uncontrollable movements. No spasticity or tremor. Gait and Station: Casual gait is normal including stance, stride, and arm swing. STRENGTH: Upper Extremity Strength Exam Right Left Elbow Flexion 5/5 5/5 Elbow Extension 5/5 5/5 Finger Flexion 5/5 5/5 Finger Extension 5/5 5/5 Finger Abduction 5/5 5/5 Lower Extremity Strength Exam Right Left Hip Flexion 5/5 5/5 Knee Flexion 5/5 5/5 Knee Extension 4+/5 5/5 Dorsiflexion 4+/5 5/5 Plantarflexion (more content not included)... [facility] 08-25-2024 Telephone encounter Note I do write orders for this. What is it for and who does it need addressed to? Deysi Dasilva APRN.THERAPY AIDE [facility] 08-25-2024 Miscellaneous Notes I do write orders for this. What is it for and who does it need addressed to? Deysi Dasilva APRN.THERAPY AIDE documented in this encounter [facility] 08-15-2024 Note HNO ID: [id number] Author: MICHAEL PEREZ MD Service: ? Author Type: Physician Type: Progress Notes Filed: 08/15/2024 16:06 Note Text: [facility] New Patient Consultation No referring provider defined for this encounter. CC: Lower back pain Subjective History of Present Illness: Eugenia is a 39-year-old female presenting with persistent back and right leg pain. Eugenia reports a history of back pain since her teenage years, which worsened in December. She describes the pain as severe, without any known injury, and sought child care counselor, where she was informed of a possible herniated disc. An MRI confirmed the diagnosis. She received epidural steroid injections at [facility] in [place], performed by Dr. Fei Gonzáles, which alleviated her back pain but did not resolve her leg pain. In April, she began experiencing constant pins and needles and a burning sensation in her right leg, initially localized to the back of the leg but now affecting the front, top, and bottom of the foot, sparing the big toe. The pain is exacerbated by prolonged sitting, walking, and certain movements, with baseline pain rated at 3-4/10, increasing with activity. A second injection in June at L4-L5 provided no relief. She has not engaged in physical therapy for her current condition but has performed exercises previously taught for lower back pain without significant improvement. She expresses a desire for surgical intervention due to the severity of her symptoms. Past Medical History: PAST MEDICAL HISTORY Diagnosis Date Back pain Hypercholesteremia 05/2014 Increased frequency of headaches 2013 Scoliosis Past Surgical History: PAST SURGICAL HISTORY Procedure Laterality Date PAST SURGICAL HISTORY OF wisdom tooth extraction PAST SURGICAL HISTORY OF 07/24/2013 REDUCTION BREAST Family History: FAMILY HISTORY Problem Relation Age of Onset Cancer Maternal Aunt 58 ovarian other (endometriosis) Paternal Grandmother Social History Tobacco Use Smoking status: Former Current packs/day: 0.00 Average packs/day: 1 pack/day for 7.0 years (7.0 ttl pk-yrs) Types: Cigarettes Start date: 06/23/2001 Quit date: 06/23/2008 Years since quittin.1 Smokeless tobacco: Never Tobacco comments: Both parents smoked in childhood home. Smokers in workplace. Substance Use Topics Alcohol use: Yes Comment: occasionally Drug use: No Allergies: Patient has no known allergies. Current Outpatient Medications Medication Sig traMADol (ULTRAM) 50 mg tablet Take 1 tablet by mouth every 6 hours as needed for pain for up to 7 days. gabapentin (NEURONTIN) 800 mg tablet Take 1 tablet by mouth three times a day for 60 days. TIRZEPATIDE SUBCUTANEOUS Inject 7.5 Ampules subcutaneously one time a week. tramadol HCl (TRAMADOL ORAL) Take by mouth. (Patient not taking: Reported on 08/15/2024) No current facility-administered medications for this visit. Employed: N/A Review of systems: Constitutional: No recent fever or weight loss. Eyes: No history of glaucoma or cataracts. ENMT: No recent ear infection, nasal congestion, mouth sores or sore throat. CV: No history of chest pain, palpitations or leg swelling. Respiratory: No history of SOB, asthma or recent cough. Gastrointestinal: No history of nausea, vomiting, dysphagia or abdominal pain. Genitourinary: No history of hematuria or dysuria. Musculoskeletal: No complaint of arthritis, unstable gait or arm/leg weakness. Psychiatric: No history of hallucinations or depression or anxiety. ROS Neurological: No complaint of headache. No complaint of tinnitus. No complaint of decreased hearing. No complaint of diplopia. No complaints of decreased visual acuity. No complaint of arm/leg numbness. No problem with limb coordination. No complaint of syncope, seizures or disorientation. Objective Physical Exam: Ht 175.3 cm (5' 9) Wt 88 kg (194 lb) LMP 07/15/2024 BMI 28.65 kg/m? Neurological: Higher integrative functions: Oriented to person, place AND time. Memory: Good recent and remote. Attention Span and Concentration: Good. Language: Accurate naming of objects. Good comprehension. Fund of Knowledge: Good. 2nd CN: Full visual schilling. 3rd,4th,6th CN: Pupils (=), round, react to light, full extraocular movements. 5th CN: No decrease in facial sensation. 7th CN: Facial muscles symmetric and strong. 8th CN: Hears finger rub well bilaterally. 9th CN: Good gag. 10th CN: Spontaneous palate movement, full and symmetric. 11th CN: Full strength in shoulder shrug. 12th CN: Tongue protrusion full and midline. Sensation: No decrease in sensation in upper or lower limbs to touch. Musculoskeletal: Steady gait. Motor all limbs grade 5. Myotatic reflexes: 2/4 throughout and symmetrical. Babinski reflexes: Absent. Coordination: Rapid alternating movements fast and smooth all limbs. (more content not included)... [facility] 08-15-2024 History of Present illness Narrative Images from the original note were not included. [facility] New Patient Consultation No referring provider defined for this encounter. CC: Lower back pain Subjective History of Present Illness: Eugenia is a 39-year-old female presenting with persistent back and right leg pain. Eugenia reports a history of back pain since her teenage years, which worsened in December. She describes the pain as severe, without any known injury, and sought child care counselor, where she was informed of a possible herniated disc. An MRI confirmed the diagnosis. She received epidural steroid injections at [facility] in [place], performed by Dr. Fei Gonzáles, which alleviated her back pain but did not resolve her leg pain. In April, she began experiencing constant pins and needles and a burning sensation in her right leg, initially localized to the back of the leg but now affecting the front, top, and bottom of the foot, sparing the big toe. The pain is exacerbated by prolonged sitting, walking, and certain movements, with baseline pain rated at 3-4/10, increasing with activity. A second injection in June at L4-L5 provided no relief. She has not engaged in physical therapy for her current condition but has performed exercises previously taught for lower back pain without significant improvement. She expresses a desire for surgical intervention due to the severity of her symptoms. Past Medical History: PAST MEDICAL HISTORY Diagnosis Date Back pain Hypercholesteremia 05/2014 Increased frequency of headaches 2013 Scoliosis Past Surgical History: PAST SURGICAL HISTORY Procedure Laterality Date PAST SURGICAL HISTORY OF wisdom tooth extraction PAST SURGICAL HISTORY OF 07/24/2013 REDUCTION BREAST Family History: FAMILY HISTORY Problem Relation Age of Onset Cancer Maternal Aunt 58 ovarian other (endometriosis) Paternal Grandmother Social History Tobacco Use Smoking status: Former Current packs/day: 0.00 Average packs/day: 1 pack/day for 7.0 years (7.0 ttl pk-yrs) Types: Cigarettes Start date: 06/23/2001 Quit date: 06/23/2008 Years since quittin.1 Smokeless tobacco: Never Tobacco comments: Both parents smoked in childhood home. Smokers in workplace. Substance Use Topics Alcohol use: Yes Comment: occasionally Drug use: No Allergies: Patient has no known allergies. Current Outpatient Medications Medication Sig traMADol (ULTRAM) 50 mg tablet Take 1 tablet by mouth every 6 hours as needed for pain for up to 7 days. gabapentin (NEURONTIN) 800 mg tablet Take 1 tablet by mouth three times a day for 60 days. TIRZEPATIDE SUBCUTANEOUS Inject 7.5 Ampules subcutaneously one time a week. tramadol HCl (TRAMADOL ORAL) Take by mouth. (Patient not taking: Reported on 08/15/2024) No current facility-administered medications for this visit. Employed: N/A Review of systems: Constitutional: No recent fever or weight loss. Eyes: No history of glaucoma or cataracts. ENMT: No recent ear infection, nasal congestion, mouth sores or sore throat. CV: No history of chest pain, palpitations or leg swelling. Respiratory: No history of SOB, asthma or recent cough. Gastrointestinal: No history of nausea, vomiting, dysphagia or abdominal pain. Genitourinary: No history of hematuria or dysuria. Musculoskeletal: No complaint of arthritis, unstable gait or arm/leg weakness. Psychiatric: No history of hallucinations or depression or anxiety. ROS Neurological: No complaint of headache. No complaint of tinnitus. No complaint of decreased hearing. No complaint of diplopia. No complaints of decreased visual acuity. No complaint of arm/leg numbness. No problem with limb coordination. No complaint of syncope, seizures or disorientation. Objective Physical Exam: Ht 175.3 cm (5' 9) Wt 88 kg (194 lb) LMP 07/15/2024 BMI 28.65 kg/m Neurological: Higher integrative functions: Oriented to person, place & time. Memory: Good recent and remote. Attention Span and Concentration: Good. Language: Accurate naming of objects. Good comprehension. Fund of Knowledge: Good. 2nd CN: Full visual schilling. 3rd,4th,6th CN: Pupils (=), round, react to light, full extraocular movements. 5th CN: No decrease in facial sensation. 7th CN: Facial muscles symmetric and strong. 8th CN: Hears finger rub well bilaterally. 9th CN: Good gag. 10th CN: Spontaneous palate movement, full and symmetric. 11th CN: Full strength in shoulder shrug. 12th CN: Tongue protrusion full and midline. Sensation: No decrease in sensation in upper or lower limbs to touch. Musculoskeletal: Steady gait. Motor all limbs grade 5. Myotatic reflexes: 2/4 throughout and symmetrical. Babinski reflexes: Absent. Coordination: Rapid alternating movements fast and smooth all limbs. SLR negative bilateral Paraspinal tenderness on a palpation of lower lumbar spine Labs: Latest Ref Rng & Units 03/18/2013 07/18/2013 CBC WBC 3.70 - 11.00 k/uL 8.21 9.27 RBC 3.90 - 5.20 m/uL 4.74 4.57 Hemoglobin 11.5 - 15.5 g/dL 14.6 14.0 Hematocrit 36.0 - 46.0 % 41.9 40.5 MCV 80.0 - 100.0 fL 88.4 88.6 MCH 26.0 - 34.0 pG 30.8 30.6 MCHC 30.5 - 36.0 g/dL 34.8 34.6 RDW-CV 11.5 - 15.0 % 13.2 12.9 Platelet Count 150 - 400 k/uL 292 351 MPV 9.0 - 12.7 fL 10.2 9.6 Baso% 0.0 - 1.2 % 0.5 Abs Neut (ANC) 1.45 - 7.50 k/uL 4.77 Abs Lymph 1.00 - 4.00 k/uL 2.72 Abs [place] 0.00 - 0.86 k/uL 0.55 Abs Eosin 0.00 - 0.45 k/uL 0.13 Abs Baso 0.00 - 0.10 k/uL 0.04 Diff Type Auto Diff Latest Ref Rng & Units 07/18/2013 06/08/2014 CMP Sodium 132 - 148 mmol/L 140 139 Potassium 3.5 - 5.0 mmol/L 3.5 4.2 Chloride 98 - 110 mmol/L 102 101 CO2 23 - 32 mmol/L 23 24 Glucose 65 - 100 mg/dL 78 79 BUN 8 - 25 mg/dL 10 8 Creatinine 0.70 - 1.40 mg/dL 0.70 0.73 EGFR-All Other Races . >60 >60 EGFR- >60 >60 Protein, Total 6.0 - 8.4 g/dL 7.5 Albumin 3.5 - 5.0 g/dL 4.5 Calcium 8.5 - 10.5 mg/dL 9.8 9.8 Bilirubin, Total 0.0 - 1.5 mg/dL 0.2 AST 7 - 40 U/L 22 ALT 0 - 45 U/L 16 Alkaline Phosphatase 40 - 150 U/L 53 Imaging: - (March) MRI Lumbar Spine: L4-L5 disc bulge with no significant nerve root compression. Data Review: Personal review of medical records: I reviewed the [facility] chart. Personal review of image, tracing or specimen: Michael Perez MD Assessment & Plan 1. Other intervertebral disc displacement, lumbar region (M51.26) 2. Sciatica, right side (M54.31) - Patient presents with persistent neuropathic pain described as pins and needles and burning sensation in the right leg, extending from the back of the leg to the foot, exacerbated by prolonged sitting, walking, and certain movements. - MRI from March shows a large L4-L5 disc bulge, predominantly central, without significant nerve root compression at the time of imaging. - Patient has undergone multiple epidural steroid injections (L5-S1 in April and L4-L5 transforaminal on the right side in June) with minimal relief of radicular symptoms. - Physical examination reveals tenderness in the lower back and hip, with radiation of pain to the right leg. - Differential diagnosis includes significant nerve root compression or alternative etiologies for neuropathic pain. - Ordered EMG of the right lower extremity to assess for nerve conduction abnormalities and confirm nerve root compression. - Referred patient to physical therapy to fulfill potential insurance requirements for further interventions. - Discussed potential surgical intervention; patient expresses readiness for surgery due to severity of symptoms. - Follow-up scheduled post-EMG to discuss results and further management, including surgical options if indicated. Recommendations: As above Medicines: No Change Instructions: Continue present activity Physician [id number] time was 20 minutes with > 50% devoted to counseling or co-ordination of care. Approximately 10 minutes were spent reviewing medical records. No resident was available to participate in this visit. I saw and evaluated the patient. Medical Decision Making: Problems: Moderate: 2+ stable chronic illnesses Data: Unique source(s) for external note(s) reviewed: 2 Unique test result(s) reviewed: 2 Medical Decision Making Level: 4 - Moderate Michael Fall MD 4:05 PM 08/15/2024 [facility] 39 y/o female presents to office with concerns of low back pain that is radiating into the left leg. This started 11/2023. Denies accident or trauma. Xrays obtained. documented in this encounter [facility] 08-15-2024 Note HNO ID: [id number] Author: LIZY MANTILLA MA Service: ? Author Type: Supervisor [employer] Type: Progress Notes Filed: 08/15/2024 16:06 Note Text: 39 y/o female presents to office with concerns of low back pain that is radiating into the left leg. This started 11/2023. Denies accident or trauma. Xrays obtained. [facility] 08-14-2024 History of Present illness Narrative Radiology Service Progress Note PATIENT NAME: Eugenia Chisholm DATE OF SERVICE: August 14, 2024 TIME: 1:13 PM PATIENT IDENTITY VERIFICATION COMPLETED USING TWO (2) IDENTIFIERS: Name and Date of confirmed by patient verbally. FALL SCREENING: Has the patient had 2 falls in the last year or 1 fall with injury or currently using an Ambulatory Assistive Device (Walker, Cane, Wheelchair, Crutches, etc.)? No PATIENT GENDER DATA: Assigned female at . status: : No status: NO. PATIENT RELEVANT IMPLANT DATA REVIEWED: Not Applicable PATIENT PRESENTS WITH AN IMPLANTABLE OR ATTACHED EMBOSSING CALENDER OPERATOR: No RADIOLOGY DEPARTMENT: General X-ray: Exam(s) Completed: Spine X-Ray(s): Lumbar AP / LAT / L5-S1 / FLEX-EXT PERIPHERAL IV DATA: Not applicable SIGNED BY: RT Denise(R) August 14, 2024 1:13 PM documented in this encounter [facility] 08-14-2024 Note HNO ID: [id number] Author: AMANDA MAGAÑA RT(R) Service: Radiology Author Type: Technologist Type: Progress Notes Filed: 08/14/2024 13:24 Note Text: Radiology Service Progress Note PATIENT NAME: Eugenia Chisholm DATE OF SERVICE: August 14, 2024 TIME: 1:13 PM PATIENT IDENTITY VERIFICATION COMPLETED USING TWO (2) IDENTIFIERS: Name and Date of confirmed by patient verbally. FALL SCREENING: Has the patient had 2 falls in the last year or 1 fall with injury or currently using an Ambulatory Assistive Device (Walker, Cane, Wheelchair, Crutches, etc.)? No PATIENT GENDER DATA: Assigned female at . status: : No status: NO. PATIENT RELEVANT IMPLANT DATA REVIEWED: Not Applicable PATIENT PRESENTS WITH AN IMPLANTABLE OR ATTACHED EMBOSSING CALENDER OPERATOR: No RADIOLOGY DEPARTMENT: General X-ray: Exam(s) Completed: Spine X-Ray(s): Lumbar AP / LAT / L5-S1 / FLEX-EXT PERIPHERAL IV DATA: Not applicable SIGNED BY: RT Denise(R) August 14, 2024 1:13 PM [facility] 08-10-2024 Telephone encounter Note Spoke to patient I requested her to have x-rays done before seeing Dr Perez on 08-15-24, she will do so [facility] 08-10-2024 Miscellaneous Notes Spoke to patient I requested her to have x-rays done before seeing Dr Perez on 08-15-24, she will do so documented in this encounter [facility] 08-10-2024 History of Present illness Narrative Chief Complaint Patient presents with: Back Pain: Has appt with surgery 08/15 HPI Eugenia Chisholm is a 39 year old female who presents here today for Above Complaints.. Had injections on 07/18/24- Patient states this did not help at all with her back pain. Had injections in April and it helped some initially but then pain has been progressively getting worse. Pain in low back, right buttock, pain going down right leg with numbness and tingling. Is having trouble with balance. Has to rotate between sitting and standing to help with the pain. Gabapentin 800mg three times daily improves pain. Is taking aleve all throughout the day. Muscle relaxer doesn't help. Has consult for surgery on 08/15/24. Is getting x-ray done. Dr. Sandi Jimenez would like her medications to be prescribed by PCP to better monitor with routine bloodwork. States her hands and feet are always cold, no known triggers. No swelling, pain, or stiffness. Has been going on for over a year. Past medical history, appointments, medications, allergies reviewed. Previous Medical History PAST MEDICAL HISTORY Diagnosis Date Back pain Hypercholesteremia 05/2014 Increased frequency of headaches 2013 Scoliosis Previous Surgical History PAST SURGICAL HISTORY Procedure Laterality Date PAST SURGICAL HISTORY OF wisdom tooth extraction PAST SURGICAL HISTORY OF 07/24/2013 REDUCTION BREAST Family History FAMILY HISTORY Problem Relation Age of Onset Cancer Maternal Aunt 58 ovarian other (endometriosis) Paternal Grandmother Patient Allergies ALLERGIES No Known Allergies Current Medications Current Outpatient Medications on File Prior to Visit Medication Sig tramadol HCl (TRAMADOL ORAL) Take by mouth. gabapentin (NEURONTIN) 800 mg tablet Take 1 tablet by mouth three times a day for 30 days. TIRZEPATIDE SUBCUTANEOUS Inject 7.5 Ampules subcutaneously one time a week. No current facility-administered medications on file prior to visit. Social History Social History Tobacco Use Smoking status: Former Current packs/day: 0.00 Average packs/day: 1 pack/day for 7.0 years (7.0 ttl pk-yrs) Types: Cigarettes Start date: 06/23/2001 Quit date: 06/23/2008 Years since quittin.1 Smokeless tobacco: Never Tobacco comments: Both parents smoked in childhood home. Smokers in workplace. Substance Use Topics Alcohol use: Yes Comment: occasionally Drug use: No Review of Symptoms REVIEW OF SYSTEMS See HPI, otherwise negative EXAM: LMP 07/15/2024 General Appearance: Well appearing, alert, in no acute distress, well-hydrated, well nourished.. Lungs: Lungs clear to auscultation. No wheezing, rhonchi, rales.. Heart: RRR without murmur, gallop, or rubs. No ectopy. Musculoskeletal: No joint swelling, deformity, or tenderness. Peripheral Pulses: Normal. Psychiatric: pleasant, cooperative Health Maintenance List Depression Screening Never done Anxiety Screening Never done Cervical Cancer Screening due on 12/25/2016 Hepatitis B Vaccine(3 of 3 - 3-dose series) due on 01/13/2022 Influenza Vaccine(1) due on 10/23/2024 Covid-19 Vaccine(3 - season) due on 03/16/2025 DTaP,Tdap,Td Vaccine(2 - Td or Tdap) due on 10/22/2031 Hepatitis C Screening Completed HIV Screening Completed Data reviewed Previous records, office notes ASSESSMENT/PLAN: 1. Cold hands and feet - ICD9: 782.9, ICD10: R20.9 (primary diagnosis) - Patient denied PVR test at this time. Will continue to monitor for worsening symptoms 2. Intervertebral disc disorder with radiculopathy of lumbar region - ICD9: 724.4, ICD10: M51.16 - Patient has surgery consult appointment - Continue gabapentin 800mg TID - TRAMADOL 50 MG TABLET - GABAPENTIN 800 MG TABLET - TRIAMCINOLONE ACETONIDE 40 MG/ML SUSPENSION FOR INJECTION 3. Acute bilateral low back pain with right-sided sciatica - ICD9: 724.2, 724.3, 338.19, ICD10: M54.41 - TRAMADOL 50 MG TABLET - GABAPENTIN 800 MG TABLET - TRIAMCINOLONE ACETONIDE 40 MG/ML SUSPENSION FOR INJECTION 4. Acute midline low back pain without sciatica - ICD9: 724.2, ICD10: M54.50 - TRAMADOL 50 MG TABLET - GABAPENTIN 800 MG TABLET - TRIAMCINOLONE ACETONIDE 40 MG/ML SUSPENSION FOR INJECTION [facility] and validated. All prescriptions have been APPROPRIATELY filled. No suspicious activity was identified. 08/10/2024 by Deysi Dasilva CNP. Attending Note I have personally performed a face to face assessment of the patient and have reviewed the SORAYA note and I agree. Other additions or changes: As edited Signature: Deysi Dasilva Date: 08/10/2024 Time: 9:39 AM documented in this encounter [facility] 08-10-2024 Note HNO ID: [id number] Author: DEYSI DASILVA APRN.NIMA Service: ? Author Type: Nurse Practitioner Type: Progress Notes Filed: 08/10/2024 09:39 Note Text: Chief Complaint Patient presents with: Back Pain: Has appt with surgery 08/15 HPI Eugenia Chisholm is a 39 year old female who presents here today for Above Complaints.. Had injections on 07/18/24- Patient states this did not help at all with her back pain. Had injections in April and it helped some initially but then pain has been progressively getting worse. Pain in low back, right buttock, pain going down right leg with numbness and tingling. Is having trouble with balance. Has to rotate between sitting and standing to help with the pain. Gabapentin 800mg three times daily improves pain. Is taking aleve all throughout the day. Muscle relaxer doesn't help. Has consult for surgery on 08/15/24. Is getting x-ray done. Dr. Sandi Jimenez would like her medications to be prescribed by PCP to better monitor with routine bloodwork. States her hands and feet are always cold, no known triggers. No swelling, pain, or stiffness. Has been going on for over a year. Past medical history, appointments, medications, allergies reviewed. Previous Medical History PAST MEDICAL HISTORY Diagnosis Date Back pain Hypercholesteremia 05/2014 Increased frequency of headaches 2013 Scoliosis Previous Surgical History PAST SURGICAL HISTORY Procedure Laterality Date PAST SURGICAL HISTORY OF wisdom tooth extraction PAST SURGICAL HISTORY OF 07/24/2013 REDUCTION BREAST Family History FAMILY HISTORY Problem Relation Age of Onset Cancer Maternal Aunt 58 ovarian other (endometriosis) Paternal Grandmother Patient Allergies ALLERGIES No Known Allergies Current Medications Current Outpatient Medications on File Prior to Visit Medication Sig tramadol HCl (TRAMADOL ORAL) Take by mouth. gabapentin (NEURONTIN) 800 mg tablet Take 1 tablet by mouth three times a day for 30 days. TIRZEPATIDE SUBCUTANEOUS Inject 7.5 Ampules subcutaneously one time a week. No current facility-administered medications on file prior to visit. Social History Social History Tobacco Use Smoking status: Former Current packs/day: 0.00 Average packs/day: 1 pack/day for 7.0 years (7.0 ttl pk-yrs) Types: Cigarettes Start date: 06/23/2001 Quit date: 06/23/2008 Years since quittin.1 Smokeless tobacco: Never Tobacco comments: Both parents smoked in childhood home. Smokers in workplace. Substance Use Topics Alcohol use: Yes Comment: occasionally Drug use: No Review of Symptoms REVIEW OF SYSTEMS See HPI, otherwise negative EXAM: LMP 07/15/2024 General Appearance: Well appearing, alert, in no acute distress, well-hydrated, well nourished.. Lungs: Lungs clear to auscultation. No wheezing, rhonchi, rales.. Heart: RRR without murmur, gallop, or rubs. No ectopy. Musculoskeletal: No joint swelling, deformity, or tenderness. Peripheral Pulses: Normal. Psychiatric: pleasant, cooperative Health Maintenance List Depression Screening Never done Anxiety Screening Never done Cervical Cancer Screening due on 12/25/2016 Hepatitis B Vaccine(3 of 3 - 3-dose series) due on 01/13/2022 Influenza Vaccine(1) due on 10/23/2024 Covid-19 Vaccine(3 - season) due on 03/16/2025 DTaP,Tdap,Td Vaccine(2 - Td or Tdap) due on 10/22/2031 Hepatitis C Screening Completed HIV Screening Completed Data reviewed Previous records, office notes ASSESSMENT/PLAN: 1. Cold hands and feet - ICD9: 782.9, ICD10: R20.9 (primary diagnosis) - Patient denied PVR test at this time. Will continue to monitor for worsening symptoms 2. Intervertebral disc disorder with radiculopathy of lumbar region - ICD9: 724.4, ICD10: M51.16 - Patient has surgery consult appointment - Continue gabapentin 800mg TID - TRAMADOL 50 MG TABLET - GABAPENTIN 800 MG TABLET - TRIAMCINOLONE ACETONIDE 40 MG/ML SUSPENSION FOR INJECTION 3. Acute bilateral low back pain with right-sided sciatica - ICD9: 724.2, 724.3, 338.19, ICD10: M54.41 - TRAMADOL 50 MG TABLET - GABAPENTIN 800 MG TABLET - TRIAMCINOLONE ACETONIDE 40 MG/ML SUSPENSION FOR INJECTION 4. Acute midline low back pain without sciatica - ICD9: 724.2, ICD10: M54.50 - TRAMADOL 50 MG TABLET - GABAPENTIN 800 MG TABLET - TRIAMCINOLONE ACETONIDE 40 MG/ML SUSPENSION FOR INJECTION [facility] website checked and validated. All prescriptions have been APPROPRIATELY filled. No suspicious activity was identified. 08/10/2024 by Deysi Dasilva CNP. Attending Note I have personally performed a face to face assessment of the patient and have reviewed the SORAYA note and I agree. Other additions or changes: As edited Signature: Deysi Dasilva Date: 08/10/2024 Time: 9:39 AM [facility] 07-18-2024 Note HNO ID: [id number] Author: PADMINI PRETTY RN Service: Nursing Author Type: Registered Nurse Type: Nursing Progress Note Filed: 07/18/2024 10:09 Note Text: Other: pt ready for OR, call light in reach, Quynh called to bedside. [facility] 07-12-2024 Telephone encounter Note Please see patients MyChart message Thank you Trudi Isidro MA [facility] 07-12-2024 Miscellaneous Notes Please see patients MyChart message Thank you Trudi Isidro MA documented in this encounter [facility] 06-23-2024 Telephone encounter Note Called the patient to schedule her lumbar injection Patient choose July 18, 2024 Will hold Aleve - 5 days prior to the procedure. Instructions will be sent to the patient via [employer]. Trudi Isidro MA [facility] 06-23-2024 Miscellaneous Notes Called the patient to schedule her lumbar injection Patient choose July 18, 2024 Will hold Aleve - 5 days prior to the procedure. Instructions will be sent to the patient via [employer]. Trudi Isidro MA documented in this encounter [facility] 06-22-2024 Note HNO ID: [id number] Author: SANDI JIMENEZ PA-C Service: ? Author Type: Physician Pole Inspector Type: Progress Notes Filed: 06/22/2024 16:52 Note Text: Sandi Jimenez PA-C [facility] [address] [address] Dear Del Hubbard DO, Amber D Pamela is a pleasant 38 year old individual who comes in to the office on 06/22/2024 for follow-up regarding the Lumbar spine. Has lower back pain, right hip, and right leg- pain goes down to the ankle, but sometimes to the toes, when pain is very bad. Pain wakes her up. It's very difficult to find good position. Level of the pain is at 6/10. Patient is here alone today. Subjective: Compared to the last visit, symptoms have been the same. Ms. Chisholm is here after injection, and injection helped 60%. Pain slowly getting to the same level as it was before the injection. ROS: Since last visit-patient DENIES fevers, chills, night sweats, unexpected weight loss or gain, abdominal pain, progressive weakness, paralysis, loss of bowel/bladder control, saddle numbness, stumbling gait, loss of coordination. Current Outpatient Medications Medication Sig Dispense Refill gabapentin (NEURONTIN) 600 mg tablet Take 1 tablet by mouth three times a day for 90 days. 90 tablet 2 cyclobenzaprine (FLEXERIL) 5 mg tablet Take 5 mg by mouth three times a day. (Patient not taking: Reported on 06/22/2024) TIRZEPATIDE SUBCUTANEOUS Inject 7.5 Ampules subcutaneously one time a week. methocarbamol (ROBAXIN) 500 mg tablet Take 1 tablet by mouth four times a day as needed. (Patient not taking: Reported on 06/02/2024) 40 tablet 0 No current facility-administered medications for this visit. Exam: Blood pressure 103/66, pulse 71, height 175.3 cm (5' 9), weight 88 kg (194 lb 0.1 oz), last menstrual period 06/03/2016, SpO2 97%. Body mass index is 28.65 kg/m?. Station and Gait: flexed posture and antalgic gait leaning forward Range of Motion: Diminished extension recreating increased low back pain Motor: No focal motor deficits in lower extremities on exam today, but she does note occasional tripping on the RLE Sensory: Diminished sensory in the RIGHT L5 and/or S1 dermatome specially below the knee. Pain on Palpation: Across the low back to the right of midline at the lumbosacral junction but not particularly point tender at any of the posterior pelvic bony prominences including PSIS, sciatic notches, greater trochanters. Imaging: The following study/studies were reviewed with the patient during the visit: I reviewed her lumbar MRI study again with her in detail during today's visit. She has disc degeneration and desiccation noted at L3-4 and L4-5 with disc bulge most notably at the L4-5 level. There are smaller disc bulges elsewhere but her L4-5 bulge appears to be somewhat right sided. Assessment/Plan: Encounter Diagnosis ICD-10-CM 1. Intervertebral disc disorder with radiculopathy of lumbar region M51.16 SPINE INTERVENTION PROCEDURE traMADol (ULTRAM) 50 mg tablet 2. Acute bilateral low back pain with right-sided sciatica M54.41 SPINE INTERVENTION PROCEDURE traMADol (ULTRAM) 50 mg tablet 3. Acute midline low back pain without sciatica M54.50 traMADol (ULTRAM) 50 mg tablet RTC: After another injection-about 1 month after the procedure Other/Discussion: She is heading out on vacation for a week and will need a small dose of additional medication to help with her ability to walk. I will have her try tramadol again since she had had this in the past a couple of times. She also needed a note for her work to indicate that she could go to work without wearing dress shoes. This note was printed for her and signed. Time spent: 35 minutes today with this patient visit. This includes [id number] time, review of chart records regarding conservative care history, spine-pertinent imaging, and communication/care coordination with referring provider, problem-specific history-taking and counseling/education regarding treatment options. This document has been created with the use of voice recognition technology. It may contain inaccuracies: (e.g. misspellings, inaccurate syntax or word sense) that have escaped review. Trudi Isidro MA [facility] 06-22-2024 History of Present illness Narrative Sandi Jimenez PA-C [facility] [address] [place] [address] Dear Del Hubbard DO, Amber D Pamela is a pleasant 38 year old individual who comes in to the office on 06/22/2024 for follow-up regarding the Lumbar spine. Has lower back pain, right hip, and right leg- pain goes down to the ankle, but sometimes to the toes, when pain is very bad. Pain wakes her up. It's very difficult to find good position. Level of the pain is at 6/10. Patient is here alone today. Subjective: Compared to the last visit, symptoms have been the same. Ms. Chisholm is here after injection, and injection helped 60%. Pain slowly getting to the same level as it was before the injection. ROS: Since last visit-patient DENIES fevers, chills, night sweats, unexpected weight loss or gain, abdominal pain, progressive weakness, paralysis, loss of bowel/bladder control, saddle numbness, stumbling gait, loss of coordination. Current Outpatient Medications Medication Sig Dispense Refill gabapentin (NEURONTIN) 600 mg tablet Take 1 tablet by mouth three times a day for 90 days. 90 tablet 2 cyclobenzaprine (FLEXERIL) 5 mg tablet Take 5 mg by mouth three times a day. (Patient not taking: Reported on 06/22/2024) TIRZEPATIDE SUBCUTANEOUS Inject 7.5 Ampules subcutaneously one time a week. methocarbamol (ROBAXIN) 500 mg tablet Take 1 tablet by mouth four times a day as needed. (Patient not taking: Reported on 06/02/2024) 40 tablet 0 No current facility-administered medications for this visit. Exam: Blood pressure 103/66, pulse 71, height 175.3 cm (5' 9), weight 88 kg (194 lb 0.1 oz), last menstrual period 06/03/2016, SpO2 97%. Body mass index is 28.65 kg/m . Station and Gait: flexed posture and antalgic gait leaning forward Range of Motion: Diminished extension recreating increased low back pain Motor: No focal motor deficits in lower extremities on exam today, but she does note occasional tripping on the RLE Sensory: Diminished sensory in the RIGHT L5 and/or S1 dermatome specially below the knee. Pain on Palpation: Across the low back to the right of midline at the lumbosacral junction but not particularly point tender at any of the posterior pelvic bony prominences including PSIS, sciatic notches, greater trochanters. Imaging: The following study/studies were reviewed with the patient during the visit: I reviewed her lumbar MRI study again with her in detail during today's visit. She has disc degeneration and desiccation noted at L3-4 and L4-5 with disc bulge most notably at the L4-5 level. There are smaller disc bulges elsewhere but her L4-5 bulge appears to be somewhat right sided. Assessment/Plan: Encounter Diagnosis ICD-10-CM 1. Intervertebral disc disorder with radiculopathy of lumbar region M51.16 SPINE INTERVENTION PROCEDURE traMADol (ULTRAM) 50 mg tablet 2. Acute bilateral low back pain with right-sided sciatica M54.41 SPINE INTERVENTION PROCEDURE traMADol (ULTRAM) 50 mg tablet 3. Acute midline low back pain without sciatica M54.50 traMADol (ULTRAM) 50 mg tablet RTC: After another injection-about 1 month after the procedure Other/Discussion: She is heading out on vacation for a week and will need a small dose of additional medication to help with her ability to walk. I will have her try tramadol again since she had had this in the past a couple of times. She also needed a note for her work to indicate that she could go to work without wearing dress shoes. This note was printed for her and signed. Time spent: 35 minutes today with this patient visit. This includes [id number]-yepq time, review of chart records regarding conservative care history, spine-pertinent imaging, and communication/care coordination with referring provider, problem-specific history-taking and counseling/education regarding treatment options. This document has been created with the use of voice recognition technology. It may contain inaccuracies: (e.g. misspellings, inaccurate syntax or word sense) that have escaped review. Trudi Isidro MA documented in this encounter [facility] 06-02-2024 Note HNO ID: [id number] Author: TRUDI ISIDRO MA Service: ? Author Type: Physician Pole Inspector Type: Progress Notes Filed: 06/23/2024 12:11 Note Text: Sand[facility] Jimenez [facility] [address] [place] [address] Dear Del Hubbard DO, Amber D Pamela is a 38 year old individual who comes in to the office on 06/02/2024 for follow-up regarding the Lumbar spine. Has lower back pain, and constant right leg tingling and numbness. Level of the pain is at 4/10. Pain started 5 months ago. Leg tingling and numbness are getting worse. Patient is here alone today. Subjective: Compared to the last visit, symptoms have been improved. Ms. Chisholm is here for the injection follow up. Lower back pain started to decrease, injection started to work, helped 50-60% ROS: Since last visit-patient DENIES fevers, chills, night sweats, unexpected weight loss or gain, abdominal pain, progressive weakness, paralysis, loss of bowel/bladder control, saddle numbness, stumbling gait, loss of coordination. Current Outpatient Medications Medication Sig Dispense Refill cyclobenzaprine (FLEXERIL) 5 mg tablet Take 5 mg by mouth three times a day. TIRZEPATIDE SUBCUTANEOUS Inject 7.5 Ampules subcutaneously one time a week. gabapentin (NEURONTIN) 600 mg tablet Take 1 tablet by mouth three times a day for 90 days. 90 tablet 2 methocarbamol (ROBAXIN) 500 mg tablet Take 1 tablet by mouth four times a day as needed. (Patient not taking: Reported on 06/02/2024) 40 tablet 0 No current facility-administered medications for this visit. Exam: Blood pressure 100/62, pulse 68, height 175.3 cm (5' 9), weight 86 kg (189 lb 9.5 oz), last menstrual period 06/03/2016, SpO2 99%. Body mass index is 28 kg/m?. Assessment/Plan: Encounter Diagnosis ICD-10-CM 1. Intervertebral disc disorder with radiculopathy of lumbar region M51.16 2. Acute bilateral low back pain with right-sided sciatica M54.41 RTC: on an as-needed basis (PRN) Other/Discussion: The patient received an urgent phone call during the course of her rooming interview today with my product manager medical device and she told my web assistant that she needed to leave immediately to take care of of a family emergency. The visit was truncated at that point and there was no further evaluation or exam today. I did not personally see this patient during today's visit because she had to leave prior to my arrival in the exam room. Trudi Isidro MA [facility] 06-02-2024 History of Present illness Narrative Sandi Jimenez PA-C [facility] [address] [place] [address] [place] [address] Dear Del Hubbard DO, Eugenia Blue Pamela is a 38 year old individual who comes in to the office on 06/02/2024 for follow-up regarding the Lumbar spine. Has lower back pain, and constant right leg tingling and numbness. Level of the pain is at 4/10. Pain started 5 months ago. Leg tingling and numbness are getting worse. Patient is here alone today. Subjective: Compared to the last visit, symptoms have been improved. Ms. Chisholm is here for the injection follow up. Lower back pain started to decrease, injection started to work, helped 50-60% ROS: Since last visit-patient DENIES fevers, chills, night sweats, unexpected weight loss or gain, abdominal pain, progressive weakness, paralysis, loss of bowel/bladder control, saddle numbness, stumbling gait, loss of coordination. Current Outpatient Medications Medication Sig Dispense Refill cyclobenzaprine (FLEXERIL) 5 mg tablet Take 5 mg by mouth three times a day. TIRZEPATIDE SUBCUTANEOUS Inject 7.5 Ampules subcutaneously one time a week. gabapentin (NEURONTIN) 600 mg tablet Take 1 tablet by mouth three times a day for 90 days. 90 tablet 2 methocarbamol (ROBAXIN) 500 mg tablet Take 1 tablet by mouth four times a day as needed. (Patient not taking: Reported on 06/02/2024) 40 tablet 0 No current facility-administered medications for this visit. Exam: Blood pressure 100/62, pulse 68, height 175.3 cm (5' 9), weight 86 kg (189 lb 9.5 oz), last menstrual period 06/03/2016, SpO2 99%. Body mass index is 28 kg/m . Assessment/Plan: Encounter Diagnosis ICD-10-CM 1. Intervertebral disc disorder with radiculopathy of lumbar region M51.16 2. Acute bilateral low back pain with right-sided sciatica M54.41 RTC: on an as-needed basis (PRN) Other/Discussion: The patient received an urgent phone call during the course of her rooming interview today with my product manager medical device and she told my web assistant that she needed to leave immediately to take care of of a family emergency. The visit was truncated at that point and there was no further evaluation or exam today. I did not personally see this patient during today's visit because she had to leave prior to my arrival in the exam room. Trudi Isidro MA documented in this encounter [facility] 04-27-2024 Note HNO ID: [id number] Author: BROCK BENSON RN Service: ? Author Type: Registered Nurse Type: Progress Notes Filed: 04/27/2024 15:08 Note Text: Patient scheduled for injection during today's OV. Patient scheduled for: May 18, 2024 Patient instructed to hold the following medication(s) prior to the procedure: NSAIDs Pre-procedure instructions discussed during OV and paper copy of instructions handed to patient. Patient verbalized understanding. [facility] 04-27-2024 History of Present illness Narrative Patient scheduled for injection during today's OV. Patient scheduled for: May 18, 2024 Patient instructed to hold the following medication(s) prior to the procedure: NSAIDs Pre-procedure instructions discussed during OV and paper copy of instructions handed to patient. Patient verbalized understanding. Images from the original note were not included. [facility] Jim[facility] [address] [place] [address] 04/27/2024 ASSESSMENT AND PLAN: Assessment : Encounter Diagnosis ICD-10-CM 1. Intervertebral disc disorder with radiculopathy of lumbar region M51.16 gabapentin (NEURONTIN) 600 mg tablet CONSULT TO PHYSICAL THERAPY SPINE INTERVENTION PROCEDURE 2. Acute bilateral low back pain with right-sided sciatica M54.41 gabapentin (NEURONTIN) 600 mg tablet CONSULT TO PHYSICAL THERAPY SPINE INTERVENTION PROCEDURE Discussion: Ms. Chisholm is a pleasant 38-year-old female here for evaluation of right sided low back and right lower extremity radiating symptoms over the past 2 to 3 months that have been appreciably reducing her day-to-day activity. She is struggling to even get to work. She tried gabapentin and it helped initially but does not seem to be helping her enough at this point--apparently very few side effects from this also. She has had lumbar MRI study and has had some therapy at a chiropractor's office and some PT a couple of years ago for similar incidents She takes OTC meds as noted below. EXAM Highlights: Slow to mobilize and favors the right leg when walking. She has quite a bit of trouble with bearing her weight on her right toe and plantarflexion SLR is positive on the right She has mild sensory loss roughly in S1 distribution Lumbar motion is diminished in left lateral bending causing some right sided back pain and her motion toward the right lateral bending causes moderately severe right leg pain. There is pain on palpation over right PSIS and sciatic notch IMAGING: We reviewed her MRI study in detail during today's visit. She has fairly large disc bulge at L4-5 in the right paracentral region that seems to affect the right exiting nerve root as well as the thecal sac and the right lateral aspect. She also has disc degeneration at L3-4 and some mild disc space height loss but without stenosis. February 2024 lumbar plain radiographs show what appears to be mild lumbar scoliosis with apex toward the right in the mid lumbar region. There does not appear to be significant leg length discrepancy underlying this. There may be mild hyperlordosis and there is thoracolumbar disc degeneration noted. SUMMARY/PLAN: Her symptoms are fairly severe and her ADL functions have notably diminished as a result of this. She has an interest in a multipronged approach for her future improvement including the following: Supervised PT Increasing gabapentin to 600 mg 3 times a day RIGHT L5-S1 IL KIMBERLI to try to get both the exiting nerve root and the right para-central nerve root. I would like to see her back about a month or so after her injection She will try the increased dose of gabapentin in the meantime and try PT. Plan : REFERAL FOR SERVICES: -Consult to Pain Anesthesia: The purpose will be for both diagnostic and therapeutic purposes. The patient is instructed to pay attention to the amount of pain during the anesthetic phase, and during that time to perform the activities that typically exacerbate the pain to determine what percentage of relief is gained. The patient is instructed that the steroid phase of the injection may take up to a week or more to provide relief, and to pay attention to the percentage of relief obtained during the steroid phase. If the steroid phase gives significant pain relief, the procedure can be repeated. MEDICATIONS: -See prescribed medication list for this encounter. -Nerve membrane stabilizer medication (gabapentin or pregabalin) was prescribed. Off-label use, importance of (and suggested schedule for) ramping and weaning, and expected side effects discussed with the patient during today's visit. ACTIVITY RECOMMENDATIONS: -The patient advised to avoid prolonged sitting. FOLLOW-UP: -The patient is instructed to return in about 1 month for follow-up after her injection This document has been created with the use of voice recognition technology. It may contain inaccuracies: (e.g. misspellings, inaccurate syntax or word sense) that have escaped review. Time spent: 45 minutes today with this patient visit. This includes [id number] time, review of chart records regarding conservative care history, spine-pertinent imaging, and communication/care coordination with referring provider, problem-specific history-taking and counseling/education regarding treatment options. cc: Myrna Walker [address] [facility] [place] [address] Results of consultation to be transmitted via electronic medical record for those providers who practice within [facility] or with access to [employer] via [facility], or via letter. 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 Has in the past and does recommended stretches at home The therapy did not provide any significant relief. Spinal Injections: She has not gotten prior spinal injections. Other: Chiropractor TENS unit Inversion table Current Outpatient Medications Medication Sig Dispense Refill methocarbamol (ROBAXIN) 500 mg tablet Take 1 tablet by mouth four times a day as needed. 40 tablet 0 gabapentin (NEURONTIN) 300 mg capsule Take 1 capsule by mouth three times a day for 30 days. 90 capsule 0 No current facility-administered medications for this visit. Allergies: Patient has no known allergies. PAST MEDICAL HISTORY Diagnosis Date Back pain Hypercholesteremia 05/2014 Increased frequency of headaches 2013 Scoliosis PAST SURGICAL HISTORY Procedure Laterality Date PAST SURGICAL HISTORY OF wisdom tooth extraction PAST SURGICAL HISTORY OF 07/24/2013 REDUCTION BREAST Social History Tobacco Use Smoking status: Former Current packs/day: 0.00 Average packs/day: 1 pack/day for 7.0 years (7.0 ttl pk-yrs) Types: Cigarettes Start date: 06/23/2001 Quit date: 06/23/2008 Years since quittin.8 Smokeless tobacco: Never Tobacco comments: Both parents smoked in childhood home. Smokers in workplace. Substance Use Topics Alcohol use: Yes Comment: occasionally Drug use: No FAMILY HISTORY Problem Relation Age of Onset Cancer Maternal Aunt 58 ovarian other (endometriosis) Paternal Grandmother REVIEW OF SYSTEMS: Constitutional: (-) Fever/Chills (-) Night Sweats (-) Weight Gain (-) Weight Loss Gastrointestinal: (-) Abdominal Pain (-) Diarrhea (-) Constipation (-) Heart Burn Cardiovascular: (-) Chest Pain (-) Palpitations (-) Lightheadedness (-) Hx Heart Surgery/Stent Respiratory: (-) Short of Breath (-) Cough (-) Snoring Neurologic: (-) Headache (-) Blurry Vision (-) Fainting Skin: (-) Rashes (-) Itching (-) Other Lesions Psychiatric: (-) Depression (-) Anxiety (-) Suicidal Thoughts Genitourinary: (-) Frequency (-) Urgency Endocrine: (-) Thyroid Disorder (-) Diabetes Hematologic: (-) Prolonged Bleeding (+) Easy Bruising ################################# ################################# ################################# ############################## PHYSICAL EXAM: Blood pressure 100/66, pulse 72, resp. rate 16, weight 87.5 kg (192 lb 14.4 oz), last menstrual period 06/03/2016, SpO2 97%. Body mass index is 29.85 kg/m . General: Patient is a(n) average historian. The patient appears approximately the recorded age and is sitting uncomfortably and leaning to the left side in the examining room. The patient is tall in stature and is overweight in appearance. This individual has difficulty arising from a sitting position and does have difficulty acquiring a full, upright position when standing. Station and Gait: flexed posture and antalgic gait leaning forward, favoring the right lower extremity, short strides, and slow pace The patient is able to but has difficulty in attempting to walk in a tandem gait. MENTAL STATUS EXAMINATION: The patient was well groomed and casually attired. The patient had good eye contact and rapport was average to establish. The patient appeared to be alert and oriented in all spheres. The patient's overall medical judgment appeared to be good.The patient's motivation for treatment was judged based on today's encounter to be good. SPINE: Lumbar Lordosis: Increased Thoracic Kyphosis: Normal RANGE OF MOTION: Flexion: normal, as expected for age and weight Pain: No Extension: normal, as expected for age and weight Pain: No Lateral Bending: Right abnormal, decreased motion below expected for age and weight Pain: Yes, severe pain Left abnormal, decreased motion below expected for age and weight Pain: Yes, muscular stretch pain on the contralateral side PALPATION TENDERNESS: Moderate tenderness at: lumbar region, posterior pelvis, and gluteal region Hyperesthesia present: No Regional symptoms present: No Increased pain with axial loading: No Distraction: Normal Pain responses: elevated NEUROLOGIC EXAM: MOTOR: Walk on Toes: Right: No Left: Yes Walk on Heels: Right: Yes Left: Yes Requires verbal cues to minimize cog-wheel or give-way resistance: No Hip Flexor R: 5/5 L: 5/5 Hip Abductor R: 5/5 L: 5/5 Hip Adductor R: 5/5 L: 5/5 Knee Extension R: 5/5 L: 5/5 Foot Dorsiflexion R: 5/5 L: 5/5 Foot Plantar Flexion R: 5/5 L: 5/5 Ext Hallicus Longus R: 4/5 L: 5/5 Toe Extensors R: 4/5 L: 5/5 SENSATION to Light Touch: Lumbar: S1: R: Abnormal: Noted findings are hyperesthesia to light touch within this dermatome., L: Normal REFLEXES: Lower Extremity: All Lower Extremity reflexes symmetrically normal. Clonus: R: 0 beats/Normal L: 0 beats/Normal Babinski Sign: Negative bilaterally. VASCULAR: Skin appearance: Right: Warm/pink Left: Warm/pink Capillary refill: Right: brisk Left: brisk ADDITIONAL MUSCULOSKELETAL EXAM: HIP/PELVIS EXAM: Tenderness over the PSIS: Right: Yes Left: No Greater Trochanteric pain: Right: No Left: No SPECIAL TESTS: Straight Leg Raise: positive on the right Contralateral Straight Leg Raise: negative bilaterally IMAGING STUDIES: See discussion above documented in this encounter [facility] 04-27-2024 Note HNO ID: [id number] Author: SANDI JIMENEZ PA-C Service: ? Author Type: Physician Pole Inspector Type: Progress Notes Filed: 04/27/2024 15:08 Note Text: Sandi Jimenez PA-C [facility] [address] [address] 04/27/2024 ASSESSMENT AND PLAN: Assessment : Encounter Diagnosis ICD-10-CM 1. Intervertebral disc disorder with radiculopathy of lumbar region M51.16 gabapentin (NEURONTIN) 600 mg tablet CONSULT TO PHYSICAL THERAPY SPINE INTERVENTION PROCEDURE 2. Acute bilateral low back pain with right-sided sciatica M54.41 gabapentin (NEURONTIN) 600 mg tablet CONSULT TO PHYSICAL THERAPY SPINE INTERVENTION PROCEDURE Discussion: Ms. Chisholm is a pleasant 38-year-old female here for evaluation of right sided low back and right lower extremity radiating symptoms over the past 2 to 3 months that have been appreciably reducing her day-to-day activity. She is struggling to even get to work. She tried gabapentin and it helped initially but does not seem to be helping her enough at this point--apparently very few side effects from this also. She has had lumbar MRI study and has had some therapy at a chiropractor's office and some PT a couple of years ago for similar incidents She takes OTC meds as noted below. EXAM Highlights: Slow to mobilize and favors the right leg when walking. She has quite a bit of trouble with bearing her weight on her right toe and plantarflexion SLR is positive on the right She has mild sensory loss roughly in S1 distribution Lumbar motion is diminished in left lateral bending causing some right sided back pain and her motion toward the right lateral bending causes moderately severe right leg pain. There is pain on palpation over right PSIS and sciatic notch IMAGING: We reviewed her MRI study in detail during today's visit. She has fairly large disc bulge at L4-5 in the right paracentral region that seems to affect the right exiting nerve root as well as the thecal sac and the right lateral aspect. She also has disc degeneration at L3-4 and some mild disc space height loss but without stenosis. February 2024 lumbar plain radiographs show what appears to be mild lumbar scoliosis with apex toward the right in the mid lumbar region. There does not appear to be significant leg length discrepancy underlying this. There may be mild hyperlordosis and there is thoracolumbar disc degeneration noted. SUMMARY/PLAN: Her symptoms are fairly severe and her ADL functions have notably diminished as a result of this. She has an interest in a multipronged approach for her future improvement including the following: Supervised PT Increasing gabapentin to 600 mg 3 times a day RIGHT L5-S1 IL KIMBERLI to try to get both the exiting nerve root and the right para-central nerve root. I would like to see her back about a month or so after her injection She will try the increased dose of gabapentin in the meantime and try PT. Plan : REFERAL FOR SERVICES: -Consult to Pain Anesthesia: The purpose will be for both diagnostic and therapeutic purposes. The patient is instructed to pay attention to the amount of pain during the anesthetic phase, and during that time to perform the activities that typically exacerbate the pain to determine what percentage of relief is gained. The patient is instructed that the steroid phase of the injection may take up to a week or more to provide relief, and to pay attention to the percentage of relief obtained during the steroid phase. If the steroid phase gives significant pain relief, the procedure can be repeated. MEDICATIONS: -See prescribed medication list for this encounter. -Nerve membrane stabilizer medication (gabapentin or pregabalin) was prescribed. Off-label use, importance of (and suggested schedule for) ramping and weaning, and expected side effects discussed with the patient during today's visit. ACTIVITY RECOMMENDATIONS: -The patient advised to avoid prolonged sitting. FOLLOW-UP: -The patient is instructed to return in about 1 month for follow-up after her injection This document has been created with the use of voice recognition technology. It may contain inaccuracies: (e.g. misspellings, inaccurate syntax or word sense) that have escaped review. Time spent: 45 minutes today with this patient visit. This includes [id number]-sb-[id number] time, review of chart records regarding conservative care history, spine-pertinent imaging, and communication/care coordination with referring provider, problem-specific history-taking and counseling/education regarding treatment options. cc: Myrna Walker [address] [facility] [address] Results of consultation to be transmitted via electronic medical record for those providers who practice within [facility] or with access to [employer] via [employer] Connect, or via [employer] (more content not included)... [facility] 04-06-2024 Note HNO ID: [id number] Author: DEYSI DASILVA APRN.NIMA Service: ? Author Type: Nurse Practitioner Type: Progress Notes Filed: 04/06/2024 09:35 Note Text: Chief Complaint Patient presents with: Back Pain: Herniated disc, requesting med for pain, flexeril not helping HPI Eugenia Chisholm is a 38 year old female who presents here today for Above Complaints.. Per visit with Myrna Walker CNP on 03/16: Back pain --- Pt reports acute on chronic lower back pain. Significantly worse since the first week of December. Started after a camping trip. Denies any known fall, injury, or lifting heavy while on the trip or before/after. Reports pain is so severe she tries to stand all day long as sitting exacerbates it. Reports intermittent numbness and tingling to bilateral legs, worse to R leg. Sometimes hard to walk d/t pain and numbness. Reports sharp pain down legs and across lower back when she moves certain directions. Pain is worse with abduction of hip. Was seen by this provider in June 2021 for similar symptoms. Reports symptoms are significantly worse this time around. Has tried everything with no relief -- rotates between ice and heat to area, OTC NSAIDs without relief, physical therapy in the past and continues with the stretches she was taught, and even has inversion table at home that does not help. She has been going to chiropractor all of January for this who thinks she has a large herniated disc. Pt reports some minimal relief in the past with muscle relaxant but wasn't sure if she should take medication she has at home. Does not tolerate PO steroids well in the past d/t side effects. Hx of drug addiction in her family so she is hesitant about opoid but does feel like she has hit last resort and would consider pain management d/t significant ongoing pain. She has lost 41 lbs in the last year and had breast reduction without any too much relief of symptoms. Pt denies any bladder or bowel incontinence. Last xray of lumbar completed in 2021. ASSESSMENT/PLAN: 1. Acute bilateral low back pain with right-sided sciatica - ICD9: 724.2, 724.3, 338.19, ICD10: M54.41 (primary diagnosis) Repeat lumbar x-ray d/t acute on chronic symptoms -- compare to prior from 2021. Need MRI of lumbar d/t ongoing significant pain despite no relief with numerous conservative measures. Concern for large herniated disc. Consult to ortho/spine for further intervention. Restart flexeril as needed -- pt aware of side effects. Short term tramadol rx given and reserved for use only with severe pain not relieved by anything else. Pt is aware this is is short-term only (7 day rx) and needs pain management and ortho opinion of further intervention. - MRI LUMBAR SPINE WO IVCON - CON[facility]ULT TO [facility] - CYCLOBENZAPRINE 10 MG TABLET - TRAMADOL 50 MG TABLET - XR LUMBAR GENERAL 3V AP/LAT/L5-S1 2. Numbness in both legs - ICD9: 782.0, ICD10: R20.0 See above. - CYCLOBENZAPRINE 10 MG TABLET - TRAMADOL 50 MG TABLET - XR LUMBAR GENERAL 3V AP/LAT/L5-S1 3. Gait instability - ICD9: 781.2, ICD10: R26.81 See above. - CYCLOBENZAPRINE 10 MG TABLET - TRAMADOL 50 MG TABLET - XR LUMBAR GENERAL 3V AP/LAT/L5-S1 4. Physical debility - ICD9: 799.3, ICD10: R53.81 See above. - CYCLOBENZAPRINE 10 MG TABLET - TRAMADOL 50 MG TABLET - XR LUMBAR GENERAL 3V AP/LAT/L5-S1 Myrna Frias APRN.NIMA Currently: Sciatic nerve pain all the way down her right leg. Occasionally down the left. At [employer] the other day the nerve pain locked up her body and fell backwards- was able to catch her. Is doing all the stretches from PT, inversion chair. Antiinflammatories helped initially. Hadn't taken for about a week, but did take Aleve last night which was slightly helpful. Tramadol did take the edge off the pain. Flexeril did nothing. Past medical history, appointments, medications, allergies reviewed. Previous Medical History PAST MEDICAL HISTORY Diagnosis Date Back pain Hypercholesteremia 05/2014 Increased frequency of headaches 2013 Scoliosis Previous Surgical History PAST SURGICAL HISTORY Procedure Laterality Date PAST SURGICAL HISTORY OF wisdom tooth extraction PAST SURGICAL HISTORY OF 07/24/2013 REDUCTION BREAST Family History FAMILY HISTORY Problem Relation Age of Onset Cancer Maternal Aunt 58 ovarian other (endometriosis) Paternal Grandmother Patient Allergies ALLERGIES No Known Allergies Current Medications Current Outpatient Medications on File Prior to Visit Medication Sig cyclobenzaprine (FLEXERIL) 10 mg tablet Take 1 tablet by mouth three times a day as needed for muscle spasm. No current facility-administered medications on file prior to visit. Social History Social History Tobacco Use Smoking status: Former Current packs/day: 0.00 Average packs/day: 1 pack/day for 7.0 years (7.0 ttl pk-yrs) Types: Cigarettes (more content not included)... [facility] 04-06-2024 History of Present illness Narrative Chief Complaint Patient presents with: Back Pain: Herniated disc, requesting med for pain, flexeril not helping HPI Eugenia Chisholm is a 38 year old female who presents here today for Above Complaints.. Per visit with Myrna Walker CNP on 03/16: Back pain --- Pt reports acute on chronic lower back pain. Significantly worse since the first week of December. Started after a camping trip. Denies any known fall, injury, or lifting heavy while on the trip or before/after. Reports pain is so severe she tries to stand all day long as sitting exacerbates it. Reports intermittent numbness and tingling to bilateral legs, worse to R leg. Sometimes hard to walk d/t pain and numbness. Reports sharp pain down legs and across lower back when she moves certain directions. Pain is worse with abduction of hip. Was seen by this provider in June 2021 for similar symptoms. Reports symptoms are significantly worse this time around. Has tried everything with no relief -- rotates between ice and heat to area, OTC NSAIDs without relief, physical therapy in the past and continues with the stretches she was taught, and even has inversion table at home that does not help. She has been going to chiropractor all of January for this who thinks she has a large herniated disc. Pt reports some minimal relief in the past with muscle relaxant but wasn't sure if she should take medication she has at home. Does not tolerate PO steroids well in the past d/t side effects. Hx of drug addiction in her family so she is hesitant about opoid but does feel like she has hit last resort and would consider pain management d/t significant ongoing pain. She has lost 41 lbs in the last year and had breast reduction without any too much relief of symptoms. Pt denies any bladder or bowel incontinence. Last xray of lumbar completed in 2021. ASSESSMENT/PLAN: 1. Acute bilateral low back pain with right-sided sciatica - ICD9: 724.2, 724.3, 338.19, ICD10: M54.41 (primary diagnosis) Repeat lumbar x-ray d/t acute on chronic symptoms -- compare to prior from 2021. Need MRI of lumbar d/t ongoing significant pain despite no relief with numerous conservative measures. Concern for large herniated disc. Consult to ortho/spine for further intervention. Restart flexeril as needed -- pt aware of side effects. Short term tramadol rx given and reserved for use only with severe pain not relieved by anything else. Pt is aware this is is short-term only (7 day rx) and needs pain management and ortho opinion of further intervention. - MRI LUMBAR SPINE WO IVCON - [facility] - CYCLOBENZAPRINE 10 MG TABLET - TRAMADOL 50 MG TABLET - XR LUMBAR GENERAL 3V AP/LAT/L5-S1 2. Numbness in both legs - ICD9: 782.0, ICD10: R20.0 See above. - CYCLOBENZAPRINE 10 MG TABLET - TRAMADOL 50 MG TABLET - XR LUMBAR GENERAL 3V AP/LAT/L5-S1 3. Gait instability - ICD9: 781.2, ICD10: R26.81 See above. - CYCLOBENZAPRINE 10 MG TABLET - TRAMADOL 50 MG TABLET - XR LUMBAR GENERAL 3V AP/LAT/L5-S1 4. Physical debility - ICD9: 799.3, ICD10: R53.81 See above. - CYCLOBENZAPRINE 10 MG TABLET - TRAMADOL 50 MG TABLET - XR LUMBAR GENERAL 3V AP/LAT/L5-S1 Myrna Frias APRN.THERAPY AIDE Currently: Sciatic nerve pain all the way down her right leg. Occasionally down the left. At [employer] the other day the nerve pain locked up her body and fell backwards- was able to catch her. Is doing all the stretches from PT, inversion chair. Antiinflammatories helped initially. Hadn't taken for about a week, but did take Aleve last night which was slightly helpful. Tramadol did take the edge off the pain. Flexeril did nothing. Past medical history, appointments, medications, allergies reviewed. Previous Medical History PAST MEDICAL HISTORY Diagnosis Date Back pain Hypercholesteremia 05/2014 Increased frequency of headaches 2013 Scoliosis Previous Surgical History PAST SURGICAL HISTORY Procedure Laterality Date PAST SURGICAL HISTORY OF wisdom tooth extraction PAST SURGICAL HISTORY OF 07/24/2013 REDUCTION BREAST Family History FAMILY HISTORY Problem Relation Age of Onset Cancer Maternal Aunt 58 ovarian other (endometriosis) Paternal Grandmother Patient Allergies ALLERGIES No Known Allergies Current Medications Current Outpatient Medications on File Prior to Visit Medication Sig cyclobenzaprine (FLEXERIL) 10 mg tablet Take 1 tablet by mouth three times a day as needed for muscle spasm. No current facility-administered medications on file prior to visit. Social History Social History Tobacco Use Smoking status: Former Current packs/day: 0.00 Average packs/day: 1 pack/day for 7.0 years (7.0 ttl pk-yrs) Types: Cigarettes Start date: 06/23/2001 Quit date: 06/23/2008 Years since quittin.7 Smokeless tobacco: Never Tobacco comments: Both parents smoked in childhood home. Smokers in workplace. Substance Use Topics Alcohol use: Yes Comment: occasionally Drug use: No Review of Symptoms REVIEW OF SYSTEMS See HPI, otherwise negative EXAM: BP 126/78 (BP Site: Left Arm, BP Position: Sitting, BP Cuff Size: Regular Adult) Pulse 84 Resp 14 Wt 86.1 kg (189 lb 12.8 oz) LMP 06/03/2016 SpO2 100% BMI 29.37 kg/m General Appearance: Well appearing, alert, in mild distress, well-hydrated, well nourished.. Lungs: Lungs clear to auscultation. No wheezing, rhonchi, rales.. Heart: RRR without murmur, gallop, or rubs. No ectopy. Neurologic: Gait normal. Reflexes normal and symmetric. Sensation grossly intact.. Psychiatric: pleasant, cooperative. Health Maintenance List Depression Screening Never done Anxiety Screening Never done Cervical Cancer Screening due on 12/25/2016 Hepatitis B Vaccine(4 of 4 - 4-dose series) due on 12/16/2021 Influenza Vaccine(1) due on 10/23/2024 Covid-19 Vaccine(3 - season) due on 03/16/2025 DTaP,Tdap,Td Vaccine(2 - Td or Tdap) due on 10/22/2031 Hepatitis C Screening Completed HIV Screening Completed HPV Vaccine Aged Out Data reviewed Previous records, office notes ASSESSMENT/PLAN: 1. Acute bilateral low back pain with right-sided sciatica - ICD9: 724.2, 724.3, 338.19, ICD10: M54.41 (primary diagnosis) - METHOCARBAMOL 500 MG TABLET - GABAPENTIN 300 MG CAPSULE 2. Numbness in both legs - ICD9: 782.0, ICD10: R20.0 - METHOCARBAMOL 500 MG TABLET - GABAPENTIN 300 MG CAPSULE 3. Gait instability - ICD9: 781.2, ICD10: R26.81 - METHOCARBAMOL 500 MG TABLET - GABAPENTIN 300 MG CAPSULE 4. Physical debility - ICD9: 799.3, ICD10: R53.81 - METHOCARBAMOL 500 MG TABLET - GABAPENTIN 300 MG CAPSULE 5. Sciatica, right side - ICD9: 724.3, ICD10: M54.31 - METHOCARBAMOL 500 MG TABLET - GABAPENTIN 300 MG CAPSULE Deysi Dasilva APRN.THERAPY AIDE documented in this encounter [facility] 03-29-2024 Telephone encounter Note Spoke with [pt gave information provided. Pt voices understanding. [facility] 03-29-2024 Miscellaneous Notes Spoke with [pt gave information provided. Pt voices understanding. Please call patient and let her know that MRI does show a herniated disc at L4-L5. Continue with ortho/spine appointment as scheduled for further interventions than what was discussed at appointment. Thank you, Myrna Walker APRN.THERAPY AIDE documented in this encounter [facility] 03-29-2024 Telephone encounter Note Please call patient and let her know that MRI does show a herniated disc at L4-L5. Continue with ortho/spine appointment as scheduled for further interventions than what was discussed at appointment. Thank you, Myrna Walker APRN.THERAPY AIDE [facility] 03-29-2024 History of Present illness Narrative Radiology Service Progress Note PATIENT NAME: Eugenia Chisholm DATE OF SERVICE: March 29, 2024 TIME: 7:45 AM PATIENT IDENTITY VERIFICATION COMPLETED USING TWO (2) IDENTIFIERS: Name and Date of confirmed by patient verbally. FALL SCREENING: Has the patient had 2 falls in the last year or 1 fall with injury or currently using an Ambulatory Assistive Device (Walker, Cane, Wheelchair, Crutches, etc.)? No PATIENT GENDER DATA: Female. status: : No status: NO. PATIENT RELEVANT IMPLANT DATA REVIEWED: Yes PATIENT PRESENTS WITH AN IMPLANTABLE OR ATTACHED EMBOSSING CALENDER OPERATOR: No RADIOLOGY DEPARTMENT: MR; Exam(s) Completed: Spine: Lumbar spine PERIPHERAL IV DATA: Not applicable SIGNED BY: RT Michael(Jaylan) March 29, 2024 7:45 AM documented in this encounter [facility] 03-29-2024 Note HNO ID: [id number] Author: SOFI SHAH RT(R) Service: ? Author Type: Technologist Type: Progress Notes Filed: 03/29/2024 07:45 Note Text: Radiology Service Progress Note PATIENT NAME: Eugenia Chisholm DATE OF SERVICE: March 29, 2024 TIME: 7:45 AM PATIENT IDENTITY VERIFICATION COMPLETED USING TWO (2) IDENTIFIERS: Name and Date of confirmed by patient verbally. FALL SCREENING: Has the patient had 2 falls in the last year or 1 fall with injury or currently using an Ambulatory Assistive Device (Walker, Cane, Wheelchair, Crutches, etc.)? No PATIENT GENDER DATA: Female. status: : No status: NO. PATIENT RELEVANT IMPLANT DATA REVIEWED: Yes PATIENT PRESENTS WITH AN IMPLANTABLE OR ATTACHED EMBOSSING CALENDER OPERATOR: No RADIOLOGY DEPARTMENT: MR; Exam(s) Completed: Spine: Lumbar spine PERIPHERAL IV DATA: Not applicable SIGNED BY: RT Michael(Jaylan) March 29, 2024 7:45 AM [facility] 03-16-2024 History of Present illness Narrative Radiology Service Progress Note PATIENT NAME: Eugenia Chisholm DATE OF SERVICE: March 16, 2024 TIME: 3:42 PM PATIENT IDENTITY VERIFICATION COMPLETED USING TWO (2) IDENTIFIERS: Name and Date of confirmed by patient verbally. FALL SCREENING: Has the patient had 2 falls in the last year or 1 fall with injury or currently using an Ambulatory Assistive Device (Walker, Cane, Wheelchair, Crutches, etc.)? No PATIENT GENDER DATA: Female. status: : No status: NO. PATIENT RELEVANT IMPLANT DATA REVIEWED: Not Applicable PATIENT PRESENTS WITH AN IMPLANTABLE OR ATTACHED EMBOSSING CALENDER OPERATOR: No RADIOLOGY DEPARTMENT: General X-ray: Exam(s) Completed: Spine X-Ray(s): Lumbar AP / LAT / L5-S1 PERIPHERAL IV DATA: Not applicable SIGNED BY: RT Denise(R) March 16, 2024 3:42 PM documented in this encounter [facility] 03-16-2024 Note HNO ID: [id number] Author: AMANDA MAGAÑA RT(R) Service: Radiology Author Type: Technologist Type: Progress Notes Filed: 03/16/2024 15:50 Note Text: Radiology Service Progress Note PATIENT NAME: Eugenia Chisholm DATE OF SERVICE: March 16, 2024 TIME: 3:42 PM PATIENT IDENTITY VERIFICATION COMPLETED USING TWO (2) IDENTIFIERS: Name and Date of confirmed by patient verbally. FALL SCREENING: Has the patient had 2 falls in the last year or 1 fall with injury or currently using an Ambulatory Assistive Device (Walker, Cane, Wheelchair, Crutches, etc.)? No PATIENT GENDER DATA: Female. status: : No status: NO. PATIENT RELEVANT IMPLANT DATA REVIEWED: Not Applicable PATIENT PRESENTS WITH AN IMPLANTABLE OR ATTACHED EMBOSSING CALENDER OPERATOR: No RADIOLOGY DEPARTMENT: General X-ray: Exam(s) Completed: Spine X-Ray(s): Lumbar AP / LAT / L5-S1 PERIPHERAL IV DATA: Not applicable SIGNED BY: RT Denise(Jaylan) March 16, 2024 3:42 PM [facility] 03-16-2024 History of Present illness Narrative Chief Complaint Patient presents with: increased rt low back vidal: Started in dec. Saw chiropractor in jan said it was herniated disc HPI Eugenia Chisholm is a 38 year old female who presents here today for Above Complaints. Eugenia is an established patient of Dr. Stevie DO and myself. Concerns today... Back pain --- Pt reports acute on chronic lower back pain. Significantly worse since the first week of December. Started after a camping trip. Denies any known fall, injury, or lifting heavy while on the trip or before/after. Reports pain is so severe she tries to stand all day long as sitting exacerbates it. Reports intermittent numbness and tingling to bilateral legs, worse to R leg. Sometimes hard to walk d/t pain and numbness. Reports sharp pain down legs and across lower back when she moves certain directions. Pain is worse with abduction of hip. Was seen by this provider in June 2021 for similar symptoms. Reports symptoms are significantly worse this time around. Has tried everything with no relief -- rotates between ice and heat to area, OTC NSAIDs without relief, physical therapy in the past and continues with the stretches she was taught, and even has inversion table at home that does not help. She has been going to chiropractor all of January for this who thinks she has a large herniated disc. Pt reports some minimal relief in the past with muscle relaxant but wasn't sure if she should take medication she has at home. Does not tolerate PO steroids well in the past d/t side effects. Hx of drug addiction in her family so she is hesitant about opoid but does feel like she has hit last resort and would consider pain management d/t significant ongoing pain. She has lost 41 lbs in the last year and had breast reduction without any too much relief of symptoms. Pt denies any bladder or bowel incontinence. Last xray of lumbar completed in 2021. No other concerns or complaints today. Past medical history, appointments, medications, allergies reviewed. Previous Medical History PAST MEDICAL HISTORY Diagnosis Date Back pain Hypercholesteremia 05/2014 Increased frequency of headaches 2013 Scoliosis Previous Surgical History PAST SURGICAL HISTORY Procedure Laterality Date PAST SURGICAL HISTORY OF wisdom tooth extraction PAST SURGICAL HISTORY OF 07/24/2013 REDUCTION BREAST Family History FAMILY HISTORY Problem Relation Age of Onset Cancer Maternal Aunt 58 ovarian other (endometriosis) Paternal Grandmother Patient Allergies ALLERGIES No Known Allergies Current Medications No current outpatient medications on file prior to visit. No current facility-administered medications on file prior to visit. Social History Social History Tobacco Use Smoking status: Former Current packs/day: 0.00 Average packs/day: 1 pack/day for 7.0 years (7.0 ttl pk-yrs) Types: Cigarettes Start date: 06/23/2001 Quit date: 06/23/2008 Years since quittin.7 Smokeless tobacco: Never Tobacco comments: Both parents smoked in childhood home. Smokers in workplace. Substance Use Topics Alcohol use: Yes Comment: occasionally Drug use: No REVIEW OF SYSTEMS: as above Reviewed relevant PMHx, PSHx, Social Hx, current medications and allergies. Review of Symptoms REVIEW OF SYSTEMS See HPI. EXAM: BP 118/66 (BP Site: Left Arm, BP Position: Sitting, BP Cuff Size: Regular Adult) Pulse 74 Resp 14 Wt 86 kg (189 lb 9.5 oz) LMP 06/03/2016 SpO2 100% BMI 29.34 kg/m General Appearance: Well appearing, alert, in no acute distress, well-hydrated, well nourished.. Skin: Skin color, texture, turgor normal, no suspicious rashes or lesions. Head: Normocephalic, no masses, lesions, tenderness or abnormalities. Back: + pain to palpation of lumbar vertebrae, good flexion and extension, good range of motion with significant pain, + muscle tenderness R sided only, reflexes are 2+ and symmetric, motor and sensory appear to be normal, negative SLR test, + evidence of scoliosis Extremities: No deformities, edema, skin discoloration, clubbing or cyanosis. Good capillary refill. . Musculoskeletal: No joint swelling, deformity, or tenderness. Peripheral Pulses: Normal, Capillary refill <2secs, strong peripheral pulses. Health Maintenance List Depression Screening Never done Anxiety Screening Never done Cervical Cancer Screening due on 12/25/2016 Hepatitis B Vaccine(4 of 4 - 4-dose series) due on 12/16/2021 Influenza Vaccine(1) due on 10/23/2024 Covid-19 Vaccine(3 - season) due on 03/16/2025 DTaP,Tdap,Td Vaccine(2 - Td or Tdap) due on 10/22/2031 Hepatitis C Screening Completed HIV Screening Completed HPV Vaccine Aged Out ASSESSMENT/PLAN: 1. Acute bilateral low back pain with right-sided sciatica - ICD9: 724.2, 724.3, 338.19, ICD10: M54.41 (primary diagnosis) Repeat lumbar x-ray d/t acute on chronic symptoms -- compare to prior from 2021. Need MRI of lumbar d/t ongoing significant pain despite no relief with numerous conservative measures. Concern for large herniated disc. Consult to ortho/spine for further intervention. Restart flexeril as needed -- pt aware of side effects. Short term tramadol rx given and reserved for use only with severe pain not relieved by anything else. Pt is aware this is is short-term only (7 day rx) and needs pain management and ortho opinion of further intervention. - MRI LUMBAR SPINE WO IVCON - [facility] - CYCLOBENZAPRINE 10 MG TABLET - TRAMADOL 50 MG TABLET - XR LUMBAR GENERAL 3V AP/LAT/L5-S1 2. Numbness in both legs - ICD9: 782.0, ICD10: R20.0 See above. - CYCLOBENZAPRINE 10 MG TABLET - TRAMADOL 50 MG TABLET - XR LUMBAR GENERAL 3V AP/LAT/L5-S1 3. Gait instability - ICD9: 781.2, ICD10: R26.81 See above. - CYCLOBENZAPRINE 10 MG TABLET - TRAMADOL 50 MG TABLET - XR LUMBAR GENERAL 3V AP/LAT/L5-S1 4. Physical debility - ICD9: 799.3, ICD10: R53.81 See above. - CYCLOBENZAPRINE 10 MG TABLET - TRAMADOL 50 MG TABLET - XR LUMBAR GENERAL 3V AP/LAT/L5-S1 RTO as needed. overdue for routine physical exam. Needs scheduled, pt aware. Prescription instructions reviewed with patient as applicable. Potential red flag symptoms discussed with the patient. Reviewed appropriate action plan to take if red flag symptoms occur. Patient agreeable to treatment plan. Myrna Frias APRN.THERAPY AIDE [address] [place] [address] documented in this encounter [facility] 03-16-2024 Note HNO ID: [id number] Author: MYRNA WALKER APRN.THERAPY AIDE Service: ? Author Type: Nurse Practitioner Type: Progress Notes Filed: 03/16/2024 15:35 Note Text: Chief Complaint Patient presents with: increased rt low back vidal: Started in dec. Saw chiropractor in jan said it was herniated disc HPI Eugenia Chisholm is a 38 year old female who presents here today for Above Complaints. Eugenia is an established patient of Dr. Stevie DO and myself. Concerns today... Back pain --- Pt reports acute on chronic lower back pain. Significantly worse since the first week of December. Started after a camping trip. Denies any known fall, injury, or lifting heavy while on the trip or before/after. Reports pain is so severe she tries to stand all day long as sitting exacerbates it. Reports intermittent numbness and tingling to bilateral legs, worse to R leg. Sometimes hard to walk d/t pain and numbness. Reports sharp pain down legs and across lower back when she moves certain directions. Pain is worse with abduction of hip. Was seen by this provider in June 2021 for similar symptoms. Reports symptoms are significantly worse this time around. Has tried everything with no relief -- rotates between ice and heat to area, OTC NSAIDs without relief, physical therapy in the past and continues with the stretches she was taught, and even has inversion table at home that does not help. She has been going to chiropractor all of January for this who thinks she has a large herniated disc. Pt reports some minimal relief in the past with muscle relaxant but wasn't sure if she should take medication she has at home. Does not tolerate PO steroids well in the past d/t side effects. Hx of drug addiction in her family so she is hesitant about opoid but does feel like she has hit last resort and would consider pain management d/t significant ongoing pain. She has lost 41 lbs in the last year and had breast reduction without any too much relief of symptoms. Pt denies any bladder or bowel incontinence. Last xray of lumbar completed in 2021. No other concerns or complaints today. Past medical history, appointments, medications, allergies reviewed. Previous Medical History PAST MEDICAL HISTORY Diagnosis Date Back pain Hypercholesteremia 05/2014 Increased frequency of headaches 2013 Scoliosis Previous Surgical History PAST SURGICAL HISTORY Procedure Laterality Date PAST SURGICAL HISTORY OF wisdom tooth extraction PAST SURGICAL HISTORY OF 07/24/2013 REDUCTION BREAST Family History FAMILY HISTORY Problem Relation Age of Onset Cancer Maternal Aunt 58 ovarian other (endometriosis) Paternal Grandmother Patient Allergies ALLERGIES No Known Allergies Current Medications No current outpatient medications on file prior to visit. No current facility-administered medications on file prior to visit. Social History Social History Tobacco Use Smoking status: Former Current packs/day: 0.00 Average packs/day: 1 pack/day for 7.0 years (7.0 ttl pk-yrs) Types: Cigarettes Start date: 06/23/2001 Quit date: 06/23/2008 Years since quittin.7 Smokeless tobacco: Never Tobacco comments: Both parents smoked in childhood home. Smokers in workplace. Substance Use Topics Alcohol use: Yes Comment: occasionally Drug use: No REVIEW OF SYSTEMS: as above Reviewed relevant PMHx, PSHx, Social Hx, current medications and allergies. Review of Symptoms REVIEW OF SYSTEMS See HPI. EXAM: BP 118/66 (BP Site: Left Arm, BP Position: Sitting, BP Cuff Size: Regular Adult) Pulse 74 Resp 14 Wt 86 kg (189 lb 9.5 oz) LMP 06/03/2016 SpO2 100% BMI 29.34 kg/m? General Appearance: Well appearing, alert, in no acute distress, well-hydrated, well nourished.. Skin: Skin color, texture, turgor normal, no suspicious rashes or lesions. Head: Normocephalic, no masses, lesions, tenderness or abnormalities. Back: + pain to palpation of lumbar vertebrae, good flexion and extension, good range of motion with significant pain, + muscle tenderness R sided only, reflexes are 2+ and symmetric, motor and sensory appear to be normal, negative SLR test, + evidence of scoliosis Extremities: No deformities, edema, skin discoloration, clubbing or cyanosis. Good capillary refill. . Musculoskeletal: No joint swelling, deformity, or tenderness. Peripheral Pulses: Normal, Capillary refill <2secs, strong peripheral pulses. Health Maintenance List Depression Screening Never done Anxiety Screening Never done Cervical Cancer Screening due on 12/25/2016 Hepatitis B Vaccine(4 of 4 - 4-dose series) due on 12/16/2021 Influenza Vaccine(1) due on 10/23/2024 Covid-19 Vaccine(3 - 2023- season) due on 03/16/2025 DTaP,Tdap,Td Vaccine(2 - Td or Tdap) due on 10/22/2031 Hepatitis C Screening Completed HIV Screening Completed HPV Vaccine Aged Out ASSESSMENT/PLAN: 1. Acute bilate (more content not included)... [facility] 08-31-2022 Miscellaneous Notes Called to discuss results. Script sent for trichomonas mgmt- suggest repeat testing in 2-3 months for cure. Educated on HSV. No other questions. Elizabeth Burns APRN.NIMA documented in this encounter [facility] 08-27-2022 History of Present illness Narrative VIRTUAL VISIT PROGRESS NOTE This is a virtual visit using Squirro video visit. It required patient-provider interaction for the medical decision making as documented below. This note was written using medical terminology and is intended to be used for medical purposes by other health care management associate I have communicated my name and active licensure. The patient's identity and physical location were verified at the time of this visit. Either the patient or their legal merchandiser retail representative has been informed of the risks and benefits of -- and alternatives to -- treatment through a remote evaluation and consents to proceed with the evaluation remotely. SUBJECTIVE: 37 year old female presents for hep c screening. Significant other was just diagnosed with hepatitis C. Has been with this person for 2 years. Regularly sexually active. Does not use condoms. He had labs done last . She is feeling fine. ACTIVE PROBLEM LIST Backache, Unspecified Cervicalgia Hypertrophy of Breast Medications: reviewed as above MA note reviewed Past medical history/psh reviewed/updated. Social History Tobacco Use Smoking status: Former Packs/day: 1.00 Years: 7.00 Pack years: 7.00 Types: Cigarettes Quit date: 06/23/2008 Years since quittin.1 Smokeless tobacco: Never Tobacco comments: Both parents smoked in childhood home. Smokers in workplace. Substance Use Topics Alcohol use: Yes Comment: occasionally Drug use: No ROS:Negative except for as listed above EXAM: There were no vitals filed for this visit. Gen: appears well in NAD, cooperative and interactive Mood: normal affect ASSESSMENT/PLAN: ASSESSMENT/PLAN: 1. Exposure to hepatitis C - ICD9: V01.79, ICD10: Z20.5 (primary diagnosis) - no symptoms, orders placed - HEP C AB IA W/CONF SCRN - T VAGINALIS AMPLIFICATION 2. Screening for STD (sexually transmitted disease) - ICD9: V74.5, ICD10: Z11.3 - recommend testing for other STIs, patient agreeable. - GC/CHLAMYDIA AMPLIF, URINE - HERPES SIMPLEX TYPE 1 AND 2 IG - HIV 1 2 COMBO(AG/AB),WITH REFLEX TO DIFFERENTIATION - SYPHILIS TOTAL W/REFLEX Elizabeth Burns APRN.NIMA documented in this encounter [facility] 01-23-2022 History of Present illness Narrative Radiology Service Progress Note PATIENT NAME: Eugenia Chisholm DATE OF SERVICE: January 23, 2022 TIME: 10:30 AM PATIENT IDENTITY VERIFICATION COMPLETED USING TWO (2) IDENTIFIERS: Name and Date of confirmed by patient verbally. FALL SCREENING: Has the patient had 2 falls in the last year or 1 fall with injury or currently using an Ambulatory Assistive Device (Walker, Cane, Wheelchair, Crutches, etc.)? No PATIENT GENDER DATA: Female. status: : No status: NO. PATIENT RELEVANT IMPLANT DATA REVIEWED: Not Applicable RADIOLOGY DEPARTMENT: Ultrasound PERIPHERAL IV DATA: Not applicable SIGNED BY: Rachel Hall RDMS January 23, 2022 10:30 AM documented in this encounter [facility] 01-01-2022 Instructions Deysi Dasilva APRN.CNP - 01/01/2022 3:27 PM EDT Schedule your ultrasound. Have your fasting lab work drawn when able. documented in this encounter [facility] 01-01-2022 History of Present illness Narrative Chief Complaint Patient presents with: Physical Sciatica: Right side x years HPI Eugenia Chisholm is a 36 year old female who presents here today for Above Complaints. Today: Chronic sciatica on the right side during the time of her period. Is very consistent with every single menstrual cycle. Was reading about endometrial sciatica. Has significant family hx of endometriosis. Is scheduled for VOLLEYBALL COMMENTATOR appointment in April at [facility]. Needs paperwork signed for work. Past medical history, appointments, medications, allergies reviewed. Previous Medical History PAST MEDICAL HISTORY Diagnosis Date Back pain Hypercholesteremia 05/2014 Increased frequency of headaches 2013 Scoliosis Previous Surgical History PAST SURGICAL HISTORY Procedure Laterality Date PAST SURGICAL HISTORY OF wisdom tooth extraction PAST SURGICAL HISTORY OF 07/24/2013 REDUCTION BREAST Family History FAMILY HISTORY Problem Relation Age of Onset Cancer Maternal Aunt 58 ovarian other (endometriosis) Paternal Grandmother Patient Allergies ALLERGIES No Known Allergies Current Medications Current Outpatient Medications on File Prior to Visit Medication Sig clindamycin (CLEOCIN) 300 mg capsule take 1 capsule by mouth three times a day until finished ibuprofen (MOTRIN) 600 mg tablet Take 600 mg by mouth every 6 hours as needed. (Patient not taking: Reported on 01/01/2022) No current facility-administered medications on file prior to visit. Social History Social History Tobacco Use Smoking status: Former Packs/day: 1.00 Years: 7.00 Pack years: 7.00 Types: Cigarettes Quit date: 06/23/2008 Years since quittin.5 Smokeless tobacco: Never Tobacco comments: Both parents smoked in childhood home. Smokers in workplace. Substance Use Topics Alcohol use: Yes Comment: occasionally Drug use: No Review of Symptoms REVIEW OF SYSTEMS See HPI, otherwise negative EXAM: BP 118/70 (BP Site: Left Arm, BP Position: Sitting, BP Cuff Size: Regular Adult) Pulse 89 Resp 16 Ht 171.2 cm (5' 7.4) Wt 100.6 kg (221 lb 12.8 oz) LMP 06/03/2016 SpO2 99% BMI 34.33 kg/m General Appearance: Well appearing, alert, in no acute distress, well-hydrated, well nourished.. Lungs: Lungs clear to auscultation. No wheezing, rhonchi, rales.. Heart: RRR without murmur, gallop, or rubs. No ectopy. Health Maintenance List HEPATITIS B(1 of 3 - 3-dose series) Never done HEPATITIS C SCREENING Never done HIV SCREENING Never done HPV TESTING Never done PAP TESTING due on 12/25/2018 INFLUENZA(1) due on 12/25/2021 DTAP,TDAP,TD(1 - Tdap) due on 07/02/2022 COVID-19 VACCINE(3 - Booster for Pfizer series) due on 04/16/2022 DEPRESSION SCREENING due on 07/02/2022 Data reviewed Previous records, office notes ASSESSMENT/PLAN: 1. Wellness examination - ICD9: V70.0, ICD10: Z00.00 (primary diagnosis) - Counseled on healthy diet and regular exercise - Calcium intake with supplements or by diet of 1000 mg/day for under 50, 9621-5748 mg/day for 50+ 2. Sciatica, right side - ICD9: 724.3, ICD10: M54.31 Chronic sciatica r/t menstruation. Concern for endometrial sciatica. Has VOLLEYBALL COMMENTATOR appointment scheduled in April. - FEMALE PELVIS TRANSABD LTD - US FEMALE PELVIS TRANSVAG 3. Family history of endometriosis - ICD9: V19.8, ICD10: Z84.2 Chronic sciatica r/t menstruation. Concern for endometrial sciatica. Has VOLLEYBALL COMMENTATOR appointment scheduled in April. - FEMALE PELVIS TRANSABD LTD - US FEMALE PELVIS TRANSVAG 4. Abnormal menstruation - ICD9: 626.9, ICD10: N92.6 Chronic sciatica r/t menstruation. Concern for endometrial sciatica. Has VOLLEYBALL COMMENTATOR appointment scheduled in April. - FEMALE PELVIS TRANSABD LTD - US FEMALE PELVIS TRANSVAG Deysi Dasilva APRN.THERAPY AIDE documented in this encounter [facility] 12-11-2021 History of Present illness Narrative Patient presents with: Dental Problem: Tooth pain x 2 weeks HPI: Dental pain: Duration: flared up for 2 weeks. She was supposed to get a root canal in the tooth in July but could not go the scheduled appointment with her dentist. Location: upper left Character: aching and throbbing Radiation: sometimes sharp to the taoism and ear Aggravating: biting. Sometimes cold temps. Relieving: Pain relievers: Motrin and Tylenol Treatment: Took amoxicillin 2 weeks ago without improvement. She has had vaginal yeast infection symptoms since which she treated with OTC meds. Associated: feels a bubble near the tooth, feels feverish at night (~100) Pertinent negatives: Denies drainage MEDICATIONS: ibuprofen (MOTRIN) 600 mg tablet Take 600 mg by mouth every 6 hours as needed. ALLERGIES: ALLERGIES No Known Allergies VITALS: BP 122/80 Pulse 68 Temp 36.8 C (98.2 F) (Tympanic) Resp 18 Wt 98 kg (216 lb) LMP 06/03/2016 SpO2 99% BMI 33.83 kg/m PHYSICAL EXAM: GEN: pleasant, no acute distress, alert HEENT: PERRL, EOMI, MMM Tender Left upper 2nd bicuspid with <1cm mass in the gingiva above the tooth near the junction with the cheek mucosa. NECK: supple, no lymphadenopathy, no thyromegaly HEART: regular rate, regular rhythm, no murmurs LUNGS: clear to auscultation, no wheezes or crackles, no increased WOB EXT: no clubbing, no cyanosis, no edema Procedure: I&D. Abscess above the left 2nd bicuspid punctured with an 18g needle. She had small blood drain but no significant purulence. ASSESSMENT/PLAN: 1. Dental abscess - ICD9: 522.5, ICD10: K04.7 Start Augmentin. She has checked with every dentist on her insurance panel for 60 miles but cannot get an appointment until March. I recommended scheduling what was available and contacting her insurance to see if a rehabilitation caseworker can assist her. - FLUCONAZOLE 150 MG TABLET for yeast infection now and at the end of antibiotic course. Proceed to the ER with facial swelling, fever, lethargy. Negro Fink MD documented in this encounter [facility] 07-02-2021 History of Present illness Narrative Radiology Service Progress Note PATIENT NAME: Eugenia Chisholm DATE OF SERVICE: July 02, 2021 TIME: 4:18 PM PATIENT IDENTITY VERIFICATION COMPLETED USING TWO (2) IDENTIFIERS: Name and Date of confirmed by patient verbally. FALL SCREENING: Has the patient had 2 falls in the last year or 1 fall with injury or currently using an Ambulatory Assistive Device (Walker, Cane, Wheelchair, Crutches, etc.)? No PATIENT GENDER DATA: Female. status: : No status: NO. PATIENT RELEVANT IMPLANT DATA REVIEWED: Yes RADIOLOGY DEPARTMENT: General X-ray: Exam(s) Completed: Spine X-Ray(s): Lumbar AP / LAT / L5-S1 PERIPHERAL IV DATA: Not applicable SIGNED BY: RT Marisol(R) July 02, 2021 4:18 PM documented in this encounter [facility] Evaluation note Diagnosis Dental abscess- Primary Periapical abscess without sinus [facility] Diagnosis Wellness examination- Primary Sciatica, right side Family history of endometriosis Family history of other condition Abnormal menstruation Unspecified disorder of menstruation and other abnormal bleeding from female genital tract [facility] Diagnosis Sciatica, right side Family history of endometriosis Family history of other condition Abnormal menstruation Unspecified disorder of menstruation and other abnormal bleeding from female genital tract [facility] Diagnosis Onset Date Resolution Status Abnormal uterine bleeding (AUB) acute Pedunculated leiomyoma of uterus acute COVID-19 acute [facility] Work Phone: Evaluation note* Diagnosis Exposure to hepatitis C- Primary Contact with or exposure to other viral diseases Screening for STD (sexually transmitted disease) Screening examination for venereal disease [facility] Diagnosis Acute midline low back pain without sciatica [facility] Diagnosis Acute bilateral low back pain with right-sided sciatica- Primary Numbness in both legs Disturbance of skin sensation Gait instability Abnormality of gait Physical debility Debility, unspecified [facility] Acute bilateral low back pain with right-sided sciatica Numbness in both legs Disturbance of skin sensation Gait instability Abnormality of gait Physical debility Debility, unspecified [facility] Acute bilateral low back pain with right-sided sciatica [facility] Diagnosis Acute bilateral low back pain with right-sided sciatica- Primary Numbness in both legs Disturbance of skin sensation Gait instability Abnormality of gait Physical debility Debility, unspecified Sciatica, right side [facility] Diagnosis Intervertebral disc disorder with radiculopathy of lumbar region- Primary Thoracic or lumbosacral neuritis or radiculitis, unspecified Acute bilateral low back pain with right-sided sciatica [facility] Acute bilateral low back pain with right-sided sciatica- Primary Intervertebral disc disorder with radiculopathy of lumbar region Thoracic or lumbosacral neuritis or radiculitis, unspecified Acute bilateral low back pain with right-sided sciatica Intervertebral disc disorder with radiculopathy of lumbar region Thoracic or lumbosacral neuritis or radiculitis, unspecified documented in this encounter [facility] note* Diagnosis Intervertebral disc disorder with radiculopathy of lumbar region- Primary Thoracic or lumbosacral neuritis or radiculitis, unspecified Acute bilateral low back pain with right-sided sciatica documented in this encounter [facility] note* Diagnosis Intervertebral disc disorder with radiculopathy of lumbar region- Primary Thoracic or lumbosacral neuritis or radiculitis, unspecified Acute bilateral low back pain with right-sided sciatica Acute midline low back pain without sciatica documented in this encounter [facility] note* Diagnosis Acute bilateral low back pain with right-sided sciatica- Primary Intervertebral disc disorder with radiculopathy of lumbar region Thoracic or lumbosacral neuritis or radiculitis, unspecified Acute bilateral low back pain with right-sided sciatica Intervertebral disc disorder with radiculopathy of lumbar region Thoracic or lumbosacral neuritis or radiculitis, unspecified documented in this encounter [facility] note* Diagnosis Cold hands and feet- Primary Other symptoms involving skin and integumentary tissues Intervertebral disc disorder with radiculopathy of lumbar region Thoracic or lumbosacral neuritis or radiculitis, unspecified Acute bilateral low back pain with right-sided sciatica Acute midline low back pain without sciatica Low back pain, unspecified back pain laterality, unspecified chronicity, unspecified whether sciatica present- Primary documented in this encounter [facility] note* Diagnosis Low back pain, unspecified back pain laterality, unspecified chronicity, unspecified whether sciatica present Low back pain, unspecified back pain laterality, unspecified chronicity, unspecified whether sciatica present- Primary documented in this encounter [facility] note* Diagnosis Other intervertebral disc displacement, lumbar region Sciatica, right side Low back pain, unspecified back pain laterality, unspecified chronicity, unspecified whether sciatica present- Primary documented in this encounter [facility] note* Diagnosis Low back pain, unspecified back pain laterality, unspecified chronicity, unspecified whether sciatica present Low back pain, unspecified back pain laterality, unspecified chronicity, unspecified whether sciatica present- Primary Intervertebral disc disorder with radiculopathy of lumbar region Thoracic or lumbosacral neuritis or radiculitis, unspecified Acute bilateral low back pain with right-sided sciatica documented in this encounter [facility] note* Diagnosis Intervertebral disc disorder with radiculopathy of lumbar region- Primary Thoracic or lumbosacral neuritis or radiculitis, unspecified Intervertebral disc disorder with radiculopathy of lumbar region Thoracic or lumbosacral neuritis or radiculitis, unspecified documented in this encounter [facility] note* Diagnosis Intervertebral disc disorder with radiculopathy of lumbar region- Primary Thoracic or lumbosacral neuritis or radiculitis, unspecified Intervertebral disc disorder with radiculopathy of lumbar region Thoracic or lumbosacral neuritis or radiculitis, unspecified documented in this encounter [facility] note* Diagnosis Preop examination- Primary Preoperative examination, unspecified Intervertebral disc disorder with radiculopathy of lumbar region Thoracic or lumbosacral neuritis or radiculitis, unspecified Medication management- Primary Encounter for long-term (current) use of other medications Intervertebral disc disorder with radiculopathy of lumbar region Thoracic or lumbosacral neuritis or radiculitis, unspecified Acute bilateral low back pain with right-sided sciatica Acute midline low back pain without sciatica Intervertebral disc disorder with radiculopathy of lumbar region Thoracic or lumbosacral neuritis or radiculitis, unspecified documented in this encounter [facility] note* Diagnosis Preop examination- Primary Preoperative examination, unspecified Intervertebral disc disorder with radiculopathy of lumbar region Thoracic or lumbosacral neuritis or radiculitis, unspecified Intervertebral disc disorder with radiculopathy of lumbar region Thoracic or lumbosacral neuritis or radiculitis, unspecified * Assessment & Plan Note - Lita Jordan APRN.CNP - 08/31/2024 7:53 AM EDT Associated Problem(s): Intervertebral disc disorder with radiculopathy of lumbar region Surgery scheduled for September 05, 2024 * Assessment & Plan Note - Lita Jordan APRN.CNP - 08/31/2024 7:53 AM EDT Associated Problem(s): Preop examination Patient has the following medical conditions which may affect franklin-operative course addressed in assessment and plan today. documented in this encounter [facility] note* Diagnosis Preop examination- Primary Preoperative examination, unspecified Intervertebral disc disorder with radiculopathy of lumbar region Thoracic or lumbosacral neuritis or radiculitis, unspecified Intervertebral disc disorder with radiculopathy of lumbar region Thoracic or lumbosacral neuritis or radiculitis, unspecified Intervertebral disc disorder with radiculopathy of lumbar region Thoracic or lumbosacral neuritis or radiculitis, unspecified documented in this encounter [facility] note* Diagnosis Preop examination- Primary Preoperative examination, unspecified Intervertebral disc disorder with radiculopathy of lumbar region Thoracic or lumbosacral neuritis or radiculitis, unspecified S/P laminectomy- Primary Other postprocedural status [facility]* Diagnosis OPENED IN ERROR- Primary To allow closing an encounter opened in error (used in SmartSet) Preop examination- Primary Preoperative examination, unspecified Intervertebral disc disorder with radiculopathy of lumbar region Thoracic or lumbosacral neuritis or radiculitis, unspecified documented in this encounter [facility] note* Diagnosis Preop examination- Primary Preoperative examination, unspecified Intervertebral disc disorder with radiculopathy of lumbar region Thoracic or lumbosacral neuritis or radiculitis, unspecified Postoperative pain- Primary Other acute postoperative pain S/P laminectomy Other postprocedural status [facility] noteNo assessment information [facility] Work Phone: Evaluation note* Diagnosis Preop examination- Primary Preoperative examination, unspecified Intervertebral disc disorder with radiculopathy of lumbar region Thoracic or lumbosacral neuritis or radiculitis, unspecified AIN (generalized anxiety disorder)- Primary Generalized anxiety disorder Encounter for screening examination for other mental health and behavioral disorders Screening for depression documented in this encounter [facility] note* Diagnosis Preop examination- Primary Preoperative examination, unspecified Intervertebral disc disorder with radiculopathy of lumbar region Thoracic or lumbosacral neuritis or radiculitis, unspecified Excessive bleeding in premenopausal period- Primary Premenopausal menorrhagia Dyspareunia in female IUD (intrauterine device) in place Presence of intrauterine contraceptive device Cyst of ovary, unspecified laterality documented in this encounter [facility] note* Diagnosis Preop examination- Primary Preoperative examination, unspecified Intervertebral disc disorder with radiculopathy of lumbar region Thoracic or lumbosacral neuritis or radiculitis, unspecified S/P laminectomy- Primary Other postprocedural status Spinal stenosis of lumbar region, unspecified whether neurogenic claudication present documented in this encounter [facility] note* Diagnosis Preop examination- Primary Preoperative examination, unspecified Intervertebral disc disorder with radiculopathy of lumbar region Thoracic or lumbosacral neuritis or radiculitis, unspecified S/P laminectomy Other postprocedural status documented in this encounter [facility] note* Diagnosis Preop examination- Primary Preoperative examination, unspecified Intervertebral disc disorder with radiculopathy of lumbar region Thoracic or lumbosacral neuritis or radiculitis, unspecified Spinal stenosis of lumbar region, unspecified whether neurogenic claudication present documented in this encounter [facility] note* Diagnosis Preop examination- Primary Preoperative examination, unspecified Intervertebral disc disorder with radiculopathy of lumbar region Thoracic or lumbosacral neuritis or radiculitis, unspecified S/P laminectomy- Primary Other postprocedural status Recurrent herniation of lumbar disc Displacement of lumbar intervertebral disc without myelopathy documented in this encounter [facility] note* Diagnosis Preop examination- Primary Preoperative examination, unspecified Intervertebral disc disorder with radiculopathy of lumbar region Thoracic or lumbosacral neuritis or radiculitis, unspecified Radiculopathy, lumbar region- Primary Thoracic or lumbosacral neuritis or radiculitis, unspecified documented in this encounter [facility] note* Diagnosis Preop examination- Primary Preoperative examination, unspecified Intervertebral disc disorder with radiculopathy of lumbar region Thoracic or lumbosacral neuritis or radiculitis, unspecified Radiculopathy, lumbar region- Primary Thoracic or lumbosacral neuritis or radiculitis, unspecified documented in this encounter [facility] for referral (narrative)* Diagnostic Procedure Only (Routine) - Authorized Specialty Diagnoses / Procedures Referred By Contac t Referred To Contact US IMAGING Diagnoses Sciatica, right side Family history of endometriosis Abnormal menstruation Procedures US FEMALE PELVIS TRANSVAG US TRANSVAGINAL Deysi Dasilva APRN.THERAPY AIDE [address] [place] [address] Us Imaging Referral ID Status Reason Start Date Expiration Date Visits Requested Visits Authorized [id number] Authorized Auto-Generat ed Referral 01/01/2022 01/31/2023 1 1 * Diagnostic Procedure Only (Routine) - Authorized Specialty Diagnoses / Procedures Referred By Yuko t Referred To Contact US IMAGING Diagnoses Sciatica, right side Family history of endometriosis Abnormal menstruation Procedures US FEMALE PELVIS TRANSABD LTD US PELVIC NONOBSTETRIC IMAGE DCMTN LIMITED/F/U Deysi Dasilva APRN.THERAPY AIDE [address] [place] [address] Us Imaging Referral ID Status Reason Start Date Expiration Date Visits Requested Visits Authorized [id number] Authorized Auto-Generat ed Referral 01/01/2022 01/31/2023 1 1 [facility] for referral (narrative)* Diagnostic Procedure Only (Routine) - Closed Specialty Diagnoses / Procedures Referred By Contac t Referred To Contact US IMAGING Diagnoses Sciatica, right side Family history of endometriosis Abnormal menstruation Procedures US FEMALE PELVIS TRANSVAG US TRANSVAGINAL Deysi Dasilva APRN.THERAPY AIDE [address] [place] [address] Us Imaging Referral ID Status Reason Start Date Expiration Date V isits Requested Visits Authorized [id number] Closed Auto-Generate d Referral 01/01/2022 01/31/2023 1 1 * Diagnostic Procedure Only (Routine) - Closed Specialty Diagnoses / Procedures Referred By Contac t Referred To Contact US IMAGING Diagnoses Sciatica, right side Family history of endometriosis Abnormal menstruation Procedures US FEMALE PELVIS TRANSABD LTD US PELVIC NONOBSTETRIC IMAGE DCMTN LIMITED/F/U Deysi Dasilva APRN.THERAPY AIDE [address] [place] [address] Us Imaging Referral ID Status Reason Start Date Expiration Date V isits Requested Visits Authorized [id number] Closed Auto-Generate d Referral 01/01/2022 01/31/2023 1 1 [facility] for referral (narrative)* Diagnostic Procedure Only (Routine) - Closed Specialty Diagnoses / Procedures Referred By Contac t Referred To Contact XR IMAGING Diagnoses Acute midline low back pain without sciatica Procedures XR LUMBAR GENERAL 3V AP/LAT/L5-S1 RADEX SPINE LUMBOSACRAL 2/3 VIEWS Myrna Walker APRN.THERAPY AIDE [address] [place] [address] [place] [address] Referral ID Status Reason Start Date Expiration Date V isits Requested Visits Authorized [id number] Closed Auto-Generate d Referral 07/02/2021 08/01/2022 1 1 [facility] for referral (narrative)* Diagnostic Procedure Only (Routine) - Closed Specialty Diagnoses / Procedures Referred By Contac t Referred To Contact XR IMAGING Diagnoses Acute bilateral low back pain, unspecified whether sciatica present Numbness in both legs Gait instability Physical debility Procedures XR LUMBAR GENERAL 3V AP/LAT/L5-S1 RADEX SPINE LUMBOSACRAL 2/3 VIEWS Myrna Walker APRN.THERAPY AIDE [address] [place] [address] [place] [address] Referral ID Status Reason Start Date Expiration Date V isits Requested Visits Authorized [id number] Closed Auto-Generate d Referral 03/16/2024 04/15/2025 1 1 * Consult, Test, Treat (Routine) - Authorized Specialty Diagnoses / Procedures Referred By Contac t Referred To Contact Spine Flushing Diagnoses Acute bilateral low back pain, unspecified whether sciatica present Procedures CONSULT TO [facility] OFFICE/OUTPATIENT NEW HIGH MDM 60 MINUTES Myrna Walker APRN.THERAPY AIDE [address] [place] [address] Referral ID Status Reason Start Date Expiration Date Visits Requested Visits Authorized [id number] Authorized PCP Requested Referral 4 03/16/2025 1 1 * MRI/CT (Routine) - Authorized Specialty Diagnoses / Procedures Referred By Contac t Referred To Contact MR IMAGING Diagnoses Acute bilateral low back pain, unspecified whether sciatica present Procedures MRI LUMBAR SPINE WO IVCON MRI SPINAL CANAL LUMBAR W/O CONTRAST MATERIAL Myrna Walker APRN.THERAPY AIDE [address] [place] [address] [place] [address] Referral ID Status Reason Start Date Expiration Date Visits Requested Visits Authorized [id number] Authorized Auto-Generat ed Referral 4 04/15/2025 1 1 [facility]No reason for referral information availableWBucyrus [facility] Work Phone: Reason for visit Narrative* Diagnostic Procedure Only (Routine) - Closed Specialty Diagnoses / Procedures Referred By Contac t Referred To Contact XR IMAGING Diagnoses Acute midline low back pain without sciatica Procedures XR LUMBAR GENERAL 3V AP/LAT/L5-S1 RADEX SPINE LUMBOSACRAL 2/3 VIEWS Myrna Walker APRN.THERAPY AIDE [address] [place] [address] [place] [address] Referral ID Status Reason Start Date Expiration Date V isits Requested Visits Authorized [id number] Closed Auto-Generate d Referral 07/02/2021 08/01/2022 1 1 [facility] for visit Narrative* Diagnostic Procedure Only (Routine) - Closed Specialty Diagnoses / Procedures Referred By Contac t Referred To Contact XR IMAGING Diagnoses Acute bilateral low back pain, unspecified whether sciatica present Numbness in both legs Gait instability Physical debility Procedures XR LUMBAR GENERAL 3V AP/LAT/L5-S1 RADEX SPINE LUMBOSACRAL 2/3 VIEWS Myrna Walker, TECHNICAL BUYER.THERAPY AIDE [address] [place] [address] [place] [address] Referral ID Status Reason Start Date Expiration Date V isits Requested Visits Authorized [id number] Closed Auto-Generate d Referral 03/16/2024 04/15/2025 1 1 [facility] for visit Narrative* Diagnostic Procedure Only (Routine) - Closed Specialty Diagnoses / Procedures Referred By Contac t Referred To Contact XR IMAGING Diagnoses Low back pain, unspecified back pain laterality, unspecified chronicity, unspecified whether sciatica present Procedures XR LUMBAR MOTION 4V AP/LAT/ FLEX/EXT RADEX SPINE LUMBOSACRAL MINIMUM 4 VIEWS Fab Piper MD [address] [place] [address] Phone: tel: fax: [place] [address] Referral ID Status Reason Start Date Expiration Date V isits Requested Visits Authorized [id number] Closed Auto-Generate d Referral 08/04/2024 09/03/2025 1 1 [facility] for visit Narrative* Diagnostic Procedure Only (Routine) - Closed Specialty Diagnoses / Procedures Referred By Contac t Referred To Contact XR IMAGING Diagnoses S/P laminectomy Procedures XR LUMBAR MOTION 4V AP/LAT/ FLEX/EXT RADEX SPINE LUMBOSACRAL MINIMUM 4 VIEWS Fab Piper MD [address] [place] [address] Phone: tel: fax: [place] [address] Referral ID Status Reason Start Date Expiration Date V isits Requested Visits Authorized [id number] Closed Auto-Generate d Referral 12/18/2024 01/17/2026 1 1 [facility]/CT (Routine) - Closed Specialty Diagnoses / Procedures Referred By Yuko t Referred To Contact MR IMAGING Diagnoses Spinal stenosis of lumbar region, unspecified whether neurogenic claudication present Procedures MRI LUMBAR SPINE WO IVCON MRI SPINAL CANAL LUMBAR W/O CONTRAST MATERIAL Fab Piper MD [address] [facility] [place] [address] Phone: tel: fax: [place] [address] Referral ID Status Reason Start Date Expiration Date V isits Requested Visits Authorized [id number] Closed Auto-Generate d Referral 12/21/2024 03/23/2025 1 1 [facility] Summary Purpose Family History No Family History Records FoundNo Family History Records FoundNo Family History Records FoundNo Family History Records FoundNo Family History Records FoundNo Family History Records FoundNo Family History Records Found Advance Directives Advance Directive Response Recorded Date/ Time Living Will No May 31 10:06am Power of Spanish Teacher No May 31, 2022 10:06am Advance Directive Response Recorded Date/ Time Living Will No May 31 11:06am Do you have a Healthcare Power of Spanish Teacher? No May 31, 2022 11:06am Chief Complaint and Reason for Visit Chief Complaint New pt, Irregular pe riods COVID SYMPTOMS/COVID TEST COVID TEST/[employer] Reason for Visit Abnormal uterine ble eding (AUB) Pedunculated leiomyoma of uterus COVID-19 Chief Complaint Admit Date OVARIAN CYST, PELVIC PAIN September 26, 2024 4:11pm Reason for Referral Specialty Diagnoses / Procedures Referred By Cachorroac t Referred To Contact MR IMAGING Diagnoses Acute bilateral low back pain, unspecified whether sciatica present Procedures MRI LUMBAR SPINE WO IVCON MRI SPINAL CANAL LUMBAR W/O CONTRAST MATERIAL Myrna Walker, TECHNICAL BUYER.THERAPY AIDE [address] [place] [address] [place] [address] Referral ID Status Reason Start Date Expiration Date V isits Requested Visits Authorized [id number] Closed Auto-Generate d Referral 03/16/2024 04/15/2025 1 1 Specialty Diagnoses / Procedures Referred By Contac t Referred To Contact [facility] Diagnoses Acute bilateral low back pain with right-sided sciatica Intervertebral disc disorder with radiculopathy of lumbar region Procedures CONSULT TO PHYSICAL THERAPY PHYSICAL THERAPY EVALUATION HIGH COMPLEX 45 MINS Sandi Jmienez, CAROL [address] [place] [address] [facility] [address] [address] Referral ID Status Reason Start Date Expiration Date Visits Requested Visits Authorized [id number] Pending Review Auto-Generat ed Referral 04/27/2024 04/27/2025 1 1 Additional Source Comments INFORMATION SOURCE (unrecogn ized section and content) DATE CREATED AUTHOR 02/10/2021 [facility] ([place]) DATE CREATED AUTHOR AUTHOR'S ORGANIZ ATION 06/23/2021 [facility] DATE CREATED AUTHOR AUTHOR'S ORGANIZ ATION 07/19/2024 [facility] DATE CREATED AUTHOR AUTHOR'S ORGANIZ ATION 09/22/2024 [facility] DATE CREATED AUTHOR AUTHOR'S ORGANIZ ATION 09/30/2024 [facility] DATE CREATED AUTHOR AUTHOR'S ORGANIZ ATION 12/27/2024 [facility] DATE CREATED AUTHOR AUTHOR'S ORGANIZ ATION 01/02/2025 [facility] <item> Privacy Markings (unrecogniz ed section and content) Section Author: Arabella Villegas PROHIBITION ON REDISCLOSURE OF CONFIDENTIAL INFORMATION This notice accompanies a disclosure of information concerning a client made to you with the consent of such client. Source Comments (unrecognize d section and content) In the event this informatio n is protected by the Federal Confidentiality of Alcohol and Drug Abuse Patient Records regulations: The Federal rules restrict any use of the information to criminally investigate or prosecute any alcohol or drug abuse patient.[facility] the event this information is protected by the Federal Confidentiality of Alcohol and Drug Abuse Patient Records regulations: The Federal rules restrict any use of the information to criminally investigate or prosecute any alcohol or drug abuse patient.[facility] the event this information is protected by the Federal Confidentiality of Alcohol and Drug Abuse Patient Records regulations: The Federal rules restrict any use of the information to criminally investigate or prosecute any alcohol or drug abuse patient.[facility]In the event this information is protected by the Federal Confidentiality of Alcohol and Drug Abuse Patient Records regulations: The Federal rules restrict any use of the information to criminally investigate or prosecute any alcohol or drug abuse patient.[facility] the event this information is protected by the Federal Confidentiality of Alcohol and Drug Abuse Patient Records regulations: The Federal rules restrict any use of the information to criminally investigate or prosecute any alcohol or drug abuse patient.[facility]In the event this information is protected by the Federal Confidentiality of Alcohol and Drug Abuse Patient Records regulations: The Federal rules restrict any use of the information to criminally investigate or prosecute any alcohol or drug abuse patient.[facility] the event this information is protected by the Federal Confidentiality of Alcohol and Drug Abuse Patient Records regulations: The Federal rules restrict any use of the information to criminally investigate or prosecute any alcohol or drug abuse patient.[facility]In the event this information is protected by the Federal Confidentiality of Alcohol and Drug Abuse Patient Records regulations: The Federal rules restrict any use of the information to criminally investigate or prosecute any alcohol or drug abuse patient.[facility]In the event this information is protected by the Federal Confidentiality of Alcohol and Drug Abuse Patient Records regulations: The Federal rules restrict any use of the information to criminally investigate or prosecute any alcohol or drug abuse patient.[facility] the event this information is protected by the Federal Confidentiality of Alcohol and Drug Abuse Patient Records regulations: The Federal rules restrict any use of the information to criminally investigate or prosecute any alcohol or drug abuse patient.[facility]In the event this information is protected by the Federal Confidentiality of Alcohol and Drug Abuse Patient Records regulations: The Federal rules restrict any use of the information to criminally investigate or prosecute any alcohol or drug abuse patient.[facility]In the event this information is protected by the Federal Confidentiality of Alcohol and Drug Abuse Patient Records regulations: The Federal rules restrict any use of the information to criminally investigate or prosecute any alcohol or drug abuse patient.[facility]In the event this information is protected by the Federal Confidentiality of Alcohol and Drug Abuse Patient Records regulations: The Federal rules restrict any use of the information to criminally investigate or prosecute any alcohol or drug abuse patient.[facility]In the event this information is protected by the Federal Confidentiality of Alcohol and Drug Abuse Patient Records regulations: The Federal rules restrict any use of the information to criminally investigate or prosecute any alcohol or drug abuse patient.[facility]In the event this information is protected by the Federal Confidentiality of Alcohol and Drug Abuse Patient Records regulations: The Federal rules restrict any use of the information to criminally investigate or prosecute any alcohol or drug abuse patient.[facility]In the event this information is protected by the Federal Confidentiality of Alcohol and Drug Abuse Patient Records regulations: The Federal rules restrict any use of the information to criminally investigate or prosecute any alcohol or drug abuse patient.[facility]In the event this information is protected by the Federal Confidentiality of Alcohol and Drug Abuse Patient Records regulations: The Federal rules restrict any use of the information to criminally investigate or prosecute any alcohol or drug abuse patient.[facility]In the event this information is protected by the Federal Confidentiality of Alcohol and Drug Abuse Patient Records regulations: The Federal rules restrict any use of the information to criminally investigate or prosecute any alcohol or drug abuse patient.[facility]In the event this information is protected by the Federal Confidentiality of Alcohol and Drug Abuse Patient Records regulations: The Federal rules restrict any use of the information to criminally investigate or prosecute any alcohol or drug abuse patient.[facility]In the event this information is protected by the Federal Confidentiality of Alcohol and Drug Abuse Patient Records regulations: The Federal rules restrict any use of the information to criminally investigate or prosecute any alcohol or drug abuse patient.[facility]In the event this information is protected by the Federal Confidentiality of Alcohol and Drug Abuse Patient Records regulations: The Federal rules restrict any use of the information to criminally investigate or prosecute any alcohol or drug abuse patient.[facility]In the event this information is protected by the Federal Confidentiality of Alcohol and Drug Abuse Patient Records regulations: The Federal rules restrict any use of the information to criminally investigate or prosecute any alcohol or drug abuse patient.[facility]In the event this information is protected by the Federal Confidentiality of Alcohol and Drug Abuse Patient Records regulations: The Federal rules restrict any use of the information to criminally investigate or prosecute any alcohol or drug abuse patient.[facility]In the event this information is protected by the Federal Confidentiality of Alcohol and Drug Abuse Patient Records regulations: The Federal rules restrict any use of the information to criminally investigate or prosecute any alcohol or drug abuse patient.[facility] the event this information is protected by the Federal Confidentiality of Alcohol and Drug Abuse Patient Records regulations: The Federal rules restrict any use of the information to criminally investigate or prosecute any alcohol or drug abuse patient.[facility]In the event this information is protected by the Federal Confidentiality of Alcohol and Drug Abuse Patient Records regulations: The Federal rules restrict any use of the information to criminally investigate or prosecute any alcohol or drug abuse patient.[facility]In the event this information is protected by the Federal Confidentiality of Alcohol and Drug Abuse Patient Records regulations: The Federal rules restrict any use of the information to criminally investigate or prosecute any alcohol or drug abuse patient.[facility]In the event this information is protected by the Federal Confidentiality of Alcohol and Drug Abuse Patient Records regulations: The Federal rules restrict any use of the information to criminally investigate or prosecute any alcohol or drug abuse patient.[facility]In the event this information is protected by the Federal Confidentiality of Alcohol and Drug Abuse Patient Records regulations: The Federal rules restrict any use of the information to criminally investigate or prosecute any alcohol or drug abuse patient.[facility]In the event this information is protected by the Federal Confidentiality of Alcohol and Drug Abuse Patient Records regulations: The Federal rules restrict any use of the information to criminally investigate or prosecute any alcohol or drug abuse patient.[facility]In the event this information is protected by the Federal Confidentiality of Alcohol and Drug Abuse Patient Records regulations: The Federal rules restrict any use of the information to criminally investigate or prosecute any alcohol or drug abuse patient.[facility]In the event this information is protected by the Federal Confidentiality of Alcohol and Drug Abuse Patient Records regulations: The Federal rules restrict any use of the information to criminally investigate or prosecute any alcohol or drug abuse patient.[facility]In the event this information is protected by the Federal Confidentiality of Alcohol and Drug Abuse Patient Records regulations: The Federal rules restrict any use of the information to criminally investigate or prosecute any alcohol or drug abuse patient.[facility]In the event this information is protected by the Federal Confidentiality of Alcohol and Drug Abuse Patient Records regulations: The Federal rules restrict any use of the information to criminally investigate or prosecute any alcohol or drug abuse patient.[facility]In the event this information is protected by the Federal Confidentiality of Alcohol and Drug Abuse Patient Records regulations: The Federal rules restrict any use of the information to criminally investigate or prosecute any alcohol or drug abuse patient.[facility]In the event this information is protected by the Federal Confidentiality of Alcohol and Drug Abuse Patient Records regulations: The Federal rules restrict any use of the information to criminally investigate or prosecute any alcohol or drug abuse patient.[facility]In the event this information is protected by the Federal Confidentiality of Alcohol and Drug Abuse Patient Records regulations: The Federal rules restrict any use of the information to criminally investigate or prosecute any alcohol or drug abuse patient.[facility]In the event this information is protected by the Federal Confidentiality of Alcohol and Drug Abuse Patient Records regulations: The Federal rules restrict any use of the information to criminally investigate or prosecute any alcohol or drug abuse patient.[facility]In the event this information is protected by the Federal Confidentiality of Alcohol and Drug Abuse Patient Records regulations: The Federal rules restrict any use of the information to criminally investigate or prosecute any alcohol or drug abuse patient.[facility]In the event this information is protected by the Federal Confidentiality of Alcohol and Drug Abuse Patient Records regulations: The Federal rules restrict any use of the information to criminally investigate or prosecute any alcohol or drug abuse patient.[facility]In the event this information is protected by the Federal Confidentiality of Alcohol and Drug Abuse Patient Records regulations: The Federal rules restrict any use of the information to criminally investigate or prosecute any alcohol or drug abuse patient.[facility]In the event this information is protected by the Federal Confidentiality of Alcohol and Drug Abuse Patient Records regulations: The Federal rules restrict any use of the information to criminally investigate or prosecute any alcohol or drug abuse patient.[facility]In the event this information is protected by the Federal Confidentiality of Alcohol and Drug Abuse Patient Records regulations: The Federal rules restrict any use of the information to criminally investigate or prosecute any alcohol or drug abuse patient.[facility]In the event this information is protected by the Federal Confidentiality of Alcohol and Drug Abuse Patient Records regulations: The Federal rules restrict any use of the information to criminally investigate or prosecute any alcohol or drug abuse patient.[facility]In the event this information is protected by the Federal Confidentiality of Alcohol and Drug Abuse Patient Records regulations: The Federal rules restrict any use of the information to criminally investigate or prosecute any alcohol or drug abuse patient.[facility]In the event this information is protected by the Federal Confidentiality of Alcohol and Drug Abuse Patient Records regulations: The Federal rules restrict any use of the information to criminally investigate or prosecute any alcohol or drug abuse patient.[facility]In the event this information is protected by the Federal Confidentiality of Alcohol and Drug Abuse Patient Records regulations: The Federal rules restrict any use of the information to criminally investigate or prosecute any alcohol or drug abuse patient.[facility]In the event this information is protected by the Federal Confidentiality of Alcohol and Drug Abuse Patient Records regulations: The Federal rules restrict any use of the information to criminally investigate or prosecute any alcohol or drug abuse patient.[facility]In the event this information is protected by the Federal Confidentiality of Alcohol and Drug Abuse Patient Records regulations: The Federal rules restrict any use of the information to criminally investigate or prosecute any alcohol or drug abuse patient.[facility]In the event this information is protected by the Federal Confidentiality of Alcohol and Drug Abuse Patient Records regulations: The Federal rules restrict any use of the information to criminally investigate or prosecute any alcohol or drug abuse patient.[facility]In the event this information is protected by the Federal Confidentiality of Alcohol and Drug Abuse Patient Records regulations: The Federal rules restrict any use of the information to criminally investigate or prosecute any alcohol or drug abuse patient.[facility]In the event this information is protected by the Federal Confidentiality of Alcohol and Drug Abuse Patient Records regulations: The Federal rules restrict any use of the information to criminally investigate or prosecute any alcohol or drug abuse patient.[facility]In the event this information is protected by the Federal Confidentiality of Alcohol and Drug Abuse Patient Records regulations: The Federal rules restrict any use of the information to criminally investigate or prosecute any alcohol or drug abuse patient.[facility] Reason for Visit (unrecogniz ed section and content) Reason Comments Dental Problem Tooth pain x 2 weeks Reason Comments Physical Sciatica Right side x years Reason Comments Radiology US Specialty Diagnoses / Procedures Referred By Contac t Referred To Contact US IMAGING Diagnoses Sciatica, right side Family history of endometriosis Abnormal menstruation Procedures US FEMALE PELVIS TRANSABD LTD US PELVIC NONOBSTETRIC IMAGE DCMTN LIMITED/F/U Deysi Dasilva APRN.THERAPY AIDE [address] [place] [address] Us Imaging Referral ID Status Reason Start Date Expiration Date V isits Requested Visits Authorized [id number] Closed Auto-Generate d Referral 01/01/2022 01/31/2023 1 1 Reason Comments Lab Orders Hep C testing Reason Comments Results Reason Comments increased rt low back vidal Started in dec t. Saw chiropractor in jan said it was herniated disc Specialty Diagnoses / Procedures Referred By Contac t Referred To Contact MR IMAGING Diagnoses Acute bilateral low back pain, unspecified whether sciatica present Procedures MRI LUMBAR SPINE WO IVCON MRI SPINAL CANAL LUMBAR W/O CONTRAST MATERIAL Myrna Walker, TECHNICAL BUYER.THERAPY AIDE [address] [place] [address] [place] [id number] Referral ID Status Reason Start Date Expiration Date V isits Requested Visits Authorized [id number] Closed Auto-Generate d Referral 03/16/2024 04/15/2025 1 1 Reason Comments Back Pain Herniated disc, requ esting med for pain, flexeril not helping Reason Comments Low Back Pain Specialty Diagnoses / Procedures Referred By Contac t Referred To Contact Spine Flushing Diagnoses Acute bilateral low back pain, unspecified whether sciatica present Procedures CONSULT TO [facility] OFFICE/OUTPATIENT [facility] 60 MINUTES Myrna Walker, TECHNICAL BUYER.THERAPY AIDE [address] [place] [address] Referral ID Status Reason Start Date Expiration Date V isits Requested Visits Authorized [id number] Closed PCP Requested Referral 03/16/2024 03/16/2025 1 1 Reason Comments Follow Up Low Back Pain Reason Comments Follow Up Low Back Pain Leg Pain Right Right Hip Pain Reason Comments Back Pain Has appt with surger y 08/15 Reason Comments New Patient L4 and L5 Reason Comments New Patient Specialty Diagnoses / Procedures Referred By Contac t Referred To Contact Neurosurgery Diagnoses Intervertebral disc disorder with radiculopathy of lumbar region Acute bilateral low back pain with right-sided sciatica Procedures CONSULT TO NEUROSURGERY OFFICE/OUTPATIENT [facility] 60 MINUTES Sandi Jimenez PA-C [address] [place] [id number] Phone: tel: fax: Referral ID Status Reason Start Date Expiration Date V isits Requested Visits Authorized [id number] Closed PCP Requested Referral 08/03/2024 11/01/2024 1 1 Reason Comments Preparations For Surgery Reason Onset Date Comments Refill Request 08/31/2024 Reason Comments Established Patient Reason Comments Refill Request Reason Comments Anxiety Reason Comments No Show No Show #1 Reason Comments New Patient Fibroids and ovarian cysts Reason Comments Established Patient Reason Comments Established Patient Reason Onset Date Comments Refill Request 12/28/2024 Reason Comments Fast Track Reason Comments Injections Questions Reason Comments Hip Pain Leg Pain Back Pain Pain to lower back r adiating down right hip and leg Specialty Diagnoses / Procedures Referred By Contac t Referred To Contact PAIN MANAGEMENT Diagnoses Radiculopathy, lumbar region Procedures NJX AA&/STRD TFRML EPI LUMBAR/SACRAL 1 LEVEL Kelvin Tejeda DO [address] [facility] [address] [place] [address] Phone: tel: fax: Spine and Pain Flushing [address] [facility] [address] [place] [address] Phone: tel: fax: Referral ID Status Reason Start Date Expiration Date Visits Re quested Visits Authorized [id number] Closed 12/30/2024 04/25/2025 1 1 Care Teams (unrecognized sec tion and content) Acid Wash Operator Relationship Specialty Start Date End Date Del Hubbard DO [address] [place] [address] PCP - General Family Practice 06/04/14 Acid Wash Operator Relationship Specialty Start Date End Date Del Hubbard DO [address] [place] [address] PCP - General Family Practice 06/04/14 Acid Wash Operator Relationship Specialty Start Date End Date Del Hubbard DO [address] [place] [address] PCP - General Family Medicine 06/04/14 Team Status: Active Member Role Status Dates Dr. Edelmira Cheney DO Family Provider Active Dr. Del Hubbard DO Primary Care Provider Active Team Status: Inactive Member Role Status Dates Dr. Del Hubbard DO Primary Care Provider, Referr ing Provider Active Manju Richmond NEGATIVE NOTCHER, NEGATIVE NOTCHER-C Attending Provider Active Team Status: Inactive Member Role Status Dates Dr. Del Hubbard DO Primary Care Provider, Referr ing Provider Active Robel CON[place], [place] Attending Provider Active Team Status: Inactive Member Role Status Dates Dr. Del Hubbard DO Primary Care Provider Active Dr. Rut Gao DO Attending Provider, Refe rring Provider Active Acid Wash Operator Relationship Specialty Start Date End Date Del Hubbard DO [address] [place] [address] PCP - General Family Medicine 06/04/14 Acid Wash Operator Relationship Specialty Start Date End Date Del Hubbard DO [address] [place] [address] PCP - General Family Medicine 06/04/14 Acid Wash Operator Relationship Specialty Start Date End Date Del Hubbard DO [address] [place] [address] PCP - General Family Medicine 06/04/14 Acid Wash Operator Relationship Specialty Start Date End Date Del Hubbard DO [address] [place] [address] PCP - General Family Medicine 06/04/14 Acid Wash Operator Relationship Specialty Start Date End Date Del Hubbard DO [address] [place] [address] PCP - General Family Medicine 06/04/14 Acid Wash Operator Relationship Specialty Start Date End Date Del Hubbard DO [address] [place] [address] PCP - General Family Medicine 06/04/14 Acid Wash Operator Relationship Specialty Start Date End Date Del Hubbard DO [address] [place] [address] PCP - General Family Medicine 06/04/14 Myrna Walker, TECHNICAL BUYER.THERAPY AIDE [address] [place] [address] Food Mixer Repairer Family Medicine 04/02/24 Deysi Dasilva, TECHNICAL BUYER.THERAPY AIDE [address] [facility] [place] [address] Food Mixer Repairer Family Medicine 04/02/24 Acid Wash Operator Relationship Specialty Start Date End Date Del Hubbard DO [address] [facility] [place] [address] PCP - General Family Medicine 06/04/14 Myrna Walker, TECHNICAL BUYER.THERAPY AIDE [address] [place] [address] Food Mixer Repairer Family Medicine 04/02/24 Deysi Dasilva, TECHNICAL BUYER.THERAPY AIDE [address] [facility] [place] [address] Food Mixer Repairer Family [facility] 04/02/24 Acid Wash Operator Relationship Specialty Start Date End Date Del Hubbard DO [address] [facility] [place] [address] PCP - General Family Medicine 06/04/14 Myrna Walker, TECHNICAL BUYER.THERAPY AIDE [address] [facility] [place] [address] Food Mixer Repairer Family Medicine 04/02/24 Deysi Dasilva, TECHNICAL BUYER.THERAPY AIDE [address] [place] [address] [facility] 04/02/24 Acid Wash Operator Relationship Specialty Start Date End Date Del Hubbard DO [address] [facility] [place] [address] PCP - General Family Medicine 06/04/14 Myrna Walker, TECHNICAL BUYER.THERAPY AIDE [address] [facility] [place] [address] [facility] 04/02/24 [facility] Deysi, TECHNICAL BUYER.THERAPY AIDE [address] [facility] [place] [address] [facility] 04/02/24 Acid Wash Operator Relationship Specialty Start Date End Date Del Hubbard DO [address] [facility] [place] [place] [address] PCP - General Family Medicine 06/04/14 Myrna Walker, TECHNICAL BUYER.THERAPY AIDE [address] [facility] [place] [address] [facility] 04/02/24 [facility], TECHNICAL BUYER.THERAPY AIDE [address] [facility] [place] [address] [facility] 04/02/24 Acid Wash Operator Relationship Specialty Start Date End Date Del Hubbard DO [address] [facility] [place] [address] PCP - General Family Medicine 06/04/14 Myrna Walker, TECHNICAL BUYER.THERAPY AIDE [address] [place] [address] [facility] 04/02/24 [facility] Deysi, TECHNICAL BUYER.THERAPY AIDE [address] [facility] [place] [address] [facility] 04/02/24 Acid Wash Operator Relationship Specialty Start Date End Date Del Hubbard DO [address] [facility] [place] [address] PCP - General Family Medicine 06/04/14 Myrna Walker, TECHNICAL BUYER.THERAPY AIDE [address] [facility] [place] [address] [facility] 04/02/24 [facility] Deysi, TECHNICAL BUYER.THERAPY AIDE [address] [facility] [place] [address] [facility] 04/02/24 Acid Wash Operator Relationship Specialty Start Date End Date Del Hubbard DO [address] [facility] [place] [address] PCP - General Family Medicine 06/04/14 Myrna Walker, TECHNICAL BUYER.THERAPY AIDE [address] [facility] [place] [address] [facility] 04/02/24 [facility] Hospital[facility]illeDeysi, TECHNICAL BUYER.THERAPY AIDE [address] [facility] [place] [address] [facility] 04/02/24 Acid Wash Operator Relationship Specialty Start Date End Date Del Hubbard DO [address] [facility] [place] [address] PCP - General Family Medicine 06/04/14 Myrna Walker, TECHNICAL BUYER.THERAPY AIDE [address] [facility] [place] [address] Food Mixer Repairer Family [facility] 04/02/24 BrownDeysi, TECHNICAL BUYER.THERAPY AIDE [address] [facility] [place] [address] [facility] 04/02/24 Acid Wash Operator Relationship Specialty Start Date End Date Del Hubbard DO [address] [facility] [place] [address] PCP - General Family Medicine 06/04/14 Myrna Walker, TECHNICAL BUYER.THERAPY AIDE [address] [place] [address] [facility] 04/02/24 BrownDeysi, TECHNICAL BUYER.THERAPY AIDE [address] [place] [address] [facility] 04/02/24 Acid Wash Operator Relationship Specialty Start Date End Date Del Hubbard DO [address] [facility] [place] [address] PCP - General Family Medicine 06/04/14 Deysi Dasilva, TECHNICAL BUYER.THERAPY AIDE [address] [place] [address] [facility] 04/02/24 Acid Wash Operator Relationship Specialty Start Date End Date Del Hubbard DO [address] [facility] [place] [place] [address] PCP - General Family Medicine 06/04/14 Deysi Dasilva, TECHNICAL BUYER.THERAPY AIDE [address] [place] [address] Food Mixer Repairer Family [facility] 04/02/24 Acid Wash Operator Relationship Specialty Start Date End Date Del Hubbard DO [address] [place] [address] PCP - General Family Medicine 06/04/14 [facility], TECHNICAL BUYER.THERAPY AIDE [address] [place] [address] Food Mixer Repairer Family [facility] 04/02/24 Acid Wash Operator Relationship Specialty Start Date End Date Del Hubbard DO [address] [place] [address] PCP - General Family Medicine 06/04/14 [facility], TECHNICAL BUYER.THERAPY AIDE [address] [place] [address] Food Mixer Repairer Family [facility] 04/02/24 Acid Wash Operator Relationship Specialty Start Date End Date Del Hubbard DO [address] [place] [address] PCP - General Family Medicine 06/04/14 [facility], TECHNICAL BUYER.THERAPY AIDE [address] [place] [address] Food Mixer Repairer [facility] 04/02/24 Acid Wash Operator Relationship Specialty Start Date End Date Del Hubbard DO [address] [place] [address] PCP - General Family Medicine 06/04/14 [facility], TECHNICAL BUYER.THERAPY AIDE [address] [place] [address] Food Mixer Repairer Family [facility] 04/02/24 Acid Wash Operator Relationship Specialty Start Date End Date Del Hubbard DO [address] [place] [address] PCP - General Family Medicine 06/04/14 [facility], TECHNICAL BUYER.THERAPY AIDE [address] [place] [address] Food Mixer Repairer [facility] 04/02/24 Acid Wash Operator Relationship Specialty Start Date End Date Del Hubbard DO [address] [place] [address] PCP - General Family Medicine 06/04/14 BrownDeysi, TECHNICAL BUYER.THERAPY AIDE [address] [place] [address] Food Mixer Repairer [facility] 04/02/24 Acid Wash Operator Relationship Specialty Start Date End Date Del Hubbard DO [address] [place] [address] PCP - General Family Medicine 06/04/14 BrownDeysi, TECHNICAL BUYER.THERAPY AIDE [address] [place] [address] [facility] 04/02/24 Acid Wash Operator Relationship Specialty Start Date End Date Del Hubbard DO [address] [place] [address] PCP - General Family Medicine 06/04/14 BrownDeysi, TECHNICAL BUYER.THERAPY AIDE [address] [place] [address] [facility] 04/02/24 Acid Wash Operator Relationship Specialty Start Date End Date Del Hubbard DO [address] [place] [address] PCP - General Family Medicine 06/04/14 BrownDeysi, TECHNICAL BUYER.THERAPY AIDE [address] [place] [address] [facility] 04/02/24 Acid Wash Operator Relationship Specialty Start Date End Date Del Hubbard DO [address] [place] [address] PCP - General Family Medicine 06/04/14 BrownDeysi, TECHNICAL BUYER.THERAPY AIDE [address] [place] [address] [facility] 04/02/24 Acid Wash Operator Relationship Specialty Start Date End Date Del Hubbard DO [address] [place] [address] PCP - General Family Medicine 06/04/14 BrownDeysi, TECHNICAL BUYER.THERAPY AIDE [address] [place] [address] [facility] 04/02/24 Team Status: Active Member Role Status Dates Dr. Del Hubbard DO Primary Care Provider Active Team Status: Inactive Member Role Status Dates Dr. Del Hubbard DO Primary Care Provider Active Start: September 26, 2024 End: September 26, 2024 Manju Richmond NEGATIVE NOTCHER, NEGATIVE NOTCHER-C Attending Provider Active Start: September 26, 2024 End: September 26, 2024 Manju Richmond NEGATIVE NOTCHER, NEGATIVE NOTCHER-C Referring Provider Active Start: September 26, 2024 End: September 26, 2024 Acid Wash Operator Relationship Specialty Start Date End Date Del Hubbard DO [address] [place] [address] PCP - General Family Medicine 06/04/14 [facility] HospitalFredah, TECHNICAL BUYER.THERAPY AIDE [address] [place] [address] Food Mixer Repairer Family [facility] 04/02/24 Acid Wash Operator Relationship Specialty Start Date End Date Del Hubbard DO [address] [place] [address] PCP - General Family Medicine 06/04/14 [facility] HospitalFredah, TECHNICAL BUYER.THERAPY AIDE [address] [place] [address] Food Mixer Repairer Family Medicine 04/02/24 Brandy Russell, TECHNICAL BUYER.THERAPY AIDE [address] [place] [address] [facility] 10/09/24 Acid Wash Operator Relationship Specialty Start Date End Date Del Hubbard DO [address] [place] [address] PCP - General Family Medicine 06/04/14 [facility] HospitalFredah, TECHNICAL BUYER.THERAPY AIDE [address] [place] [address] Food Mixer Repairer Family [facility] 04/02/24 Brandy Russell, TECHNICAL BUYER.THERAPY AIDE [address] [place] [address] Food Mixer Repairer Family [facility] 10/09/24 Acid Wash Operator Relationship Specialty Start Date End Date Del Hubbard DO [address] [place] [address] PCP - General Family Medicine 06/04/14 Deysi Dasilva, TECHNICAL BUYER.THERAPY AIDE [address] [place] [address] Food Mixer Repairer Family Medicine 04/02/24 Brandy Russell, TECHNICAL BUYER.THERAPY AIDE [address] [place] [address] Food Mixer Repairer Family Medicine 10/09/24 Acid Wash Operator Relationship Specialty Start Date End Date Del Hubbard DO [address] [place] [address] PCP - General Family Medicine 06/04/14 BrownDeysi, TECHNICAL BUYER.THERAPY AIDE [address] [place] [address] Food Mixer Repairer Family Medicine 04/02/24 Brandy Russell, TECHNICAL BUYER.THERAPY AIDE [address] [place] [address] Food Mixer Repairer Family [facility] 10/09/24 Acid Wash Operator Relationship Specialty Start Date End Date Del Hubbard DO [address] [place] [address] PCP - General Family Medicine 06/04/14 BrownDeysi, TECHNICAL BUYER.THERAPY AIDE [address] [place] [address] Food Mixer Repairer Family Medicine 04/02/24 Brandy Russell, TECHNICAL BUYER.THERAPY AIDE [address] [place] [address] Food Mixer Repairer Family Medicine 10/09/24 Acid Wash Operator Relationship Specialty Start Date End Date Del Hubbard DO [address] [place] [address] PCP - General Family Medicine 06/04/14 BrownDeysi, TECHNICAL BUYER.THERAPY AIDE [address] [place] [address] Food Mixer Repairer Family Medicine 04/02/24 Brandy Russell, TECHNICAL BUYER.THERAPY AIDE [address] [place] [address] [facility] 10/09/24 Acid Wash Operator Relationship Specialty Start Date End Date Del Hubbard DO [address] [place] [address] PCP - General Family Medicine 06/04/14 BrownDeysi, TECHNICAL BUYER.THERAPY AIDE [address] [place] [address] Food Mixer Repairer Family Medicine 04/02/24 Brandy Russell, TECHNICAL BUYER.THERAPY AIDE [address] [place] [address] [facility] 10/09/24 Acid Wash Operator Relationship Specialty Start Date End Date Del Hubbard DO [address] [place] [address] PCP - General Family Medicine 06/04/14 Deysi Dasilva, TECHNICAL BUYER.THERAPY AIDE [address] [place] [address] [facility] 04/02/24 Brandy Russell, TECHNICAL BUYER.THERAPY AIDE [address] [place], [place] [address] [facility] 10/09/24 Acid Wash Operator Relationship Specialty Start Date End Date Del Hubbard DO [address] [place], [place] [id number] PCP - General Family Medicine 06/04/14 Deysi Dasilva APRN.THERAPY AIDE [address] [place], [place] [address] [facility] 04/02/24 Brandy Russell, TECHNICAL BUYER.THERAPY AIDE [address] [place] [address] [facility] 10/09/24 Goals (unrecognized section and content) Goals may be documented in a n alternate sectionGoals may be documented in an alternate section FOR RECORDS PERTAINING TO PATIENTS WHO ARE OR HAVE BEEN ENROLLED IN A CHEMICAL DEPENDENCY/SUBSTANCEABUSE PROGRAM, SOME INFORMATION MAY BE OMITTED. This clinical summary was aggregated from multiple sources. Caution should be exercised in using it in the provision of clinical care. This summary normalizes information from multiple sources, and as a consequence, information in this document may materially change the coding, format and clinical context of patient data. In addition, data may be omitted in some cases. CLINICAL DECISIONS SHOULD BE BASED ON THE PRIMARY CLINICAL RECORDS. [employer] provides no warranty or guarantee of the accuracy or completeness of information in this document.
--- NOTE | 2025-01-03 22:53 | ED.RN ---
rocephin unable to be given d/t hole in bag- pharmacy called and requested new one
--- OUTSIDE RECORDS SUMMARY | 2025-01-03 23:26 | XMS RPT_ITS | CCD ---
Author Organization [facility] Care Team Providers Care Teletype Technician Name Role Phone Required, No Pcp Unavailable Unavailable Monserrat Lindad True Unavailable Del Hubbard DO Primary Care Provider Del Hubbard DO Primary Care Provider Dr. Del Hubbard Primary Care Provider Dr. Del Hubbard Referring Provider Basilio LABORER DRIVER, LABORER DRIVER-C Manju Attending Provider RAFIQ Nuno Attending Provider Del Hubbard DO Primary Care Provider Del Hubbard DO Primary Care Provider Aaron TELEPHONE STATION INSTALLER.Myrna HERRING Unavailable [facility] TELEPHONE STATION INSTALLER.Deysi HERRING Unavailable FEI GONZÁLES Attending Unavailable DEL HUBBARD Primary Care Unavailable FEI GONZÁLES Admitting Unavailable FEI GONZÁLES Attending Unavailable DEL HUBBARD Primary Care Unavailable FEI GONZÁLES Admitting Unavailable MICHAEL PEREZ Attending Unavailable DEL HUBBARD Primary Care Unavailable Dr. Del Hubbard DO Primary Care Provider [phone] Basilio LABORER DRIVER-C, Manju Attending Provider Basilio LABORER DRIVER-C, Manju Referring Provider Del Hubbard Referring Unavailable Del Hubbard Primary Care Unavailable Orofino LABORER DRIVERManju Attending Unavailable Del Hubbard Primary Care Unavailable Basilio LABORER DRIVER, Manju Referring Unavailable Orofino LABORER DRIVER, Manju Attending Unavailable Hubbard, Del Primary Care Unavailable Basilio LABORER DRIVER, Manju Referring Unavailable Basilio LABORER DRIVER, Manju Attending Unavailable Dougie TELEPHONE STATION INSTALLER.CONTINUOUS VULCANIZING MACHINE OPERATOR, Brandy Pantoja Unavailable MYRNA WALKER Referring Unavailabl e HUBBARD, DEL L Primary Care Unavailable DEYSI DASILVA Attending Unavailable HUBBARD, DEL Josué Primary Care Unavailable SANDI JIMENEZ Attending Unavailable MYRNA WALKER Referring Unavailabl e HUBBARD, [...] HUBBARD, DEL L Primary Care Unavailable HUBBARD, EDL L Primary Care Unavailable FAB PIPER Attending Unavailable HUBBARD, DEL L Primary Care Unavailable FAB PIPER Attending Unavailable HUBBARD, DEL L Primary Care Unavailable FAB PIPER Admitting [...] than prescribed may cause serious breathing problems. [id number] 200 actuat albuterol 0.09 mg/actuat metered dose [...] Comment on above: Take 1 tablet by [facility] twice daily for 5 days. clindamycin 300 mg oral capsule (4 sources) Lincosamide Antibacterial Start: 12-24-2021 End: 08-31-2022 take 1 capsule by mouth three times daily clindamycin (CLEOCIN) 300 mg capsule take 1 capsule by mouth three times a day until finished 0 12/24/2021 08/31/2022 Discontinued (Course of therapy completed) Comment on above: take 1 capsule by mo [facility] three times a day until finished estradiol [...] Repeat in 3 days as needed. levonorgestrel 0.088373 mg/hr intrauterine system (14 sources) Progestin, Progestin-containin [...] (3 sources) Patient encounter status; Translations: [Other imaging engineer (current) drug therapy] 08-31-2024 Episodic Other female [...] 03-13-2013 Episodic Other aftercare (1 source) Other imaging engineer (current) drug therapy; Translations: [Medication management] Onset: [...] Test Name Value Interpretation Reference Range Facility [facility] 01-01-2025 CNCO Letter Text Normal [facility] 01-01-2025 [facility] Tele[facility] (AGSPINE2) EUGENIA CHISHOLM ([id number]) 1985 F Date Time Provider Department 01/01/25 FRANNY NG [facility] During your visit today, we recorded the [...] No 8. Does this procedure require a regional company hazmat tanker driver? Yes If yes, has patient been notified that a regional company hazmat tanker driver is needed and must be present [...] [facility] Center CNPN Telephone (NEAGCLM) GREGEUGENIA TEAGUE ([id number]) 1985 F Date Time Provider Department 01/01/25 [...] Status:Closed by ANAI URRUTIA on 01/01/25 [facility] 12-28-2024 CNPN Telephone (AGSPINE3) EUGENIA CHISHOLM ([id number]) 1985 F Date Time Provider Department 12/28/24 KELVIN TEJEDA AGSPINE3 During your visit today, we recorded the following information about you: Colleen Gill 12/28/2024 2:53 PM Signed Received a referral from Fab Piper MD for patient to have RIGHT L4-5 [facility]- 12/26/24-Lumbar MRI Anticoag- NONE Please review and advise Colleen Gill Multi-Site Welding Machine Operator [facility] [place] [address] [place] [address] P: [phone] F: [phone] Kelvin Tejeda DO 12/28/2024 3:11 PM Signed [...] 8:36 AM Signed Received fax, CPT code 00978 is NPCR Auth is good. Referral is updated. Patient ok to schedule. Allergies As of Date: 12/28/2024 (No Known Allergies) Date Reviewed: 12/21/2024 Reviewed by: Gisella Alvarez MA - Fully Assessed Reason for Visit: Fast Track [Other] Primary Visit Diagnosis:Radiculopathy, lumbar region [M54.16] Order(s):PRE-CERT ORDER (AG) [[id number]] Order #: [id number]: 1 Prescriptions as of 01/01/2025 - methylPREDNISolone [...] localized kyphosis centered at T10-11 on the appraiser boats and marine images, measuring approximately 45 degrees. Alignment: Again [...] cyst. DIVISION OF RADIOLOGY Provider, Preet Chaney [facility] - 12/26/2024 * * *Final Report* [...] localized kyphosis centered at T10-11 on the appraiser boats and marine images, measuring approximately 45 degrees. Alignment: Again [...] and assume there are 5 lumbar-type vertebrae. Movement Education Specialist: ALEX Transcribe Date/Time: Dec 26 2024 1:18P [...] localized kyphosis centered at T10-11 on the appraiser boats and marine images, measuring approximately 45 degrees. Alignment: Again [...] and assume there are 5 lumbar-type vertebrae. Movement Education Specialist: PSCB Transcribe Date/Time: Dec 26 2024 1:18P Dictated by : CHILO HERBERT MD This examination was interpreted and the report reviewed and electronically signed by: FEI SAINI MD on Dec 26 2024 1:57PM EST [id number] Normal [facility] 12-22-2024 [facility] Tele[facility] (NEAGCLM) EUGENIA CHISHOLM ([id number]) 1985 F Date Time Provider Department 12/22/24 [facility] During your visit today, we recorded the [...] [facility] CNOVon 12-21-2024 [facility] Office Visit (NEAGCL M) EUGENIA CHISHOLM ([id number]) 1985 F Date Time Provider Department 12/21/24 11:00 AM FAB PIPER NEAGCLM During your visit today, we recorded the following information about you: Pulse Respiration Blood pressure Weight 62/minute 16/minute 119/72 86.3 kg Fab Piper MD 12/21/2024 11:40 AM Signed NEUROSURGERY FOLLOW UP OFFICE NOTE Fab Piper MD [facility] Date of visit: December 21, 2024 Patient Name: Ms.Amber Mirza Chisholm Date of : 1985 Current Age: [age] year old Sex: female MRN/E# [id number] Last Office Visit: 10/19/2024 Chief Complaint: Patient [...] (more content not included)... Normal [facility] 12-21-2024 [facility] Telephone (NEAGCLM) EUGENIA CHISHOLM ([id number]) 1985 F Date Time Provider Department 12/21/24 [facility] During your visit today, we recorded the [...] IMPRESSION: Postoperative and degenerative changes as described. Movement Education Specialist: PSCDaniel Transcribe Date/Time: Dec 28 2024 5:53P Dictated by : VY CUMMINGS MD This examination was interpreted and the report reviewed and electronically signed by: VY CUMMINGS MD on Dec 28 2024 5:54PM EST [id number] Normal [facility] CNOVon 11-13-2024 CNOV Office Visit (OBGYWM ) EUGENIA CHISHOLM ([id number]) 1985 F Date Time Provider Department 11/13/24 2:40 PM BROCK DURAND OBGYWM During your visit today, we recorded the following information about you: Blood pressure Weight 98/60 85.1 kg Brock Durand MD 11/13/2024 4:28 PM Signed Eugenia Blue Pamela is a 39 year old female who presents for a second opinion. Menorrhagia and dyspareunia. HPI: She was a patient at [facility] and is here for another opinion. She [...] Living1 SAB1 IAB0 Ectopic0 Multiple0 Live Births0 Communications Billing Analyst History LMP: 08/31/2024, IUD Age at Menarche: Age at First : Age at Menopause: Communications Billing Analyst History Comments: Sexual Activity: Yes; Male Contraception: [...] and echotext (more content not included)... Normal [facility] Eliud 10-19-2024 CNCO Letter Text Normal [facility] Katarina 10-19-2024 NIMAN Telephone (NEAGCLM) GRECIABILLEUGENIA TEAGUE ([id number]) 1985 F Date Time Provider Department 10/19/24 [...] the Third or Fourth No Show? Kylie Kraft October 19, 2024 3:17 PM Allergies As of Date: 10/19/2024 (No Known Allergies) Date Reviewed: 10/06/2024 Reviewed by: Brandy Russell APRN.CONTINUOUS VULCANIZING MACHINE OPERATOR - Fully Assessed Reason for Visit: No [...] Center CNCOon 10-06-2024 CNCO Letter Text Normal [facility] CNPMarie 10-03-2024 CNPN Telephone (FAMPWS) EUGENIA CHISHOLM ([id number]) 1985 F Date Time Provider Department 10/03/24 [facility] During your visit today, we recorded the following information about you: Maria M Maria Del Rosario JOSI 10/03/2024 8:01 AM Signed [facility]! I'm reaching back out about the possibility [...] me. I appreciate it! My [address] is [address] [place] [address], [id number]. Thanks! Myrna Walker APRN.CONTINUOUS VULCANIZING MACHINE OPERATOR 10/04/2024 10:34 AM Signed I am looking through chart and I don't think we have seen patient for anxiety/depression complaints. I would recommend VV to discuss this and send letter via [employer]. Thank you, Myrna Walker APRN.CONTINUOUS VULCANIZING MACHINE OPERATOR Maria Ines Lovett LPN 10/04/2024 12:19 PM [...] by MARIA INES LOVETT on 10/04/24 Normal [facility] Pelvic w/ Transvaginalon Pelvic w/ Transvaginal [facility] Services [address] [place] [address] Pelvic w/ Transvaginal MR#: [id number] Acct: [id number] Name: EUGENIA CHISHOLM Rep #: [id number] : 1985 F 39 From: José Miguel Fierro MD PCP: Dr. Del Hubbard, DO Status: REG CLI Study: Pelvic w/ Transvaginal Date of Exam: 09/26/24 Exam# [id number] Ordering Dr: Manju Richmond LABORER DRIVER LABORER DRIVER -C PROCEDURE: PELVIC W/ TRANSVAGINAL 09/26/2024 REASON [...] PAULA CC: ANNIE Richmond; Dr. Del Hubbard, Movement Education Specialist: Signed Normal [facility] CNOVon 09-21-2024 CNOV Office Visit (NEAGCL M) EUGENIA CHISHOLM ([id number]) 1985 F Date Time Provider Department 09/21/24 2:00 PM TWYLA GUZMAN NEAGCLM During your visit today, we recorded the following information about you: Pulse Respiration Blood pressure Weight 61/minute 16/minute 107/73 87.1 kg Height 1.753 m Twyla Gzuman APRN.CNP 09/21/2024 4:25 PM Signed Postoperative Note JESÚS Terrell Date of visit: September 21, 2024 Patient Name: Ms.Amber Mirza Chisholm Date of : 1985 Current Age: [age] year old Sex: female MRN/E# [id number] Last Office Visit: 08/29/2024 Postop Lumbar: SURGERY: [...] to patients pharmacy on file. Twyla Guzman APRN-CONTINUOUS VULCANIZING MACHINE OPERATOR [facility] This note was partially generated using [employer] voice recognition system, and there may be [...] (Discontinued) David (more content not included)... Normal [facility] [id number] 09-05-2024 [id number] HNO ID: [id number] Author: FELISA REYNOSO RN Service: ? Author Type: Registered Nurse Type: [id number] Filed: 09/05/2024 14:53 Note Text: You may [...] day window, please call their office at [phone] and request a refill. Please go to the ER if you notice any new weakness, incontinence, or falls. Normal [facility] ANES POSTPROC EVALon 025 ANES POSTPROC EVAL HNO ID: [id number] Author: NEGRO RODRÍGUEZ MD Service: Anesthesiology Author Type: Physician Type: Anesthesia Postprocedure Evaluation Filed: 09/05/2024 15:54 Note Text: POST ANESTHESIA EVALUATION NOTE : 1985 Procedure Summary Date: 09/05/24 Room / Location: [place] [address] / [facility] Anesthesia Start: 1206 Anesthesia Stop: 1419 Procedures: [...] September 05, 2024 TIME: 3:54 PM CSN: [id number] Normal [facility] ANES PRE-OPon 09-05-2024 ANES PRE-OP HNO ID: [id number] Author: NEGRO RODRÍGUEZ MD Service: Anesthesiology Author Type: Physician Type: Anesthesia Preprocedure Evaluation Filed: 09/05/2024 10:54 Note Text: ANESTHESIOLOGY DAY OF SURGERY NOTE : 1985 Procedure Information Date/Time: 09/05/24 1200 Procedures: DISCOTOMY LUMBAR LEVEL 1 (Spine Lumbar) MICROSURGICAL TECHNIQUE FOR SPINAL PROCEDURES (Spine Lumbar) Location: [facility] / [facility] Surgeons: Fab Piper MD Estimated body mass [...] and consent discussed: yes. Patient / Responsible Alliance Party agrees to proceed: yes Patient / [...] September 05, 2024 TIME: 10:52 AM CSN: [id number] Normal [facility] HCG Preg Ur Qlon 09-05-2024 HCG ( test) Ql (U) Negative Normal Negative [facility] Comment on above: Order Comment: Speci men Type: URINE SPECIMENOrdering Facility: [facility] Address: [facility] [place] [address] Result Comment: This test is intended to aid in the early detection of . Very dilute urine samples, as indicated by a low specific gravity, may not contain key account representative levels of hCG. This test detects [...] for . Performed By: #### 2 106-3 ####[facility] LABCLIA [id number] [place] [address] [facility] NURSING PROGon 09-05-2024 NURSING PROG HNO ID: [id number] Author: FELISA REYNOSO RN Service: ? Author Type: Registered Nurse Type: Nursing Progress Note Filed: 09/05/2024 15:58 Note Text: Patient sat at bedside and dressed self. Patient discharged from PACU in stable condition via wheelchair Normal [facility] NURSING PROG HNO ID: [id number] Author: EFLISA REYNOSO RN Service: ? Author Type: Registered Nurse Type: Nursing Progress Note Filed: 09/05/2024 16:00 Note Text: Patient sitting up at bedside. Patient ambulated to the bathroom independently. Patient voided and ambulated back to bedspace to sit in chair. Normal [facility] OPERATIVE NOon 09-05-2024 OPERATIVE NO HNO ID: [id number] Author: FAB PIPER MD Service: Neurosurgery Author Type: Physician Type: Operative Report Filed: 09/05/2024 14:19 Note Text: OPERATIVE/PROCEDURE REPORT LOG ID: [id number] SURGERY/PROCEDURE DATE: 09/05/2024 INCISION/PROCEDURE START TIME: 12:30 PM INCISION CLOSE/PROCEDURE END TIME: 2:08 PM SURGEON(S)/PROCEDURALIST(S) AND WOOD ROUTER HAND(S): Surgeons and Role: * Fab Piper MD - Primary Glass Processing Worker: Daryn Ibarra SA; Arturo Kapadia SA SURGERY/PROCEDURE(S): [...] A self-retaining retractor was placed. A #4 [place] was placed under the L4 lamina, and [...] September 05, 2024 TIME: 2:15 PM Normal [facility] XR LUMBAR 1Von 09-05-2024 XR LUMBAR 1V [...] refer to operative notes for full details. Movement Education Specialist: PSCB Transcribe Date/Time: Sep 06 2024 7:56A Dictated by : JASEN GARDNER MD This examination was interpreted and the report reviewed and electronically signed by: JASEN GARDNER MD on Sep 06 2024 7:57AM EST [id number] Normal [facility] XR VERIFY LEVEL W-AUBKK-WNqt 09-05-2024 XR VERIFY LEVEL L-SPINE-NB * * [...] on 09/05/2024 12:44 PM via verbal communication. Movement Education Specialist: PSCB Transcribe Date/Time: Sep 05 2024 12:44P Dictated by : ANA MARIA STEELE MD This examination was interpreted and the report reviewed and electronically signed by: ANA MARIA STEELE MD on Sep 05 2024 12:44PM EST [id number] Normal [facility] Bacteria Ur Culton Bacteria identified Cx Nom (U) CULTURE, URINE: <10,000 CFU/ml Normal Urogenital Sammi Normal [facility] Comment on above: Performed By: #### 6 30-4 ####[facility] LABORATORYCLIA [id number] [address] [place] CBC panel Auto (Bld)on 08-31 Erythrocyte distribution width (RBC) [Ratio] 12.5 % Normal 11.5-15.0 [facility] Comment on above: Order Comment: Speci men Type: BLOOD SPECIMENOrdering Facility: [facility] Address: [address] [place] [address] Performed By: #### 5 8410-2 ####[facility] LABORATORYCLIA [id number] [place] [address] [place] Hematocrit (Bld) [Volume fraction] 44.2 % Normal 36.0-46.0 [facility] Comment on above: Order Comment: Speci men Type: BLOOD SPECIMENOrdering Facility: [facility] Address: [address] [place] [address] Performed By: #### 5 8410-2 ####[facility] LABORATORYCLIA [id number] [place] [address] [place] Hemoglobin (Bld) [Mass/Vol] 15.2 g/dL Normal 11.5-15.5 [facility] Comment on above: Order Comment: Speci men Type: BLOOD SPECIMENOrdering Facility: [facility] Address: [address] [place] [address] Performed By: #### 5 8410-2 ####[facility] LABORATORYCLIA [id number] [address] MCH (RBC) [Entitic mass] 31.1 pg Normal 26.0-34.0 [facility] Comment on above: Order Comment: Speci men Type: BLOOD SPECIMENOrdering Facility: [facility] Address: [address] [place] [address] Performed By: #### 5 8410-2 ####[facility] LABORATORYCLIA [id number] [address] MCHC (RBC) [Mass/Vol] 34.4 g/dL Normal 30.5-36.0 [facility] Comment on above: Order Comment: Speci men Type: BLOOD SPECIMENOrdering Facility: [facility] Address: [address] [place] [address] Performed By: #### 5 8410-2 ####[facility] LABORATORYCLIA [id number] [address] MCV (RBC) [Entitic vol] 90.4 fL Normal 80.0-100.0 [facility] Comment on above: Order Comment: Speci men Type: BLOOD SPECIMENOrdering Facility: [facility] Address: [address] [place] [address] Performed By: #### 5 8410-2 ####[facility] LABORATORYCLIA [id number] [address] Nucleated RBC (Bld) [#/Vol] 10*3/uL Normal <0.01 [facility] Comment on above: Order Comment: Speci men Type: BLOOD SPECIMENOrdering Facility: [facility] Address: [address] [place] [address] Performed By: #### 5 8410-2 ####[facility] LABORATORYCLIA [id number] [address] Platelet mean volume (Bld) [Entitic vol] 9.1 fL Normal 9.0-12.7 [facility] Comment on above: Order Comment: Speci men Type: BLOOD SPECIMENOrdering Facility: [facility] Address: [address] [place] [address] Performed By: #### 5 8410-2 ####[facility] LABORATORYCLIA [id number] [address] Platelets (Bld) [#/Vol] 355 10*3/uL Normal 150-400 [facility] Comment on above: Order Comment: Speci men Type: BLOOD SPECIMENOrdering Facility: [facility] Address: [address] [place] [address] Performed By: #### 5 8410-2 ####[facility] LABORATORYCLIA [id number] [address] RBC (Bld) [#/Vol] 4.89 10*6/uL Normal 3.90-5.20 [facility] Comment on above: Order Comment: Speci men Type: BLOOD SPECIMENOrdering Facility: [facility] Address: [address] [place] [address] Performed By: #### 5 8410-2 ####[facility] LABORATORYCLIA [id number] [address] WBC (Bld) [#/Vol] 13.17 10*3/uL High 3.70-11.00 [facility] Comment on above: Order Comment: Speci men Type: BLOOD SPECIMENOrdering Facility: [facility] Address: [address] [place] [address] Performed By: #### 5 8410-2 ####[facility] LABORATORYCLIA [id number] [address] Comprehensive metabolic 2000 panelon 08-31-2024 Albumin [Mass/Vol] 4.5 g/dL Normal 3.9-4.9 [facility] Comment on above: Order Comment: Speci men Type: BLOOD SPECIMENOrdering Facility: [facility] Address: [address] [place] [address] Performed By: #### 2 4323-8 ####[facility] LABORATORYCLIA [id number] [address] [place] ALP [Catalytic activity/Vol] 53 U/L Normal 34-123 [facility] Comment on above: Order Comment: Speci men Type: BLOOD SPECIMENOrdering Facility: [facility] Address: [address] [place] [address] Performed By: #### 2 4323-8 ####[facility] LABORATORYCLIA [id number] [address] OF [facility] ALT With P-5'-P [Catalytic activity/Vol] 12 U/L Normal 7-38 [facility] Comment on above: Order Comment: Speci men Type: BLOOD SPECIMENOrdering Facility: [facility] Address: [address] [place] [address] Performed By: #### 2 4323-8 ####[facility] LABORATORYCLIA [id number] [address] Anion gap [Moles/Vol] 12 mmol/L Normal 8-15 [facility] Comment on above: Order Comment: Speci men Type: BLOOD SPECIMENOrdering Facility: [facility] Address: [address] [place] [address] Performed By: #### 2 4323-8 ####[facility] LABORATORYCLIA [id number] [address] AST With P-5'-P [Catalytic activity/Vol] 19 U/L Normal 13-35 [facility] Comment on above: Order Comment: Speci men Type: BLOOD SPECIMENOrdering Facility: [facility] Address: [address] [place] [address] Performed By: #### 2 4323-8 ####[facility] LABORATORYCLIA [id number] [address] Bilirubin [Mass/Vol] 0.4 mg/dL Normal 0.2-1.3 [facility] Comment on above: Order Comment: Speci men Type: BLOOD SPECIMENOrdering Facility: [facility] Address: [address] [place] [address] Performed By: #### 2 4323-8 ####[facility] LABORATORYCLIA [id number] [place] [address] [place] Calcium [Mass/Vol] 10.0 mg/dL Normal 8.5-10.2 [facility] Comment on above: Order Comment: Speci men Type: BLOOD SPECIMENOrdering Facility: [facility] Address: [address] [place] [address] Performed By: #### 2 4323-8 ####[facility] LABORATORYCLIA [id number] [place] [address] [place] Chloride [Moles/Vol] 100 mmol/L Normal 98-107 [facility] Comment on above: Order Comment: Speci men Type: BLOOD SPECIMENOrdering Facility: [facility] Address: [address] [place] [address] Performed By: #### 2 4323-8 ####[facility] LABORATORYCLIA [id number] [address] [place] CO2 [Moles/Vol] 27 mmol/L Normal 22-30 [facility] Comment on above: Order Comment: Speci men Type: BLOOD SPECIMENOrdering Facility: [facility] Address: [address] [place] [address] Performed By: #### 2 4323-8 ####[facility] LABORATORYCLIA [id number] [address] [place] Creatinine [Mass/Vol] 0.63 mg/dL Normal 0.58-0.96 [facility] Comment on above: Order Comment: Speci men Type: BLOOD SPECIMENOrdering Facility: [facility] Address: [address] [place] [address] Performed By: #### 2 4323-8 ####[facility] LABORATORYCLIA [id number] [address] Creatinine and Glomerular filtration rate.predicted panel (S/P/Bld) 117 mL/min/1.73m??? Normal >=60 [facility] Comment on above: Order Comment: Speci men Type: BLOOD SPECIMENOrdering Facility: [facility] Address: [address] [place] [address] Result Comment: Erica mated Glomerular Filtration Rate [...] actual GFR. Performed By: #### 2 4323-8 ####[facility] LABORATORYCLIA [id number] [place] [address] [place] Glucose [Mass/Vol] 83 mg/dL Normal 74-99 [facility] Comment on above: Order Comment: Angelique rodriguez Type: BLOOD SPECIMENOrdering Facility: [facility] Address: [address] [place] [address] Result Comment: The Stateless Diabetes Association (ADA) provides guidance for cutoff [...] Standards of Medical Care in Diabetes 2016, Stateless Diabetes Association. Diabetes Care. 2016.39(Suppl 1). Performed By: #### 2 4323-8 ####[facility] LABORATORYCLIA [id number] [place] [id number] [place] Potassium [Moles/Vol] 4.8 mmol/L Normal 3.7-5.1 [facility] Comment on above: Order Comment: Angelique rodriguez Type: BLOOD SPECIMENOrdering Facility: [facility] Address: [address] [place] [id number] Performed By: #### 2 4323-8 ####[facility] LABORATORYCLIA [id number] [place] [address] [place] Protein [Mass/Vol] 8.1 g/dL High 6.3-8.0 [facility] Comment on above: Order Comment: Speci men Type: BLOOD SPECIMENOrdering Facility: [facility] Address: [address] [place] [address] Performed By: #### 2 4323-8 ####[facility] LABORATORYCLIA [id number] [address] STATES OF [facility] Sodium [Moles/Vol] 139 mmol/L Normal 136-144 [facility] Comment on above: Order Comment: Speci men Type: BLOOD SPECIMENOrdering Facility: [facility] Address: [address] [place] [address] Performed By: #### 2 4323-8 ####[facility] LABORATORYCLIA [id number] [address] STATES [facility] Urea nitrogen [Mass/Vol] 13 mg/dL Normal 7-21 [facility] Comment on above: Order Comment: Speci men Type: BLOOD SPECIMENOrdering Facility: [facility] Address: [address] [place] [address] Performed By: #### 2 4323-8 ####[facility] LABORATORYCLIA [id number] [address] OF [facility] ECG COMPLETEon 08-31-2024 ECG COMPLETE Ventricular Rate : 7 4 BPM Atrial Rate : 74 BPM P-R Interval : 158 ms QRS Duration : 88 ms Q-T Interval : 384 ms QTC Calculation(Bazett) : 426 ms Calculated P [place] : 53 degrees Calculated R [place] : 46 degrees Calculated T [place] : 50 degrees NORMAL SINUS RHYTHM NORMAL ECG NO PREVIOUS ECGS AVAILABLE Confirmed by MD VIDAL VINAY ([id number]) on 09/01/2024 5:46:56 PM NAME : EUGENIA CHISHOLM PID : [id number] : 1985 Gender : Female Race : ORD : [id number] Procedure Date : Aug 31 2024 15:00:39 Edit Date : Sep 01 2024 17:46:57 Diagnosis: NORMAL SINUS RHYTHM NORMAL ECG NO PREVIOUS ECGS AVAILABLE Confirmed by MD VIDAL VINAY ([id number]) on 09/01/2024 5:46:56 PM Test Reason : [facility] Location : 11 : 11 Overread By : MD VIDAL VINAY Edited By : MD VIDAL VINAY Referred By : , Acquired by : LITA JORDAN Normal [facility] HCG Preg Ur Qlon 08-31-2024 HCG ( test) Ql (U) Negative Normal Negative [facility] Comment on above: Order Comment: Speci men Type: URINE SPECIMENOrdering Facility: [facility] Address: [facility] [place] [address] Result Comment: This test is intended to aid in the early detection of . Very dilute urine samples, as indicated by a low specific gravity, may not contain key account representative levels of hCG. This test detects [...] . 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 Author Type: Nurse Practitioner Type: [...] COVID-19 original vaccine, age 12+ yr, monovalent ([employer] - [place] [employer]) 10/22/2021 Imm Admin: COVID-19 original vaccine, age 12+ yr, monovalent ([employer] - [place]) Only the first 3 [...] or problems (more content not included)... Normal [facility] PT panel Coag (PPP)on 2024 INR Coag (PPP) [Relative time] 1.0 {INR} Normal 0.9-1.3 [facility] Comment on above: Order Comment: Speci men Type: BLOOD SPECIMENOrdering Facility: [facility] Address: [address], [place] [address] Result Comment: Chelsea min K Antagonist (VKA) Therapeutic Range: INR 2 to 3 (Target INR of 2.5) Note: For patients treated with VKA drugs, such as warfarin, the Stateless College of Chest Physicians 2012 Guideline recommends [...] Chest 2012, 141:7S-47S Elkin RA, et al. [facility] 2017, 70: 252-289 Performed By: #### 3 4528-0, 72242-4 ####[facility] LABORATORYIA [id number] [address] [place] PT Coag (PPP) [Time] 11.1 s Normal 9.7-13.0 [facility] Comment on above: Order Comment: Speci men Type: BLOOD SPECIMENOrdering Facility: [facility] Address: [address] [place] [address] Performed By: #### 3 4528-0, 17632-8 ####[facility] LABORATORYIA [id number] [address] STATES OF [facility] QUANT TOX PANELon 08-31-2024 1-Zfkcwwognd-3,5-Dimet hyl-3,3-Diphenylpyrrol idine (EDDP) Confirm (U) [Mass/Vol] <25 Normal <25 [facility] Comment on above: Order Comment: Speci men Type: URINE SPECIMENOrdering Facility: [facility] Address: [address] [place] [address] Result Comment: 9-Qdaziihesx-3,1-fuuykbmw-2,3-diphenylpyrrolidine (EDDP) is a metabolite of methadone. Performed By: #### U QNTX ####[facility] LABCLIA [id number] [address] [place] 6-Monoacetylmorphine (6-GALI) (U) [Mass/Vol] <5 Normal <5 [facility] Comment on above: Order Comment: Speci men Type: URINE SPECIMENOrdering Facility: [facility] Address: [address] [place] [address] Result Comment: 6-Mo noacetylmorphine is a metabolite of heroin. Performed By: #### U QNTX ####[facility] LABIA [id number] [place] [address] [place] Amphetamine Confirm (U) [Mass/Vol] <25 Normal <25 [facility] Comment on above: Order Comment: Speci men Type: URINE SPECIMENOrdering Facility: [facility] Address: [address] [place] [address] Result Comment: Meth ylphenidate does not contain or metabolize to amphetamine. Performed By: #### U QNTX ####[facility] [id number] [place] [address] [place] Benzoylecgonine Confirm (U) [Mass/Vol] <25 Normal <25 [facility] Comment on above: Order Comment: Speci men Type: URINE SPECIMENOrdering Facility: [facility] Address: [address] [place] [address] Result Comment: Davis oylecgonine is a metabolite of cocaine. Performed By: #### U QNTX ####[facility] [id number] [place] [address] [place] Buprenorphine (U) [Mass/Vol] <5 Normal <5 [facility] Comment on above: Order Comment: Speci men Type: URINE SPECIMENOrdering Facility: [facility] Address: [address] [place] [address] Result Comment: Rosaura ents using transdermal formulations of buprenorphine may yield undetectable buprenorphine and norbuprenorphine urine concentrations. Performed By: #### U QNTX ####[facility] LABIA [id number] [place] [address] [place] Carboxy tetrahydrocannabinol (U) [Mass/Vol] <10 Normal <10 [facility] Comment on above: Order Comment: Speci men Type: URINE SPECIMENOrdering Facility: [facility] Address: [address] [place] [address] Result Comment: 11-N ad-4-zyqxvgk-tetrahydrocannabinol (zycaj-4-tljslzl-THC) is a metabolite of ezrad-7-emkdgovbnhagpgjibaes (THC). This test does not differentiate between delta-8 or delta-9 carboxy-THC. Performed By: #### U QNTX ####[facility] LABCLIA [id number] [address] STATES [facility] Codeine Confirm (U) [Mass/Vol] <25 Normal <25 [facility] Comment on above: Order Comment: Speci men Type: URINE SPECIMENOrdering Facility: [facility] Address: [address] [place] [address] Performed By: #### U QNTX ####[facility] LABIA [id number] [address] [place] fentaNYL Confirm (U) [Mass/Vol] <1 Normal <1 [facility] Comment on above: Order Comment: Speci men Type: URINE SPECIMENOrdering Facility: [facility] Address: [address] [place] [address] Performed By: #### U QNTX ####[facility] LABIA [id number] [address] [place] HYDROcodone Confirm (U) [Mass/Vol] <25 Normal <25 [facility] Comment on above: Order Comment: Speci men Type: URINE SPECIMENOrdering Facility: [facility] Address: [address] [place] [address] Performed By: #### U QNTX ####[facility] LABIA [id number] [address] STATES [facility] HYDROmorphone Confirm (U) [Mass/Vol] <25 Normal <25 [facility] Comment on above: Order Comment: Speci men Type: URINE SPECIMENOrdering Facility: [facility] Address: [address] [place] [address] Performed By: #### U QNTX ####[facility] [id number] [address] [place] MDA, UR <25 Normal <25 [facility] Comment on above: Order Comment: Speci men Type: URINE SPECIMENOrdering Facility: [facility] Address: [address] [place] [address] Result Comment: 3,4 Methylenedioxyamphetamine is also known as MDA. Performed By: #### U QNTX ####[facility] [id number] [address] [place] MDEA, UR <25 Normal <25 [facility] Comment on above: Order Comment: Speci men Type: URINE SPECIMENOrdering Facility: [facility] Address: [address] [place] [address] Result Comment: 3,4 Winutnnikdqsbr-S-mpigvlvzcewdobwe is also known as MDEA. Performed By: #### U QNTX ####[facility] [id number] [address] [place] MDMA, UR <25 Normal <25 [facility] Comment on above: Order Comment: Speci men Type: URINE SPECIMENOrdering Facility: [facility] Address: [address] [place] [address] Result Comment: 3,4- Methylenedioxymethamphetamine is also known as MDMA. Performed By: #### U QNTX ####[facility] [id number] [place] [address] [place] Methadone Confirm (U) [Mass/Vol] <25 Normal <25 [facility] Comment on above: Order Comment: Speci men Type: URINE SPECIMENOrdering Facility: [facility] Address: [address] [place] [address] Performed By: #### U QNTX ####[facility] LABIA [id number] [place] [address] [place] Methamphetamine Confirm (U) [Mass/Vol] <25 Normal <25 [facility] Comment on above: Order Comment: Speci men Type: URINE SPECIMENOrdering Facility: [facility] Address: [address] [place] [address] Performed By: #### U QNTX ####[facility] [id number] [address] STATES [facility] Morphine Confirm (U) [Mass/Vol] <25 Normal <25 [facility] Comment on above: Order Comment: Speci men Type: URINE SPECIMENOrdering Facility: [facility] Address: [address] [place] [address] Performed By: #### U QNTX ####[facility] [id number] [address] Norbuprenorphine (U) [Mass/Vol] <10 Normal <10 [facility] Comment on above: Order Comment: Speci men Type: URINE SPECIMENOrdering Facility: [facility] Address: [address] [place] [address] Result Comment: Norb uprenorphine is a metabolite of buprenorphine. Patients using transdermal formulations of buprenorphine may yield undetectable buprenorphine and norbuprenorphine urine concentrations. Performed By: #### U QNTX ####[facility] [id number] [address] Norfentanyl Confirm (U) [Mass/Vol] <1 Normal <1 [facility] Comment on above: Order Comment: Speci men Type: URINE SPECIMENOrdering Facility: [facility] Address: [address] [place] [address] Result Comment: Norf entanyl is a metabolite of fentanyl. Performed By: #### U QNTX ####[facility] LABROCKING[facility] [id number] [address] NORHYDROCODONE, UR <25 Normal <25 [facility] Comment on above: Order Comment: Speci men Type: URINE SPECIMENOrdering Facility: [facility] Address: [address] [place] [address] Result Comment: Norh ydrocodone is a metabolite of hydrocodone. Performed By: #### U QNTX ####[facility] [id number] [address] STATES [facility] NOROXYCODONE, UR <25 Normal <25 [facility] Comment on above: Order Comment: Speci men Type: URINE SPECIMENOrdering Facility: [facility] Address: [address] [place] [address] Result Comment: Noro xycodone is a metabolite of oxycodone. Performed By: #### U QNTX ####[place] [id number] [address] NOROXYMORPHONE, UR <25 Normal <25 [facility] Comment on above: Order Comment: Speci men Type: URINE SPECIMENOrdering Facility: [facility] Address: [address] [place] [address] Result Comment: Noro xymorphone is a metabolite of oxymorphone and oxycodone and a minor metabolite of naltrexone and naloxone. Performed By: #### U QNTX ####[facility] [id number] [address] [place] Nortramadol (U) [Mass/Vol] <25 Normal <25 [facility] Comment on above: Order Comment: Speci men Type: URINE SPECIMENOrdering Facility: [facility] Address: [address] [place] [address] Result Comment: O-de smethyltramadol is a metabolite of tramadol. Performed By: #### U QNTX ####[facility] [id number] [address] [place] NOTE, UR TOXICOLOGY PANEL Normal [facility] Comment on above: Order Comment: Speci men Type: URINE SPECIMENOrdering Facility: [facility] Address: [address] [place] [address] Result Comment: For medical purposes only. Not [...] for research. Performed By: #### U QNTX ####[facility] [id number] [place] [address] [place] oxyCODONE Confirm (U) [Mass/Vol] <25 Normal <25 [facility] Comment on above: Order Comment: Speci men Type: URINE SPECIMENOrdering Facility: [facility] Address: [address] [place] [address] Performed By: #### U QNTX ####[facility] [id number] [address] [place] oxyMORphone Confirm (U) [Mass/Vol] <25 Normal <25 [facility] Comment on above: Order Comment: Speci men Type: URINE SPECIMENOrdering Facility: [facility] Address: [address] [place] [address] Performed By: #### U QNTX ####[facility] [id number] [address] [place] Phencyclidine Confirm (U) [Mass/Vol] <10 Normal <10 [facility] Comment on above: Order Comment: Speci men Type: URINE SPECIMENOrdering Facility: [facility] Address: [address] [place] [address] Result Comment: Phen cyclidine is also known as PCP. Performed By: #### U QNTX ####[facility] LABCLIA [id number] [address] [place] [address] [place] PHENTERMINE, UR <25 Normal <25 [facility] Comment on above: Order Comment: Speci men Type: URINE SPECIMENOrdering Facility: [facility] Address: [address] [place] [address] Performed By: #### U QNTX ####[facility] LABCLIA [id number] [address] [place] [address] [place] traMADol Confirm (U) [Mass/Vol] <25 Normal <25 [facility] Comment on above: Order Comment: Speci men Type: URINE SPECIMENOrdering Facility: [facility] Address: [address] [place] [address] Performed By: #### U QNTX ####[facility] LABCLIA [id number] [address], [address] [place] SPECIMEN VALIDITY, URINEon 0 - CREATININE,URINE 41.1 mg/dL Normal 20.0-300.0 [facility] Comment on above: Order Comment: Speci men Type: URINE SPECIMENOrdering Facility: [facility] Address: [address] [place] [address] Performed By: #### L [id number] ####[facility] LABCLIA [id number] [address] [place] [address] [place] NITRITES,URINE <50 Normal <500 [facility] Comment on above: Order Comment: Speci men Type: URINE SPECIMENOrdering Facility: [facility] Address: [address] [place] [address] Performed By: #### L [id number] ####[facility] LABCLIA [id number] [address] [place] [address] [place] OXIDANTS,URINE <38 Normal <200 [facility] Comment on above: Order Comment: Speci men Type: URINE SPECIMENOrdering Facility: [facility] Address: [address] [place] [address] Performed By: #### L [id number] ####[facility] LABCLIA [id number] [place] [address] [place] pH (U) 5.3 [pH] Normal 4.5-8.0 [facility] Comment on above: Order Comment: Speci men Type: URINE SPECIMENOrdering Facility: [facility] Address: [address] [place] [address] Performed By: #### L [id number] ####[facility] LABCLIA [id number] [place] [address] [place] SPEC GRAVITY,UR 1.011 Normal 1.003-1.03 5 [facility] Comment on above: Order Comment: Speci men Type: URINE SPECIMENOrdering Facility: [facility] Address: [address] [place] [address] Performed By: #### L [id number] ####[facility] LABCLIA [id number] [address] [place] SPECIMEN VALIDITY QUALITY Specimen quality results within acceptable limits Normal [facility] Comment on above: Order Comment: Speci men Type: URINE SPECIMENOrdering Facility: [facility] Address: [address] [place] [address] Performed By: #### L [id number] ####[facility] LABCLIA [id number] [place] [id number] [place] STAPHYLOCOCCUS AUREUS AND MR SA SCREEN, PCR, NASALon 08-31-2024 S. aureus and MRSA panel BARI+probe (Nose) Methicillin-SUSCEPTIBLE Staphylococcus aureus Detected Abnormal Not Detected [facility] Comment on above: Order Comment: Speci men Type: SWABOrdering Facility: [facility] Address: [address] [place] [address] Performed By: #### S APCR ####[facility] LABORATORYCLIA [id number] [place] [address] [place] TOXICOLOGY SCREEN, ROUTINE U RINEon 08-31-2024 Amphetamines Confirm (U) [Mass/Vol] Negative Negative [facility] Comment on above: Cutoff threshold at 1000 ng/mL. Barbiturates Urine Negative Negative [facility] Comment on above: Cutoff threshold at 200 ng/mL. Benzodiazepines Urine Negative Negative [facility] Comment on above: Cutoff threshold at 200 [...] Hospital Opiates Screen Ql (U) Negative Negative [facility] Comment on above: Cutoff threshold at 300 ng/mL. oxyCODONE cutoff Screen (U) [Mass/Vol] Negative Negative [facility] Comment on above: Cutoff threshold at 100 ng/mL. Phencyclidine Ql (U) Negative Negative [facility] Comment on above: Cutoff threshold at 25 [...] of Health and Human Services, [place], p.10. [facility] Amphetamines Confirm (U) [Mass/Vol] Negative Normal Negative [facility] Comment on above: Order Comment: Speci men Type: URINE SPECIMENOrdering Facility: [facility] Address: [facility] [place] [address] Result Comment: Cuto ff threshold at 1000 ng/mL. Performed By: #### U TOX2 ####[facility]ORY[facility] [id number] [address] [place] BARBITURATES, URINE Negative Normal Negative [facility] Comment on above: Order Comment: Speci men Type: URINE SPECIMENOrdering Facility: [facility] Address: [address] [place] [address] Result Comment: Cuto ff threshold at 200 ng/mL. Performed By: #### U TOX2 ####[facility]ORYCLIA [id number] [place] [address] [place] BENZODIAZEPINES, UR Negative Normal Negative [facility] Comment on above: Order Comment: Speci men Type: URINE SPECIMENOrdering Facility: [facility] Address: [address] [place] [address] Result Comment: Cuto ff threshold at 200 ng/mL. Performed By: #### U TOX2 ####[facility]ORY[facility] [id number] [address] Cannabinoids Screen Ql (U) Negative Normal Negative [facility] Comment on above: Order Comment: Speci men Type: URINE SPECIMENOrdering Facility: [facility] Address: [address] [place] [address] Result Comment: Cuto ff threshold at 50 ng/mL. Performed By: #### U TOX2 ####[facility]ORY[facility] [id number] [address] [place] Cocaine Ql (U) Negative Normal Negative [facility] Comment on above: Order Comment: Speci men Type: URINE SPECIMENOrdering Facility: [facility] Address: [address] [place] [address] Result Comment: Cuto ff threshold at 300 ng/mL. Performed By: #### U TOX2 ####[facility]ORY[facility] [id number] [address] [place] Ethanol (U) [Mass/Vol] <11 Normal <11 [facility] Comment on above: Order Comment: Speci men Type: URINE SPECIMENOrdering Facility: SELECT [facility] Address: [address] [place] [address] Performed By: #### U TOX2 ####[facility] LABORATORYCLIA [id number] [address] Opiates Screen Ql (U) Negative Normal Negative [facility] Comment on above: Order Comment: Speci men Type: URINE SPECIMENOrdering Facility: [facility] Address: [address] [place] [address] Result Comment: Cuto ff threshold at 300 ng/mL. Performed By: #### U TOX2 ####[facility] GENER[facility] LABORATORYCLIA [id number] [address] oxyCODONE cutoff Screen (U) [Mass/Vol] Negative Normal Negative [facility] Comment on above: Order Comment: Speci men Type: URINE SPECIMENOrdering Facility: [facility] Address: [address] [place] [address] Result Comment: Cuto ff threshold at 100 ng/mL. Performed By: #### U TOX2 ####[facility] LABORATORYCLIA [id number] [address] Phencyclidine Ql (U) Negative Normal Negative [facility] Comment on above: Order Comment: Speci men Type: URINE SPECIMENOrdering Facility: [facility] Address: [address] [place] [address] Result Comment: Cuto ff threshold at 25 ng/mL. Performed By: #### U TOX2 ####[facility] LABORATORYCLIA [id number] [address] OF [facility] TYPE AND SCREEN,30 DAYon ABO O Normal [facility] Comment on above: Order Comment: Speci men Type: BLOOD SPECIMENOrdering Facility: [facility] Address: [address] [place] [address] Performed By: #### T SCR30 ####[facility] BLOOD BANKCLIA [id number] [address] OF [place] Rh Nom (Bld) Positive Normal [facility] Comment on above: Order Comment: Speci men Type: BLOOD SPECIMENOrdering Facility: [facility] Address: [address] [place] [address] Performed By: #### T SCR30 ####[facility] BLOOD BANKCLIA [id number] [address] Urinalysis complete panel (U )on 08-31-2024 Bilirubin Ql (U) Negative Normal Negative [facility] Comment on above: Order Comment: Speci men Type: URINE SPECIMENOrdering Facility: [facility] Address: [address] [place] [address] Performed By: #### 2 43568, 2105-06 ####[facility] LABORATORYCLIA [id number] [address] Clarity (Unsp spec) Clear Normal Clear [facility] Comment on above: Order Comment: Speci men Type: URINE SPECIMENOrdering Facility: [facility] Address: [address] [place] [address] Performed By: #### 2 43568, 2105-06 ####[facility] LABORATORYCLIA [id number] [address] Color (U) Colorless Normal yellow [facility] Comment on above: Order Comment: Speci men Type: URINE SPECIMENOrdering Facility: [facility] Address: [address] [place] [address] Performed By: #### 2 43510-01, 2105-06 ####[facility] LABORATORYCLIA [id number] [address] Epithelial cells LM.HPF (Urine sed) [#/Area] Few Normal [facility] Comment on above: Order Comment: Speci men Type: URINE SPECIMENOrdering Facility: [facility] Address: [address] [place] [address] Performed By: #### 2 4356-8, 2105-06 ####[facility] LABORATORYCLIA [id number] [address] OF [place] Glucose Test strip (U) [Mass/Vol] Negative Normal Trace, Negative [facility] Comment on above: Order Comment: Speci men Type: URINE SPECIMENOrdering Facility: [facility] Address: [address] [place] [address] Performed By: #### 2 6, 2105-06 ####[facility] LABORATORYCLIA [id number] [place] [address] [place] Hemoglobin Ql (U) 2+ Abnormal Negative, Trace [facility] Comment on above: Order Comment: Speci men Type: URINE SPECIMENOrdering Facility: [facility] Address: [address] [place] [address] Performed By: #### 2 4355-11, 2105-06 ####[facility] LABORATORYCLIA [id number] [place] [address] [place] Ketones Ql (U) Negative Normal Negative, Trace [facility] Comment on above: Order Comment: Speci men Type: URINE SPECIMENOrdering Facility: [facility] Address: [address] [place] [address] Performed By: #### 2 4355-11, 2105-06 ####[facility] LABORATORYCLIA [id number] [address] [place] Leukocyte esterase Test strip Ql (U) 75 Aracelis/uL Abnormal Negative, 25 Aracelis/uL [facility] Comment on above: Order Comment: Speci men Type: URINE SPECIMENOrdering Facility: [facility] Address: [address] [place] [address] Performed By: #### 2 4355-11, 2105-06 ####[facility] LABORATORYCLIA [id number] [place] [address] [place] Nitrite Ql (U) Negative Normal Negative [facility] Comment on above: Order Comment: Speci men Type: URINE SPECIMENOrdering Facility: [facility] Address: [address] [place] [address] Performed By: #### 2 4356, 2105-06 ####[facility]ORATORYCLIA [id number] [address] [place] pH (U) 5.0 [pH] Normal 5.0-8.0 [facility] Comment on above: Order Comment: Speci men Type: URINE SPECIMENOrdering Facility: [facility] Address: [address] [place] [address] Performed By: #### 2 4356-8, 2105-06 ####[facility] LABORATORYCLIA [id number] [address] [place] Protein (U) [Mass/Vol] Negative Normal Trace , Negative [facility] Comment on above: Order Comment: Speci men Type: URINE SPECIMENOrdering Facility: [facility] Address: [address] [place] [address] Performed By: #### 2 4356-8, 2105-06 ####[facility] LABORATORYCLIA [id number] [address] STATES [facility] RBC LM.HPF (Urine sed) [#/Area] 0-3 /HPF Normal 0-3 /HPF [facility] Comment on above: Order Comment: Speci men Type: URINE SPECIMENOrdering Facility: [facility] Address: [address] [place] [address] Performed By: #### 2 43568, 2105-06 ####[facility] LABORATORYCLIA [id number] [address] [place] Specific gravity (U) [Rel density] 1.008 Normal 1.005-1.03 0 [facility] Comment on above: Order Comment: Speci men Type: URINE SPECIMENOrdering Facility: [facility] Address: [address] [place] [address] Performed By: #### 2 4356-8, 2105-06 ####[facility] LABORATORYCLIA [id number] [address] Urobilinogen Ql (U) Normal Normal Normal [facility] Comment on above: Order Comment: Speci men Type: URINE SPECIMENOrdering Facility: [facility] Address: [address] [place] [address] Performed By: #### 2 4356-8, 2105-06 ####[facility] LABORATORYCLIA [id number] [place] [address] [facility] WBC LM.HPF (Urine sed) [#/Area] 0-5 /HPF Normal 0-5 /HPF [facility] Comment on above: Order Comment: Speci men Type: URINE SPECIMENOrdering Facility: [facility] Address: [address] [place] [address] Performed By: #### 2 4356-8, 2105-06 ####[facility] LABORATORYCLIA [id number] [place] [address] [facility] XR CHEST 2V FRONTAL/LATon XR CHEST 2V [...] thoracic spine. IMPRESSION: No acute radiographic abnormality. Movement Education Specialist: ALEX Transcribe Date/Time: Sep 01 2024 9:42A Dictated by : TORI SNYDER MD This examination was interpreted and the report reviewed and electronically signed by: TORI SNYDER MD on Sep 01 2024 9:43AM EST [id number] Normal [facility] aPTT PPPon 08-31-2024 aPTT Coag (PPP) [Time] 29.4 s Normal 23.0-32.4 [facility] Comment on above: Order Comment: Speci men Type: BLOOD SPECIMENOrdering Facility: [facility] Address: [address] [id number] Performed By: #### 3 4528-0, 65176-5 ####[facility] LABORATORYCLIA [id number] [place] [address] [place] Katarina 08-29-2024 CNPN Telephone (NEAGCLM) EUGENIA CHISHOLM ([id number]) 1985 F Date Time Provider Department 08/29/24 [...] on 09/05/24. Patient is to arrive at [facility] at 10:00am for surgery at 12:00pm. [...] CNOV Office Visit (NEAGCL M) EUGENIA CHISHOLM ([id number]) 1985 F Date Time Provider Department 08/28/24 3:30 PM FAB PIPER NEAGCLM During your visit today, we recorded the following information about you: Pulse Blood pressure Weight Height 69/minute 107/71 89.1 kg 1.753 m Fab Piper MD 08/28/2024 4:03 PM Signed NEUROSURGERY CONSULT NOTE Fab Piper MD [facility] Date of visit: August 28, 2024 Patient Name: Ms.Amber Mirza Chisholm Date of : 1985 Current Age: [age] year old Sex: female MRN/E# [id number] Last Office Visit: Visit date not found [...] Flexion 5/5 (more content not included)... Normal [facility] XR Lumbar spine Views W flex ion and W extensionon 08-17-2024 IMPRESSION: Findings as described above. Movement Education Specialist: PSCB Transcribe Date/Time: Aug 17 2024 5:20P Dictated by : JACOBO ANGLIN MD This examination was interpreted and the report reviewed and electronically signed by: JACOBO ANGLIN MD on Aug 17 2024 5:22PM [facility] DIV[facility] OF RADIOLOGY * * *Final Report* [...] spine are presented. FINDINGS: There are five vng-bes-xequqih lumbar vertebrae. Right-sided curvature of the lumbar [...] spine are presented. FINDINGS: There are five viz-khe-mdjwwwf lumbar vertebrae. Right-sided curvature of the lumbar [...] pelvis. IMPRESSION IMPRESSION: Findings as described above. Movement Education Specialist: PSCDaniel Transcribe Date/Time: Aug 17 2024 5:20P Dictated by : JACOBO ANGLIN MD This examination was interpreted and the report reviewed and electronically signed by: JACOBO ANGLIN MD on Aug 17 2024 5:22PM [facility] XR Lumbar spine Views W flex ion and W extensionOrdered By: Ccf Provider on 08-17-2024 [facility] CNOVon 08-15-2024 CNOV Office Visit (NMMMM) EUGENIA CHISHOLM ([id number]) 1985 F Date Time Provider Department 08/15/24 [...] Michael Perez MD 08/15/2024 4:06 PM Signed [facility] New Patient Consultation No referring provider defined for this encounter. CC: Lower back pain Subjective History of Present Illness: Eugenia is a 39-year-old female presenting with persistent back and right leg pain. Eugenia reports a history of back pain since her teenage years, which worsened in December. She describes the pain as severe, without any known injury, and sought health care facilities inspector, where she was informed of a possible herniated disc. An MRI confirmed the diagnosis. She received epidural steroid injections at [facility] in [place], performed by Dr. Fei Gonzáles, which alleviated [...] Hears finge (more content not included)... Normal [facility] XR LUMBAR 4V AP/LAT/ FLEX/EX Ton 08-14-2024 [...] spine are presented. FINDINGS: There are five ghr-rug-qamwcjg lumbar vertebrae. Right-sided curvature of the lumbar spine is again noted. No fracture or subluxations are noted. No change in alignment of the lumbar spine with lateral extension and lateral flexion. The disc spaces are grossly preserved. There is minimal osteophyte formation. Others: There are degenerative changes in the thoracic spine. A T-shaped IUD seen in the pelvis. IMPRESSION: Findings as described above. Movement Education Specialist: PSCB Transcribe Date/Time: Aug 17 2024 5:20P Dictated by : JACOBO ANGLIN MD This examination was interpreted and the report reviewed and electronically signed by: JACOBO ANGLIN MD on Aug 17 2024 5:22PM EST [id number] Normal [facility] XR Lumbar spine Views W flex ion and W extensionon 08-14-2024 Radiology Study observation (narrative) [facility] CNCONon 08-10-2024 CNCON Consults (NMMMM) EUGENIA CHISHOLM ([id number]) 1985 F Date Time Provider Department 08/10/24 [...] Status:Closed by KARTHIK GHOTRA RN on 09/19/24 [facility] ALICEOVmars 08-10-2024 CNOV Office Visit (FAMPWS ) EUGENIA CHISHOLM ([id number]) 1985 F Date Time Provider Department 08/10/24 7:40 AM DEYSI DASILVAPJOEY During your visit today, we recorded the following information about you: Pulse Blood pressure Weight 76/minute 118/76 89.4 kg Deysi Dasilva APRN.CONTINUOUS VULCANIZING MACHINE OPERATOR 08/10/2024 9:39 AM Signed Chief Complaint Patient presents with: Back Pain: Has appt with surgery 08/15 [facility] Eugenia Antoineclaire is a 39 year old [...] 40 MG/ML SUSPENSION FOR INJECTION Brenda Covington [facility] website checked and validated. All prescriptions have been APPROPRIATELY filled. No suspicious activity was identified. 08/10/2024 by Deysi Dasilva CNP. Attending Note I have personally performed a face to face assessment of the patient and have reviewed the SORAYA note (more content not included)... Normal [facility] Katarina 08-10-2024 NANDO Telephone ([facility]) EUGENIA CHISHOLM ([id number]) 1985 F Date Time Provider Department 08/10/24 [...] Encounter Status:Closed by ALLYSSA CHAN on 08/10/24 [facility] HISTORY PHYSICALon HISTORY PHYSICAL HNO ID: [id number] Author: FEI GONZÁLES MD Service: Pain Management Author Type: Physician Type: H&P Filed: 07/18/2024 10:14 Note Text: HISTORY AND PHYSICAL EXAMINATION PATIENT NAME: Eugenia Chisholm DATE of SERVICE: 07/18/2024 Eugenia Chisholm is here for the pain mangement procedure. The patients presents with persistent pain complaints. Eugenia Chsiholm denies any interval changes or new pain [...] DATE: July 18, 2024 TIME: 10:14 AM [facility] OPERATIVE NOon 07-18-2024 OPERATIVE NO HNO ID: [id number] Author: FEI GONZÁLES MD Service: Pain Management Author Type: Physician Type: Operative Report Filed: 07/18/2024 11:08 Note Text: PATIENT NAME: Eugenia Chisholm SERVICE DATE: 07/18/2024 PROCEDURE NOTE PREOPERATIVE DIAGNOSIS(ES) Lumbar radiculopathy Lumbar disc displacement Lumbar canal stenosis without neurogenic claudication Lumbar DDD POSTOPERATIVE DIAGNOSIS(ES): Same PROCEDURE: Right L4-5 lumbar transforaminal epidural steroid injection under fluoroscopy. Card Hanger(s): None, I performed the entire procedure. ANESTHESIA: [...] DATE: July 18, 2024 TIME: 11:06 AM [facility] 06-23-2024 CNPN Telephone (SPNMED) EUGENIA CHISHOLM ([id number]) 1985 F Date Time Provider Department 06/23/24 SANDI JIMENEZ SPNMED During your visit today, we recorded the following information about you: Trudi Isidro MA 06/23/2024 12:19 PM Signed Called the patient to schedule her lumbar injection Patient choose July 18, 2024 Will hold Aleve - 5 days prior to the procedure. Instructions will be sent to the patient via [employer]. Trudi Isidro MA Allergies As of Date: [...] Encounter Status:Closed by TRUDI ISIDRO on 06/23/24 [facility] Ronny 06-22-2024 CNOV Office Visit (SPNMED ) EUGENIA CHISHOLM ([id number]) 1985 F Date Time Provider Department 06/22/24 3:40 PM SANDI JIMENEZ During your visit today, we recorded the following information about you: Pulse Blood pressure Weight Height 71/minute 103/66 88 kg 1.753 m Sandi Jimenez PA-C 06/22/2024 4:52 PM Signed [facility]enez [facility]-C [facility] [address] [address] Dear Del Hubbard DO, Amber D Pamela [...] today with this patient visit. This includes rouk-kg-mqzi time, review of chart records regarding conservative [...] bilateral l (more content not included)... Normal [facility] CNOVon 06-02-2024 CNOV Office Visit (SPNMED ) EUGENIA CHISHOLM ([id number]) 1985 F Date Time Provider Department 06/02/24 1:40 PM SANDI JIMENEZ SPNMED During your visit today, we recorded the following information about you: Pulse Blood pressure Weight Height 68/minute 100/62 86 kg 1.753 m Sandi Jimenez PA-C 06/02/2024 3:21 PM Addendum Sandi Jimenez PA-C [facility] [address] [place] [address] Dear Del Hubbard DO, Amber D Czupik [...] of her rooming interview today with my medical secretary and she told my environmental services assistant that she needed to leave immediately [...] Encounter Status:Closed by SANDI JIMENEZ on 06/02/24 [facility] HISTORY PHYSICALon HISTORY PHYSICAL HNO ID: [id number] Author: FEI GONZÁLES MD Service: Pain Management [...] DATE: May 18, 2024 TIME: 9:00 AM [facility] OPERATIVE NOon 05-18-2024 OPERATIVE NO HNO ID: [id number] Author: FEI GONZÁLES MD Service: Pain Management Author Type: Physician Type: Operative Report Filed: 05/18/2024 09:18 Note Text: PATIENT NAME: Eugenia Chisholm SERVICE DATE: 05/18/2024 PROCEDURE NOTE PREOPERATIVE DIAGNOSIS(ES) Lumbar DDD Lumbar spondylosis Lumbar disc displacement Lumbar radiculopathy POSTOPERATIVE DIAGNOSIS(ES): Same PROCEDURE: Right paramedian L5-S1 interlaminar epidural steroid injection under fluoroscopy. Card Hanger(s): None, I performed the entire procedure. ANESTHESIA: [...] DATE: May 18, 2024 TIME: 9:18 AM [facility] 04-27-2024 [facility] Office Visit (SPNMED ) EUGENIA CHISHOLM ([id number]) 1985 F Date Time Provider Department 04/27/24 2:20 PM SANDI JIMENEZ SPNMED During your visit today, we recorded the following information about you: Pulse Respiration Blood pressure Weight 72/minute 16/minute 100/66 87.5 kg Sandi Jimenez PA-C 04/27/2024 3:08 PM Signed Sandi Jimenez PA-C [facility] [address] [address] 04/27/2024 ASSESSMENT AND PLAN: Assessment : Encounter [...] today with this patient visit. This includes dlrn-vz-rvnu time, review of chart records regarding conservative care history, spine-pertinent imaging, and communication/care coordination with referring provider, problem-specific history-taking and counseling/education regarding treatment options. cc: Rizwan (more content not included)... Normal [facility] CNOVon 04-06-2024 CNOV Office Visit (FAMPWS ) EUGENIA CHISHOLM ([id number]) 1985 F Date Time Provider Department 04/06/24 8:20 AM DEYSI DASILVA During your visit today, we recorded the following information about you: Pulse Respiration Blood pressure Weight 84/minute 14/minute 126/78 86.1 kg Deysi Dasilva APRN.CONTINUOUS VULCANIZING MACHINE OPERATOR 04/06/2024 9:35 AM Signed Chief Complaint Patient [...] XR LUMBAR GENERAL 3V AP/LAT/L5-S1 Myrna Frias, ALBERT.CONTINUOUS VULCANIZING MACHINE OPERATOR Currently: Sciatic nerve pain all the way down her right leg. Occasionally down the left[facility] [...] needed for (more content not included)... Normal [facility] Katarina 03-29-2024 NIMAN Telephone (FAMPWS) EUGENIA CHISHOLM ([id number]) 1985 F Date Time Provider Department 03/29/24 [facility] During your visit today, we recorded the following information about you: Myrna Walker APRN.CONTINUOUS VULCANIZING MACHINE OPERATOR 03/29/2024 8:26 AM Signed Please call patient and let her know that MRI does show a herniated disc at L4-L5. Continue with ortho/spine appointment as scheduled for further interventions than what was discussed at appointment. Thank you, Myrna Walker APRN.CONTINUOUS VULCANIZING MACHINE OPERATOR Maria Ines Lovett LPN 03/29/2024 8:40 AM Signed Spoke with [pt gave information provided. Pt voices understanding. Allergies As of Date: 03/29/2024 (No Known Allergies) Date Reviewed: 03/16/2024 Reviewed by: Myrna Walker APRN.CONTINUOUS VULCANIZING MACHINE OPERATOR - Fully Assessed Reason for Visit: Results [95] Prescriptions as of 03/29/2024 - cyclobenzaprine (FLEXERIL) 10 mg tablet Take 1 tablet by mouth three times a day as needed for muscle spasm. Problem List As Of Date 03/29/2024 Noted Resolved Backache, unspecified [M54.9] 03/13/2013 Cervicalgia [M54.2] 03/13/2013 Hypertrophy of breast [N62] 03/13/2013 Encounter Status:Closed by MARIA INES LOVETT on 03/29/24 [facility] MR Lumbar spine WO contrasto n 03-29-2024 IMPRESSION: Broad-based disc extrusion at L4-5 causing moderate canal and mild to moderate right foraminal stenosis as outlined above. Anatomic Lumbar Variant: None. L4-5 is considered the level of the iliac crest and assume there are 5 lumbar-type vertebrae. Movement Education Specialist: PSCB Transcribe Date/Time: Mar 29 2024 8:04A Dictated by : FEI SAINI MD This examination was interpreted and the report reviewed and electronically signed by: FEI SIANI MD on Mar 29 2024 8:09AM [facility] RADIOLOG[facility] * * *Final Report* * * DATE OF EXAM: Mar 29 2024 7:55AM [facility] 0303 - MRI LUMBAR SPINE WO IVCON [...] and rostrocaudal facet subluxation, these findings cause xycb-kk-ejdvvtmt right foraminal stenosis. Left neural foramen is [...] and rostrocaudal facet subluxation, these findings cause clmr-nz-nxhrpxix right foraminal stenosis. Left neural foramen is [...] and assume there are 5 lumbar-type vertebrae. Movement Education Specialist: ALEX Transcribe Date/Time: Mar 29 2024 8:04A [...] and rostrocaudal facet subluxation, these findings cause scdu-tb-bntpksrz right foraminal stenosis. Left neural foramen is [...] and assume there are 5 lumbar-type vertebrae. Movement Education Specialist: ALEX Transcribe Date/Time: Mar 29 2024 8:04A Dictated by : FEI SAINI MD This examination was interpreted and the report reviewed and electronically signed by: FEI SAINI MD on Mar 29 2024 8:09AM EST [id number] Normal [facility] CNOVon 03-16-2024 CNOV Office Visit (FAMPWS ) EUGENIA CHISHOLM ([id number]) 1985 F Date Time Provider Department 03/16/24 2:40 PM [facility] During your visit today, we recorded the following information about you: Pulse Respiration Blood pressure Weight 74/minute 14/minute 118/66 86 kg Myrna Walker APRN.CONTINUOUS VULCANIZING MACHINE OPERATOR 03/16/2024 3:35 PM Signed Chief Complaint Patient [...] Influenza V (more content not included)... Normal [facility] XR LUMBAR 3V AP/LAT/L5-S1on 03-16-2024 XR LUMBAR [...] spine are presented. FINDINGS: There are five znj-xwu-jgqmyts lumbar vertebrae. No fracture or subluxations are noted. There is right-sided curvature. The disc spaces are well preserved. There is no significant osteophyte formation. IMPRESSION: Negative lumbar spine X-ray. Movement Education Specialist: PSCB Transcribe Date/Time: Mar 17 2024 3:57P Dictated by : JACOBO ANGLIN MD This examination was interpreted and the report reviewed and electronically signed by: JACOBO ANGLIN MD on Mar 17 2024 3:59PM EST [id number] Normal [facility] Pelvic w/ Transvaginalon Pelvic w/ Transvaginal [facility] Services [address] [place] [id number] Pelvic w/ Transvaginal MR#: [id number] Acct: [id number] Name: EUGENIA CHISHOLM Rep #: [id number] : 1985 F 38 From: Glen hong MD PCP: Dr. Del Hubbard, Status: REG CLI Study: Pelvic w/ Transvaginal Date of Exam: 11/23/23 Exam# [id number] Ordering Dr: Manju Richmond LABORER DRIVER LABORER DRIVER -C 3:[id number] STUDY: ULTRASOUND OF THE FEMALE PELVIS - [...] 14:17 EDT Reading Location ID and State: [facility] / [place] , Service support , CC: ANNIE Richmond; Dr. Del Hubbard DO Movement Education Specialist: Signed Normal [facility] Production Control Expert Office Visit Reporton 11-10-2023 Production Control Expert Office Visit Report [facility]. [address] [place] [address] OFFICE VISIT Date of Service: 11/10/23 MR#: [id number] Acct: [id number] Name: EUGENIA CHISHOLM Rep #: [id number] : 1985 Provider: ANNIE julian Age/Sex: 38/F [facility] Status: Signed Intake Vital Signs 02/22/23 13:17 11/10/23 14:59 11/10/23 15:06 Height 5 ft 9 in 5 ft 9 in 5 ft 9 in Weight: 205 lb 8 oz BMI 30.3 BP 107/70 Intake Visit Reasons: HEAVY BLEEDING WITH IUD Chief Complaint: Heavy bleeding with IUD Erp Pm Required: No Is patient in pain?: No [...] menopausal: No Patient : No : No [facility] Surgical History Status post breast reduction Social History adopted: No household members: spouse and children housing: apartment number of children: 1 current occupational status: employed 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 Smoking Status: Former smoker alcohol intake: current alcohol intake frequency: holidays/special occasions only substance use type: does not use seatbelt use: always do you feel safe at home: Yes additional social history: Fiance- [employer] HPI HEAVY BLEEDING WITH IUD Details: [...] about another Management dependent on above 11/10/23 9273 Date Manju Richmond NP LABORER DRIVER-C Cosigner Signature: Date (if applicable) CC: Normal [facility] Laboratory - Microbiology an d Antimicrobial susceptibilityon 05-31-2022 SARS-CoV-2 (COVID-19) RNA BARI+probe Ql (Unsp spec) Detected [facility] No Panel Informationon 05-31 Influenza Types A,B Rapid (Clinic) Not detected [facility] No Panel Informationon 01-23 [facility] XR Lumbar spine 3 Viewson IMPRESSION: Unremark able lumbar spine X-ray. Movement Education Specialist: ALEX Transcribe Date/Time: Jul 02 2021 4:30P Dictated by : JACOBO ANGLIN MD This examination was interpreted and the report reviewed and electronically signed by: JACOBO ANGLIN MD on Jul 02 2021 4:31PM [facility] DIV[facility] OF RADIOLOGY * * *Final Report* [...] spine are presented. FINDINGS: There are five wgi-ipp-gjosiiv lumbar vertebrae. No fracture or subluxations are [...] spine are presented. FINDINGS: There are five uke-gki-qvxxetc lumbar vertebrae. No fracture or subluxations are noted. There is right-sided curvature seen on AP view. The disc spaces are well preserved. There is no significant osteophyte formation. IMPRESSION IMPRESSION: Unremarkable lumbar spine X-ray. Movement Education Specialist: PSCB Transcribe Date/Time: Jul 02 2021 4:30P [...] [Moles/Vol] 11 mmol/L Normal 10 - 20 [facility] Comment on above: Performed By: #### B MP #### [address] [address] Calcium [Mass/Vol] 9.6 mg/dL Normal 8.6 - 10.3 [facility] Comment on above: Performed By: #### B MP #### [address] [address] Chloride [Moles/Vol] 106 mmol/L Normal 98 - 107 [facility] Comment on above: Performed By: #### B MP #### [address] [address] Creatinine [Mass/Vol] 0.68 mg/dL Normal 0.50 - 1.05 [facility] Comment on above: Performed By: #### B MP #### [address] [address] eGFR FEMALE >90 Normal >90 [facility] Comment on above: Result Comment: CALC ULATIONS OF ESTIMATED GFR ARE PERFORMED USING THE 2020 CKD-EPI STUDY REFIT EQUATION WITHOUT THE RACE VARIABLE FOR THE IDMS-TRACEABLE CREATININE METHODS. https://jasn.asnjournals.org/content/early//ASN.40561 11651 Performed By: #### B MP #### [address] [address] Glucose [Mass/Vol] 85 mg/dL Normal 74 - 99 [facility] Comment on above: Performed By: #### B MP #### [address] [address] HCO3 (Bld) [Moles/Vol] 29 mmol/L Normal 21 - 32 [facility] Comment on above: Performed By: #### B MP #### [address] [address] Potassium [Moles/Vol] 3.7 mmol/L Normal 3.5 - 5.3 [facility] Comment on above: Performed By: #### B MP #### [address] [address] Sodium [Moles/Vol] 142 mmol/L Normal 136 - 145 [facility] Comment on above: Performed By: #### B MP #### [address] [address] Urea nitrogen [Mass/Vol] 17 mg/dL Normal 6 - 23 [facility] Comment on above: Performed By: #### B MP #### [address] [address] CBC AND DIFFERENTIALon 06-20 Basophils (Bld) [#/Vol] 0.00 10*3/uL Normal 0.00 - 0.10 [facility] Comment on above: Performed By: #### C BCDF #### [address] [address] Basophils/100 WBC (Bld) 0.2 % Normal 0.0 - 2.0 [facility] Comment on above: Performed By: #### C BCDF #### [address] [address] Eosinophils (Bld) [#/Vol] 0.20 10*3/uL Normal 0.00 - 0.70 [facility] Comment on above: Performed By: #### C BCDF #### [address] [address] Eosinophils/100 WBC (Bld) 2.2 % Normal 0.0 - 6.0 [facility] Comment on above: Performed By: #### C BCDF #### [address] [address] Erythrocyte distribution width (RBC) [Ratio] 13.4 % Normal 11.5 - 14.5 [facility] Comment on above: Performed By: #### C BCDF #### [address] [address] Hematocrit (Bld) [Volume fraction] 42.8 % Normal 36.0 - 46.0 [facility] Comment on above: Performed By: #### C BCDF #### [address] [address] Hemoglobin (Bld) [Mass/Vol] 14.5 g/dL Normal 12.0 - 16.0 [facility] Comment on above: Performed By: #### C BCDF #### [address] [address] Lymphocytes (Bld) [#/Vol] 4.00 10*3/uL Normal 1.20 - 4.80 [facility] Comment on above: Performed By: #### C BCDF #### [address] [address] Lymphocytes/100 WBC (Bld) 37.3 % Normal 13.0 - 44.0 [facility] Comment on above: Performed By: #### C BCDF #### [address] [address] MCHC (RBC) [Mass/Vol] 34.0 g/dL Normal 32.0 - 36.0 [facility] Comment on above: Performed By: #### C BCDF #### [address] [address] MCV (RBC) [Entitic vol] 89 fL Normal 80 - 100 [facility] Comment on above: Performed By: #### C BCDF #### [address] [address] Monocytes (Bld) [#/Vol] 0.70 10*3/uL Normal 0.10 - 1.00 [facility] Comment on above: Performed By: #### C BCDF #### [address] [address] Monocytes/100 WBC (Bld) 6.2 % Normal 2.0 - 10.0 [facility] Comment on above: Performed By: #### C BCDF #### [address] [address] Neutrophils (Bld) [#/Vol] 5.80 10*3/uL Normal 1.20 - 7.70 [facility] Comment on above: Result Comment: Perc ent differential counts (%) should be interpreted in the context of the absolute cell counts (cells/L). Performed By: #### C BCDF #### [address] [address] Neutrophils/100 WBC (Bld) 54.1 % Normal 40.0 - 80.0 [facility] Comment on above: Performed By: #### C BCDF #### [address] [address] NUCLEATED RBC 0.2 /100 WBC Normal [facility] Comment on above: Performed By: #### C BCDF #### [address] [address] Platelets (Bld) [#/Vol] 381 10*3/uL Normal 150 - 450 [facility] Comment on above: Performed By: #### C BCDF #### [address] [address] RBC 4.78 x10E12/L Normal 4.00 - 5.20 [facility] Comment on above: Performed By: #### C BCDF #### [address] [address] WBC (Bld) [#/Vol] 10.7 10*3/uL Normal 4.4 - 11.[address] [facility] Comment on above: Performed By: #### C BCDF #### [address] [address] HEPATIC FUNCTION PANELon Albumin [Mass/Vol] 4.4 g/dL Normal 3.4 - 5.0 [facility] Comment on above: Performed By: #### H EPFP #### [address] [address] ALP [Catalytic activity/Vol] 59 U/L Normal 33 - 110 [facility] Comment on above: Performed By: #### H EPFP #### [address] [address] ALT [Catalytic activity/Vol] 19 U/L Normal 7 - 45 [facility] Comment on above: Result Comment: Rosaura ents treated with Sulfasalazine may generate falsely decreased results for ALT. Performed By: #### H EPFP #### [place] [id number] AST [Catalytic activity/Vol] 16 U/L Normal 9 - 39 [facility] Comment on above: Performed By: #### H EPFP #### [address] [address] Bilirubin [Mass/Vol] 0.4 mg/dL Normal 0.0 - 1.2 [facility] Comment on above: Performed By: #### H EPFP #### [address] [address] Bilirubin.indirect [Mass/Vol] 0.0 mg/dL Normal 0.0 - 0.3 [facility] Comment on above: Performed By: #### H EPFP #### [address] [address] Protein [Mass/Vol] 7.7 g/dL Normal 6.4 - 8.2 [facility] Comment on above: Performed By: #### H EPFP #### [address] [address] LIPASEon 06-20-2021 Lipase [Catalytic activity/Vol] 19 U/L Normal 9 - 82 [facility] Comment on above: Result Comment: Aida puncture immediately after or during the administration of Metamizole may lead to falsely low results. Testing should be performed immediately prior to Metamizole dosing. J-zihbfh-l-benzoquinone imine (metabolite of Acetaminophen) will generate erroneously low results in samples for patients that have taken toxic doses of acetaminophen. Performed By: #### L IPAS #### [facility] [address] [place] [address] Provider Note - ED v3on 05-28 Provider [...] Alert and oriented x4, GCS 15 , fitness manager II-XII grossly intact. Sensation and motor function [...] Reference Range: STRAW,YELLOW Appearance, Urine HAZY Specific Kipling, Urine 1.040 H pH, Urine 5.0 Protein, [...] SIGNS: T PRBP SpO2O2(LPM) %FiO2 Method 20-Jun-2021 21:31:[id number] 98 room air, no respiratory support 20-Jun-2021 20:22:[id number]/91 99 room air, no respiratory support MDM [...] CONSULT C (more content not included)... Normal [facility] Risk Screen - Adult Emergenc yon 06-20-2021 Risk Screen - Adult Emergency Preferred Language: Preferred Language: Preferred Language for Discussing Health Care (patient/designee)Romanian Advanced Directives: Advance Directive/DNRno Family Violence Adult: [...] Communicatenone Learning Preferencesaudio Cultural Considerationsnone Developmental Considerationsnone Orthodox Considerationsnone Learning Assessment (Other Learner): Learning Assessment (Other Learner): Other learner availableno Pressure Injury/TB/Substance: Pressure Injury: Pressure Injury Present on Admissionno Do you have a coughno Smoking Statusunable to assess Alcohol Useoccasionally Drug Usedenies Admission Risk Screen: Significant IndicatorsComplete CAGE: CAGE: Is this an injured patient at a Trauma Center ([facility]/[place]): no Electronic Signatures: Fauzia Freitas (ASST N MGR) (Signed 20-Jun-2021 20:31) Authored: Preferred Language, Advanced Directives, Family Violence Adult, Learning Assessment (Patient), Learning Assessment (Other Learner), Pressure Injury/TB/Substance, Pressure Injury, CAGE Last Updated: 20-Jun-2021 20:31 by Fauzia Freitas (ASST N MGR) [facility] Triage - EDon 06-20-2021 Triage - ED [...] by Fauzia Freitas (ASST N R) Normal [facility] UA MICROSCOPICon 06-20-2021 BACTERIA 1+ /HPF Abnormal [facility] Comment on above: Performed By: #### U AMIC #### [address] [address] Mucus Ql (Urine sed) 2+ /LPF Normal [facility] Comment on above: Performed By: #### U AMIC #### [address] [address] RBC 2 /HPF Normal 0-5 [facility] Comment on above: Performed By: #### U AMIC #### [address] [address] SQUAMOUS EPITH. CELLS 4 /HPF Normal [facility] Comment on above: Performed By: #### U AMIC #### [place] [id number] WBC 3 /HPF Normal 0-5 [facility] Comment on above: Performed By: #### U AMIC #### [place] [address] URINALYSIS WITH CULTURE IF I NDICATEDon 06-20-2021 Appearance (U) HAZY Normal CLEAR [facility] Comment on above: Performed By: #### U ARFX #### [place] [address] Bilirubin Ql (U) MODERATE(2+) Abnormal NEGATIVE [facility] Comment on above: Performed By: #### U ARFX #### [place] [address] Color (U) Yellow Normal STRAW,YELL OW [facility] Comment on above: Performed By: #### U ARFX #### [place] [address] Glucose Ql (U) Negative Normal NEGATIVE [facility] Comment on above: Performed By: #### U ARFX #### [address] [address] Hemoglobin Ql (U) Negative Normal NEGATIVE [facility] Comment on above: Performed By: #### U ARFX #### [place] [address] Ketones Ql (U) Negative Normal NEGATIVE [facility] Comment on above: Performed By: #### U ARFX #### [place] [id number] Leukocyte esterase Test strip Ql (U) TRACE Abnormal NEGATIVE [facility] Comment on above: Performed By: #### U ARFX #### [place] [address] Nitrite Ql (U) Negative Normal NEGATIVE [facility] Comment on above: Performed By: #### U ARFX #### [address] [address] pH (U) 5.0 [pH] Normal 5.0 - 8.0 [facility] Comment on above: Performed By: #### U ARFX #### [address] [address] Protein Ql (U) Negative Normal NEGATIVE [facility] Comment on above: Performed By: #### U ARFX #### [address] [address] Specific gravity (U) [Rel density] 1.040 High 1.005 - 1.035 [facility] Comment on above: Performed By: #### U ARFX #### [address] [address] Urobilinogen (U) [Mass/Vol] mg/dL Normal 0.0 - 1.9 [facility] Comment on above: Performed By: #### U ARFX #### [address] [address] URINE CULTURE,BACTERIALon URINE CULTURE,BACTERIAL PATIENT: EUGENIA CHISHOLM [facility]ATION: [facility]#: [id number] : 87 AGE: SEX: F ORDERED BY: MARYBETH LINDA SOURCE: URINE COLLECTED: 06/20/21 21:36 ANTIBIOTICS AT [facility].: RECEIVED : 06/21/21 14:29 SITE: R E S U L T S URINE CULTURE,BACTERIAL FINAL 06/22/21 12:49 NO SIGNIFICANT GROWTH. Normal [facility] Comment on above: Performed By: #### U RINC #### [facility] [address] [place] [address] CT SPINE CERVICAL W/O CONTRA STon 01-10-2021 [...] Sign Date: 01/09/2021 10:23:59 PM Ordering Provider: [facility]) CT HEAD OR BRAIN W/O CONTRAS Ton [...] Sign Date: 01/09/2021 9:59:50 PM Ordering Provider: [facility]) Vital Signs Date Time Vital Sign Value [...] 13:57-0400 Body height 175.3 cm Twyla Guzman TELEPHONE STATION INSTALLER.CONTINUOUS VULCANIZING MACHINE OPERATOR Work Phone: [facility] 09-21-2024 13:57-0400 Body mass index (BMI) [Ratio] 28.35 kg/m2 Twyla Guzman TELEPHONE STATION INSTALLER.CONTINUOUS VULCANIZING MACHINE OPERATOR Work Phone: [facility] 09-21-2024 13:57-0400 Body weight 87.09 kg Twyla Guzman TELEPHONE STATION INSTALLER.CONTINUOUS VULCANIZING MACHINE OPERATOR Work Phone: [facility] 09-21-2024 13:57-0400 Diastolic blood pressure 73 mm[Hg] Twyla Guzman TELEPHONE STATION INSTALLER.CONTINUOUS VULCANIZING MACHINE OPERATOR Work Phone: [facility] 09-21-2024 13:57-0400 Heart rate 61 /min Twyla Guzman TELEPHONE STATION INSTALLER.CONTINUOUS VULCANIZING MACHINE OPERATOR Work Phone: [facility] 09-21-2024 13:57-0400 Respiratory rate 16 /min Twyla Guzman TELEPHONE STATION INSTALLER.CONTINUOUS VULCANIZING MACHINE OPERATOR Work Phone: [facility] 09-21-2024 13:57-0400 SaO2% (BldA) [Mass fraction] 98 % Twyla Guzman TELEPHONE STATION INSTALLER.CONTINUOUS VULCANIZING MACHINE OPERATOR Work Phone: [facility] 09-21-2024 13:57-0400 Systolic blood pressure 107 mm[Hg] Twyla Guzman TELEPHONE STATION INSTALLER.CONTINUOUS VULCANIZING MACHINE OPERATOR Work Phone: [facility] 08-31-2024 15:12-0400 Body height 175.[address] 2 [facility] 08-31-2024 15:12-0400 Body mass index (BMI) [Ratio] 28.35 kg/m2 [facility] 08-31-2024 15:12-0400 Body temperature 97.5 [degF] [facility] 08-31-2024 15:12-0400 Body weight 87.09 kg [facility] 08-31-2024 15:12-0400 Diastolic blood pressure 74 mm[Hg] [facility] 08-31-2024 15:12-0400 Heart rate 69 /min [facility] 08-31-2024 15:12-0400 Respiratory rate 14 /min [address] 08-31-2024 15:12-0400 SaO2% (BldA) [Mass fraction] 98 % [facility] 08-31-2024 15:12-0400 Systolic blood pressure 113 mm[Hg] [facility] 08-28-2024 15:01-0400 Body [...] index (BMI) [Ratio] 29.12 kg/m2 Deysi Brown TELEPHONE STATION INSTALLER.CONTINUOUS VULCANIZING MACHINE OPERATOR Work Phone: [facility] 08-10-2024 07:55-0400 Body weight 89.45 kg Deysi Brown TELEPHONE STATION INSTALLER.CONTINUOUS VULCANIZING MACHINE OPERATOR Work Phone: [facility] 08-10-2024 07:55-0400 Diastolic blood pressure 76 mm[Hg] Deysi Brown TELEPHONE STATION INSTALLER.CONTINUOUS VULCANIZING MACHINE OPERATOR Work Phone: [facility] 08-10-2024 07:55-0400 Heart rate 76 /min Deysi Brown TELEPHONE STATION INSTALLER.CONTINUOUS VULCANIZING MACHINE OPERATOR Work Phone: [facility] 08-10-2024 07:55-0400 SaO2% (BldA) [Mass fraction] 100 % Deysi Brown TELEPHONE STATION INSTALLER.CONTINUOUS VULCANIZING MACHINE OPERATOR Work Phone: [facility] 08-10-2024 07:55-0400 Systolic blood pressure 118 mm[Hg] Deysi Brown TELEPHONE STATION INSTALLER.CONTINUOUS VULCANIZING MACHINE OPERATOR Work Phone: [facility] 06-22-2024 15:53-0500 [...] index (BMI) [Ratio] 29.37 kg/m2 Deysi Brown TELEPHONE STATION INSTALLER.CONTINUOUS VULCANIZING MACHINE OPERATOR Work Phone: [facility] 04-06-2024 08:19-0500 Body weight 86.09 kg Deysi Brown TELEPHONE STATION INSTALLER.CONTINUOUS VULCANIZING MACHINE OPERATOR Work Phone: [facility] 04-06-2024 08:19-0500 Diastolic blood pressure 78 mm[Hg] Deysi Brown TELEPHONE STATION INSTALLER.CONTINUOUS VULCANIZING MACHINE OPERATOR Work Phone: [facility] 04-06-2024 08:19-0500 Heart rate 84 /min Deysi Brown TELEPHONE STATION INSTALLER.CONTINUOUS VULCANIZING MACHINE OPERATOR Work Phone: [facility] 04-06-2024 08:19-0500 Respiratory rate 14 /min Deysi Brown TELEPHONE STATION INSTALLER.CONTINUOUS VULCANIZING MACHINE OPERATOR Work Phone: [facility] 04-06-2024 08:19-0500 SaO2% (BldA) [Mass fraction] 100 % Deysi Brown TELEPHONE STATION INSTALLER.CONTINUOUS VULCANIZING MACHINE OPERATOR Work Phone: [facility] 04-06-2024 08:19-0500 Systolic blood pressure 126 mm[Hg] Deysi Brown TELEPHONE STATION INSTALLER.CONTINUOUS VULCANIZING MACHINE OPERATOR Work Phone: [facility] 03-16-2024 14:50-0500 Body mass index (BMI) [Ratio] 29.34 kg/m2 Myrna Walker TELEPHONE STATION INSTALLER.CONTINUOUS VULCANIZING MACHINE OPERATOR Work Phone: [facility] 03-16-2024 14:50-0500 Body weight 86 kg Myrna Walker TELEPHONE STATION INSTALLER.CONTINUOUS VULCANIZING MACHINE OPERATOR Work Phone: [facility] 03-16-2024 14:50-0500 Diastolic blood pressure 66 mm[Hg] Myrna Walker TELEPHONE STATION INSTALLER.CONTINUOUS VULCANIZING MACHINE OPERATOR Work Phone: [facility] 03-16-2024 14:50-0500 Heart rate 74 /min Myrna Walker TELEPHONE STATION INSTALLER.CONTINUOUS VULCANIZING MACHINE OPERATOR Work Phone: [facility] 03-16-2024 14:50-0500 Respiratory rate 14 /min Myrna Walker TELEPHONE STATION INSTALLER.CONTINUOUS VULCANIZING MACHINE OPERATOR Work Phone: [facility] 03-16-2024 14:50-0500 SaO2% (BldA) [Mass fraction] 100 % Myrna Walker TELEPHONE STATION INSTALLER.CONTINUOUS VULCANIZING MACHINE OPERATOR Work Phone: [facility] 03-16-2024 14:50-0500 Systolic blood pressure 118 mm[Hg] Myrna Walker TELEPHONE STATION INSTALLER.CONTINUOUS VULCANIZING MACHINE OPERATOR Work Phone: [facility] 05-31-2022 10:14-0500 Body temperature 97.8 [degF] Dr. Del Hubbard Work Phone: [facility] 05-31-2022 10:14-0500 Diastolic blood pressure 70 mm[Hg] Dr. Del Hubbard Work Phone: [facility] 05-31-2022 10:14-0500 Heart rate 102 /min Dr. Del Hubbard Work Phone: [facility] 05-31-2022 10:14-0500 Respiratory rate 14 /min Dr. Del Hubbard Work Phone: [facility] 05-31-2022 10:14-0500 SaO2% (BldA) [Mass fraction] 98 % Dr. Del Hubbard Work Phone: [facility] 05-31-2022 10:14-0500 Systolic blood pressure 124 mm[Hg] Dr. Del Hubbard Work Phone: [facility] 05-31-2022 10:06-0500 Body height 175.[address] Del Hubbard Work Phone: [facility] 01-01-2022 15:07-0400 Body height 171.2 cm Deysi Brown TELEPHONE STATION INSTALLER.CONTINUOUS VULCANIZING MACHINE OPERATOR Work Phone: [facility] 01-01-2022 15:07-0400 Body weight 100.61 kg Deysi Brown TELEPHONE STATION INSTALLER.CONTINUOUS VULCANIZING MACHINE OPERATOR Work Phone: [facility] 01-01-2022 15:07-0400 Diastolic blood pressure 70 mm[Hg] Deysi Brown TELEPHONE STATION INSTALLER.CONTINUOUS VULCANIZING MACHINE OPERATOR Work Phone: [facility] 01-01-2022 15:07-0400 Heart rate 89 /min Deysi Brown TELEPHONE STATION INSTALLER.CONTINUOUS VULCANIZING MACHINE OPERATOR Work Phone: [facility] 01-01-2022 15:07-0400 Respiratory rate 16 /min Deysi Brown TELEPHONE STATION INSTALLER.CONTINUOUS VULCANIZING MACHINE OPERATOR Work Phone: [facility] 01-01-2022 15:07-0400 SaO2% (BldA) [Mass fraction] 99 % Deysi Brown TELEPHONE STATION INSTALLER.CONTINUOUS VULCANIZING MACHINE OPERATOR Work Phone: [facility] 01-01-2022 15:07-0400 Systolic blood pressure 118 mm[Hg] Deyis Brown TELEPHONE STATION INSTALLER.CONTINUOUS VULCANIZING MACHINE OPERATOR Work Phone: [facility] 12-11-2021 17:55-0400 [...] blood pressure 62 mm[Hg] No Pcp Required [facility] 06-21-2021 00:30-0500 Heart rate 63 /min No Pcp Required [facility] 06-21-2021 00:30-0500 Respiratory rate 14 /min No Pcp Required [facility] 06-21-2021 00:30-0500 SaO2% (BldA) [Mass fraction] 98 % No Pcp Required [facility] 06-21-2021 00:30-0500 Systolic blood pressure 91 mm[Hg] No Pcp Required [facility] 06-20-2021 22:22-0500 Body height 175.2 cm No Pcp Required [facility] 06-20-2021 22:22-0500 Body temperature 98.06 [degF] No Pcp Required [facility] 06-20-2021 22:22-0500 Body weight 91 kg No Pcp Required [facility] Encounters Encounter Date Encounter Type Care Provider Facility Start: 01-02-2025 End: 01-02-2025 ambulatory Kelvin Tejeda DO Work Phone: [facility] Comment on above: Hip Pain; Leg Pain; Back Pain (Pain to lower back radiating down right hip and leg) Start: 01-02-2025 End: 01-02-2025 Patient encounter procedure Kelvin Tejeda DO Work Phone: [facility] Start: 01-01-2025 End: 01-01-2025 ambulatory Deysi Dasilva TELEPHONE STATION INSTALLER.CONTINUOUS VULCANIZING MACHINE OPERATOR Work Phone: [facility] Comment on above: FMLA Paper Request Start: 01-01-2025 End: 01-01-2025 Telephone encounter Fab Piper MD Work Phone: [facility] Comment on above: Injections (Question s ) Start: 12-28-2024 End: 12-28-2024 Office outpatient visit 25 minutes Fab Piper MD Work Phone: [facility] Comment on above: S/P laminectomy (Maris david Dx); Recurrent herniation of lumbar disc Start: 12-28-2024 End: 12-28-2024 Refill Fab Piper MD Work Phone: [facility] Comment on above: Refill Request Fast Track Start: 12-26-2024 ambulatory FAB PIPER Facility :[facility] Start: 12-26-2024 End: 12-26-2024 Subsequent hospital visit by physician [facility] Wstr (I-Stat/1.5t) Work Phone: Radiology Comment on above: Spinal stenosis of l umbar region, unspecified whether neurogenic claudication present [M48.061] Start: 12-22-2024 End: 12-22-2024 Telephone encounter Fab Piper MD Work Phone: [facility] Start: 12-21-2024 End: 12-21-2024 Telephone encounter Fab Piper MD Work Phone: [facility] Start: 12-21-2024 End: 12-21-2024 Office outpatient visit 25 minutes Fab Piper MD Work Phone: [facility] Comment on above: S/P laminectomy (Maris david Dx); Spinal stenosis of lumbar region, unspecified whether neurogenic claudication present Start: 12-21-2024 End: 12-21-2024 ambulatory FAB PIPER Facility:[facility] Start: 12-21-2024 End: 12-21-2024 Subsequent hospital visit by physician Xr [place] [employer] [facility] Comment on above: S/P laminectomy [Z98 .890] Start: 11-13-2024 End: 11-13-2024 Patient encounter procedure Brock Durand MD Work Phone: OB/Gynecology Comment on above: Excessive bleeding i n premenopausal period (Primary Dx); Dyspareunia in female; IUD (intrauterine device) in place; Cyst of ovary, unspecified laterality Start: 11-13-2024 End: 11-13-2024 ambulatory BROCK DURAND Facility:[facility] Start: 10-19-2024 End: 10-19-2024 Telephone encounter Fab Piper MD Work Phone: [facility] Comment on above: No Show (No Show #1 ) Start: 10-06-2024 End: 10-06-2024 [facility] APRN.CONTINUOUS VULCANIZING MACHINE OPERATOR Work Phone: [facility] Comment on above: IAN (generalized anx iety disorder) (Primary Dx); Encounter for screening examination for other mental health and behavioral disorders; Screening for depression Start: 10-06-2024 End: 10-06-2024 ambulatory BRANDY RUSSELL Facility:[facility] Start: 10-03-2024 End: 10-04-2024 Telephone encounter Del Hubbard DO Work Phone: [facility] [place] Start: 10-02-2024 End: 10-03-2024 ambulatory Deysi Dasilva APRN.CONTINUOUS VULCANIZING MACHINE OPERATOR Work Phone: [facility] Start: 10-02-2024 End: 10-03-2024 Letter encounter Deysi Dasilva APRN.CONTINUOUS VULCANIZING MACHINE OPERATOR Work Phone: [facility] Comment on above: FRANCISCA Letter Start: 10-02-2024 End: 10-02-2024 Refill Fab Piper MD Work Phone: [facility] Comment on above: Refill Request Start: 09-26-2024 End: 09-26-[address] Del Hubbard DO Work Phone: [facility] Work Phone: Start: 09-26-2024 End: 09-26-2024 Patient encounter procedure Manju Richmond LABORER DRIVER-C -Ultrasound [facility] Work Phone: Start: 09-26-2024 End: 09-26-2024 ambulatory Del Hubbard Facility:[facility] Start: 09-21-2024 End: 09-21-2024 Patient encounter procedure Twyla Guzman TELEPHONE STATION INSTALLER.CONTINUOUS VULCANIZING MACHINE OPERATOR Work Phone: [facility] Comment on above: Postoperative pain ( Primary Dx); S/P laminectomy Start: 09-21-2024 End: 09-21-2024 ambulatory TWYLA GUZMAN [facility] Start: 09-05-2024 End: 09-05-2024 Postop follow up visit related to original px Fab Piper MD Work Phone: [facility] Comment on above: S/P laminectomy (Maris david Dx) Start: 09-05-2024 End: 09-05-2024 ambulatory FAB PIPER [facility] Start: 08-31-2024 End: 08-31-2024 Preprocedural examination done Deysi Dasilva APRN.CONTINUOUS VULCANIZING MACHINE OPERATOR Work Phone: [facility] Work Phone: Start: 08-31-2024 End: 08-31-2024 Refill Deysi Dasilva APRN.CONTINUOUS VULCANIZING MACHINE OPERATOR Work Phone: [facility] Comment on above: Refill Request Preop examination (P rimary Dx); 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] Start: 08-31-2024 Encounter for other preprocedural examination FAB PIPER [facility] Start: 08-30-2024 End: 08-30-2024 Orders Only Fab Piper MD Work Phone: [facility] Comment on above: Intervertebral disc disorder with radiculopathy of lumbar region (Primary Dx) Start: 08-29-2024 End: 08-29-2024 Orders Only Fab Piper MD Work Phone: [facility] Comment on above: Intervertebral disc disorder with radiculopathy of lumbar region (Primary Dx) Preparations For Kelly pa Start: 08-28-2024 End: 08-28-2024 Office outpatient new 45 minutes Fab Piper MD Work Phone: [facility] Comment on above: Low back pain, unspe cified back pain laterality, unspecified chronicity, unspecified whether sciatica present (Primary Dx); Intervertebral disc disorder with radiculopathy of lumbar region; Acute bilateral low back pain with right-sided sciatica Start: 08-28-2024 End: 08-28-2024 ambulatory FAB PIPER Facility:[facility] Start: 08-15-2024 End: 08-15-2024 Office outpatient new 20 minutes Michael Fall MD Work Phone: [facility] Comment on above: Other intervertebral disc displacement, lumbar region; Sciatica, right side Start: 08-15-2024 End: 08-15-2024 ambulatory MICHAEL PEREZ Facility:[id number] Start: 08-14-2024 ambulatory FAB PIPER Facility :[facility] Start: 08-14-2024 End: 08-14-2024 Subsequent hospital visit by physician Jan [facility] Pr[facility] Work Phone: Radiology Comment on above: Low back pain, unspe cified back pain laterality, unspecified chronicity, unspecified whether sciatica present [M54.50] Start: 08-10-2024 End: 08-25-2024 E-mail encounter from caregiver Deysi Dasilva ALBERT.CONTINUOUS VULCANIZING MACHINE OPERATOR Work Phone: [facility] Start: 08-10-2024 End: 09-19-2024 Patient encounter procedure Michael Fall MD Work Phone: [facility] Comment on above: OPENED IN ERROR (Maris david Dx) Start: 08-10-2024 End: 08-10-2024 Telephone encounter Michael Fall MD Work Phone: [facility] Start: 08-10-2024 End: 08-25-2024 ambulatory Deysi Highutzman ALBERT.CONTINUOUS VULCANIZING MACHINE OPERATOR Work Phone: [facility] Comment on above: your back Start: 08-10-2024 End: 08-10-2024 Office outpatient visit 25 minutes Deysi Dasilva APRN.CONTINUOUS VULCANIZING MACHINE OPERATOR Work Phone: [facility] Comment on above: Cold hands and feet (Primary Dx); Intervertebral disc disorder with radiculopathy of lumbar region; Acute bilateral low back pain with right-sided sciatica; Acute midline low back pain without sciatica Start: 07-18-2024 End: 07-18-2024 ambulatory FEI GONZÁLES Facility:[facility] Start: 07-11-2024 End: 07-12-2024 ambulatory Sandi Jimenez PA-C Work Phone: [facility] [place] Comment on above: Pain Start: 06-26-2024 End: 06-26-2024 Orders Only Fei Gonzáles MD Work Phone: Pain Management Comment on above: Acute bilateral low back pain with right-sided sciatica (Primary Dx); Intervertebral disc disorder with radiculopathy of lumbar region Start: 06-23-2024 End: 06-23-2024 Telephone encounter Sandi Jimenez PA-C Work Phone: [facility] [place] Start: 06-22-2024 End: 06-22-2024 ambulatory SANDI JIMENEZ Facility:[facility] Start: 06-22-2024 End: 06-22-2024 Patient encounter procedure Sandi Jimenez PA-C Work Phone: [facility] [place] Comment on above: Intervertebral disc disorder with radiculopathy of lumbar region (Primary Dx); Acute bilateral low back pain with right-sided sciatica; Acute midline low back pain without sciatica Start: 06-16-2024 End: 06-22-2024 ambulatory Cc Provider [facility] [place] Comment on above: soraya Start: 06-16-2024 End: 06-22-2024 E-mail encounter from caregiver Cc Provider [facility] [place] Start: 06-02-2024 End: 06-02-2024 Patient encounter procedure Sandi Jimenez PA-C Work Phone: [facility] [place] Comment on above: Intervertebral disc disorder with radiculopathy of lumbar region (Primary Dx); Acute bilateral low back pain with right-sided sciatica Start: 06-02-2024 ambulatory SANDI Nance ty:[facility] Start: 05-18-2024 End: 05-18-2024 ambulatory FEI GONZÁLES Facility:[facility] Start: 04-28-2024 End: 04-28-2024 Orders Only Fei Gonzáles MD Work Phone: Pain Management Comment on above: Acute bilateral low back pain with right-sided sciatica (Primary Dx); Intervertebral disc disorder with radiculopathy of lumbar region Start: 04-27-2024 End: 04-27-2024 Patient encounter procedure Sandi Jimenez PA-C Work Phone: [facility] [place] Comment on above: Intervertebral disc disorder with radiculopathy of lumbar region (Primary Dx); Acute bilateral low back pain with right-sided sciatica Start: 04-27-2024 End: 04-27-2024 ambulatory Fei Gonzáles MD Work Phone: Pain Management Comment on above: Procedure Instructio ns Start: 04-27-2024 End: 04-27-2024 E-mail encounter from caregiver Fei Gonzáles MD Work Phone: Pain Management Start: 04-06-2024 End: 04-06-2024 ambulatory DEYSI HIGHUTZMAN Facility:[facility] Start: 04-06-2024 End: 04-06-2024 Office outpatient visit 15 minutes Deysi Dasilva TELEPHONE STATION INSTALLER.CONTINUOUS VULCANIZING MACHINE OPERATOR Work Phone: [facility] Comment on above: Acute bilateral low back pain with right-sided sciatica (Primary Dx); Numbness in both legs; Gait instability; Physical debility; Sciatica, right side Start: 03-29-2024 End: 03-29-2024 Telephone encounter Myrna Darlyn Walker TELEPHONE STATION INSTALLER.CONTINUOUS VULCANIZING MACHINE OPERATOR Work Phone: [facility] Comment on above: Results Start: 03-29-2024 End: 03-29-2024 ambulatory MYRNA CM WALKER Facility:[facility] Start: 03-29-2024 End: 03-29-2024 Subsequent hospital visit by physician Mri Radio [facility] Ws (I-Stat/1.5t) Work Phone: Radiology Comment on above: Acute bilateral low back pain with right-sided sciatica [M54.41] Start: 03-16-2024 End: 03-16-2024 Subsequent hospital visit by physician Xr [facility] Work Phone: Radiology Comment on above: Acute bilateral low back pain with right-sided sciatica [M54.41] Start: 03-16-2024 End: 03-16-2024 ambulatory MYRNA WALKER Facility:[facility] Start: 03-16-2024 End: 03-16-2024 Office outpatient visit 25 minutes Myrna Walker TELEPHONE STATION INSTALLER.CONTINUOUS VULCANIZING MACHINE OPERATOR Work Phone: [facility] Comment on above: Acute bilateral low back pain with right-sided sciatica (Primary Dx); Numbness in both legs; Gait instability; Physical debility Start: 11-23-2023 End: 11-23-2023 ambulatory Del Galarzarison Facility:[facility] Start: 11-10-2023 End: 11-10-2023 ambulatory Del Hubbard [facility] Start: 08-31-2022 Telephone encounter Elizabeth gates TELEPHONE STATION INSTALLER.CONTINUOUS VULCANIZING MACHINE OPERATOR Work Phone: [facility] Comment on above: Results Start: 08-27-2022 End: 08-27-2022 ambulatory Elizabeth Burns APRN.CONTINUOUS VULCANIZING MACHINE OPERATOR Work Phone: [facility] Comment on above: Exposure to hepatiti s C (Primary Dx); Screening for STD (sexually transmitted disease) Start: 08-27-2022 End: 08-27-2022 Telemedicine consultation with patient Elizabeth Burns APRN.CONTINUOUS VULCANIZING MACHINE OPERATOR Work Phone: [facility] Start: 06-25-2022 End: 06-25-[address] Del Hubbard Work Phone: [facility] Work Phone: Start: 06-25-2022 End: 06-25-[address] Del Hubbard Work Phone: [facility] Start: 05-31-2022 End: 05-31-[address] Del Hubbard Work Phone: [facility] Start: 05-25-2022 End: 05-25-[address] Del Hubbard Work Phone: [facility] Start: 01-23-2022 End: 01-23-2022 Subsequent hospital visit by physician [facility] Work Phone: Radiology Comment on above: Sciatica, right side [M54.31] Start: 01-01-2022 End: 01-01-2022 Patient encounter procedure Deysi Dasilva APRN.CONTINUOUS VULCANIZING MACHINE OPERATOR Work Phone: [facility] Comment on above: Wellness examination (Primary Dx); Sciatica, right side; Family history of endometriosis; Abnormal menstruation Start: 01-01-2022 End: 01-01-2022 Patient encounter status Deysi Dasilva APRN.CONTINUOUS VULCANIZING MACHINE OPERATOR Work Phone: [facility] Start: 12-11-2021 End: 12-11-2021 Patient encounter procedure Negro Fink MD Work Phone: [facility] Comment on above: Dental abscess (Prim stephan Dx) Start: 07-02-2021 End: 07-02-2021 Subsequent hospital visit by physician Xr [facility] Pr[facility]hu Work Phone: Radiology Comment on above: Acute midline low ba ck pain without sciatica [M54.50] Start: 06-20-2021 End: 06-21-2021 Emergency department patient visit Marybeth Linda [facility] Emergency 03 Procedures Date Procedure Procedure Detail Performing Clinician Start: 12-26-2024 Mri spinal canal lum bar w/o contrast material Fab Piper MD Work Phone: Start: 10-06-2024 Adult depression scr eening assessment Fab Piper MD Work Phone: Start: 08-31-2024 Antibody screen [facility] SANTOS Comment on above: Order Comment: Speci men Type: BLOOD SPECIMENOrdering Facility: [facility] Address: [address] [place] [address] Performed By: #### T [id number] ####[facility] BLOOD BANKIA [id number] [address] OF [facility] Start: 03-29-2024 Mri spinal canal lum bar w/o contrast material Myrna Walker TELEPHONE STATION INSTALLER.CONTINUOUS VULCANIZING MACHINE OPERATOR Work Phone: Start: 06-25-[address] Del Hubbard Work Phone: Start: 01-23-2022 Us pelvic nonobstetr ic image dcmtn limited/f/u Deysi Dasilva TELEPHONE STATION INSTALLER.CONTINUOUS VULCANIZING MACHINE OPERATOR Work Phone: Start: 07-02-2021 Radex spine lumbosac ral 2/3 views Myrna Walker TELEPHONE STATION INSTALLER.CONTINUOUS VULCANIZING MACHINE OPERATOR Work Phone: Start: 07-02-2021 Adult depression scr eening assessment Negro Fink MD Work Phone: Plan of Treatment Date Care Activity Detail Author Start: 10-22-2031 Urine microalbumin profile [facility] Start: 10-06-2025 Anxiety Screening Anxiety Screening [facility] Start: 10-06-2025 Depression Screening Depression Screening [facility] Start: 05-07-2025 End: 05-07-2025 Patient encounter procedure 05/07/2025 2:20 PM EST Office Visit OB/Gynecology [address] [place] [id number] Brock Durand MD [address] [place] [address] annual OB/Gynecology Comment on above: annual Start: 03-26-2025 End: 11-13-2025 US Pelvis PELVIC US WHI Anc Imaging Routine Cyst of ovary, unspecified laterality Expected: 03/26/2025 (Approximate), Expires: 11/13/[address] [facility] Work Phone: Comment on above: Expected: 03/26/2025 (Approximate), Expi res: 11/13/2025 Start: 03-16-2025 Covid-19 Vaccine () Covid-19 Vaccine () [facility] Comment on above: Postponed from 12/26/2023 (Declined at t his time) Start: 01-03-2025 End: 01-03-2025 Patient encounter procedure 01/03/2025 5:40 PM EDT Office Visit [facility] [place] [address] [place], [place] [phone] Deysi Dasilva APRN.CONTINUOUS VULCANIZING MACHINE OPERATOR [address] [place] [address] [id number] discuss pain medication for back pain OK PER RS [facility] Comment on above: discuss pain medication for back pain OK PER RS Start: 01-03-2025 End: 01-03-2025 Patient encounter procedure 01/03/2025 4:20 PM EDT Office Visit [facility] [place] [address] [place], [place] [phone] Deysi Dasilva, ALBERT.CONTINUOUS VULCANIZING MACHINE OPERATOR [address] [place], [place] [address] discuss pain medication for back pain [facility] Comment on above: discuss pain medication for back pain Start: 01-02-2025 End: 01-02-2025 ambulatory 01/02/2025 2:20 PM EDT Procedure [facility] [place] [address] [place] [address] Kelvin Tejeda DO [address] [facility] [address] [place] [address] AUTH GOOD NPCR LMS - FAST TRACK R L4-5 TFESI- NO RESTRITIONS- OK PER SR NOTE [facility] [place] Comment on above: AUTH GOOD NPCR LMS - FAST TRACK R L4-5 T FESI- NO RESTRITIONS- OK PER SR NOTE Start: 12-28-2024 End: 12-28-2024 Follow-up encounter 12/28/2024 8:00 AM EDT [address] [place] [id number] Fab Piper MD [address] [place] [address] MRI follow up [facility] Comment on above: MRI follow up Start: 12-26-2024 End: 12-26-2024 Patient encounter procedure 12/26/2024 12:30 PM EDT Appointment Radiology [address] [place] [address] MRI Radiology Comment on above: MRI Start: 12-25-2024 Influenza vaccination [facility] Start: 11-13-2024 End: 11-13-2024 Patient encounter procedure 11/13/2024 2:40 PM EDT Office Visit OB/Gynecology [address] [place] [address] Brock Durand MD [address] [place] [address] Uternine fibroids, ovarian cysts. Second opinion OB/Gynecology Comment on above: Uternine fibroids, ovarian cysts. Second opinion Start: 10-23-2024 Influenza [facility] Comment on above: Postponed from 12/26/2023 (Declined at t his time) Start: 10-19-2024 End: 10-19-2024 Patient encounter procedure 10/19/2024 3:00 PM EDT Office Visit [facility] [address] [phone] Fab Piper MD [address] [facility] [place] [address] 6 week post op [facility] Comment on above: 6 week post op Start: 10-06-2024 End: 10-06-2024 Letter encounter 10/06/2024 1:40 PM EDT [facility] [address] [place], [place] [phone] Brandy Russell, TELEPHONE STATION INSTALLER.CONTINUOUS VULCANIZING MACHINE OPERATOR [address] [place], [place] [phone] video visit for anxiety and letter for support animal [facility] Comment on above: video visit for anxiety and letter for s ernie animal Start: 09-26-2024 Pelvic echography Pelvic w/ Transvaginal [facility] Start: 09-21-2024 End: 09-21-2024 Patient encounter procedure 09/21/2024 2:00 PM EDT Office Visit [facility] [address] [place] [phone] Twyla Guzman, TELEPHONE STATION INSTALLER.CONTINUOUS VULCANIZING MACHINE OPERATOR [address] [facility] [place], [place] [address] 2 week post op, SB [facility] Comment on above: 2 week post op, Start: 09-06-2024 End: 09-06-2024 Admission to same day surgery center 09/06/2024 9:30 AM EDT - 09/06/2024 11:30 AM EDT Surgery [facility] [address] [facility] [address] [place] [address] Fab Piper MD [address] [facility] [place] [address] DISCOTOMY LUMBAR LEVEL 1 [facility] Comment [...] 09/06/2024 9:30 AM EDT Hospital Encounter [facility] [address] [facility] [address] [place] [address] Fab Piper MD [address] [place] [address] 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] [facility] Comment on above: Intervertebral disc disorder with radicu lopathy of lumbar region [M51.16] Start: 09-05-2024 End: 09-05-2024 Admission to same day surgery center 09/05/2024 12:00 PM EDT - 09/05/2024 2:00 PM EDT Surgery [facility] [address] [facility] [address] [place] [address] Fab Piper MD [address] [facility] [place] [address] DISCOTOMY LUMBAR LEVEL 1 [facility] Comment on above: DISCOTOMY LUMBAR LEVEL 1 Start: 09-05-2024 End: 09-05-2024 Lamnotmy incl w/dcmprsn nrv root 1 intrspc lumbr [facility] Start: 09-05-2024 End: 09-05-2024 Microsurg tqs req use operating microscope [facility] Start: 09-05-2024 Subsequent hospital visit by physician 09/05/2024 12:00 PM EDT Hospital Encounter [facility] [address] [place] [address] Fab Piper MD [address] [place] [address] 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 Work Phone: Comment on above: Expected: [...] ambulatory 08/30/2024 8:15 AM EDT OT/PT/Speech Visit [facility] [address] [place] [address] OPadmini Butler, PT Herniated disc and sciatica pain [facility] Comment on above: Herniated disc and sciatica pain Start: 08-28-2024 End: 08-28-2024 Patient encounter procedure [facility] [place] [facility] Comment on above: XR LUMBAR AP/LAT/FLEX/EXT Intervertebral disc disorder with radiculopathy of lumbar region Start: 08-17-2024 End: 08-17-2024 Patient encounter procedure 08/17/2024 3:40 PM EDT Office Visit [facility] [place] [address] [place] [address] Sandi Jimenez PA-C [address] [place] [phone] Follow up after injection [facility] [place] Comment on above: Follow up after injection Start: 08-15-2024 End: 08-15-2024 Patient encounter procedure 08/15/2024 3:00 PM EDT Office Visit [facility] [address] [place] [address] Michael Perez MD [address] [facility] [address] [place] [address] l4 l5 herniated disc [facility] Comment on above: l4 l5 herniated disc Start: 07-18-2024 End: 07-18-2024 Admission to same day surgery center [facility] Comment on above: INJECTION(S) ANESTHETIC AGENT AND STEROI D TRANSFORAMINAL EPIDURAL LUMBAR W/IMAGE GUIDANCE FLUORO OR CT Start: 07-18-2024 End: 07-18-2024 Njx anes&/strd w/img tfrml edrl lmbr/sac 1 lvl [place] OR Start: 07-18-2024 Subsequent hospital visit by physician [facility] Comment on above: Acute bilateral low back pain with right -sided sciatica [M54.41], 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] Start: 06-22-2024 End: 06-22-2024 Patient encounter procedure 06/22/2024 3:40 PM EST Office Visit [facility] [place] [address] [address] Sandi Jimenez PA-C [address] [place] [address] Follow up [facility] [place] Comment on above: Follow up Start: 05-18-2024 End: 05-18-2024 Admission to same day surgery center 05/18/2024 10:46 AM EST - 05/18/2024 11:12 AM EST Surgery [facility] [address] [place] [address] Fei Gonzáles MD [address] [place] [address]#5[address] [place] [address] LUMBAR EPIDURAL BLOCK W/INJECTION NON NEUROLYTIC W/IMAGE GUIDANCE [facility] Comment on above: LUMBAR EPIDURAL [...] physician 05/18/2024 10:46 AM EST Hospital Encounter [facility] [address] [place] [address] Fei Gonzáles MD [address] [facility] [place] [address] Acute bilateral low back pain with right-sided sciatica [M54.41], 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 Right side disc. L4/L5, with sciatica [facility] Comment on above: Lower back. Right side disc. L4/L5, with sciatica Start: 04-27-2024 End: 04-27-2024 Patient encounter procedure 04/27/2024 2:20 PM EST Office Visit [facility] [place] [address] [address] Sandi Jimenez, PATrista [address] [place] [address] Acute bilateral low back pain with right-sided sciatica [M54.41] [facility] [place] Comment on above: Acute bilateral low back pain with right -sided sciatica [M54.41] Start: 03-29-2024 End: 03-29-2024 Patient encounter procedure 03/29/2024 7:30 AM EST Appointment Radiology [address] [place] [address] Acute bilateral low back pain with right-sided sciatica [M54.41] Radiology Comment on above: Acute bilateral low back pain with right -sided sciatica [M54.41] Start: 12-26-2023 Covid-19 Vaccine () Covid-19 Vaccine () [facility] Start: 12-26-2023 Influenza vaccination Influenza Vaccine (#1) [facility] Start: 08-27-2022 End: 10-27-2022 Chlamydia trachomatis+Neisseria gonorrhoeae DNA [Presence] in Urine by BARI with probe detection GC/CHLAMYDIA AMPLIF, URINE Microbiology Routine Screening for STD (sexually transmitted disease) Expected: 08/27/2022, Expires: 10/27/[address] [facility] Work Phone: Comment on above: Expected: 08/27/2022, Expires: 3 Start: 08-27-2022 End: 10-27-2022 Hepatitis C virus Ab [Presence] in Serum HEP C AB IA W/CONF SCRN Lab Routine Exposure to hepatitis C Expected: 08/27/2022, Expires: 10/27/[address] [facility] Work Phone: Comment on above: Expected: 08/27/2022, Expires: 3 Start: 08-27-2022 End: 10-27-2022 HERPES SIMPLEX TYPE 1 AND 2 IG HERPES SIMPLEX TYPE 1 AND 2 IG Lab Routine Screening for STD (sexually transmitted disease) Expected: 08/27/2022, Expires: 10/27/[address] [facility] Work Phone: Comment on above: Expected: 08/27/2022, Expires: 3 Start: 08-27-2022 End: 10-27-2022 HIV 1+2 Ab [Presence] in Serum or Plasma by Immunoassay HIV 1 2 COMBO(AG/AB),WITH REFLEX TO DIFFERENTIATION Lab Routine Screening for STD (sexually transmitted disease) Expected: 08/27/2022, Expires: 10/27/[address] [facility] Work Phone: Comment on above: Expected: 08/27/2022, Expires: 3 Start: 08-27-2022 End: 10-27-2022 SYPHILIS TOTAL W/REFLEX SYPHILIS TOTAL W/REFLEX Lab Routine Screening for STD (sexually transmitted disease) Expected: 08/27/2022, Expires: 10/27/[address] [facility] Work Phone: Comment on above: Expected: 08/27/2022, Expires: 3 Start: 08-27-2022 End: 10-27-2022 T VAGINALIS AMPLIFICATION T VAGINALIS AMPLIFICATION Lab Routine Exposure to hepatitis C Expected: 08/27/2022, Expires: 10/27/[address] [facility] Work Phone: Comment on above: Expected: 08/27/2022, Expires: 3 Start: 07-02-2022 Adult depression screening assessment DEPRESSION SCREENING [facility] Start: 07-02-2022 Urine microalbumin profile DTAP,TDAP,TD (1 - Tdap) [facility] Comment on above: Postponed from 01/10/2008 (Declined at t his time) Start: 06-25-2022 Pelvic echography Pelvic (Non ) [facility] Start: 06-25-2022 US Pelvis [facility] Start: 04-26-2022 DEPRESSION ASSESSMENT DEPRESSION ASSESSMENT The [...] with radiculopathy of lumbar region Ordered: 08/30/[address] [facility] Work Phone: Comment on above: Ordered: 08/30/2024 End: 04-15-2025 MR Lumbar spine WO contrast MRI LUMBAR SPINE WO IVCON Radiology Routine Acute bilateral low back pain with right-sided sciatica 1 Occurrences starting 03/16/2024 until 04/15/[address] [facility] Work Phone: Comment on above: 1 [...] Procedures Routine Radiculopathy, lumbar region Ordered: 01/02/[address] [facility] Work Phone: Comment on above: Ordered: 01/02/2025 SPINE INTERVENTION PROCEDURE SPINE INTERVENTION PROCEDURE Procedures Routine Acute bilateral low back pain with right-sided sciatica Intervertebral disc disorder with radiculopathy of lumbar region Ordered: 04/27/[address] [facility] Work Phone: Comment on above: Ordered: 04/27/2024 SPINE INTERVENTION PROCEDURE SPINE INTERVENTION PROCEDURE Procedures Routine Intervertebral disc disorder with radiculopathy of lumbar region Acute bilateral low back pain with right-sided sciatica Ordered: 06/22/[address] [facility] Work Phone: Comment on above: Ordered: 06/22/2024 End: 01-31-2023 Us pelvic nonobstetric image dcmtn limited/f/u US FEMALE PELVIS TRANSABD LTD Radiology Routine Sciatica, right side Family history of endometriosis Abnormal menstruation 1 Occurrences starting 01/01/2022 until 01/31/[address] [facility] Work Phone: Comment on above: 1 Occurrences starting 01/01/2022 until 01/31/2023 End: 01-31-2023 Us transvaginal US FEMALE PELVIS TRANSVAG Radiology Routine Sciatica, right side Family history of endometriosis Abnormal menstruation 1 Occurrences starting 01/01/2022 until 01/31/[address] [facility] Work Phone: Comment on above: 1 [...] whether sciatica present 08/14/2024 1:24 PM EDT [facility] Work Phone: End: 01-17-2026 XR Lumbar spine Views W flexion and W extension XR LUMBAR MOTION 4V AP/LAT/ FLEX/EXT Radiology Routine S/P laminectomy 1 Occurrences starting 12/18/2024 until 01/17/[address] [facility] Work Phone: Comment on above: 1 Occurrences starting 12/18/2024 until 01/17/2026 XR Lumbar spine View s W flexion and W extension XR LUMBAR MOTION 4V AP/LAT/ FLEX/EXT Radiology Routine S/P laminectomy 12/21/2024 11:17 AM EDT [facility] Immunizations Immunization Date Immunization Notes Care Provider [facility] 03-11-2022 influenza, injectabl e, quadrivalent, preservative free Dr. Del Hubbard DO Work Phone: [facility] 03-11-2022 influenza, seasonal, injectable Dr. Del Hubbard Work Phone: [facility] 03-11-2022 influenza virus vaccine, unspecified formulation Xr [place] Work Phone: [facility] 11-18-2021 Hepatitis B vaccine (recombinant), CpG adjuvanted Us 2 Work Phone: [facility] 11-18-2021 hepatitis B vaccine, unspecified formulation Us 2 Work Phone: [facility] 10-22-2021 Covid (Pfizer) Dr. Del contreras Work Phone: [facility] 10-21-2021 hepatitis B vaccine, adult dosage Dr. Del Hubbard Work Phone: [facility] 10-21-2021 tetanus toxoid, redu leigh diphtheria toxoid, [...] Date Payer Category Payer Private Health Insurance [id number] 2023 Self-pay [id number] 2022 Private Health Insurance [id number] 2022 Unknown 2022 Unknown [id number] 2022 Unknown [id number] 2020 Medicaid [id number] Unknown [employer] [id number] Unknown [facility] [id number] Unknown [employer] [id number] Unknown [id number] Unknown [id number] Unknown [id number] Social History Date Type Detail Facility [facility] Start: 05-31-2022 Tobacco smokin g consumption unknown [...] Sex Assigned At Not on file [facility] Start: 06-02-2021 End: 01-01-2022 Exposure to SARS-CoV-2 (event) Not sure [facility] Start: 01-01-2020 [employer] [place] [facility] Start: 1985 Sex Assigned At Female [facility] Start: 08-27-2022 History SDOH Social Connections Phone 98 [facility] Start: 08-27-2022 History SDOH Social Connections Membership 2 [facility] Start: 08-27-2022 History SDOH Housing Homeless Last Year 3 [facility] Start: 07-02-2021 End: 08-27-2022 Tobacco use panel [facility] Start: 03-27-2012 Adult Depression Screening Assessment 0 [facility] Has the Dydra, Isagen, or idio threatened to shut off services in your [...] - these days [OSQ] To some extent [facility] (I/We) worried kristin er (my/our) food [...] PM Maria Del Rosario Diego LPN No [facility] Mental Status Date Assessment Result Facility 08-31-2014 Because of a physica l, mental, or emotional condition, do you have serious difficulty concentrating, remembering, or making decisions No 08/31/2014 1:46 PM EDT Maria Del Rosario Franz LPN No [facility] Clinical Notes 07-02-2021 to 01-02-2025 Kelvin Tejeda DO - 01/02/2025 3:52 PM EDKym Whitt, [facility] - 01/02/2025 2:13 PM EDLinda Mitchell, [facility] - 01/02/2025 1:43 PM EDYi Suarez, [facility] - 01/02/2025 1:33 PM EDTPatient Instructions Note Date & Type Note Facility 01-02-2025 History of Present illness Narrative [facility] [place] [facility] Date: 01/02/2025 Patient name: Eugenia Chisholm [...] or double vision) Respiratory: Negative (No Cough, Ktkhlzlbc-[id number], Dyspnea on exertion, wheezing) Cardiovascular: Negative (No [...] appropriate Assessment and Plan: As noted above [facility] protocol documentation / Pre-Procedure Checklist: Consent: Obtained [...] DO Pain Management [facility] [place] [facility] [1] Social History Tobacco Use Smoking [...] tablePatient s procedure was performed in an [facility] Procedure room. Pause completed at each [...] allergies Procedure Start: 1403 Procedure End: 1413 Concrete Technician's Name: quynh Are you on a blood [...] No 8. Does this procedure require a regional company hazmat tanker driver? Yes If yes, has patient been notified that a regional company hazmat tanker driver is needed and must be present [...] No 8. Does this procedure require a regional company hazmat tanker driver? Yes If yes, has patient been notified that a regional company hazmat tanker driver is needed and must be present [...] assist patient with scheduling. Kelvin Tejeda DO Received a referral from Fab Piper MD for patient to have RIGHT L4-5 [facility]- 12/26/24-Lumbar MRI Anticoag- NONE Please review and advise Colleen Gill Multi-Site Welding Machine Operator [facility] [place] [address] [place] [address] P: [phone] F: [phone] documented in this encounter [facility] 12-28-2024 Telephone encounter Note Received a referral from Fab Piper MD for patient to have RIGHT L4-5 [facility]- 12/26/24-Lumbar MRI Anticoag- NONE Please review and advise Colleen Gill Multi-Site Welding Machine Operator [facility] [place] [facility] [address] [place] [address] P: [phone] F: [phone] [facility] 12-28-2024 Telephone encounter Note [...] Age: [age] year old Sex: female MRN/E# [id number] Last Office Visit: 12/21/2024 Eugenia Chisholm has [...] plan. Fab Piper MD [facility] Medical Decision Making: Problems: Moderate: New problem with uncertain prognosis Data: Unique test result(s) reviewed: 1 Risk: Moderate: Moderate risk from testing/treatment Medical Decision Making Level: 4 - Moderate This note was partially generated using [employer] voice recognition system, and there may be some incorrect words, spellings, and punctuation that were not noted in checking the note before saving. documented in this encounter [facility] 12-28-2024 Note HNO ID: [id number] Author: FAB PIPER MD Service: ? Author [...] Age: [age] year old Sex: female MRN/E# [id number] Last Office Visit: 12/21/2024 Eugenia Chisholm has [...] appropriate. All porti (more content not included)... [facility] 12-26-2024 Note IMPRESSION: Postop changes following dorsal [...] and assume there are 5 lumbar-type vertebrae. Movement Education Specialist: ALEX Transcribe Date/Time: Dec 26 2024 1:18P Dictated by : CHILO HERBERT MD This examination was interpreted and the report reviewed and electronically signed by: FEI SAINI MD on Dec 26 2024 1:57PM [facility] DIVISION OF RADIOLOGY 12-26-2024 History of Present [...] PATIENT PRESENTS WITH AN IMPLANTABLE OR ATTACHED METAL SHEET ROLLER OPERATOR: No RADIOLOGY DEPARTMENT: MR; Exam(s) Completed: Spine: Lumbar spine. Anesthesia: No. Aromatherapy Administered: No PERIPHERAL IV DATA: Not applicable SIGNED BY: RT Dave(R) December 26, 2024 12:45 PM documented in this encounter [facility] 12-26-2024 Note HNO ID: [id number] Author: DAVID SURESH RT (R) Service: ? [...] PATIENT PRESENTS WITH AN IMPLANTABLE OR ATTACHED METAL SHEET ROLLER OPERATOR: No RADIOLOGY DEPARTMENT: MR; Exam(s) Completed: Spine: Lumbar spine. Anesthesia: No. Aromatherapy Administered: No PERIPHERAL IV DATA: Not applicable SIGNED BY: RT Dave(R) December 26, 2024 12:45 PM [facility] 12-22-2024 Telephone encounter Note I left patient [...] FOLLOW UP OFFICE NOTE Fab Piper MD [facility] Date of visit: December 21, 2024 Patient Name: Ms.Amber Mirza Chisholm Date of : 1985 Current Age: [age] year old Sex: female MRN/E# [id number] Last Office Visit: 10/19/2024 Chief Complaint: Patient [...] in agreement with plan. Fab Piper MD [facility] Medical Decision Making: Problems: Moderate: New problem with uncertain prognosis Data: Unique test result(s) reviewed: 1 Unique test(s) ordered: 1 Risk: Moderate: Moderate risk from testing/treatment Medical Decision Making Level: 4 - Moderate This note was partially generated using [employer] voice recognition system, and there may be some incorrect words, spellings, and punctuation that were not noted in checking the note before saving. documented in this encounter [facility] 12-21-2024 Note HNO ID: [id number] Author: FBA PIPER MD Service: ? Author Type: Physician Type: Progress Notes Filed: 12/21/2024 11:40 Note Text: NEUROSURGERY FOLLOW UP OFFICE NOTE Fab Piper MD [facility] Date of visit: December 21, 2024 Patient Name: Ms.Amber Mirza Chisholm Date of : 1985 Current Age: [age] year old Sex: female MRN/E# [id number] Last Office Visit: 10/19/2024 Chief Complaint: Patient [...] movements. No spastic (more content not included)... [facility] 11-13-2024 Note HNO ID: [id number] Author: BROCK DURAND MD Service: ? Author Type: Physician Type: Progress Notes Filed: 11/13/2024 16:28 Note Text: Eugenia Chisholm is a 39 year old female who presents for a second opinion. Menorrhagia and dyspareunia. HPI: She was a patient at [facility] and is here for another opinion. She [...] Living1 SAB1 IAB0 Ectopic0 Multiple0 Live Births0 Communications Billing Analyst History LMP: 08/31/2024, IUD Age at Menarche: Age at First : Age at Menopause: Communications Billing Analyst History Comments: Sexual Activity: Yes; Male Contraception: [...] cm. Cul-de-sac: N (more content not included)... [facility] 11-13-2024 History of Present illness Narrative Eugenia Chisholm is a 39 year old female who presents for a second opinion. Menorrhagia and dyspareunia. HPI: She was a patient at [facility] and is here for another opinion. She [...] Living1 SAB1 IAB0 Ectopic0 Multiple0 Live Births0 Communications Billing Analyst History LMP: 08/31/2024, IUD Age at Menarche: Age at First : Age at Menopause: Communications Billing Analyst History Comments: Sexual Activity: Yes; Male Contraception: [...] positioning of the intrauterine device. Reading Location: [id number] Pelvic pain: Discussed possible etiologies for the [...] [facility] 10-06-2024 Note HNO ID: [id number] Author: BRANDY RUSSELL APRN.CONTINUOUS VULCANIZING MACHINE OPERATOR Service: ? Author Type: Nurse Practitioner Type: Progress Notes Filed: 10/06/2024 15:05 Note Text: ANXIETY/DEPRESSION VISIT Patient seen on [employer] Video Visit platform. I have communicated my name and active licensure. The patient's identity and physical location were verified at the time of this visit. 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 She will let us know if she needs us to step in with her search for a provider - Non-pharmacologic treatment discussed: continuing with pet therapy, emotional support pet as he is a huge support system for her -Letter provided for emotional support animal as she is looking to move closer to her family in [place] and it's been difficult finding a place that allows animals -follow up as needed Brandy Russell APRN.[facility] 10-06-2024 History of Present illness Narrative ANXIETY/DEPRESSION VISIT Patient seen on [employer] Video Visit platform. I have communicated my name and active licensure. The patient's identity and physical location were verified at the time of this visit. 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 She will let us know if she needs us to step in with her search for a provider - Non-pharmacologic treatment discussed: continuing with pet therapy, emotional support pet as he is a huge support system for her -Letter provided for emotional support animal as she is looking to move closer to her family in [place] and it's been difficult finding a place that allows animals -follow up as needed Brandy Russell APRN.CONTINUOUS VULCANIZING MACHINE OPERATOR documented in this encounter [facility] [...] to discuss this and send letter via [employer]. Thank you, Myrna Walker APRN.CONTINUOUS VULCANIZING MACHINE OPERATOR Images from the original note were not included. Eugenia Chisholm [facility] My Chart Rx Pool [facility]! I'm reaching back out about the possibility [...] me. I appreciate it! My address is [address] [place] [address], [id number]. Thanks! documented in this encounter [facility] 10-04-2024 Telephone encounter Note I am looking through chart and I don't think we have seen patient for anxiety/depression complaints. I would recommend VV to discuss this and send letter via [employer]. Thank you, Myrna Walker APRN.CONTINUOUS VULCANIZING MACHINE OPERATOR T [facility] Work Phone: 10-03-2024 Telephone encounter Note See telephpne note [facility] 10-03-2024 Telephone encounter Note Images from the original note were not included. Eugenia Chisholm [facility] Famp My Chart Rx Pool [...] me. I appreciate it! My address is [address] [place] [address], [id number]. Thanks! [facility] 10-03-2024 Miscellaneous Notes See telephpne note documented in this encounter [facility] 09-21-2024 History of Present illness Narrative Postoperative Note JESÚS Terrell Date of visit: September 21, 2024 Patient Name: Ms.Amber Mirza Chisholm Date of : 1985 Current Age: [age] year old Sex: female MRN/E# [id number] Last Office Visit: 08/29/2024 Postop Lumbar: SURGERY: [...] to patients pharmacy on file. JESÚS Terrell [facility] This note was partially generated using [employer] voice recognition system, and there may be some incorrect words, spellings, and punctuation that were not noted in checking the note before saving. documented in this encounter [facility] 09-21-2024 Note HNO ID: [id number] Author: TWYLA GUZMAN APRN.CNP Service: ? Author Type: Nurse Practitioner Type: Progress Notes Filed: 09/21/2024 16:25 Note Text: Postoperative Note JESÚS Terrell Date of visit: September 21, 2024 Patient Name: Ms.Amber Mirza Chisholm Date of : 1985 Current Age: [age] year old Sex: female MRN/E# [id number] Last Office Visit: 08/29/2024 Postop Lumbar: SURGERY: [...] patients pharmacy on file. Twyla Guzman APRN-[facility] This note was partially generated using [employer] voice recognition system, and there may be some incorrect words, spellings, and punctuation that were not noted in checking the note before saving. [facility] 09-05-2024 Note HNO ID: [id number] Author: PADMINI WALLACE, RN Service: Nursing Author Type: Registered Nurse Type: Nursing Progress Note Filed: 09/05/2024 12:46 Note Text: X-ray placment confirmed with and . [facility] 09-05-2024 Note HNO ID: [id number] Author: RUT LEHMAN APRN.CRNA Service: Anesthesiology Author Type: Nurse Food Checkers And Cashiers Supervisor Type: Anesthesia Procedure Notes Filed: 09/05/2024 12:22 Note Text: ANESTHESIOLOGY PROCEDURE NOTE Airway General Information Procedure Start Time/Medication Administration: 09/05/2024 12:11 PM Procedure End Time: 09/05/2024 12:19 PM Patient location during procedure: OR Timeout Performed Pre-procedure: timeout performed Consent Obtained: Yes Patient identity confirmed: arm band, care lift team technician and patient sedated or unresponsive Staffing CERAMIC DESIGN ENGINEER: Rut Lehman APRN.CERAMIC DESIGN ENGINEER Performed by: RAPHAEL Indications and Patient Condition [...] September 05, 2024 TIME: 12:19 PM CSN: [id number] [facility] 09-01-2024 Note HNO ID: [id number] Author: MARCO SHAW APRN.CNP Service: Anesthesiology Author Type: Nurse Practitioner Type: Progress Notes Filed: 09/01/2024 13:35 Note Text: SORAYA PAT noted reviewed. No anesthesia or pre-operative concerns noted. No optimizations pending. Since patient is neurosurgery at [facility], reviewed with anesthesia, Dr. Rodríguez. Ready for surgery. [facility] 08-31-2024 Instructions Lita Jordan APRN.CNP - 08/31/2024 3:15 PM EDT PATIENT PREOPERATIVE INSTRUCTIONS No ref. provider found has scheduled you for your procedure at this surgery center: [facility]: [phone], [address] [place], [place] [id number] Please read below carefully for your personalized [...] Advance Directive, please fax a copy to [phone] or email to for it to be [...] Advance Directive, please fax a copy to [phone] or Rodrick CRAVEN at [phone] or email to for it to be [...] TIME: 3:32 PM PRIMARY CARE PHYSICIAN: Del Hubbadr DO Assessment Patient has the following medical [...] or any previous visit (from the past 35434 hours). Surgical scrub given day of PST. 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 Surgical scrub given day of PST. 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 [facility] 08-31-2024 Miscellaneous Notes Patient returned call and went over notes below from Jaylan Dasilva NP with understanding. Aware rx sent to the pharmacy. Patient has pre surgery labs to do in [place] today, she will try to have done [...] Age: [age] year old Sex: female MRN/E# [id number] Last Office Visit: Visit date not found [...] in agreement with plan. Fab Piper MD [facility] Medical Decision Making: Problems: Moderate: New problem with uncertain prognosis Data: Unique source(s) for external note(s) reviewed: 1 Unique test result(s) reviewed: 3+ Risk: Moderate: Decision on elective major surgery w/o risk factors Medical Decision Making Level: 4 - Moderate This note was partially generated using [employer] voice recognition system, and there may be some incorrect words, spellings, and punctuation that were not noted in checking the note before saving. documented in this encounter [facility] 08-28-2024 Note HNO ID: [id number] Author: FAB PIPER MD Service: ? Author Type: Physician Type: Progress Notes Filed: 08/28/2024 16:03 Note Text: NEUROSURGERY CONSULT NOTE Fab Piper MD [facility] Date of visit: August 28, 2024 Patient Name: Ms.Amber Mirza Chisholm Date of : 1985 Current Age: [age] year old Sex: female MRN/E# [id number] Last Office Visit: Visit date not found [...] 4+/5 5/5 Plantarflexion (more content not included)... [facility] 08-25-2024 Telephone encounter Note I do write orders for this. What is it for and who does it need addressed to? Deysi Dasilva APRN.CONTINUOUS VULCANIZING MACHINE OPERATOR [facility] 08-25-2024 Miscellaneous Notes I do write orders for this. What is it for and who does it need addressed to? Deysi Dasilva APRN.CONTINUOUS VULCANIZING MACHINE OPERATOR documented in this encounter [facility] 08-15-2024 Note HNO ID: [id number] Author: MICHAEL PEREZ MD Service: ? Author Type: Physician Type: Progress Notes Filed: 08/15/2024 16:06 Note Text: [facility] New Patient Consultation No referring provider defined for this encounter. CC: Lower back pain Subjective History of Present Illness: Eugenia is a 39-year-old female presenting with persistent back and right leg pain. Eugenia reports a history of back pain since her teenage years, which worsened in December. She describes the pain as severe, without any known injury, and sought health care facilities inspector, where she was informed of a possible herniated disc. An MRI confirmed the diagnosis. She received epidural steroid injections at [facility] in [place], performed by Dr. Fei Gonzáles, which alleviated [...] smooth all limbs. (more content not included)... [facility] 08-15-2024 History of Present illness Narrative Images from the original note were not included. [facility] New Patient Consultation No referring provider defined for this encounter. CC: Lower back pain Subjective History of Present Illness: Eugenia is a 39-year-old female presenting with persistent back and right leg pain. Eugenia reports a history of back pain since her teenage years, which worsened in December. She describes the pain as severe, without any known injury, and sought health care facilities inspector, where she was informed of a possible herniated disc. An MRI confirmed the diagnosis. She received epidural steroid injections at [facility] in [place], performed by Dr. Fei Gonzáles, which alleviated [...] Lymph 1.00 - 4.00 k/uL 2.72 Abs Emery 0.00 - 0.86 k/uL 0.55 Abs Eosin [...] review of medical records: [facility]. Personal review of image, tracing or [...] No Change Instructions: Continue present activity Physician zwvb-zs-wcpx time was 20 minutes with > 50% [...] Moderate Michael Fall MD 4:05 PM 08/15/2024 [facility] 39 y/o female presents to office with concerns of low back pain that is radiating into the left leg. This started 11/2023. Denies accident or trauma. Xrays obtained. documented in this encounter [facility] 08-15-2024 Note HNO ID: [id number] Author: LIZY MANTILLA MA Service: ? Author Type: Front Desk Supervisor Type: Progress Notes Filed: 08/15/2024 16:06 Note Text: 39 y/o female presents to office with concerns of low back pain that is radiating into the left leg. This started 11/2023. Denies accident or trauma. Xrays obtained. [facility] 08-14-2024 History of Present illness Narrative Radiology [...] PATIENT PRESENTS WITH AN IMPLANTABLE OR ATTACHED METAL SHEET ROLLER OPERATOR: No RADIOLOGY DEPARTMENT: General X-ray: Exam(s) Completed: Spine X-Ray(s): Lumbar AP / LAT / L5-S1 / FLEX-EXT PERIPHERAL IV DATA: Not applicable SIGNED BY: RT Denise(R) August 14, 2024 1:13 PM documented in this encounter [facility] 08-14-2024 Note HNO ID: [id number] Author: AMANDA MAGAÑA RT(R) Service: Radiology Author [...] PATIENT PRESENTS WITH AN IMPLANTABLE OR ATTACHED METAL SHEET ROLLER OPERATOR: No RADIOLOGY DEPARTMENT: General X-ray: Exam(s) Completed: Spine X-Ray(s): Lumbar AP / LAT / L5-S1 / FLEX-EXT PERIPHERAL IV DATA: Not applicable SIGNED BY: RT Denise(R) August 14, 2024 1:13 PM [facility] 08-10-2024 Telephone encounter Note Spoke to patient [...] 40 MG/ML SUSPENSION FOR INJECTION [facility] website checked and validated. All prescriptions have [...] [facility] 08-10-2024 Note HNO ID: [id number] Author: DEYSI DASILVA APRN.NIMA Service: ? Author [...] Deysi Dasilva Date: 08/10/2024 Time: 9:39 AM [facility] 07-18-2024 Note HNO ID: [id number] Author: PADMINI PRETTY RN Service: Nursing Author Type: Registered Nurse Type: Nursing Progress Note Filed: 07/18/2024 10:09 Note Text: Other: pt ready for OR, call light in reach, Quynh called to bedside. [facility] 07-12-2024 Telephone encounter Note Please see [...] will be sent to the patient via [employer]. Trudi Isidro MA [facility] 06-23-2024 Miscellaneous Notes Called the patient to schedule her lumbar injection Patient choose July 18, 2024 Will hold Aleve - 5 days prior to the procedure. Instructions will be sent to the patient via [employer]. Trudi Isidro MA documented in this encounter [facility] 06-22-2024 Note HNO ID: [id number] Author: SANDI JIMENEZ PA-C Service: ? Author Type: Physician Card Hanger Type: Progress Notes Filed: 06/22/2024 16:52 Note Text: Sandi Jimenez PA-C [facility] [address] [address] Dear Del Hubbard DO, Amber D Pamela [...] today with this patient visit. This includes uxdm-si-rcex time, review of chart records regarding conservative care history, spine-pertinent imaging, and communication/care coordination with referring provider, problem-specific history-taking and counseling/education regarding treatment options. This document has been created with the use of voice recognition technology. It may contain inaccuracies: (e.g. misspellings, inaccurate syntax or word sense) that have escaped review. Trudi Isidro MA [facility] 06-22-2024 History of Present illness Narrative Sandi Jimenez PA-C [facility] [address] [place] [address] Dear Del Hubbard DO, Amber D Pamela [...] today with this patient visit. This includes qtzh-mw-pnyv time, review of chart records regarding conservative [...] [facility] 06-02-2024 Note HNO ID: [id number] Author: TRUDI ISIDRO MA Service: ? Author Type: Physician Card Hanger Type: Progress Notes Filed: 06/23/2024 12:11 Note Text: [facility] [address] [place] [address] Dear Del Hubbard DO, Amber D Pamela [...] of her rooming interview today with my medical secretary and she told my environmental services assistant that she needed to leave immediately to take care of of a family emergency. The visit was truncated at that point and there was no further evaluation or exam today. I did not personally see this patient during today's visit because she had to leave prior to my arrival in the exam room. Trudi Isidro MA [facility] 06-02-2024 History of Present illness Narrative Sandi Jimenez PA-C [facility] [address] [place] [address] [place] [address] Dear Del Hubbard DO, Eugenia Blue Pamela [...] of her rooming interview today with my medical secretary and she told my environmental services assistant that she needed to leave immediately [...] [facility] 04-27-2024 Note HNO ID: [id number] Author: BROCK BENSON RN Service: ? Author Type: Registered Nurse Type: Progress Notes Filed: 04/27/2024 15:08 Note Text: Patient scheduled for injection during today's OV. Patient scheduled for: May 18, 2024 Patient instructed to hold the following medication(s) prior to the procedure: NSAIDs Pre-procedure instructions discussed during OV and paper copy of instructions handed to patient. Patient verbalized understanding. [facility] 04-27-2024 History of Present illness Narrative Patient scheduled for injection during today's OV. Patient scheduled for: May 18, 2024 Patient instructed to hold the following medication(s) prior to the procedure: NSAIDs Pre-procedure instructions discussed during OV and paper copy of instructions handed to patient. Patient verbalized understanding. Images from the original note were not included. Sandi Jimenez PA-C [facility] [address] [place] [address] 04/27/2024 ASSESSMENT AND PLAN: Assessment : Encounter [...] today with this patient visit. This includes azvi-bx-pmpg time, review of chart records regarding conservative care history, spine-pertinent imaging, and communication/care coordination with referring provider, problem-specific history-taking and counseling/education regarding treatment options. cc: Myrna Walker [address] [facility] [place] [address] Results of consultation to be transmitted via electronic medical record for those providers who practice within [facility] or with access to [employer] via [employer] Connect, or via letter. 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 Author Type: Physician Card Hanger Type: Progress Notes Filed: 04/27/2024 15:08 Note Text: Sandi Jimenez PA-C [facility] [address] [address] 04/27/2024 ASSESSMENT AND PLAN: Assessment : Encounter [...] today with this patient visit. This includes ttse-sx-oidw time, review of chart records regarding conservative care history, spine-pertinent imaging, and communication/care coordination with referring provider, problem-specific history-taking and counseling/education regarding treatment options. cc: Myrna Walker [address] [facility] [address] Results of consultation to be transmitted via electronic medical record for those providers who practice within [facility] or with access to [employer] via [employer] Connect, or via [employer] (more content not included)... [facility] 04-06-2024 Note HNO ID: [id number] Author: DEYSI DASILVA APRN.NIMA Service: ? Author [...] pk-yrs) Types: Cigarettes (more content not included)... [facility] 04-06-2024 History of Present illness Narrative Chief [...] XR LUMBAR GENERAL 3V AP/LAT/L5-S1 Myrna Frias APRN.CONTINUOUS VULCANIZING MACHINE OPERATOR Currently: Sciatic nerve pain all the way [...] - GABAPENTIN 300 MG CAPSULE Deysi Dasilva APRN.CONTINUOUS VULCANIZING MACHINE OPERATOR documented in this encounter [facility] [...] discussed at appointment. Thank you, Myrna Walker APRN.CONTINUOUS VULCANIZING MACHINE OPERATOR documented in this encounter [facility] 03-29-2024 Telephone encounter Note Please call patient and let her know that MRI does show a herniated disc at L4-L5. Continue with ortho/spine appointment as scheduled for further interventions than what was discussed at appointment. Thank you, Myrna Walker APRN.CONTINUOUS VULCANIZING MACHINE OPERATOR [facility] 03-29-2024 History of Present [...] PATIENT PRESENTS WITH AN IMPLANTABLE OR ATTACHED METAL SHEET ROLLER OPERATOR: No RADIOLOGY DEPARTMENT: MR; Exam(s) Completed: Spine: Lumbar spine PERIPHERAL IV DATA: Not applicable SIGNED BY: RT Michael(Jaylan) March 29, 2024 7:45 AM documented in this encounter [facility] 03-29-2024 Note HNO ID: [id number] Author: SOFI SHAH RT(R) Service: ? Author [...] PATIENT PRESENTS WITH AN IMPLANTABLE OR ATTACHED METAL SHEET ROLLER OPERATOR: No RADIOLOGY DEPARTMENT: MR; Exam(s) Completed: Spine: Lumbar spine PERIPHERAL IV DATA: Not applicable SIGNED BY: RT Michael(Jaylan) March 29, 2024 7:45 AM [facility] 03-16-2024 History of Present illness Narrative Radiology [...] PATIENT PRESENTS WITH AN IMPLANTABLE OR ATTACHED METAL SHEET ROLLER OPERATOR: No RADIOLOGY DEPARTMENT: General X-ray: Exam(s) Completed: Spine X-Ray(s): Lumbar AP / LAT / L5-S1 PERIPHERAL IV DATA: Not applicable SIGNED BY: RT Denies(R) March 16, 2024 3:42 PM documented in this encounter [facility] 03-16-2024 Note HNO ID: [id number] Author: AMANDA MAGAÑA RT(R) Service: Radiology Author [...] PATIENT PRESENTS WITH AN IMPLANTABLE OR ATTACHED METAL SHEET ROLLER OPERATOR: No RADIOLOGY DEPARTMENT: General X-ray: Exam(s) Completed: Spine X-Ray(s): Lumbar AP / LAT / L5-S1 PERIPHERAL IV DATA: Not applicable SIGNED BY: RT Denise(Jaylan) March 16, 2024 3:42 PM [facility] 03-16-2024 History of Present illness Narrative Chief [...] Patient agreeable to treatment plan. Myrna Frias APRN.CONTINUOUS VULCANIZING MACHINE OPERATOR [address] [place] [address] documented in this encounter [facility] 03-16-2024 Note HNO ID: [id number] Author: MYRNA WALKER APRN.CONTINUOUS VULCANIZING MACHINE OPERATOR Service: ? Author Type: Nurse Practitioner Type: [...] 1. Acute bilate (more content not included)... [facility] 08-31-2022 Miscellaneous Notes Called to discuss results. Script sent for trichomonas mgmt- suggest repeat testing in 2-3 months for cure. Educated on HSV. No other questions. Elizabeth Burns APRN.NIMA documented in this encounter [facility] 08-27-2022 History of Present illness Narrative VIRTUAL VISIT PROGRESS NOTE This is a virtual visit using [employer] video visit. It required patient-provider interaction for the medical decision making as documented below. This note was written using medical terminology and is intended to be used for medical purposes by other health health care marketing manager I have communicated my name and active licensure. The patient's identity and physical location were verified at the time of this visit. Either the patient or their legal key account representative has been informed of the risks [...] family hx of endometriosis. Is scheduled for GRAB OPERATOR appointment in April at [facility]. Needs paperwork signed for work. Past medical [...] diet of 1000 mg/day for under 50, [id number] mg/day for 50+ 2. Sciatica, right side - ICD9: 724.3, ICD10: M54.31 Chronic sciatica r/t menstruation. Concern for endometrial sciatica. Has GRAB OPERATOR appointment scheduled in April. - FEMALE PELVIS TRANSABD LTD - US FEMALE PELVIS TRANSVAG 3. Family history of endometriosis - ICD9: V19.8, ICD10: Z84.2 Chronic sciatica r/t menstruation. Concern for endometrial sciatica. Has GRAB OPERATOR appointment scheduled in April. - FEMALE PELVIS TRANSABD LTD - US FEMALE PELVIS TRANSVAG 4. Abnormal menstruation - ICD9: 626.9, ICD10: N92.6 Chronic sciatica r/t menstruation. Concern for endometrial sciatica. Has GRAB OPERATOR appointment scheduled in April. - FEMALE PELVIS TRANSABD LTD - US FEMALE PELVIS TRANSVAG Deysi Dasilva APRN.CONTINUOUS VULCANIZING MACHINE OPERATOR documented in this encounter [facility] [...] and throbbing Radiation: sometimes sharp to the congregational and ear Aggravating: biting. Sometimes cold temps. [...] contacting her insurance to see if a oil field caser can assist her. - FLUCONAZOLE 150 MG [...] Pedunculated leiomyoma of uterus acute COVID-19 acute [facility] Work Phone: Evaluation note* Diagnosis Exposure to [...] debility Debility, unspecified [facility] Acute bilateral low back pain with right-sided sciatica [facility] Acute bilateral low back pain with right-sided sciatica- Primary Numbness in both legs Disturbance of skin sensation Gait instability Abnormality of gait Physical debility Debility, unspecified Sciatica, right side [facility] Intervertebral disc disorder with radiculopathy of lumbar region- Primary Thoracic or lumbosacral neuritis or radiculitis, unspecified Acute bilateral low back pain with right-sided sciatica [facility] Acute bilateral low back pain with right-sided sciatica- Primary Intervertebral disc disorder with radiculopathy of lumbar region Thoracic or lumbosacral neuritis or radiculitis, unspecified Acute bilateral low back pain with right-sided sciatica Intervertebral disc disorder with radiculopathy of lumbar region Thoracic or lumbosacral neuritis or radiculitis, unspecified documented in this encounter [facility] note* Diagnosis Intervertebral disc disorder with radiculopathy of lumbar region- Primary Thoracic or lumbosacral neuritis or radiculitis, unspecified Acute bilateral low back pain with right-sided sciatica documented in this encounter [facility] note* Diagnosis Intervertebral disc disorder with radiculopathy of lumbar region- Primary Thoracic or lumbosacral neuritis or radiculitis, unspecified Acute bilateral low back pain with right-sided sciatica Acute midline low back pain without sciatica documented in this encounter [facility] note* Diagnosis Acute bilateral low back pain with right-sided sciatica- Primary Intervertebral disc disorder with radiculopathy of lumbar region Thoracic or lumbosacral neuritis or radiculitis, unspecified Acute bilateral low back pain with right-sided sciatica Intervertebral disc disorder with radiculopathy of lumbar region Thoracic or lumbosacral neuritis or radiculitis, unspecified documented in this encounter [facility] note* Diagnosis Cold hands and feet- Primary Other symptoms involving skin and integumentary tissues Intervertebral disc disorder with radiculopathy of lumbar region Thoracic or lumbosacral neuritis or radiculitis, unspecified Acute bilateral low back pain with right-sided sciatica Acute midline low back pain without sciatica Low back pain, unspecified back pain laterality, unspecified chronicity, unspecified whether sciatica present- Primary documented in this encounter [facility] note* Diagnosis Low back pain, unspecified back pain laterality, unspecified chronicity, unspecified whether sciatica present Low back pain, unspecified back pain laterality, unspecified chronicity, unspecified whether sciatica present- Primary documented in this encounter [facility] note* Diagnosis Other intervertebral disc displacement, lumbar region Sciatica, right side Low back pain, unspecified back pain laterality, unspecified chronicity, unspecified whether sciatica present- Primary documented in this encounter [facility] note* Diagnosis Low back pain, unspecified back pain laterality, unspecified chronicity, unspecified whether sciatica present Low back pain, unspecified back pain laterality, unspecified chronicity, unspecified whether sciatica present- Primary Intervertebral disc disorder with radiculopathy of lumbar region Thoracic or lumbosacral neuritis or radiculitis, unspecified Acute bilateral low back pain with right-sided sciatica documented in this encounter [facility] note* Diagnosis Intervertebral disc disorder with radiculopathy of lumbar region- Primary Thoracic or lumbosacral neuritis or radiculitis, unspecified Intervertebral disc disorder with radiculopathy of lumbar region Thoracic or lumbosacral neuritis or radiculitis, unspecified documented in this encounter [facility] note* Diagnosis Intervertebral disc disorder with radiculopathy of lumbar region- Primary Thoracic or lumbosacral neuritis or radiculitis, unspecified Intervertebral disc disorder with radiculopathy of lumbar region Thoracic or lumbosacral neuritis or radiculitis, unspecified documented in this encounter [facility] note* Diagnosis Preop examination- Primary Preoperative examination, [...] or radiculitis, unspecified documented in this encounter [facility] note* Diagnosis Preop examination- Primary Preoperative examination, [...] and plan today. documented in this encounter [facility] note* Diagnosis Preop examination- Primary Preoperative examination, unspecified Intervertebral disc disorder with radiculopathy of lumbar region Thoracic or lumbosacral neuritis or radiculitis, unspecified Intervertebral disc disorder with radiculopathy of lumbar region Thoracic or lumbosacral neuritis or radiculitis, unspecified Intervertebral disc disorder with radiculopathy of lumbar region Thoracic or lumbosacral neuritis or radiculitis, unspecified documented in this encounter [facility] note* Diagnosis Preop examination- Primary Preoperative examination, unspecified Intervertebral disc disorder with radiculopathy of lumbar region Thoracic or lumbosacral neuritis or radiculitis, unspecified S/P laminectomy- Primary Other postprocedural status [facility] Diagnosis OPENED IN ERROR- Primary To allow closing an encounter opened in error (used in Smart[employer]) Preop examination- Primary Preoperative examination, unspecified Intervertebral disc disorder with radiculopathy of lumbar region Thoracic or lumbosacral neuritis or radiculitis, unspecified documented in this encounter [facility] note* Diagnosis Preop examination- Primary Preoperative examination, unspecified Intervertebral disc disorder with radiculopathy of lumbar region Thoracic or lumbosacral neuritis or radiculitis, unspecified Postoperative pain- Primary Other acute postoperative pain S/P laminectomy Other postprocedural status [facility] noteNo assessment information availableWMary [facility] Work [facility]: Evaluation note* Diagnosis Preop examination- Primary Preoperative examination, unspecified Intervertebral disc disorder with radiculopathy of lumbar region Thoracic or lumbosacral neuritis or radiculitis, unspecified IAN (generalized anxiety disorder)- Primary Generalized anxiety disorder Encounter for screening examination for other mental health and behavioral disorders Screening for depression documented in this encounter [facility] note* Diagnosis Preop examination- Primary Preoperative examination, unspecified Intervertebral disc disorder with radiculopathy of lumbar region Thoracic or lumbosacral neuritis or radiculitis, unspecified Excessive bleeding in premenopausal period- Primary Premenopausal menorrhagia Dyspareunia in female IUD (intrauterine device) in place Presence of intrauterine contraceptive device Cyst of ovary, unspecified laterality documented in this encounter [facility] note* Diagnosis Preop examination- Primary Preoperative examination, unspecified Intervertebral disc disorder with radiculopathy of lumbar region Thoracic or lumbosacral neuritis or radiculitis, unspecified S/P laminectomy- Primary Other postprocedural status Spinal stenosis of lumbar region, unspecified whether neurogenic claudication present documented in this encounter [facility]* Diagnosis Preop examination- Primary Preoperative examination, unspecified Intervertebral disc disorder with radiculopathy of lumbar region Thoracic or lumbosacral neuritis or radiculitis, unspecified S/P laminectomy Other postprocedural status documented in this encounter [facility] note* Diagnosis Preop examination- Primary Preoperative examination, unspecified Intervertebral disc disorder with radiculopathy of lumbar region Thoracic or lumbosacral neuritis or radiculitis, unspecified Spinal stenosis of lumbar region, unspecified whether neurogenic claudication present documented in this encounter [facility] note* Diagnosis Preop examination- Primary Preoperative examination, unspecified Intervertebral disc disorder with radiculopathy of lumbar region Thoracic or lumbosacral neuritis or radiculitis, unspecified S/P laminectomy- Primary Other postprocedural status Recurrent herniation of lumbar disc Displacement of lumbar intervertebral disc without myelopathy documented in this encounter [facility] note* Diagnosis Preop examination- Primary Preoperative examination, unspecified Intervertebral disc disorder with radiculopathy of lumbar region Thoracic or lumbosacral neuritis or radiculitis, unspecified Radiculopathy, lumbar region- Primary Thoracic or lumbosacral neuritis or radiculitis, unspecified documented in this encounter [facility] note* Diagnosis Preop examination- Primary Preoperative examination, unspecified Intervertebral disc disorder with radiculopathy of lumbar region Thoracic or lumbosacral neuritis or radiculitis, unspecified Radiculopathy, lumbar region- Primary Thoracic or lumbosacral neuritis or radiculitis, unspecified documented in this encounter [facility] for referral (narrative)* Diagnostic Procedure Only (Routine) - Authorized Specialty Diagnoses / Procedures Referred By Contac t Referred To Contact US IMAGING Diagnoses Sciatica, right side Family history of endometriosis Abnormal menstruation Procedures US FEMALE PELVIS TRANSVAG US TRANSVAGINAL Deysi Dasilva APRN.CONTINUOUS VULCANIZING MACHINE OPERATOR [address] [place] [address] Us Imaging Referral ID Status Reason Start Date Expiration Date Visits Requested Visits Authorized [id number] Authorized Auto-Generat ed Referral 01/01/2022 01/31/2023 1 1 * Diagnostic Procedure Only (Routine) - Authorized Specialty Diagnoses / Procedures Referred By Yuko t Referred To Contact US IMAGING Diagnoses Sciatica, right side Family history of endometriosis Abnormal menstruation Procedures US FEMALE PELVIS TRANSABD LTD US PELVIC NONOBSTETRIC IMAGE DCMTN LIMITED/F/U Deysi Dasilva APRN.CONTINUOUS VULCANIZING MACHINE OPERATOR [address] [place] [address] Us Imaging Referral ID Status Reason Start Date Expiration Date Visits Requested Visits Authorized [id number] Authorized Auto-Generat ed Referral 01/01/2022 01/31/2023 1 1 [facility] for referral (narrative)* Diagnostic Procedure Only (Routine) - Closed Specialty Diagnoses / Procedures Referred By Contac t Referred To Contact US IMAGING Diagnoses Sciatica, right side Family history of endometriosis Abnormal menstruation Procedures US FEMALE PELVIS TRANSVAG US TRANSVAGINAL Deysi Dasilva APRN.CONTINUOUS VULCANIZING MACHINE OPERATOR [address] [place] [address] Us Imaging Referral ID Status Reason Start Date Expiration Date V isits Requested Visits Authorized [id number] Closed Auto-Generate d Referral 01/01/2022 01/31/2023 1 1 * Diagnostic Procedure Only (Routine) - Closed Specialty Diagnoses / Procedures Referred By Contac t Referred To Contact US IMAGING Diagnoses Sciatica, right side Family history of endometriosis Abnormal menstruation Procedures US FEMALE PELVIS TRANSABD LTD US PELVIC NONOBSTETRIC IMAGE DCMTN LIMITED/F/U Deysi Dasilva APRN.CONTINUOUS VULCANIZING MACHINE OPERATOR [address] [place] [address] Us Imaging Referral ID Status Reason Start Date Expiration Date V isits Requested Visits Authorized [id number] Closed Auto-Generate d Referral 01/01/2022 01/31/2023 1 1 [facility] for referral (narrative)* Diagnostic Procedure Only (Routine) - Closed Specialty Diagnoses / Procedures Referred By Contac t Referred To Contact XR IMAGING Diagnoses Acute midline low back pain without sciatica Procedures XR LUMBAR GENERAL 3V AP/LAT/L5-S1 RADEX SPINE LUMBOSACRAL 2/3 VIEWS Myrna Walker APRN.CONTINUOUS VULCANIZING MACHINE OPERATOR [address] [place] [address] [place] [address] Referral ID Status Reason Start Date Expiration Date V isits Requested Visits Authorized [id number] Closed Auto-Generate d Referral 07/02/2021 08/01/2022 1 1 [facility] for referral (narrative)* Diagnostic Procedure Only (Routine) - Closed Specialty Diagnoses / Procedures Referred By Contac t Referred To Contact XR IMAGING Diagnoses Acute bilateral low back pain, unspecified whether sciatica present Numbness in both legs Gait instability Physical debility Procedures XR LUMBAR GENERAL 3V AP/LAT/L5-S1 RADEX SPINE LUMBOSACRAL 2/3 VIEWS Myrna Walker APRN.CONTINUOUS VULCANIZING MACHINE OPERATOR [address] [place] [address] [place] [address] Referral ID Status Reason Start Date Expiration Date V isits Requested Visits Authorized [id number] Closed Auto-Generate d Referral 03/16/2024 04/15/2025 1 1 * Consult, Test, Treat (Routine) - Authorized Specialty Diagnoses / Procedures Referred By Contac t Referred To Contact [facility] [place] Diagnoses Acute bilateral low back pain, unspecified whether sciatica present Procedures [facility] OFFICE/OUTPATIENT NEW HIGH MDM 60 MINUTES Myrna Walker APRN.CONTINUOUS VULCANIZING MACHINE OPERATOR [address] [place] [address] Referral ID Status Reason Start Date Expiration Date Visits Requested Visits Authorized [id number] Authorized PCP Requested Referral 4 03/16/2025 1 1 * MRI/CT (Routine) - Authorized Specialty Diagnoses / Procedures Referred By Contac t Referred To Contact MR IMAGING Diagnoses Acute bilateral low back pain, unspecified whether sciatica present Procedures MRI LUMBAR SPINE WO IVCON MRI SPINAL CANAL LUMBAR W/O CONTRAST MATERIAL Myrna Walker APRN.CONTINUOUS VULCANIZING MACHINE OPERATOR [address] [place] [address] [place] [address] Referral ID Status Reason Start Date Expiration Date Visits Requested Visits Authorized [id number] Authorized Auto-Generat ed Referral 4 04/15/2025 1 1 [facility]No reason for referral information availableWMary [facility] Work Phone: Reason for visit Narrative* Diagnostic Procedure Only (Routine) - Closed Specialty Diagnoses / Procedures Referred By Contac t Referred To Contact XR IMAGING Diagnoses Acute midline low back pain without sciatica Procedures XR LUMBAR GENERAL 3V AP/LAT/L5-S1 RADEX SPINE LUMBOSACRAL 2/3 VIEWS Myrna Walker APRN.CONTINUOUS VULCANIZING MACHINE OPERATOR [address] [place] [address] [place] [address] Referral ID Status Reason Start Date Expiration Date V isits Requested Visits Authorized [id number] Closed Auto-Generate d Referral 07/02/2021 08/01/2022 1 1 [facility] for visit Narrative* Diagnostic Procedure Only (Routine) - Closed Specialty Diagnoses / Procedures Referred By Contac t Referred To Contact XR IMAGING Diagnoses Acute bilateral low back pain, unspecified whether sciatica present Numbness in both legs Gait instability Physical debility Procedures XR LUMBAR GENERAL 3V AP/LAT/L5-S1 RADEX SPINE LUMBOSACRAL 2/3 VIEWS Myrna Walker, TELEPHONE STATION INSTALLER.CONTINUOUS VULCANIZING MACHINE OPERATOR [address] [place] [address] [place] [address] Referral ID Status Reason Start Date Expiration Date V isits Requested Visits Authorized [id number] Closed Auto-Generate d Referral 03/16/2024 04/15/2025 1 1 [facility] for visit Narrative* Diagnostic Procedure Only (Routine) - Closed Specialty Diagnoses / Procedures Referred By Contac t Referred To Contact XR IMAGING Diagnoses Low back pain, unspecified back pain laterality, unspecified chronicity, unspecified whether sciatica present Procedures XR LUMBAR MOTION 4V AP/LAT/ FLEX/EXT RADEX SPINE LUMBOSACRAL MINIMUM 4 VIEWS Fab Piper MD [address] [place] [address] Phone: tel: fax: [place] [id number] Referral ID Status Reason Start Date Expiration Date V isits Requested Visits Authorized [id number] Closed Auto-Generate d Referral 08/04/2024 09/03/2025 1 1 [facility] for visit Narrative* Diagnostic Procedure Only (Routine) - Closed Specialty Diagnoses / Procedures Referred By Contac t Referred To Contact XR IMAGING Diagnoses S/P laminectomy Procedures XR LUMBAR MOTION 4V AP/LAT/ FLEX/EXT RADEX SPINE LUMBOSACRAL MINIMUM 4 VIEWS Fab Piper MD [address] [place] [address] Phone: tel: fax: [place] [address] Referral ID Status Reason Start Date Expiration Date V isits Requested Visits Authorized [id number] Closed Auto-Generate d Referral 12/18/2024 01/17/2026 1 1 [facility]/CT (Routine) - Closed Specialty Diagnoses / Procedures Referred By Yuko t Referred To Contact MR IMAGING Diagnoses Spinal stenosis of lumbar region, unspecified whether neurogenic claudication present Procedures MRI LUMBAR SPINE WO IVCON MRI SPINAL CANAL LUMBAR W/O CONTRAST MATERIAL Fab Piper MD [address] [place] [address] Phone: tel: fax: [place] [address] Referral ID Status Reason Start Date Expiration Date V isits Requested Visits Authorized [id number] Closed Auto-Generate d Referral 12/21/2024 03/23/2025 1 1 [facility] Summary Purpose Family History No Family History Records FoundNo Family History Records FoundNo Family History Records FoundNo Family History Records FoundNo Family History Records FoundNo Family History Records FoundNo Family History Records Found Advance Directives Advance Directive Response Recorded Date/ Time Living Will No May 31 10:06am Power of Rv Service Technician No May 31, 2022 10:06am Advance Directive Response Recorded Date/ Time Living Will No May 31 11:06am Do you have a Healthcare Power of Rv Service Technician? No May 31, 2022 11:06am Chief Complaint and Reason for Visit Chief Complaint New pt, Irregular pe riods COVID SYMPTOMS/COVID TEST COVID TEST/[facility] [employer] Reason for Visit [...] CANAL LUMBAR W/O CONTRAST MATERIAL Myrna Walker, TELEPHONE STATION INSTALLER.CONTINUOUS VULCANIZING MACHINE OPERATOR [address] [place] [address] [place] [address] Referral ID Status Reason Start Date Expiration Date V isits Requested Visits Authorized [id number] Closed Auto-Generate d Referral 03/16/2024 04/15/2025 1 1 Specialty Diagnoses / Procedures Referred By Contac t Referred To Contact [facility] Diagnoses Acute bilateral low back pain with right-sided sciatica Intervertebral disc disorder with radiculopathy of lumbar region Procedures CONSULT TO PHYSICAL THERAPY PHYSICAL THERAPY EVALUATION HIGH COMPLEX 45 MINS Sandi Jimenez, CAROL [address] [place] [address] [facility] [address] [address] Referral ID Status Reason Start Date Expiration Date Visits Requested Visits Authorized [id number] Pending Review Auto-Generat ed Referral 04/27/2024 04/27/2025 1 1 Additional Source Comments INFORMATION SOURCE (unrecogn ized section and content) DATE CREATED AUTHOR 02/10/2021 [facility] oundation ([place]) DATE CREATED AUTHOR AUTHOR'S ORGANIZ ATION 06/23/2021 [facility] DATE CREATED AUTHOR AUTHOR'S ORGANIZ ATION 07/19/2024 [facility] DATE CREATED AUTHOR AUTHOR'S ORGANIZ ATION 09/22/2024 [facility] DATE CREATED AUTHOR AUTHOR'S ORGANIZ ATION 09/30/2024 [facility] DATE CREATED AUTHOR AUTHOR'S ORGANIZ ATION 12/27/2024 [facility] DATE CREATED AUTHOR AUTHOR'S ORGANIZ ATION 01/02/2025 [facility] <item> Privacy Markings (unrecogniz ed section and [...] or prosecute any alcohol or drug abuse patient.[facility] the event this information is protected by [...] PELVIC NONOBSTETRIC IMAGE DCMTN LIMITED/F/U Deysi Dasilva APRN.CONTINUOUS VULCANIZING MACHINE OPERATOR [address] [place] [address] Us Imaging Referral ID Status Reason Start Date Expiration Date V isits Requested Visits Authorized [id number] Closed Auto-Generate d Referral 01/01/2022 01/31/2023 1 [...] CANAL LUMBAR W/O CONTRAST MATERIAL Myrna Walker, TELEPHONE STATION INSTALLER.CONTINUOUS VULCANIZING MACHINE OPERATOR [address] [place] [address] [place] [address] Referral ID Status Reason Start Date Expiration Date V isits Requested Visits Authorized [id number] Closed Auto-Generate d Referral 03/16/2024 04/15/2025 1 1 Reason Comments Back Pain Herniated disc, requ esting med for pain, flexeril not helping Reason Comments Low Back Pain Specialty Diagnoses / Procedures Referred By Contac t Referred To Contact [facility] [place] Diagnoses Acute bilateral low back pain, unspecified whether sciatica present Procedures [facility]/OUTPATIENT [facility] 60 MINUTES Myrna Walker, TELEPHONE STATION INSTALLER.CONTINUOUS VULCANIZING MACHINE OPERATOR [address] [place] [address] Referral ID Status Reason Start Date Expiration Date V isits Requested Visits Authorized [id number] Closed PCP Requested Referral 03/16/2024 03/16/2025 1 [...] right-sided sciatica Procedures CONSULT TO NEUROSURGERY OFFICE/OUTPATIENT [facility] 60 MINUTES Sandi Jimenez PA-C [address] [place] [address] Phone: tel: fax: Referral ID Status Reason Start Date Expiration Date V isits Requested Visits Authorized [id number] Closed PCP Requested Referral 08/03/2024 11/01/2024 1 [...] LUMBAR/SACRAL 1 LEVEL Kelvin Tejeda DO [address] [facility] [address] [place] [address] Phone: tel: fax: [facility] [place] [address] [facility] [address] [place] [address] Phone: tel: fax: Referral ID Status Reason Start Date Expiration Date Visits Re quested Visits Authorized [id number] Closed 12/30/2024 04/25/2025 1 1 Care Teams (unrecognized sec tion and content) Teletype Technician Relationship Specialty Start Date End Date Del Hubbard DO [address] [place] [address] PCP - General Family Practice 06/04/14 Teletype Technician Relationship Specialty Start Date End Date Del Hubbard DO [address] [place] [address] PCP - General Family Practice 06/04/14 Teletype Technician Relationship Specialty Start Date End Date Del Hubbard DO [address] [place] [address] PCP - General Family Medicine 06/04/14 Team Status: Active Member Role Status Dates Dr. Edelmira Cheney DO Family Provider Active Dr. Del Hubbard DO Primary Care Provider Active Team Status: Inactive Member Role Status Dates Dr. Del Hubbard DO Primary Care Provider, Referr ing Provider Active Manju Richmond LABORER DRIVER, LABORER DRIVER-C Attending Provider Active Team Status: Inactive Member Role Status Dates Dr. Del Hubbard DO Primary Care Provider, Referr ing Provider Active Robel CONROY, PA Attending Provider Active Team Status: Inactive Member Role Status Dates Dr. Del Hubbard DO Primary Care Provider Active Dr. Rut Gao DO Attending Provider, Refe rring Provider Active Teletype Technician Relationship Specialty Start Date End Date Del Hubbard DO [address] [place] [address] PCP - General Family Medicine 06/04/14 Teletype Technician Relationship Specialty Start Date End Date Del Hubbard DO [address] [place] [address] PCP - General Family Medicine 06/04/14 Teletype Technician Relationship Specialty Start Date End Date Del Hubbard DO [address] [place] [address] PCP - General Family Medicine 06/04/14 Teletype Technician Relationship Specialty Start Date End Date Del Hubbard DO [address] [place] [address] PCP - General Family Medicine 06/04/14 Teletype Technician Relationship Specialty Start Date End Date Del Hubbadr DO [address] [place] [address] PCP - General Family Medicine 06/04/14 Teletype Technician Relationship Specialty Start Date End Date Del Hubbard DO [address] [place] [address] PCP - General Family Medicine 06/04/14 Teletype Technician Relationship Specialty Start Date End Date Del Hubbard DO [address] [place] [address] PCP - General Family Medicine 06/04/14 Mynra Walker, TELEPHONE STATION INSTALLER.CONTINUOUS VULCANIZING MACHINE OPERATOR [address] [place] [address] Warehouse And Receiving Supervisor Family Medicine 04/02/24 Deysi Dasilva, TELEPHONE STATION INSTALLER.CONTINUOUS VULCANIZING MACHINE OPERATOR [address] [facility] [place] [address] Warehouse And Receiving Supervisor Family Medicine 04/02/24 Teletype Technician Relationship Specialty Start Date End Date Del Hubbard DO [address] [facility] [place] [address] PCP - General Family Medicine 06/04/14 Myrna Walker, TELEPHONE STATION INSTALLER.CONTINUOUS VULCANIZING MACHINE OPERATOR [address] [place] [address] Warehouse And Receiving Supervisor Family Medicine 04/02/24 Deysi Dasilva, TELEPHONE STATION INSTALLER.CONTINUOUS VULCANIZING MACHINE OPERATOR [address] [facility] [place] [address] Warehouse And Receiving Supervisor Family [facility] 04/02/24 Teletype Technician Relationship Specialty Start Date End Date Del Hubbard DO [address] [facility] [place] [address] PCP - General Family Medicine 06/04/14 Myrna Walker, TELEPHONE STATION INSTALLER.CONTINUOUS VULCANIZING MACHINE OPERATOR [address] [facility] [place] [address] Warehouse And Receiving Supervisor Family Medicine 04/02/24 Deysi Dasilva, TELEPHONE STATION INSTALLER.CONTINUOUS VULCANIZING MACHINE OPERATOR [address] [place] [address] [facility] 04/02/24 Teletype Technician Relationship Specialty Start Date End Date Del Hubbard DO [address] [place] [address] PCP - General Family Medicine 06/04/14 Myrna Walker, TELEPHONE STATION INSTALLER.CONTINUOUS VULCANIZING MACHINE OPERATOR [address] [facility] [place] [address] [facility] And Re[facility] 04/02/24 [facility] Deysi, TELEPHONE STATION INSTALLER.CONTINUOUS VULCANIZING MACHINE OPERATOR [address] [facility] [place] [address] [facility] 04/02/24 Teletype Technician Relationship Specialty Start Date End Date Del Hubbard DO [address] [facility] [place] [address] PCP - General Family Medicine 06/04/14 Myrna Walker, TELEPHONE STATION INSTALLER.CONTINUOUS VULCANIZING MACHINE OPERATOR [address] [facility] [place] [address] [facility] 04/02/24 [facility], TELEPHONE STATION INSTALLER.CONTINUOUS VULCANIZING MACHINE OPERATOR [address] [facility] [place] [address] [facility] 04/02/24 Teletype Technician Relationship Specialty Start Date End Date Del Hubbard DO [address] [facility] [place] [address] PCP - General Family Medicine 06/04/14 Myrna Walker, TELEPHONE STATION INSTALLER.CONTINUOUS VULCANIZING MACHINE OPERATOR [address] [place] [address] [facility] 04/02/24 [facility] Deysi, TELEPHONE STATION INSTALLER.CONTINUOUS VULCANIZING MACHINE OPERATOR [address] [place] [address] [facility] 04/02/24 Teletype Technician Relationship Specialty Start Date End Date Del Hubbard DO [address] [place] [address] PCP - General Family Medicine 06/04/14 Myrna Walker, TELEPHONE STATION INSTALLER.CONTINUOUS VULCANIZING MACHINE OPERATOR [address] [place] [address] [facility] 04/02/24 [facility] Deysi, TELEPHONE STATION INSTALLER.CONTINUOUS VULCANIZING MACHINE OPERATOR [address] [facility] [place] [address] [facility] 04/02/24 Teletype Technician Relationship Specialty Start Date End Date Del Hubbard DO [address] [place] [address] PCP - General Family Medicine 06/04/14 Myrna Walker, TELEPHONE STATION INSTALLER.CONTINUOUS VULCANIZING MACHINE OPERATOR [address] [facility] [place] [address] [facility] 04/02/24 [facility], TELEPHONE STATION INSTALLER.CONTINUOUS VULCANIZING MACHINE OPERATOR [address] [facility] [place] [address] [facility] 04/02/24 Teletype Technician Relationship Specialty Start Date End Date Del Hubbard DO [address] [place] [address] PCP - General Family Medicine 06/04/14 Myrna Walker, TELEPHONE STATION INSTALLER.CONTINUOUS VULCANIZING MACHINE OPERATOR [address] [place] [address] Warehouse And Receiving Supervisor Family [facility] 04/02/24 BrownDeysi, TELEPHONE STATION INSTALLER.CONTINUOUS VULCANIZING MACHINE OPERATOR [address] [place] [address] [facility] And [facility] 04/02/24 Teletype Technician Relationship Specialty Start Date End Date Del Hubbard DO [address] [place] [address] PCP - General Family Medicine 06/04/14 Myrna Walker, TELEPHONE STATION INSTALLER.CONTINUOUS VULCANIZING MACHINE OPERATOR [address] [place] [address] Warehouse And Receiving [facility] 04/02/24 BrownDeysi, TELEPHONE STATION INSTALLER.CONTINUOUS VULCANIZING MACHINE OPERATOR [address] [place] [address] [facility] 04/02/24 Teletype Technician Relationship Specialty Start Date End Date Del Hubbard DO [address] [place] [address] PCP - General Family Medicine 06/04/14 Deysi Dasilva, TELEPHONE STATION INSTALLER.CONTINUOUS VULCANIZING MACHINE OPERATOR [address] [place] [address] [facility] 04/02/24 Teletype Technician Relationship Specialty Start Date End Date Del Hubbard DO [address] [place] [address] PCP - General Family Medicine 06/04/14 Deysi Dasilva, TELEPHONE STATION INSTALLER.CONTINUOUS VULCANIZING MACHINE OPERATOR [address] [place] [address] Warehouse And Receiving Supervisor Family [facility] 04/02/24 Teletype Technician Relationship Specialty Start Date End Date Del Hubbard DO [address] [place] [address] PCP - General Family Medicine 06/04/14 [facility], TELEPHONE STATION INSTALLER.CONTINUOUS VULCANIZING MACHINE OPERATOR [address] [place] [address] Warehouse And Receiving Supervisor Family [facility] 04/02/24 Teletype Technician Relationship Specialty Start Date End Date Del Hubbard DO [address] [place] [address] PCP - General Family Medicine 06/04/14 [facility], TELEPHONE STATION INSTALLER.CONTINUOUS VULCANIZING MACHINE OPERATOR [address] [place] [address] Warehouse And Receiving Supervisor Family [facility] 04/02/24 Teletype Technician Relationship Specialty Start Date End Date Del Hubbard DO [address] [place] [address] PCP - General Family Medicine 06/04/14 [facility], TELEPHONE STATION INSTALLER.CONTINUOUS VULCANIZING MACHINE OPERATOR [address] [place] [address] Warehouse And Receiving Supervisor [facility] 04/02/24 Teletype Technician Relationship Specialty Start Date End Date Del Hubbard DO [address] [place] [address] PCP - General Family Medicine 06/04/14 [facility], TELEPHONE STATION INSTALLER.CONTINUOUS VULCANIZING MACHINE OPERATOR [address] [place] [address] Warehouse And Receiving Supervisor Family [facility] 04/02/24 Teletype Technician Relationship Specialty Start Date End Date Del Hubbard DO [address] [place] [address] PCP - General Family Medicine 06/04/14 [facility], TELEPHONE STATION INSTALLER.CONTINUOUS VULCANIZING MACHINE OPERATOR [address] [place] [address] Warehouse And Receiving Supervisor [facility] 04/02/24 Teletype Technician Relationship Specialty Start Date End Date Del Hubbard DO [address] [place] [address] PCP - General Family Medicine 06/04/14 BrownDeysi, TELEPHONE STATION INSTALLER.CONTINUOUS VULCANIZING MACHINE OPERATOR [address] [place] [address] Warehouse And Receiving Supervisor [facility] 04/02/24 Teletype Technician Relationship Specialty Start Date End Date Del Hubbard DO [address] [place] [address] PCP - General Family Medicine 06/04/14 BrownDeysi, TELEPHONE STATION INSTALLER.CONTINUOUS VULCANIZING MACHINE OPERATOR [address] [place] [address] [facility] 04/02[facility]24 Teletype Technician Relationship Specialty Start Date End Date Del Hubbard DO [address] [place] [address] PCP - General Family Medicine 06/04/14 BrownDeysi, TELEPHONE STATION INSTALLER.CONTINUOUS VULCANIZING MACHINE OPERATOR [address] [place] [address] [facility] 04/02/24 Teletype Technician Relationship Specialty Start Date End Date Del Hubbard DO [address] [place] [address] PCP - General Family Medicine 06/04/14 BrownDeysi, TELEPHONE STATION INSTALLER.CONTINUOUS VULCANIZING MACHINE OPERATOR [address] [place] [address] [facility] 04/02/24 Teletype Technician Relationship Specialty Start Date End Date Del Hubbard DO [address] [place] [address] PCP - General Family Medicine 06/04/14 BrownDeysi, TELEPHONE STATION INSTALLER.CONTINUOUS VULCANIZING MACHINE OPERATOR [address] [place] [address] [facility] 04/02/24 Teletype Technician Relationship Specialty Start Date End Date Del Hubbard DO [address] [place] [address] PCP - General Family Medicine 06/04/14 BrownDeysi, TELEPHONE STATION INSTALLER.CONTINUOUS VULCANIZING MACHINE OPERATOR [address] [place] [address] [facility] 04/02/24 Team Status: Active Member Role Status Dates Dr. Del Hubbard DO Primary Care Provider Active Team Status: Inactive Member Role Status Dates Dr. Del Hubbard DO Primary Care Provider Active Start: September 26, 2024 End: September 26, 2024 Manju Richmond LABORER DRIVER, LABORER DRIVER-C Attending Provider Active Start: September 26, 2024 End: September 26, 2024 Manju Richmond LABORER DRIVER, LABORER DRIVER-C Referring Provider Active Start: September 26, 2024 End: September 26, 2024 Teletype Technician Relationship Specialty Start Date End Date Del Hubbard DO [address] [place] [address] PCP - General Family Medicine 06/04/14 [facility] TELEPHONE STATION INSTALLER.CONTINUOUS VULCANIZING MACHINE OPERATOR [address] [place] [address] Warehouse And Receiving Supervisor Family [facility] 04/02/24 Teletype Technician Relationship Specialty Start Date End Date Del Hubbard DO [address] [place] [address] PCP - General Family Medicine 06/04/14 [facility], TELEPHONE STATION INSTALLER.CONTINUOUS VULCANIZING MACHINE OPERATOR [address] [place] [address] Warehouse And Receiving Supervisor Family Medicine 04/02/24 Brandy Russell, TELEPHONE STATION INSTALLER.CONTINUOUS VULCANIZING MACHINE OPERATOR [address] [place] [address] [facility] 10/09/24 Teletype Technician Relationship Specialty Start Date End Date Del Hubbard DO [address] [place] [address] PCP - General Family Medicine 06/04/14 [facility] TELEPHONE STATION INSTALLER.CONTINUOUS VULCANIZING MACHINE OPERATOR [address] [place] [address] Warehouse And Receiving Supervisor Family [facility] 04/02/24 Brandy Russell, TELEPHONE STATION INSTALLER.CONTINUOUS VULCANIZING MACHINE OPERATOR [address] [place] [address] Warehouse And Receiving Supervisor Family [facility] 10/09/24 Teletype Technician Relationship Specialty Start Date End Date Del Hubbard DO [address] [place] [address] PCP - General Family Medicine 06/04/14 Deysi Dasilva, TELEPHONE STATION INSTALLER.CONTINUOUS VULCANIZING MACHINE OPERATOR [address] [place] [address] Warehouse And Receiving Supervisor Family Medicine 04/02/24 Brandy Russell, TELEPHONE STATION INSTALLER.CONTINUOUS VULCANIZING MACHINE OPERATOR [address] [place] [address] Warehouse And Receiving Supervisor Family Medicine 10/09/24 Teletype Technician Relationship Specialty Start Date End Date Del Hubbard DO [address] [place] [address] PCP - General Family Medicine 06/04/14 BrownDeysi, TELEPHONE STATION INSTALLER.CONTINUOUS VULCANIZING MACHINE OPERATOR [address] [place] [address] Warehouse And Receiving Supervisor Family Medicine 04/02/24 Brandy Russell, TELEPHONE STATION INSTALLER.CONTINUOUS VULCANIZING MACHINE OPERATOR [address] [place] [address] Warehouse And Receiving Supervisor Family [facility] 10/09/24 Teletype Technician Relationship Specialty Start Date End Date Del Hubbard DO [address] [place] [address] PCP - General Family Medicine 06/04/14 BrownDeysi, TELEPHONE STATION INSTALLER.CONTINUOUS VULCANIZING MACHINE OPERATOR [address] [place] [address] Warehouse And Receiving Supervisor Family Medicine 04/02/24 Brandy Russell, TELEPHONE STATION INSTALLER.CONTINUOUS VULCANIZING MACHINE OPERATOR [address] [place] [address] Warehouse And Receiving Supervisor Family Medicine 10/09/24 Teletype Technician Relationship Specialty Start Date End Date Del Hubbard DO [address] [place] [address] PCP - General Family Medicine 06/04/14 BrownDeysi, TELEPHONE STATION INSTALLER.CONTINUOUS VULCANIZING MACHINE OPERATOR [address] [place] [address] Warehouse And Receiving Supervisor Family Medicine 04/02/24 Brandy Russell, TELEPHONE STATION INSTALLER.CONTINUOUS VULCANIZING MACHINE OPERATOR [address] [place] [address] [facility] 10/09/24 Teletype Technician Relationship Specialty Start Date End Date Del Hubbard DO [address] [place] [address] PCP - General Family Medicine 06/04/14 BrownDeysi, TELEPHONE STATION INSTALLER.CONTINUOUS VULCANIZING MACHINE OPERATOR [address] [place] [address] Warehouse And Receiving Supervisor Family Medicine 04/02/24 Brandy Russell, TELEPHONE STATION INSTALLER.CONTINUOUS VULCANIZING MACHINE OPERATOR [address] [place] [address] [facility] 10/09/24 Teletype Technician Relationship Specialty Start Date End Date Del Hubbard DO [address] [place] [address] PCP - General Family Medicine 06/04/14 Deysi Dasilva, TELEPHONE STATION INSTALLER.CONTINUOUS VULCANIZING MACHINE OPERATOR [address] [place] [address] [facility] 04/02/24 Brandy Russell, TELEPHONE STATION INSTALLER.CONTINUOUS VULCANIZING MACHINE OPERATOR [address] [place], [place] [address] [facility] 10/09/24 Teletype Technician Relationship Specialty Start Date End Date Del Hubbard DO [address] [place], [place] [id number] PCP - General Family Medicine 06/04/14 Deysi Dasilva APRN.CONTINUOUS VULCANIZING MACHINE OPERATOR [address] [place], [place] [id number] [facility] 04/02/24 Brandy Russell, TELEPHONE STATION INSTALLER.CONTINUOUS VULCANIZING MACHINE OPERATOR [address] [place] [address] [facility] 10/09/24 Goals (unrecognized section and content) [...] BE BASED ON THE PRIMARY CLINICAL RECORDS. [employer] provides no warranty or guarantee of the accuracy or completeness of information in this document.
[2025-01-03 23:31] LABS: Magnesium 1.7 mg/dL (1.5-2.2)
[2025-01-04] VITALS (8 sets, daily range): BP systolic 94–121; BP diastolic 56–75; PULSE 53–67; RESP 15–17; TEMP 36.4–37.1; O2SAT 96–100; BMI 28.0; BMI 29.0
--- NOTE | 2025-01-04 00:26 | MRI_ITS ---
PROCEDURE: SPINE LUMBAR W/WO CONTRAST 01/04/2025 REASON FOR EXAM: BACK PAIN AFTER RECENT LAMINECTOMY WITH MICRODISCECTOMY TECHNIQUE: Procedure Code: [id number] Modality: MR Procedure: SPINE LUMBAR W/WO CONTRAST Multiplanar and multisequence images were obtained without and with intravenous gadolinium-based contrast administration. CONTRAST: None COMPARISON: December 26, 2024 FINDINGS: Vertebrae: Vertebral body height is preserved. Alignment: Normal. No spondylolisthesis. Conus Medullaris: T12/L1 termination. Otherwise normal. L1-2: Normal. L2-3: Normal. L3-4: Mild disc desiccation. Mild loss of disc height. L4-5: Mild disc desiccation. Mild loss of disc height. Focal disc protrusion extends from left paracentral to right sub foraminal zone measuring 0.8 x 1.6 cm. This contacts the traversing right L5 nerve root. Infiltration of the soft tissues posterior L4/5 status post laminectomy. L5-S1: Normal. MRI/Spine Lumbar W/WO Contrast IMPRESSION: Disc protrusion with contact of the traversing right L5 nerve root. The disc i s stable to slightly larger. Reading Location: [id number]
[2025-01-04] MEDS: KCL 20MEQ in 0.9% NS 20 MEQ/1,000 ML IV.SOLN. 125 MEQ IV (00:55)
[2025-01-04] MEDS: Potassium Chloride Oral Tablet 20 MEQ 60 MEQ PO (00:56)
[2025-01-04] MEDS: 0.9% Saline Lock 10 ML Syringe IV ×4 (00:56→20:43)
[2025-01-04 04:13] LABS: Hematocrit 38.0 % (37-47); Hemoglobin 13.2 g/dL (12.0-15.0); Immature Granulocytes Count 0.150 X10^3/uL (0.0-0.0); Mean Corp Hgb Conc 34.7 g/dL (32-36); Mean Corpuscular Volume 88.4 fL (81-99); Mean Platelet Vol. 8.6 fl (6.2-12.0); NRBC Flagged by Analyzer 0 % (0-5); POSITIVE DIFFERENTIAL YES; POSITIVE MORPHOLOGY YES; Platelet Count 329 K/mm3 (150-450); RBC Distribution Width CV 13.3 % (11.6-14.6); RBC Distribution Width SD 42.0 fl (35.1-43.9); Red Blood Count 4.30 M/mm3 (4.2-5.4); White Blood Count 17.9 K/mm3 (4.4-11.0)
[2025-01-04 04:56] LABS: AST(SGOT) 13 U/L (<=31); Alanine Aminotransfer ALT/SGPT 12 U/L (<=34); Albumin, Serum 3.6 g/dL (3.5-5.0); Alkaline Phosphatase 45 U/L (35-104); Anion Gap 9 (5-15); BUN 15 mg/dL (4-19); BUN/Creat Ratio 27.8 RATIO (10-20); Calcium,Total 8.1 mg/dL (7.6-11.0); Carbon Dioxide 22.3 mmol/L (21.0-32.0); Chloride 110 mmol/L (98-108); Estimated Creatinine Clearance 166.41 ml/min (50-250); Globulin 3.0 g/dL (2.2-4.2); Glucose 98 mg/dL (70-99); Potassium 3.8 mmol/L (3.3-5.1)
[2025-01-04 05:09] LABS: Differential Indicated SCAN CRITERIA MET
[2025-01-04 05:57] LABS: Differential Comment SCANNED
[2025-01-04 06:33] LABS: Cholesterol 141 mg/dL (<=200); Low Density Lipoprotein Calc. 78 mg/dL; Triglycerides 83 mg/dL; Very Low Density Lipoprotein 17 mg/dL (5-40); cholesterol:hdl ratio screen 3.06
--- NOTE | 2025-01-04 09:36 | PN.HOSP_ITS ---
Subjective Subjective Back pain is still severe, her urine sample does appear to be infected however her leukocytosis little bit of a red iverson as she said that she has been on steroids up until the day prior to admission when she got her back injection Objective Data Objective Data Vital Signs: Vital Signs Temp Pulse Resp BP Pulse Ox O2 Del Method 97.5 F L 62 16 94/56 L 100 Room Air 01/04/25 07:43 01/04/25 07:43 01/04/25 07:43 01/04/25 07:43 01/04/25 07:43 01/04/25 07:43 Oxygen Delivery Method Room Air Weight: 191 lb 12.835 oz Body Mass Index (BMI) 29.0 Intake & Output: Intake and Output for Last 24 Hours 01/03/25 01/04/25 01/05/25 03:59 03:59 03:59 Intake Total 50 / 50 1000 / 1000 Balance 50 / 50 1000 / 1000 Lab / Micro Data 01/04/25 03:50 01/04/25 03:50 Labs: Laboratory Results - last 24 hr 01/03/25 21:25: Urine Color Yellow, Urine Clarity Cloudy, Urine pH 5.0, Ur Specific Wesley 1.030, Urine Protein 100 H, Urine Glucose (UA) Normal, Urine Ketones 5 H, Urine Occult Blood 10 H, Urine Nitrite Negative, Urine Bilirubin 1 H, Urine Urobilinogen 1 H, Ur Leukocyte Esterase 500 H, Urine RBC 0 SEEN, Urine WBC >100 SEEN, Ur Squamous Epith Cells 10-25 SEEN, Calcium Oxalate Crystal RARE, Urine Bacteria 2+, Urine Mucus 3+ 01/03/25 21:26: WBC 23.2 H, RBC 4.43, Hgb 13.7, Hct 39.0, MCV 88.0, MCH 30.9, MCHC 35.1, RDW Std Deviation 41.4, RDW Coeff of Sadiq 13.2, Plt Count 366, MPV 8.6, Immature Gran % (Auto) 1.000 H, Neut % (Auto) 63.6, Lymph % (Auto) 28.7, [place] % (Auto) 5.7, Eos % (Auto) 0.7, Baso % (Auto) 0.3, Absolute Neuts (auto) 14.7 H, Absolute Lymphs (auto) 6.66 H, Nucleated RBC % 0, Diff Path Review May foll, Reactive Lymphocytes 1+, Smudge Cells 1+ H, Sodium 142, Potassium 2.9 L, Chloride 108, Carbon Dioxide 22.3, Anion Gap 12, BUN 13, Creatinine 0.68 L, Est GFR (MDRD) Non-Af 114, BUN/Creatinine Ratio 19.4, Glucose 113 H, Calcium 9.1, Magnesium 1.7, TSH 1.450 01/04/25 03:50: WBC 17.9 H, RBC 4.30, Hgb 13.2, Hct 38.0, MCV 88.4, MCH 30.7, MCHC 34.7, RDW Std Deviation 42.0, RDW Coeff of Sadiq 13.3, Plt Count 329, MPV 8.6, Immature Gran % (Auto) 0.800, Neut % (Auto) 54.3, Lymph % (Auto) 36.4, [place] % (Auto) 6.9, Eos % (Auto) 1.1, Baso % (Auto) 0.5, Absolute Neuts (auto) 9.7 H, Absolute Lymphs (auto) 6.49 H, Nucleated RBC % 0, Differential Comment SCANNED, Sodium 142, Potassium 3.8, Chloride 110 H, Carbon Dioxide 22.3, Anion Gap 9, BUN 15, Creatinine 0.52 L, Estim Creat Clear Calc 166.41, Est GFR (MDRD) Non-Af 122, BUN/Creatinine Ratio 27.8 H, Glucose 98, Lactic Acid < 1.0, Calcium 8.1, Phosphorus 3.8, Total Bilirubin 0.20, AST 13, ALT 12, Alkaline Phosphatase 45, Total Protein 6.5, Albumin 3.6, Globulin 3.0, Albumin/Globulin Ratio 1.2, Triglycerides 83, Cholesterol 141, LDL Cholesterol, Calc 78, VLDL Cholesterol 17, HDL Cholesterol 46, Cholesterol/HDL Ratio 3.06 Physical Exam Narrative General: Alert, Oriented x3, Cooperative, No apparent distress HEENT: Atraumatic, PERRLA, EOMI, Normocephalic Oral: Moist Mucosa Neck: Supple, No JVD Lungs: Diminished, Normal air movement, No rhonchi, No wheeze, No rales Cardiovascular: Regular rate, Regular Rhythm, Normal S1, Normal S2, No murmurs Abdomen: Soft, Non Tender, Non-Distended, No Hepato-splenomegaly Extremities: No edema, Capillary Refill Less than 3 Seconds Skin: No rashes, No breakdown Musculoskeletal: Right-sided back pain, no flank pain to indicate a pyelonephritis Neurological: Right lower extremity movement is limited by pain Psych/Mental Status: Normal Affect, Appropriate Assessment & Plan Assessment/Plan (1) UTI (urinary tract infection): QUALIFIERS: Urinary tract infection type: acute cystitis H ematuria presence: without hematuria Qualified Code(s): N30.00 - Acute cystitis without hematuria (2) Intractable back pain: (3) Hypokalemia: PLAN: Plan 1. Intractable low back pain status post L4-L5 laminectomy and microdiscectomy at [facility] on 09/05/2024 in the setting of a UTI ? She did have recent steroid use's leukocytosis is likely falsely elevated to an extent ? Continue with antibiotics ? The UTI will limit surgical intervention potentially ? Awaiting cultures ? Continue with broad-based pain management, which she says is helping unless she is trying to move or get out of bed 2. Hypokalemia ? Resolved ? Will monitor DVT: Tessy Charges/Coding Visit Charges Inpatient E&M: 40780 Subs Hosp L2
[2025-01-04] MEDS: Lactobacillis Acidophilus 1 CAP PO ×4 (09:39→20:44)
--- NOTE | 2025-01-04 12:50 | CASEMGMT ---
RN?CM?ASSESSMENT ? RN?CM?to room to meet with patient for initial transition planning/care coordination?assessment.?RN?CM?introduced self and role at [facility].? Pt voices understanding and consents to?assessment?at this time.? Pt resting in bed in no distress at this time.? Pt is A/O at this time and answers all questions appropriately.?? Care providers, pharmacy, and demographics verified/updated at this time. ? Strata: 1 PCP: Dr Hubbard Specialists:Dr Fab Mckenna- ortho @ [facility]. SOLAR ENERGY INSTALLATION MANAGER Manju Richmond-MARKETING COMMUNICATIONS ASSISTANT. Pt also has seen Dr Chanel Durand, MARKETING COMMUNICATIONS ASSISTANT. [facility] Insurance: [employer] Prescription Benefit:?Yes Living Will/HPOA:?Pt does not currently have LW/HCPOA and declines info at this time. LNOK: Pt has a son who just turned 18. Sig other, Sebastian. Living Arrangements: Pt lives w/sig other, Sebastian, and 18-yr-old son in 2-story home w/2 steps to enter. FFSU. Pt has been having increase in back pain & difficulty walking recently, stating she has been needing assistance w/everything @ home, including dressing, using the restroom, and all home mgnt tasks. Sebastian and her son have been supportive/helpful. Transportation:?Pt states she has not driven since Wednesday. DME: States has the following DME:?pt has a cane & rollator. She may be interested in getting a BSC, shower chair, and W/C. She is not sure what she will need @ discharge yet. She states if insurance does not cover for these items that she could pay [id number] for things she needs, depending on the cost. HHC/SNF: No hx of either. Has done OP therapy in the past. ? Discussed discharge planning. Pt to go for MRI today and Dr Moeller has been consulted. Pt states if she does not end up having surgery, and if she is still only able to move around like she has been these past few days, she would still want to discharge back home w/assistance of Sebastian and her son & would not want any HHC or OP therapy. She states, however, if she has worsened/has more limitations on mobility, she may need to go to SNF @ [facility]. She also states, if she has surgery and if she needs IV atb's @ dc, she may be interested in [facility] stating she would be willing to learn how to self-administer IV atb's @ home, but she does not think Sebastian or her son would do well with it. She states she does have someone else in mind that may be able to help as well. She also would also consider SNF, but she is not sure yet, mentioning she may be interested in [facility] swing-bed unit or [facility]. CM?to follow for further discharge planning/needs.? ? PLAN:??TBD, pending course of treatment and progress with therapy. ? Caleb BSN?RN?CM
--- NOTE | 2025-01-04 13:11 | CASEMGMT ---
Social Work SW met w/pt, gave pt copies of LW and POA w/SW number to call should she want to complete the documents. Pt needs to get her mother and sister's addresses, has SW number to call should she get the numbers, and SW can assist pt in completing the documents. STANLEY Knapp
[2025-01-04] MEDS: 0.9% Normal Saline (250mL Bag) 250 ML 15 ML IV (20:54)
[2025-01-05 03:20] VITALS: BP 89/56; PULSE 73; RESP 16; TEMP 36.6; O2SAT 99
[2025-01-05 03:40] VITALS: BP 112/71; PULSE 68; RESP 16; TEMP 36.4; O2SAT 99
[2025-01-05] MEDS: 0.9% Saline Lock 10 ML Syringe IV ×4 (03:44→21:16)
[2025-01-05 05:38] VITALS: BMI 26.9
[2025-01-05 05:52] LABS: Hematocrit 37.9 % (37-47); Hemoglobin 12.9 g/dL (12.0-15.0); Immature Granulocytes Count 0.180 X10^3/uL (0.0-0.0); Mean Corp Hgb Conc 34.0 g/dL (32-36); Mean Corpuscular Volume 89.6 fL (81-99); Mean Platelet Vol. 8.7 fl (6.2-12.0); NRBC Flagged by Analyzer 0 % (0-5); POSITIVE DIFFERENTIAL YES; Platelet Count 330 K/mm3 (150-450); RBC Distribution Width CV 13.3 % (11.6-14.6); RBC Distribution Width SD 43.1 fl (35.1-43.9); Red Blood Count 4.23 M/mm3 (4.2-5.4); White Blood Count 15.6 K/mm3 (4.4-11.0)
[2025-01-05 06:30] LABS: Anion Gap 10 (5-15); BUN 14 mg/dL (4-19); BUN/Creat Ratio 25.7 RATIO (10-20); Calcium,Total 8.6 mg/dL (7.6-11.0); Carbon Dioxide 20.3 mmol/L (21.0-32.0); Chloride 104 mmol/L (98-108); Estimated Creatinine Clearance 160.45 ml/min (50-250); Glucose 98 mg/dL (70-99); Potassium 3.9 mmol/L (3.3-5.1)
[2025-01-05 06:50] LABS: Differential Indicated SCAN CRITERIA MET
[2025-01-05 06:58] LABS: Differential Comment SCANNED
[2025-01-05 08:05] VITALS: O2SAT 96
[2025-01-05 08:27] VITALS: BP 103/55; PULSE 64; RESP 16; TEMP 36.6; O2SAT 97
--- NOTE | 2025-01-05 08:42 | NURSING ---
This RN called and spoke with MRI staff to see if they could have the MRI read and results in the computer for Dr. Garnica and Dr. Moeller.
[2025-01-05] MEDS: Lactobacillis Acidophilus 1 CAP PO ×4 (09:19→21:16)
--- NOTE | 2025-01-05 09:58 | PN.HOSP_ITS ---
Subjective Subjective Still with significant right lower extremity pain and back pain with severe difficulty in ambulation Objective Data Objective Data Vital Signs: Vital Signs Temp Pulse Resp BP Pulse Ox O2 Del Method 97.8 F 64 16 103/55 L 97 Room Air 01/05/25 08:27 01/05/25 08:27 01/05/25 08:27 01/05/25 08:27 01/05/25 08:27 01/05/25 08:27 Oxygen Delivery Method Room Air Weight: 177 lb 14.609 oz Body Mass Index (BMI) 26.9 Intake & Output: Intake and Output for Last 24 Hours 01/04/25 01/05/25 01/06/25 03:59 03:59 03:59 Intake Total 50 / 50 2161.75 / 2161.75 400 / 400 Output Total 1000 / 1000 Balance 50 / 50 1161.75 / 1161.75 400 / 400 Lab / Micro Data 01/05/25 05:06 01/05/25 05:06 Labs: Laboratory Results - last 24 hr 01/05/25 05:06: WBC 15.6 H, RBC 4.23, Hgb 12.9, Hct 37.9, MCV 89.6, MCH 30.5, MCHC 34.0, RDW Std Deviation 43.1, RDW Coeff of Sadiq 13.3, Plt Count 330, MPV 8.7, Immature Gran % (Auto) 1.200 H, Neut % (Auto) 56.7, Lymph % (Auto) 33.2, [place] % (Auto) 5.9, Eos % (Auto) 2.4, Baso % (Auto) 0.6, Absolute Neuts (auto) 8.8 H, Absolute Lymphs (auto) 5.16 H, Nucleated RBC % 0, Differential Comment SCANNED, Sodium 135, Potassium 3.9, Chloride 104, Carbon Dioxide 20.3 L, Anion Gap 10, BUN 14, Creatinine 0.53 L, Estim Creat Clear Calc 160.45, Est GFR (MDRD) Non-Af 121, BUN/Creatinine Ratio 25.7 H, Glucose 98, Calcium 8.6, Phosphorus 3.6 Radiography Diagnostic Testing: Radiology Impression Lumbar Spine MRI 01/04/25 00:26 IMPRESSION: Disc protrusion with contact of the traversing right L5 nerve root. The disc is stable to slightly larger. Reading Location: [facility] Physical Exam Narrative General: Alert, Oriented x3, Cooperative, No apparent distress HEENT: Atraumatic, PERRLA, EOMI, Normocephalic Oral: Moist Mucosa Neck: Supple, No JVD Lungs: Diminished, Normal air movement, No rhonchi, No wheeze, No rales Cardiovascular: Regular rate, Regular Rhythm, Normal S1, Normal S2, No murmurs Abdomen: Soft, Non Tender, Non-Distended, No Hepato-splenomegaly Extremities: No edema, Capillary Refill Less than 3 Seconds Skin: No rashes, No breakdown Musculoskeletal: Right-sided back pain, no flank pain to indicate a pyelonephritis Neurological: Right lower extremity movement is limited by pain Psych/Mental Status: Normal Affect, Appropriate Assessment & Plan Assessment/Plan (1) UTI (urinary tract infection): QUALIFIERS: Urinary tract infection type: acute cystitis H ematuria presence: without hematuria Qualified Code(s): N30.00 - Acute cystitis without hematuria (2) Intractable back pain: (3) Hypokalemia: PLAN: Plan 1. Intractable low back pain status post L4-L5 laminectomy and microdiscectomy at [facility] on 09/05/2024 in the setting of a UTI ? She did have recent steroid use's leukocytosis is likely falsely elevated to an extent ? Continue with antibiotics ? The UTI will limit surgical intervention potentially ? Awaiting cultures ? Continue with broad-based pain management, which she says is helping unless she is trying to move or get out of bed ? MRI is pending read, orthospine has been consulted for evaluation 2. Hypokalemia ? Resolved ? Will monitor DVT: Lovenox Charges/Coding Visit Charges Inpatient E&M: 47483 Subs Hosp L2
--- NOTE | 2025-01-05 13:38 | CONS.ORTHO ---
HPI Consult Data Date of Consult: 01/05/25 HPI Narrative HPI Narrative: JUAN CHISHOLM, is a 39 F who presents with low back pain and right lower extremity radiation. She was diagnosed with a disc herniation and had pain in the low back pain radiating right lower extremity since December last year. She eventually underwent multiple epidural injections followed by surgical discectomy by surgeon in [place] in August of this year. She had good improvement of her leg pain after the surgery and had good wound healing. She was told that it was a very large disc herniation. About 3 weeks ago her pain returned and is in the exactly same location in the lower back radiating down to the posterior and lateral aspect of the thigh and leg going up to the dorsum of the foot to the big toe. She did undergo 1 injection through pain management physician up in [place] on Wednesday which did not give seem to give her relief. She was diagnosed with a recurrent disc herniation by her previous surgeon. She also mentions of a UTI diagnosed recently for which she is on antibiotics. She has not had any oral or IV steroids since admission. She has not been able to ambulate since admission on Wednesday night. She is not diabetic. She does not take any blood thinners. past medical history of obesity; on tirzepatide weekly, history of hyperlipidemia (2014), former tobacco abuse, history of breast reduction (2010), history of intramural fibroids, history of spinal scoliosis and history of back pain; s/p L4-L5 laminectomy and microdiscectomy on 09/05/2024 at [facility] by Dr. Jansen [facility] Medical History (Updated 01/05/25 @ 13:[address] Shawn Moeller MD) Herniated intervertebral disc Home Medications ?Medication ?Instructions ?Recorded ?Last Taken ?Type levonorgestrel (Mirena) 1 device intrauterine ONCE co 11/10/23 Unknown History tirzepatide (weight loss) 2.5 2.5 mg subcut QWEEK wt loss 11/10/23 Unknown History mg/0.5 mL subcutaneous pen injector gabapentin 800 mg tablet 800 mg PO TID pain 01/04/25 Unknown History Allergy/AdvReac Type Severity Reaction Status Date / Time No Known Allergies Allergy Verified 01/03/25 20:23 Surgical History Status post breast reduction Social History adopted: No household members: spouse and children housing: apartment number of children: 1 current occupational status: employed 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 Smoking Status: Former smoker alcohol intake: current alcohol intake frequency: holidays/special occasions only substance use type: does not use seatbelt use: always do you feel safe at home: Yes additional social history: Q1 Labs Vital Signs Vital Signs Vital Signs: 01/04/25 18:30 01/04/25 20:35 01/04/25 20:35 Temperature 98.6 F 98.1 F Temperature Source Oral Oral Pulse Rate 62 63 Pulse Strength Respiratory Rate 15 16 Respiratory Effort Normal Non-Labored Blood Pressure 121/75 H 102/58 L Blood Pressure Mean 90 72 Blood Pressure Source Monitor Monitor Blood Pressure Position Supine Semi-Fowlers Blood Pressure Location Right Arm Right Arm Pulse Ox 99 99 Oxygen Delivery Method Room Air Room Air Room Air 01/04/25 20:55 01/04/25 22:00 01/05/25 03:20 Temperature 97.8 F Temperature Source Temporal Pulse Rate 67 73 Pulse Strength Normal (2+) Respiratory Rate 16 Respiratory Effort Blood Pressure 89/56 L Blood Pressure Mean 67 Blood Pressure Source Monitor Blood Pressure Position Semi-Fowlers Blood Pressure Location Right Arm Pulse Ox 99 Oxygen Delivery Method Room Air 01/05/25 03:20 01/05/25 03:40 01/05/25 08:05 Temperature 97.6 F L Temperature Source Temporal Pulse Rate 68 Pulse Strength Respiratory Rate 16 Respiratory Effort Normal Non-Labored Blood Pressure 112/71 Blood Pressure Mean 84 Blood Pressure Source Monitor Blood Pressure Position Semi-Fowlers Blood Pressure Location Right Arm Pulse Ox 99 96 Oxygen Delivery Method Room Air Room Air Room Air 01/05/25 08:27 Temperature 97.8 F Temperature Source Oral Pulse Rate 64 Pulse Strength Respiratory Rate 16 Respiratory Effort Blood Pressure 103/55 L Blood Pressure Mean 71 Blood Pressure Source Monitor Blood Pressure Position Semi-Fowlers Blood Pressure Location Right Arm Pulse Ox 97 Oxygen Delivery Method Room Air Weight Weight: 177 lb 14.609 oz Body Mass Index (BMI) 26.9 Physical Exam Narrative Examination of the back shows a midline/slight right paramedian vertical incision measuring almost 3 inches in the lower lumbar region. This scar is well-healed. Patient has right paraspinal tenderness. Neurologic motion of lower extremity shows 4+ by 5 power in EHL ankle dorsiflexion on the right, unclear if effort is affected from pain. Positive straight leg raising test on the right. Lab / Micro Data 01/05/25 05:06 01/05/25 05:06 Labs: Laboratory Results - last 24 hr 01/05/25 05:06: WBC 15.6 H, RBC 4.23, Hgb 12.9, Hct 37.9, MCV 89.6, MCH 30.5, MCHC 34.0, RDW Std Deviation 43.1, RDW Coeff of Sadiq 13.3, Plt Count 330, MPV 8.7, Immature Gran % (Auto) 1.200 H, Neut % (Auto) 56.7, Lymph % (Auto) 33.2, [place] % (Auto) 5.9, Eos % (Auto) 2.4, Baso % (Auto) 0.6, Absolute Neuts (auto) 8.8 H, Absolute Lymphs (auto) 5.16 H, Nucleated RBC % 0, Differential Comment SCANNED, Sodium 135, Potassium 3.9, Chloride 104, Carbon Dioxide 20.3 L, Anion Gap 10, BUN 14, Creatinine 0.53 L, Estim Creat Clear Calc 160.45, Est GFR (MDRD) Non-Af 121, BUN/Creatinine Ratio 25.7 H, Glucose 98, Calcium 8.6, Phosphorus 3.6 Imaging Radiology Impression Lumbar Spine MRI 01/04/25 00:26 IMPRESSION: Disc protrusion with contact of the traversing right L5 nerve root. The disc is stable to slightly larger. Reading Location: [id number] Assessment & Plan Assessment/Plan (1) Recurrent herniation of lumbar disc: (2) History of lumbar laminectomy: PLAN: Plan I reviewed x-rays from December 21, MRI from December 26, MRI with and without contrast from yesterday. These show evidence of L4-5 laminectomy with bilateral decompression. There is a recurrent disc herniation in the right paracentral region at L4-5. Mild disc degeneration noticed at multiple levels. No instability on flexion-extension views done on December 21. Mild sciatic list noticed on AP x-ray. No obvious evidence of infectious pathology on MRI with contrast done yesterday. White count is high, likely from UTI. Patient is on antibiotics for UTI. Discussed imaging findings in detail. Patient has recurrent disc herniation L4-5 causing severe radiculopathy. Discussed treatment options which include continued nonoperative measures versus surgical intervention. As MRI is rule out any infectious pathology, it may be reasonable to try systemic steroids since injectable steroids from earlier this week does not help. Patient was concerned about UTI being aggravated from the steroid use. I suggested utilizing this. Of being on antibiotic however to use steroids to help with the radicular pain. Discussed the importance of working with physical therapy for mobility exercises to reduce muscle wasting. Discussed pain management consultation here in [place], for possible consideration of further injections. Discussed the surgical option would be the last resort if nonsurgical treatment does not help, and would likely require fusion L4-5. Patient had multiple questions about fusion versus disc replacement and other treatment methods. I answered all questions. Explained to her the likelihood of adjacent segment degeneration being a topic of fusion surgery. At this point, patient would like to continue with nonsurgical treatment. Patient may follow-up with me as an outpatient or follow-up with her initial surgeon after discharge. Patient was in agreement. Charges/Coding Visit Charges Inpatient E&M: 18417 Init Hosp L3
[2025-01-05 14:44] VITALS: BP 110/62; PULSE 77; RESP 16; TEMP 36.8; O2SAT 97
[2025-01-05 20:10] VITALS: BP 126/68; PULSE 87; RESP 16; TEMP 36.6; O2SAT 99
[2025-01-05] MEDS: Senna Tablet 1 TABLET PO (22:04)
[2025-01-06] MEDS: 0.9% Saline Lock 10 ML Syringe IV ×3 (00:25→07:57)
[2025-01-06 02:10] VITALS: BP 92/55; PULSE 84; RESP 16; TEMP 36.8; O2SAT 97
[2025-01-06 04:06] LABS: Hematocrit 40.1 % (37-47); Hemoglobin 13.8 g/dL (12.0-15.0); Immature Granulocytes Count 0.130 X10^3/uL (0.0-0.0); Mean Corp Hgb Conc 34.4 g/dL (32-36); Mean Corpuscular Volume 90.1 fL (81-99); Mean Platelet Vol. 8.5 fl (6.2-12.0); NRBC Flagged by Analyzer 0 % (0-5); Platelet Count 285 K/mm3 (150-450); RBC Distribution Width CV 13.2 % (11.6-14.6); RBC Distribution Width SD 43.1 fl (35.1-43.9); Red Blood Count 4.45 M/mm3 (4.2-5.4); White Blood Count 15.8 K/mm3 (4.4-11.0)
[2025-01-06 05:58] VITALS: BMI 29.4
[2025-01-06 08:04] VITALS: BP 124/78; PULSE 86; RESP 18; TEMP 36.7; O2SAT 97
[2025-01-06] MEDS: Senna Tablet 1 TABLET PO (10:16)
[2025-01-06] MEDS: Lactobacillis Acidophilus 1 CAP PO (10:16)
--- NOTE | 2025-01-06 12:13 | DCINST_ITS ---
Discharge Instructions DC O2, CPAP, BIPAP needs Home O2 Discharge instructions: No Dressing / Incision Call your doctor if you observe: Fever of 101 or Higher, Shortness of breath, Dizziness, Fainting spells, Swelling in the ankles, Chest pain and Increased palpitations (irregular heartbeat) Follow Up Care Test Results: Test results from this visit will be discussed in further detail at your follow- up appointment, if applicable. Discharge Plan Admission Admit Date/Time: 01/03/25 23:02 Attending Provider: Morales Garnica Primary Care Provider: Del Hubbard Consulting Providers: Shawn Moeller; Rogerio Randall Instructions Additional Instructions / Restrictions: Follow-up with your pain management doctor as well as your spine surgeon for the recurrent lumbar disc herniation. If there is no improvement and your pain then you may need to proceed to a fusion. Your urine culture has not finalized yet it is growing a gram-positive organism so I do recommend that you have your primary care doctor review your urine culture in a couple of days to determine continued appropriate antibiotic regimen. Discharge Orders/Prescriptions Prescriptions: New meloxicam 7.5 mg Tablet 7.5 mg PO DAILY 20 Days Qty: 20 0RF lidocaine 5 % Adhesive Patch,Medicated 1 patch topical DAILY 20 Days Qty: 20 0RF Protocol: *Topical Application Instructions APPLICATION INSTRUCTIONS: Right low back oxycodone 5 mg Tablet 5 mg PO Q4H PRN PRN (Reason: Pain Score 4-10) 3 Days Qty: 10 0RF tizanidine 2 mg Tablet 4 mg PO Q8H PRN PRN (Reason: back pain) 10 Days Qty: 20 0RF pantoprazole 40 mg Tablet,Delayed Release (Dr/Ec) 40 mg PO DAILY 30 Days Qty: 30 0RF cefdinir 300 mg capsule 300 mg PO BID Qty: 10 0RF Continued Mirena 21 mcg/24 hr (8 yrs) 52 mg intrauterine device 1 device intrauterine ONCE Rx Instructions: as a single dose tirzepatide (weight loss) 2.5 mg/0.5 mL pen injector 2.5 mg subcut QWEEK gabapentin 800 mg tablet 800 mg PO TID Referrals / Follow Up: Del Hubbard DO [Primary Care Provider] - Within 1 Week Disposition Disposition (needs filled in before D/C Order can be placed): Home, Self Care
[2025-01-06] MEDS: Lidocaine 5% Patch 1 PATCH TOPICAL (12:40)
[2025-01-06 13:14] VITALS: BP 102/67; PULSE 75; RESP 18; TEMP 36.9; O2SAT 98
--- NOTE | 2025-01-06 13:49 | PCM.DC.SUM ---
Providers Date of Admission: 01/03/25 Primary Care Physician: Dr. Del Hubbard, Consultations 01/04/25 00:26 Consult: Orthopedics Routine Consulting Provider: Shawn Moeller Reason for Consult: Second Opinion on Back Pain after Surgery. EMERGENT Consult: No MD Notified: Yes Date Notified: 01/03/25 Time Notified: 23:04 Method of Notification: ED Physician Initiated Reason For Visit: UTI, BACK PAIN, & DIFFICULTY SENSING NEED TO Diagnosis Discharge Diagnosis (1) Recurrent herniation of lumbar disc: Status: Acute Code(s): M51.26 - Other intervertebral disc displacement, lumbar region (2) History of lumbar laminectomy: Status: Acute Code(s): Z98.890 - Other specified postprocedural states Medications at Discharge Home Medications levonorgestrel (Mirena) 1 device intrauterine ONCE co 11/10/23 tirzepatide (weight loss) 2.5 mg/0.5 mL subcutaneous pen injector 2.5 mg subcut QWEEK wt loss 11/10/23 cefdinir 300 mg capsule 300 mg PO BID #10 caps 01/06/25 gabapentin 800 mg tablet 800 mg PO TID pain 20 days #60 tabs 01/06/25 lidocaine 5 % topical patch 1 patch topical DAILY 20 days #20 ea 01/06/25 meloxicam 7.5 mg tablet 7.5 mg PO DAILY 20 days #20 tabs 01/06/25 oxycodone 5 mg tablet 5 mg PO Q4H PRN PRN Pain Score 4-10 3 days #10 tabs 01/06/25 pantoprazole 40 mg tablet,delayed release 40 mg PO DAILY 30 days #30 tabs 01/06/25 tizanidine 2 mg tablet 4 mg (2 x 2 mg) PO Q8H PRN PRN back pain 10 days #20 tabs 01/06/25 Hospital Course Operations None Procedures None Summary of Care Provided Minutes Spent on Discharge: 33 Hospital Course: Per HPI: JUAN CHISHOLM, is a 39 F with a past medical history of obesity; on tirzepatide weekly, history of hyperlipidemia (2014), former tobacco abuse, history of breast reduction (2010), history of intramural fibroids, history of spinal scoliosis and history of back pain; s/p L4-L5 laminectomy and microdiscectomy on 09/05/2024 at [facility] by Dr. Jansen with initial improvement in her back pain who presents to [facility] ER complaining of an acute worsening of her back pain complicated by new difficulty ambulating and urinating. Ms. Chisholm reports her acute symptoms began ~3 weeks prior to admission with an acute worsening of her back pain causing her physician to obtain and MRI of the lumbar spine ~8 days ago that revealed possible recurrence of herniated disc at L4-L5 with need for another surgery with disc removal according to Dr. Jansen. She was then referred to pain management for injections at [facility] with patient stating that her pain improved for only ~2 hours before returning. She also admits to new difficulty sensing when she needs to urinate but she denies bowel or bladder incontinence. She states her pain is made worse with standing and walking and she has to crawl to the bathroom because the pain becomes so intense. She had already made an appointment here with Dr. Moeller for a second opinion about possible repeat surgery with radiologist that read her recent MRI recommending obtaining a repeat MRI with IV contrast as it was difficult to assess if there was scar tissue causing the mild impingement of the L5 nerve root on the Right vs. recurrent disc herniation. She admits to associated lethargy and back pain but she denies related fever, chills, changes in vision, discharge from eyes, runny nose, sore throat, ear pain, chest pain, palpitations, heart racing, lower extremity edema, shortness of breath, cough, abdominal pain, nausea, vomiting, diarrhea constipation, dysuria, hematuria, headache or rash. In the ER she was noted to have a UA positive for evidence of Acute Cystitis; without hematuria with a corresponding Leukocytosis of 23.2 K with Left-shift of 1% suspected to be due at least in part to recent steroid administration complicated by additional laboratory evidence of Hypokalemia of 2.9 mmol/L with otherwise unremarkable vital signs and laboratory studies with [id number] back pain and difficulty sensing when she needs to urinate in the setting of recent L4-L5 laminectomy and microdiscectomy with suspected recurrence of herniated disc at L4-L5 nerve. She was then admitted to the general medical floor for ongoing care for stay that is expected to extend beyond 2 midnights. Hospital Course: 1. Recurrent L4-L5 disc herniation with intractable back pain and right lower extremity sciatica?39-year-old female presents to the hospital with intractable back pain for the last 3 weeks. She had a herniated disc that was repaired at an outside hospital in August and has been doing well since then until about 3 weeks ago when she started having progressively worsening low back pain on the right that was leading to sciatic nerve pain going down her right leg with numbness and tingling. From a motor standpoint her right lower extremity is unaffected but she does have significant pain. She had an MRI from her spine surgeon on 12/26/2024 at [facility] however it was done without contrast and there was concern that all it was showing was scar tissue from her previous surgery however we repeated the MRI with contrast and it demonstrates a slightly larger disc bulge herniation on the right. It was discussed with her by orthopedic surgery here that the next step would be an L4-L5 fusion however they would like to proceed with conservative management first which she agreed to. Ultimately she was discharged home on multimodal pain regimen with meloxicam, oxycodone, gabapentin, and tizanidine. It was discussed with her that she needs to follow-up with her primary surgeon and pain management as an outpatient basis to receive refills and continued monitoring for possible progression to an L4-5 fusion. I discussed with her the plan for possible discharge today and she expressed understanding of the risks and benefits of going home and would like to go home today. 2. UTI?urine culture still pending though it does show an 80-100,000 CFU of gram-positive organism. She has had improvement in symptoms on Rocephin therefore we will transition her to cefdinir 300 mg p.o. twice daily for 5 more days. I recommend that she follow-up with her PCP within that time to get culture data as is not finalized yet to make any adjustments to her antibiotic regimen if indicated. Weight / BMI Weight Weight: 194 lb 0.108 oz Body Mass Index (BMI) 29.4 ABG / Lab / Microbiology Data 01/06/25 03:38 01/05/25 05:06 Laboratory: Laboratory Results - last 24 hr 01/06/25 03:38: WBC 15.8 H, RBC 4.45, Hgb 13.8, Hct 40.1, MCV 90.1, MCH 31.0, MCHC 34.4, RDW Std Deviation 43.1, RDW Coeff of Sadiq 13.2, Plt Count 285, MPV 8.5, Immature Gran % (Auto) 0.800, Neut % (Auto) 60.2, Lymph % (Auto) 29.2, [place] % (Auto) 6.9, Eos % (Auto) 2.5, Baso % (Auto) 0.4, Absolute Neuts (auto) 9.5 H, Absolute Lymphs (auto) 4.63 H, Nucleated RBC % 0 Microbiology: Microbiology 01/03/25 21:25 Urine, Clean Catch Urine Culture - Preliminary Gram positive organism Mixed Gram Positive Organisms D/C Instructions Call your doctor if you observe: Fever of 101 or Higher, Shortness of breath, Dizziness, Fainting spells, Swelling in the ankles, Chest pain and Increased palpitations (irregular heartbeat) DC O2, CPAP, BIPAP Needs Home O2 Discharge instructions: No Meaningful Use Info Meaningful Use Meaningful Use Diagnoses (Choose all that apply): None applicable Discharge Plan Admission Admit Date/Time: 01/03/25 23:02 Attending Provider: Morales Garnica Primary Care Provider: Del Hubbard Consulting Providers: Shawn Moeller; Rogerio Randall Instructions Additional Instructions / Restrictions: Follow-up with your pain management doctor as well as your spine surgeon for the recurrent lumbar disc herniation. If there is no improvement and your pain then you may need to proceed to a fusion. Your urine culture has not finalized yet it is growing a gram-positive organism so I do recommend that you have your primary care doctor review your urine culture in a couple of days to determine continued appropriate antibiotic regimen. Discharge Orders/Prescriptions Prescriptions: New meloxicam 7.5 mg Tablet 7.5 mg PO DAILY 20 Days Qty: 20 0RF lidocaine 5 % Adhesive Patch,Medicated 1 patch topical DAILY 20 Days Qty: 20 0RF Protocol: *Topical Application Instructions APPLICATION INSTRUCTIONS: Right low back oxycodone 5 mg Tablet 5 mg PO Q4H PRN PRN (Reason: Pain Score 4-10) 3 Days Qty: 10 0RF tizanidine 2 mg Tablet 4 mg PO Q8H PRN PRN (Reason: back pain) 10 Days Qty: 20 0RF pantoprazole 40 mg Tablet,Delayed Release (Dr/Ec) 40 mg PO DAILY 30 Days Qty: 30 0RF cefdinir 300 mg capsule 300 mg PO BID Qty: 10 0RF Continued Mirena 21 mcg/24 hr (8 yrs) 52 mg intrauterine device 1 device intrauterine ONCE Rx Instructions: as a single dose tirzepatide (weight loss) 2.5 mg/0.5 mL pen injector 2.5 mg subcut QWEEK gabapentin 800 mg tablet 800 mg PO TID 20 Days Qty: 60 0RF Referrals / Follow Up: Del Hubbard DO [Primary Care Provider] - Within 1 Week Disposition Disposition (needs filled in before D/C Order can be placed): Home, Self Care Charges/Coding Visit Charges Inpatient E&M: 99087 Disch Hosp >30min
== END 2025-01-06 13:54 | disposition home or self-care (01) | DRG 690 ==
LOC: ED 22:20 → MS3 23:23
PROVIDERS: Admitting Provider Internal Medicine; Emergency Provider Emergency Medicine; PCP Student in an Organized Health Care Education/Training Program; Visit Provider Family Medicine
DX: N30.00 Acute cystitis without hematuria (principal); E66.9 Obesity, unspecified; E87.6 Hypokalemia; E78.5 Hyperlipidemia, unspecified; M54.16 Radiculopathy, lumbar region; M51.26 Other intervertebral disc displacement, lumbar region; Z87.891 Personal history of nicotine dependence; Z68.29 Body mass index [BMI] 29.0-29.9, adult
CPT/HCPCS: 36415; 72158; 80048; 80053; 80061; 81001; 83605; 83735; 84100; 84443; 85025; 87077; 87086; 87088; 94668; 97110; 97162; 97165; 97535; 99283; A9575; A4216